=== PATIENT | female | born 1955 | race Caucasian/White ===

== ENCOUNTER → 2017-09-15 10:51 | Outpatient (CLI) | payer MEDICARE, MEDICAID, SELFPAY ==
[2017-09-15 11:26] VITALS: PULSE 109; PULSE 111; PULSE 112; PULSE 116; PULSE 117; PULSE 88; PULSE 90; O2SAT 90; O2SAT 91; O2SAT 92; O2SAT 95; O2SAT 96
--- NOTE | 2017-09-15 13:46 | WT_ITS ---
PSN 6 Minute Walk Test - 6 Minute Walk Test 6 Minute Walk Test: 6 Minute Walk Test PSN:6-Minute Walk Test Start: 09/15/17 11: 25 Freq: Status: Active Protocol: [id number] Document 09/15/17 11:26 SUBHASH (Rec: 09/15/17 11:28 SUBHASH [id number]) 6 Minute Walk Test Date Performed 09/15/17 Time Performed 11:00 Height 5 ft 5 in Weight: 200 lb Weight in Pounds 200.[address]: Sin Nobles Assistive device used: None Pre-test Oxygen Delivery Method Room Air Pulse Ox (%) 96 Pulse Rate (60-100 beats/min) 88 Dyspnea Jocelyn Scale (0-10) 0 Exertion Jocelyn Scale (6-20) 6 1st minute Oxygen Delivery Method Room Air Pulse Ox (%) 95 Pulse Rate (60-100 beats/min) 109 H 2nd minute Oxygen Delivery Method Room Air Pulse Ox (%) 92 Pulse Rate (60-100 beats/min) 111 H 3rd minute Oxygen Delivery Method Room Air Pulse Ox (%) 90 Pulse Rate (60-100 beats/min) 112 H 4th minute Oxygen Delivery Method Room Air Pulse Ox (%) 91 Pulse Rate (60-100 beats/min) 117 H 5th minute Oxygen Delivery Method Room Air Pulse Ox (%) 92 Pulse Rate (60-100 beats/min) 117 H 6th minute Oxygen Delivery Method Room Air Pulse Ox (%) 92 Pulse Rate (60-100 beats/min) 116 H Dyspnea Jocelyn Scale (0-10) 3 Exertion Jocelyn Scale (6-20) 12 Post-test Oxygen Delivery Method Room Air Pulse Ox (%) 96 Pulse Rate (60-100 beats/min) 90 Full Laps Walked 16 Partial Lap, Number of Tiles Walked 17 Total Distance Walked (ft) 961 - Interpretation Interpretation: The patient ambulated 961 feet over the course of 6 minutes beginning on room air without assistive devices or breaks. Pretesting oxygen saturation was noted to be 96% on room air. With ambulation, the sapphire oxygen saturation was 90%. This represents a significant exertional oxygen desaturation. The patient did develop physiologic tachycardia with exertion. - Recommendations Recommendations: There is no indication for the use of supplemental oxygen at this time. However , close interval follow-up is recommended given the degree of oxygen desaturation noted during this study.
== END ==
PROVIDERS: Family Provider Family Medicine; PCP Family Medicine; Visit Provider Nurse Practitioner Acute Care
DX: J43.9 Emphysema, unspecified (principal); R06.09 Other forms of dyspnea
CPT/HCPCS: 94618

== ENCOUNTER → 2017-12-20 08:00 | Outpatient (CLI) | payer MEDICARE, MEDICAID, SELFPAY ==
--- NOTE | 2017-12-20 08:00 | DT_ITS ---
This patient was seen during an EMR downtime December 19, 2017 - December 26, 2017. This patient may have a combination of paper and electronic documentation or all paper documentation. All documentation is viewable within the e-chart portion of [facility] for each patient visit.
--- NOTE | 2017-12-20 08:05 | CT_ITS ---
STUDY: LOW DOSE CT LUNG CANCER SCREENING REASON FOR EXAM: Female, 62 years old. 35 pack-year smoking history. RADIATION DOSAGE (If Supplied By Facility): CTDIvol = ( 4.02 ) mGy, DLP = ( 133.91 ) mGycm TECHNIQUE: No contrast was administered. Low dose technique was utilized (average mAS-38 and kVp 120). 1.25 mm axial source images with a slice interval of 1.25-mm were reconstructed in lung windows. 2.5 mm axial source images with a slice interval of 2.5-mm were reconstructed in lung windows. 5.0 mm axial source images with a slice interval of 5.0-mm were reconstructed in soft tissue windows. Nodule measured using lung windows on PACS and/or independent workstation with automated measurement of minimum and maximum diameter. Nodule measurement reported as average diameter rounded to the nearest whole number. Growth is defined as an increase ins size of greater than 1.5 mm. COMPARISON: Chest, November 03, 2016. NODULES: Nodule #: 1 Density: Solid Lung location: Left lower lobe: 0.3 cm from pleura Location in series: Series Number: 2 Image: 138 Size - D1 x D2 mm: 3 x 3 mm: 3 mm average diameter Margin: Smooth Shape: Rounded Calcification: Yes Fat: No Temporal comparison: None Nodule #: 2 Density: Solid Lung location: Left lower lobe: Pleural-based Location in series: Series Number: 3 Image: 151 Size - D1 x D2 mm: 2 x 2 mm: 2 mm average diameter Margin: Smooth Shape: Rounded Calcification: No Fat: No Temporal comparison: None Total lung nodules (excluding granulomas): 1 Emphysema: Yes Endobronchial lesion: No Aorta: There is atherosclerotic tortuosity of the thoracic aorta without aneurysm. Coronary arteries: None Heart: Normal in size Pulmonary artery: Normal Mediastinal nodes: None Other chest and abdominal findings: There are degenerative changes of the thoracic spine. CT/Low Dose CT Lung Screening IMPRESSION: Lung-RADS category 2 - Continue annual screening with LDCT in 12 months. IMPORTANT NOTES FOR USE: ACR Lung-RADS Version 1.0 Assessment Categories Release Date: November 12, 2013 Category: Coded 0-4 bases on nodule(s) with highest degree of suspicion. Negative screen is defined as categories 1 and 2; a positive screen is defined as categories 3 and 4. Category 3 and 4A nodules that are unchanged on interval CT should be coded as category 2, and individuals returned to screening in 12 months. Category 4X: Category 3 or 4 nodules with additional imaging findings that increase the suspicion of lung cancer, such as spiculation, GGN that doubles in size in 1 year, enlarged lymph notes, etc. Category Modifiers: S (significant finding unrelated to lung cancer) and C (prior history of treated lung cancer) may be added to the 0-4 Lung-RADS Electronically Signed: Darren Ngo DO at 10:44 EDT Tel [phone], Service support ,
--- NOTE | 2017-12-26 11:15 | PFT ---
INTRODUCTION: The patient is a 62-year-old female that presents for pulmonary function testing secondary to a diagnosis of COPD. Respiratory therapy reports good patient effort. Bronchodilators were used during testing. INTERPRETATION: Forced expiration spirometry demonstrates the presence of a very severe large airways obstructive ventilatory defect. There was a significant response to aerosolized bronchodilators noted. Spirograms are of good quality and do not plateau indicating slow emptying of the lungs. The respiratory flow volume loop reveals decreased expiratory flow rates at all lung volumes consistent with airways obstruction. Body plethysmography was performed and reveals an elevated RV to 169% of predicted, indicative of underlying air trapping. Diffusing capacity by single breath CO is moderately reduced at 48% of predicted. IMPRESSION: These pulmonary function studies demonstrate the presence of a partially reversible very severe large airways obstructive ventilatory defect with associated air trapping and reduction in diffusing capacity.
== END ==
PROVIDERS: Family Provider Family Medicine; PCP Family Medicine; Visit Provider Internal Medicine Critical Care Medicine
DX: J44.9 Chronic obstructive pulmonary disease, unspecified (principal); F17.201 Nicotine dependence, unspecified, in remission; Z87.891 Personal history of nicotine dependence
CPT/HCPCS: 94060; 94726; 94729; G0297

== ENCOUNTER → 2018-02-10 10:15 | Outpatient (RCR) | payer MEDICARE, MEDICAID, SELFPAY ==
--- NOTE | 2018-01-19 10:46 | PCM.PR.HP ---
History of Present Illness Arrival date:: 01/19/18 Arrival time:: 10:47 Date of Referral:: 01/11/18 Date of Evaluation: 01/19/18 Referring Physician: DR. BENITA NOBLES Primary Diagnosis: VERY SEVERE COPD Gold Classification Stage IV History of Present Illness: This is a 62 year old female patient of Dr. Benita Nobles's who presents to pulmonary rehab today for her COPD. Tpe patient also has a medical hsitory of LILIA and hypoxia for which she wears BiPaP 28/02 at HS. mMRC Breathless Scale: When is the patient short of breath? Y/N Grade: Description of Breathlessness: 0 I only get breathless with strenuous exercise. 1 I get short of breath when hurrying on level ground or walking up a slight hill. 2 On level ground, I walk slower than people of the same age because of breathless, or have to stop for breath when walking at my own pace. 3 I stop for breath after walking 100 yards or after a few minutes on level ground. 4 I am too breathless to leave the house or I am breathless when dressing. Respiratory Problems: Yes: Wheezing, Able to Speak in Full Sentences, Hoarseness, Dyspnea with Activity No: Retain Secretions, Limited Range of Motion, Fatigue, Dizziness, Ankle Swelling, Dyspnea at Rest, Dyspnea Lying Down Flat, Cough with Secretions Home Medications: Home Medications Aspirin [Ecotrin] 81 mg PO DAILY 10/04/13 Bupropion HCl [Wellbutrin Sr] 200 mg PO DAILY 10/04/13 Famotidine [Pepcid] 20 mg PO PRN PRN 10/04/13 Levothyroxine Sodium [Levoxyl] 125 mcg PO DAILY 10/04/13 Lisinopril [Zestril] 20 mg PO DAILY 10/04/13 Hydrochlorothiazide [Hctz] 25 mg PO DAILY 10/31/16 Oxygen, Home [Home Oxygen] 2 lpm NASAL CONT #1 unit 10/31/16 Meloxicam [Mobic] 15 mg PO DAILY PRN 11/03/16 Metformin HCl [Metformin HCl ER] 500 mg PO BREAKFAST 11/03/16 Rosuvastatin Calcium [Crestor] 5 mg PO QHS 11/03/16 budesonide-formoterol HFA 160 mcg-4.5 mcg/actuation aerosol inhaler 2 puff INHALATION Q12H 09/21/17 albuterol sulfate HFA 90 mcg/actuation aerosol inhaler 2 puff INHALATION Q6H PRN 10/24/17 prednisone 10 mg tablet 10 mg PO QDAY #30 tab 10/24/17 varenicline 0.5 mg (11)-1 mg (42) tablets in a dose pack See Label Instructions PO PER PKG DIR #53 tab 10/24/17 tiotropium bromide 18 mcg capsule with inhalation device 1 cap INHALATION QDAY #30 inh 11/02/17 Allergies/Adverse Reactions: Allergies No Known Allergies Allergy (Verified 10/24/17 10:50) - Secretions Normal Color:: clear Thick:: No Thin:: No Amount/Day:: very small amounts Cough:: Yes Hx of Sleep Apnea: Yes Do you snore loudly (louder than talking or can be heard through closed doors)?: Yes - patient currently has BiPAP at for nocturnal hypoxia and LILIA. History of Hypertension (for STOP score): Yes Medical Utilization Do you use a peak flow meter at home?: No Do you use a spacer device with your inhalers?: No Number of hospital visits in the last year?: 0 Number of emergency room visits in the last year?: 0 Do you see your physician on a regular schedule?: Yes How often?: 6 months PCP; 3 months PM Advanced Directives - Advanced Directives Power of Surveyor Instrument Assistant: No Living Will: No Advance Directives Information Provided: Yes Advance Directives on File: No DNR Order?:: No - MOLST See MOLST form: No Past Medical History Medical History: Past Medical History (Last Reviewed 10/24/17 @ 10:55 by MOUNA Contreras) Chronic migraine G43.709 Hypertension I10 Hypoxia R09.02 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 Nocturnal hypoxia G47.34 PND (paroxysmal nocturnal dyspnea) R06.00 Right ankle pain M25.571 Shortness of breath R06.02 Stage 4 very severe COPD by GOLD classification J44.9 Wheezing R06.2 Dislocation of ankle joint S93.06XA Other fracture of right lower leg, initial encounter for closed fracture S82.891A Surgical History: Past Surgical History (Last Reviewed 10/24/17 @ 10:55 by MOUNA Contreras) Tubal ligation evaluation Z01.818 Family History: Family History (Last Reviewed 10/24/17 @ 10:55 by MOUNA Contreras) Mother Cancer Leukemia Father COPD (chronic obstructive pulmonary disease) - Current/ Previous Services Pulmonary Rehab:: No Social History - Smoking History Smoking Status: Former smoker Years Smokin - started age 14 Packs Smoked per Day: 1 Hx Smoking Cessation Date: 2015 Hx Tobacco Use: Yes Hx Smoking Exposure: Yes - a little now; kids now smoking outside - Alcohol Use Alcohol Usage: No - Substance Abuse Hx Substance Use: No - previous use of crack/cocaine - Occupation Occupation (List type of work in comments):: Retired - Hobbies, Recreation, Social Activities Hobbies: Reading Recreational Activities: I am able to engage in all my recreational activities Functioning ADL/IADL - Current Ability Current Ability: Independent Self-Care (e.g.,grooming, dressing, & bathing), Independent Ambulation, Independent Transfer, Independent Household tasks (e.g., light meal prep, laundry, shopping) - Pt Functioning Prior to Problem Prior Functioning: Self-Care (e.g.,grooming, dressing, & bathing): Independent, Ambulation: Independent, Transfer: Independent, Household tasks (e.g., light meal prep, laundry, shopping): Independent Social Environment - Status Marital Status: - Current Living Arrangements Living Environment:: Alone - Children How many children do you have?: 3 - 5 grandchildren Do any of your children live nearby?: Yes - Safety Do you feel safe in your surroundings?: Yes - Assistance Do you need any assistance at home?: none Review of Systems Review of Systems: Right click = Denies (Slash). Left click = Reports ([place]) Respiratory: Reports: SOB upon Exertion, Wheezing, Appetite, Normal, Sleep, Normal. Denies: Cough, SOB at Rest, Sputum production, Dizziness/Lightheadedness, Fatigue Is Patient Pain Free?: No Pain Location: none Pain Level: 0/10 Risk Factor Assessment - Chief Complaint Chief Complaint: Patient is a very pleasant 63 yr old femal who has a previous history of LILIA, hypoxia, nocturnal hypoxia and very severe COPD. The patient was orginally referred back in October of 2017 but wanted to be sure the influenza season and weather was cleared before starting the program. - Vital Signs Temperature: 98.7 F Pulse Rate: 97 Pulse Rhythm: Regular Respiratory Rate: 18 Pulse Ox: 94 - room air Blood Pressure: 118/62 Nailbeds:: pink - Diabetes Diabetic History: Type II, Medication Dependent - metformin 500mg in AM w/breakfast Nutrition Referral for Diabetes: No - Obesity Height: 5 ft 5 in Weight:: 203 lb Weight in Pounds: 203.0 lbs Weight Source: Standing Scale Body Mass Index (BMI): 33.7 - For Smoking Smoking Risk Guidelines: Smoking Low Risk: None or quit greater than 6 months ago. Smoking Moderate Risk: Smoker or quit 6 months or less ago. Smoking High Risk: Smoker - For Dyslipidemia Dyslipidemia Risk Guidelines: Low Risk: Moderate Risk: High Risk: 15-25% fat 25.1-29% fat >/= 30% fat. <7% sat fat 7-9% sat fat >9% sat fat. <150 mg chol 150-299 mg chol >/= 300 mg chol. LDL <100 LDL 100-129 LDL >/= 130. Chol/HDL ratio <5.0 Chol/HDL ratio 5.0-6.0 Chol/HDL ratio >6.0. Triglycerides <100 Triglycerides 100-149 Triglycerides >/= 150 - For Diabetes Mellitus Diabetes Risk Guidelines: Diabetes Low Risk: HgA1c <6.5% and/or FBG <120. Diabetes Moderate Risk: HgA1c 6.6-7.9% and/or FBG 120-180. Diabetes High Risk: HgA1c >/= 8% and/or FBG >180 - For Obesity/Overweight Obesity/Overweight Risk Guidelines: Obesity Low Risk: BMI <25.0. Obesity Moderate Risk: BMI 25-29.9. Obesity High Risk: BMI >/= 30.0 - For Hypertension Hypertension Risk Guidelines: Hypertension Low Risk: Systolic <120 and Diastolic <80. Hypertension Moderate Risk: Systolic 120-139 and Diastolic 80-89. Hypertension High Risk: Systolic >/= 140 and Diastolic >/= 90 - For Sedentary Lifestyle Sedentary Lifestyle Risk Guidelines: Sedentary Lifestyle Low Risk: >/= 1,500 kcal/week. Sedentary Lifestyle Moderate Risk: 700-1,499 kcal/week. Sedentary Lifestyle High Risk: < 700 kcal/week - For Depression Depression Risk Guidelines: Depression Low Risk: Not clinically depressed. Depression Moderate Risk: Mildly depressed. Depression High Risk: Clinically depressed Motivation - Motivation to Participate On a scale of 1 to 10, how prepared are you to commit to attending program?: 8 What do you see as barriers to successfully being able to complete the program?: none What do you see as the benefits of succesfully completing the program? In other words, what do you hope to get out of participating in the program?: breathe better, knowing how to breath correctly, be able to mop and weep Are there issues you are dealing with that will interfere with completing the program?: none Do you have a spouse or signficant other, family or friends who will help support you to complete the program?: yes Diagnostic Data Review - 6 Minute Walk Test 6 Minute Walk Test: see EHR - Pulmonary Function Test FEV1:: 0.57 - 23% predicted FVC:: 1.76 - 53% predicted FEV1/FVC%:: 33 Gold Classification: Gold class IV(very severe COPD)with FEV1/FVC <70, FEV1 <30% predicted
--- NOTE | 2018-01-19 10:57 | PR.HP_ITS ---
History of Present Illness Arrival date:: 01/19/18 Arrival time:: 10:47 Date of Referral:: 01/11/18 Date of Evaluation: 01/19/18 Referring Physician: DR. BENITA NOBLES Primary Diagnosis: VERY SEVERE COPD Gold Classification Stage IV History of Present Illness: This is a 62 year old female patient of Dr. Benita Nobles's who presents to pulmonary rehab today for her COPD. Tpe patient also has a medical hsitory of LILIA and hypoxia for which she wears BiPaP 28/02 at [facility]. [facility] Breathless Scale: When is the patient short of breath? Y/N Grade: Description of Breathlessness: 0 I only get breathless with strenuous exercise. 1 I get short of breath when hurrying on level ground or walking up a slight hill. 2 On level ground, I walk slower than people of the same age because of breathless, or have to stop for breath when walking at my own pace. 3 I stop for breath after walking 100 yards or after a few minutes on level ground. 4 I am too breathless to leave the house or I am breathless when dressing. Respiratory Problems: Yes: Wheezing, Able to Speak in Full Sentences, Hoarseness , Dyspnea with Activity No: Retain Secretions, Limited Range of Motion, Fatigue, Dizziness, Ankle Swelling, Dyspnea at Rest, Dyspnea Lying Down Flat, Cough with Secretions Home Medications: Home Medications Aspirin [Ecotrin] 81 mg PO DAILY 10/04/13 Bupropion HCl [Wellbutrin Sr] 200 mg PO DAILY 10/04/13 Famotidine [Pepcid] 20 mg PO PRN PRN 10/04/13 Levothyroxine Sodium [Levoxyl] 125 mcg PO DAILY 10/04/13 Lisinopril [Zestril] 20 mg PO DAILY 10/04/13 Hydrochlorothiazide [Hctz] 25 mg PO DAILY 10/31/16 Oxygen, Home [Home Oxygen] 2 lpm NASAL CONT #1 unit 10/31/16 Meloxicam [Mobic] 15 mg PO DAILY PRN 11/03/16 Metformin HCl [Metformin HCl ER] 500 mg PO BREAKFAST 11/03/16 Rosuvastatin Calcium [Crestor] 5 mg PO QHS 11/03/16 budesonide-formoterol HFA 160 mcg-4.5 mcg/actuation aerosol inhaler 2 puff INHALATION Q12H 09/21/17 albuterol sulfate HFA 90 mcg/actuation aerosol inhaler 2 puff INHALATION Q6H PRN 10/24/17 prednisone 10 mg tablet 10 mg PO QDAY #30 tab 10/24/17 varenicline 0.5 mg (11)-1 mg (42) tablets in a dose pack See Label Instructions PO PER PKG DIR #53 tab 10/24/17 tiotropium bromide 18 mcg capsule with inhalation device 1 cap INHALATION QDAY # 30 inh 11/02/17 Allergies/Adverse Reactions: Allergies No Known Allergies Allergy (Verified 10/24/17 10:50) - Secretions Normal Color:: clear Thick:: No Thin:: No Amount/Day:: very small amounts Cough:: Yes Hx of Sleep Apnea: Yes Do you snore loudly (louder than talking or can be heard through closed doors)? : Yes - patient currently has BiPAP at for nocturnal hypoxia and LILIA. History of Hypertension (for STOP score): Yes Medical Utilization Do you use a peak flow meter at home?: No Do you use a spacer device with your inhalers?: No Number of hospital visits in the last year?: 0 Number of emergency room visits in the last year?: 0 Do you see your physician on a regular schedule?: Yes How often?: 6 months PCP; 3 months PM Advanced Directives - Advanced Directives Power of Credit And Collections Analyst: No Living Will: No Advance Directives Information Provided: Yes Advance Directives on File: No DNR Order?:: No - MOLST See MOLST form: No Past Medical History Medical History: Past Medical History (Last Reviewed 10/24/17 @ 10:55 by MOUNA Contreras) Chronic migraine G43.709 Hypertension I10 Hypoxia R09.02 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 Nocturnal hypoxia G47.34 PND (paroxysmal nocturnal dyspnea) R06.00 Right ankle pain M25.571 Shortness of breath R06.02 Stage 4 very severe COPD by GOLD classification J44.9 Wheezing R06.2 Dislocation of ankle joint S93.06XA Other fracture of right lower leg, initial encounter for closed fracture S82.891A Surgical History: Past Surgical History (Last Reviewed 10/24/17 @ 10:55 by MOUNA Contreras) Tubal ligation evaluation Z01.818 Family History: Family History (Last Reviewed 10/24/17 @ 10:55 by MOUNA Contreras) Mother Cancer Leukemia Father COPD (chronic obstructive pulmonary disease) - Current/ Previous Services Pulmonary Rehab:: No Social History - Smoking History Smoking Status: Former smoker Years Smokin - started age 14 Packs Smoked per Day: 1 Hx Smoking Cessation Date: 2015 Hx Tobacco Use: Yes Hx Smoking Exposure: Yes - a little now; kids now smoking outside - Alcohol Use Alcohol Usage: No - Substance Abuse Hx Substance Use: No - previous use of crack/cocaine - Occupation Occupation (List type of work in comments):: Retired - Hobbies, Recreation, Social Activities Hobbies: Reading Recreational Activities: I am able to engage in all my recreational activities Functioning ADL/IADL - Current Ability Current Ability: Independent Self-Care (e.g.,grooming, dressing, & bathing), Independent Ambulation, Independent Transfer, Independent Household tasks (e.g. , light meal prep, laundry, shopping) - Pt Functioning Prior to Problem Prior Functioning: Self-Care (e.g.,grooming, dressing, & bathing): Independent, Ambulation: Independent, Transfer: Independent, Household tasks (e.g., light meal prep, laundry, shopping): Independent Social Environment - Status Marital Status: - Current Living Arrangements Living Environment:: Alone - Children How many children do you have?: 3 - 5 grandchildren Do any of your children live nearby?: Yes - Safety Do you feel safe in your surroundings?: Yes - Assistance Do you need any assistance at home?: none Review of Systems Review of Systems: Right click = Denies ([place]). Left click = Reports ([place]) Respiratory: Reports: SOB upon Exertion, Wheezing, Appetite, Normal, Sleep, Normal. Denies: Cough, SOB at Rest, Sputum production, Dizziness/ Lightheadedness, Fatigue Is Patient Pain Free?: No Pain Location: none Pain Level: 0/10 Risk Factor Assessment - Chief Complaint Chief Complaint: Patient is a very pleasant 63 yr old femal who has a previous history of LILIA, hypoxia, nocturnal hypoxia and very severe COPD. The patient was orginally referred back in October of 2017 but wanted to be sure the influenza season and weather was cleared before starting the program. - Vital Signs Temperature: 98.7 F Pulse Rate: 97 Pulse Rhythm: Regular Respiratory Rate: 18 Pulse Ox: 94 - room air Blood Pressure: 118/62 Nailbeds:: pink - Diabetes Diabetic History: Type II, Medication Dependent - metformin 500mg in AM w/ breakfast Nutrition Referral for Diabetes: No - Obesity Height: 5 ft 5 in Weight:: 203 lb Weight in Pounds: 203.0 lbs Weight Source: Standing Scale Body Mass Index (BMI): 33.7 - For Smoking Smoking Risk Guidelines: Smoking Low Risk: None or quit greater than 6 months ago. Smoking Moderate Risk: Smoker or quit 6 months or less ago. Smoking High Risk: Smoker - For Dyslipidemia Dyslipidemia Risk Guidelines: Low Risk: Moderate Risk: High Risk: 15-25% fat 25.1-29% fat >/= 30% fat. <7% sat fat 7-9% sat fat >9% sat fat. <150 mg chol 150-299 mg chol >/= 300 mg chol. LDL <100 LDL 100-129 LDL >/= 130. Chol/HDL ratio <5.0 Chol/HDL ratio 5.0-6.0 Chol/HDL ratio >6.0. Triglycerides <100 Triglycerides 100-149 Triglycerides >/= 150 - For Diabetes Mellitus Diabetes Risk Guidelines: Diabetes Low Risk: HgA1c <6.5% and/or FBG <120. Diabetes Moderate Risk: HgA1c 6.6-7.9% and/or FBG 120-180. Diabetes High Risk: HgA1c >/= 8% and/or FBG >180 - For Obesity/Overweight Obesity/Overweight Risk Guidelines: Obesity Low Risk: BMI <25.0. Obesity Moderate Risk: BMI 25-29.9. Obesity High Risk: BMI >/= 30.0 - For Hypertension Hypertension Risk Guidelines: Hypertension Low Risk: Systolic <120 and Diastolic <80. Hypertension Moderate Risk: Systolic 120-139 and Diastolic 80-89. Hypertension High Risk: Systolic >/= 140 and Diastolic >/= 90 - For Sedentary Lifestyle Sedentary Lifestyle Risk Guidelines: Sedentary Lifestyle Low Risk: >/= 1 ,500 kcal/week. Sedentary Lifestyle Moderate Risk: 700-1,499 kcal/week. Sedentary Lifestyle High Risk: < 700 kcal/week - For Depression Depression Risk Guidelines: Depression Low Risk: Not clinically depressed. Depression Moderate Risk: Mildly depressed. Depression High Risk: Clinically depressed Motivation - Motivation to Participate On a scale of 1 to 10, how prepared are you to commit to attending program?: 8 What do you see as barriers to successfully being able to complete the program? : none What do you see as the benefits of succesfully completing the program? In other words, what do you hope to get out of participating in the program?: breathe better, knowing how to breath correctly, be able to mop and weep Are there issues you are dealing with that will interfere with completing the program?: none Do you have a spouse or signficant other, family or friends who will help support you to complete the program?: yes Diagnostic Data Review - 6 Minute Walk Test 6 Minute Walk Test: see EHR - Pulmonary Function Test FEV1:: 0.57 - 23% predicted FVC:: 1.76 - 53% predicted FEV1/FVC%:: 33 Gold Classification: Gold class IV(very severe COPD)with FEV1/FVC <70, FEV1 <30 % predicted
[2018-01-19 11:06] VITALS: BP 118/62; PULSE 97; RESP 18; TEMP 37.1; O2SAT 94; BMI 33.7
--- NOTE | 2018-01-19 11:06 | PR.ITP_ITS ---
General Information - General Information Admitting Diagnosis: COPD Gold Classification:: GOLD 4: Very Severe - PFT FEV1:: 0.57 FVC:: 1.76 FEV1/FVC%:: 33 - Education/Goals Barriers to Learning: None Individual Counseling: Initial Assessment: Dyspnea control techniques at rest, activity, and ADLs, Exacerbation prevention & management, ADL management and pacing, Home exercise plan & guidelines Patient Goals: Breathe better: Initial Assessment, Increase endurance/stamina: Initial Assessment, Return to recreation/hobby: Initial Assessment, Improve diet and nutrition: Initial Assessment, Symptom management: Initial Assessment, Stop smoking/maintain cessation: Initial Assessment, Improve weight: Initial Assessment Exercise - Initial Assessment - Visit Date of Eval: 01/19/18 - Established ITp start on: - Problem/Goals Problems: Deconditioning, Knowledge deficit exercise guidelines, Knowledge deficit exercise safety - Exercise Prescription Mode:: Treadmill, Rower, Airdyne, NuStep Frequency (x/week): 3 Duration:: 30 MET LEVEL:: 2.5 HR (bpm):: 117 - 106-117 THRR Exercise Progression: as tolerated per program protocol. - Plan Plan and Plan to Review:: Benefits of exercise, Core components of exercise, How to measure dyspnea level, How to monitor dyspnea level, Exercise intensity, Exercise safety guideline, Home exercise guidelines, Jocelyn: 3-4/11-13 Disease Management - Initial - Problems/Goals-Hypoxemia Hypoxemia Problems:: Hypoxemia Hypoxemia Goals:: Hypoxemia managed - Problems/Goals-Medications Medication Goals: Correct technique/timing & care of MDI, DPI, nebulizer, and spacer. - Problems/Goals-Bronchial Hygiene Bronchial Hygiene Problems:: Respiratory infection Prevention/Management Bronchial Hygiene Goals:: Pt demonstrates effective cough, effective secretion clearance., Pt describes signs and symptoms of infection. - Initial Assessment SpO2:: 94 FiO2:: 21 DME:: [facility] Does pt report taking home meds as prescribed?: Yes Medications: Yes MDI, Yes DPI, Yes NEB - only when has infection, No Spacer Patient Reports:: No cough - Plans Hypoxemia Plan:: Monitor SpO2 rest & with exercise, Train appropriate O2 use at rest, Train appropriate O2 use with exercise, Train O2 safety & systems Reviewed prescribed medications:: Purpose, Schedule, Side effects, Importance of compliance Instruct correct technique/timing & care:: MDI, DPI, Nebulizer, Return demo use of inhaler Bronchial Hygiene Plan: Controlled cough, Vibratory PEP device, Hydration, Hand hygiene, Signs/symptoms to report: Psychosocial - Initial Assess - Problems/Goals Problems: Impaired Q.O.L. Psychosocial Goals: Improved Q.O.L. - Psychosocial Test Depression:: Impaired QOL Referred to MD for counseling:: No - Plan Reviewed screening results: Yes Instructions given regarding:: Benefits of exercise, Relaxation techniques, Training in coping strategies Tobacco - Initial Assessment - Program Goals Tobacco Program Goals: Complete smoking cessation. Attend education classes. Improve Knowledge Test score - Stage of Change Stages of Change:: Action - Learning Barriers Learning Barriers: Ready to Learn - Family Support Do you have family support?: Yes - Tobacco Use Tobacco Use: Cigarettes How long ago did you quit using tobacco products?: Greater than or equal to 6 months ago Years Smokin Do you use smokeless tobacco?: No - Intervention Smoking Cessation Referral:: Yes - still smokes on occasion; requires support for complete smoking cessation Individual Education/Counseling:: No Education Schedule Given:: Yes - Education Gave Education Materials For:: Tobacco Triggers, Pulmonary Disease, Risk Factors , Breathing Techniques, Medical Compliance, Pulmonary A&P, Exacerbation Signs & Symptoms, Stress & Relaxation Nutrition/Wt Mgmt - Initial - Problems/Goals Problems: Overweight Goals: BMI 21-25, Wt Loss 1-2 lbs per week - Weight Management Knowledge Deficit Management of:: Overweight, Weight control w/Prednisone Admit Height:: 5 ft 5 in Admit Weight:: 203 lb Admit BMI:: 33.7 - Diabetes Diabetes:: Yes - Intervention Referral to dietitian:: Yes - Borderline DM Type II Metformin 500mg breakfast; unsure of last HbA1c Referral to Diabetic Clinic:: Yes Will attend diet classes:: Yes - Plan Nutrition Plan: Yes Nutrition education class:, Yes Medication education class [ Prednisone]:, Yes Weight control education class: Patient Health Questionnaire Initial Assessment 1. Little interest or pleasure in doing things: Several days 2. Feeling down, depressed, or hopeless: Several days 3. Trouble falling or staying asleep, or sleeping too much: Several days 4. Feeling tired or having little energy: Several days 5. Poor appetite or overeating: More than half the days 6. Feeling bad about yourself -- or that you are a failure or have let yourself or your family down: Several days 7. Trouble concentrating on things, such as reading the newspaper or watching television: Not at all 8. Moving or speaking so slowly that other people could have noticed. Or the opposite - being so fidgety or restless that you have been moving around a lot more than usual: Not at all 9. Thoughts that you would be better off , or of hurting yourself in some way: Not at all How difficult have these problems made it for you to do your work, take care of things at home, or get along with other people?: Somewhat difficult Total Score: 7 COPD Knowledge Test Initial COPD is a lung disease that:: Makes it hard to breathe & gets worse over time In the [place] the term COPD describes 2 main lung conditions:: Emphysema & pulmonary hypertension The most common lung irritant that causes COPD is:: Cigarette smoke Common signs and symptoms of COPD include:: An ongoing cough/cough that produces a large amount of mucus, & SOB If you have COPD, what steps can you take?: All of the above Swelling of the ankles is common in COPD:: False Fatigue [tiredness] is common in COPD:: True Wheezing is common in COPD:: True Crushing chest pain is common in COPD:: False Rapid weight loss is common in COPD:: False Breathlessness is a normal response to exercise: True Exercise should be avoided if it makes you short of breath: False All bronchodilators act within 10 minutes: True A spacer device increases the medication to the lungs: False Annual flu vaccine is recommended for pts w/lung disease: True COPD Knowledge Test Total Score:: 12 COPD Assessment Test [CAT] - Questions Never cough = 0, Cough all the time = 5: 4 No phlegm = 0, Chest full of phlegm = 5: 4 No chest tightness = 0, Chest very tight = 5: 3 No breathless w/exertion = 0, Very breathless w/exertion = 5: 5 No limitations w/activity = 0, Very limited w/activity = 5: 3 Confident leaving home = 0, Not at all confident = 5: 0 Sleep soundly = 0, Don't sleep soundly = 5: 2 Lots of energy = 0, No energy at all = 5: 3 Total CAT score:: 24 Self-Efficacy Initial Assessment We would like to know how confident you are in doing certain activities. Please select your confidence level for:: Select your confidence level for the following using the scale 1-10 where 1 is not at all confident and 10 is totally confident. Your score is the average of all 6 responses. Fatigue: How confident are you that you can keep the fatigue caused by your disease from interfering with the things you want to do? Select Number: 5 Physical Discomfort or Pain: How confident are you that you can keep the physical discomfort or pain of your disease from interfering with the things you want to do? Select Number: 5 Emotional Distress: How confident are you that you can keep the emotional distress caused by your disease from interfering with the things you want to do? Select Number: 8 Other Symptoms or Health Problems: How confident are you that you can keep other symptoms or health problems from interfering with the things you want to do? Select Number: 7 Different Tasks and Activities: How confident are you that you can do the different tasks and activities needed to manage your health condition so as to reduce your need to see a doctor? Select Number: 7 Medication: How confident are you that you can do things other than just taking medication to reduce how much your illness affects your everyday life? Select Number: 8 Total Score:: 6 Nutrition Survey - Nutrition Survey Instructions Scoring Instructions: Scoring is as follows: Yes = 1 points. No = 0 point. Patient score that is >/=12 is considered to be at potential nutritional risk and could benefit from a referral to a registered dietitian. - Nutrition Survey Initial Have you lost >10 lbs over the past 2 months without trying?: No Are you following a special diet at home for diabetes, low fat, or low salt?: No Are you interested in meeting with a dietitian for help understanding your diet? : Yes Do you eat less than 3 meals a day?: Yes Do you eat fatty meats (galarza, sausage, ribs, etc), fried foods, desserts, large amounts of salad dressings, margarine, butter, or cheese most days?: Yes Do you have food allergies? [Enter types in comment field]: No Do you eat in restaurants more than 3 times a week?: No Do you season food with salt, seasoning salt, or garlic salt?: Yes Do you used canned, boxed, frozen meals, or soups, seasoning packets?: Yes Total Score:: 5
--- NOTE | 2018-01-19 11:34 | PCM.PR.DAT ---
Dates of Coverage Times for Dates Of Coverage; All dates of coverage are for physician supervision/medical voucher clerk for during the times of 08:00 AM through 4:30 PM. Effective Mar 18, 2013 our hours will be changing to 8:00 to 4:30 on Tuesday, Tuesday and Tuesday. First Date of the Month: 01/19/18 Last Date of the Month: 02/14/18
[2018-01-19 12:20] VITALS: O2SAT 94; BMI 33.7
--- NOTE | 2018-02-07 08:14 | PR.DATECOV_ITS ---
Dates of Coverage Times for Dates Of Coverage; All dates of coverage are for physician supervision /diagnostic medical sonographer for during the times of 08:00 AM through 4:30 PM. Effective Mar 18, 2013 our hours will be changing to 8:00 to 4:30 on Tuesday, Tuesday and Tuesday. First Date of the Month: 02/15/18 Last Date of the Month: 03/17/18
--- NOTE | 2018-02-07 08:23 | PR.ITP_ITS ---
Exercise - 30-Day Assessment - Exercise Prescription Mode:: Treadmill, Airdyne, NuStep, Arm Ergometer Frequency (x/week): 3 Duration:: 30 Aerobic Exercise [30-60 min 3-7x/week]:: Progressing Target heart rate: 117-125 Jocelyn-12 MET Level:: 2.5 - Home Exercise Home Exercise:: No Disease Management - 30-Day - Hypoxemia Reassessment: Demonstrates knowledge of O2 Rx with exercise - Medications Medication list reviewed:: Yes Taking medications 100% of the time:: Met - Bronchial Hygiene Bronchial Hygiene Plan: Yes Pt demo correct for device - inbstruct use of IMT and SMI devices; returned demonstration. Psychosocial - 30-Day - Assessment Reassessment: Management of stress & depression, Demonstrate coping strategies Tobacco - 30-Day Assessment - Program Goals Tobacco Program Goals: Complete smoking cessation. Attend education classes. Improve Knowledge Test score - Stage of Change Stages of Change:: Action - Learning Barriers Learning Barriers: Participates in education - Family Support Do you have family support?: Yes - Tobacco Use Tobacco Use: Non-smoker Do you use smokeless tobacco?: No - Intervention Education Schedule Given:: Yes - Education Gave Education Materials For:: Tobacco Triggers, Pulmonary Disease, Risk Factors , Breathing Techniques, Medical Compliance, Pulmonary A&P, Exacerbation Signs & Symptoms, Stress & Relaxation - Former smoker, previous h/o crack cocaine use and meth claims to be clean. Nutrition/Wt Mgmt - 30-Day - Weight Management Weight Assessment:: Wt loss 1-2 lbs per week, Wt stable Weight:: 206 lb 8 oz Weight Goals Progress:: Not progressing - discussed weight loss with patient and encouraged Nutrition Services Why Weight program. Patient Health Questionnaire 30-Day Re-eval Assessment 1. Little interest or pleasure in doing things: Not at all 2. Feeling down, depressed, or hopeless: Several days 3. Trouble falling or staying asleep, or sleeping too much: Several days 4. Feeling tired or having little energy: Several days 5. Poor appetite or overeating: Several days 6. Feeling bad about yourself -- or that you are a failure or have let yourself or your family down: Not at all 7. Trouble concentrating on things, such as reading the newspaper or watching television: Not at all 8. Moving or speaking so slowly that other people could have noticed. Or the opposite - being so fidgety or restless that you have been moving around a lot more than usual: Not at all 9. Thoughts that you would be better off , or of hurting yourself in some way: Not at all Total Score: 4 COPD Assessment Test [CAT] - Questions Never cough = 0, Cough all the time = 5: 3 No phlegm = 0, Chest full of phlegm = 5: 3 No chest tightness = 0, Chest very tight = 5: 2 No breathless w/exertion = 0, Very breathless w/exertion = 5: 4 No limitations w/activity = 0, Very limited w/activity = 5: 2 Confident leaving home = 0, Not at all confident = 5: 0 Sleep soundly = 0, Don't sleep soundly = 5: 2 Lots of energy = 0, No energy at all = 5: 3 Total CAT score:: 19 Self-Efficacy 30-Day Re-eval Assessment We would like to know how confident you are in doing certain activities. Please select your confidence level for:: Select your confidence level for the following using the scale 1-10 where 1 is not at all confident and 10 is totally confident. Your score is the average of all 6 responses. Fatigue: How confident are you that you can keep the fatigue caused by your disease from interfering with the things you want to do? Select Number: 6 Physical Discomfort or Pain: How confident are you that you can keep the physical discomfort or pain of your disease from interfering with the things you want to do? Select Number: 6 Emotional Distress: How confident are you that you can keep the emotional distress caused by your disease from interfering with the things you want to do? Select Number: 9 Other Symptoms or Health Problems: How confident are you that you can keep other symptoms or health problems from interfering with the things you want to do? Select Number: 8 Different Tasks and Activities: How confident are you that you can do the different tasks and activities needed to manage your health condition so as to reduce your need to see a doctor? Select Number: 8 Medication: How confident are you that you can do things other than just taking medication to reduce how much your illness affects your everyday life? Select Number: 8 Total Score:: 7
== END ==
LOC: PR 01-19 06:47
PROVIDERS: Family Provider Family Medicine; PCP Family Medicine; Visit Provider Internal Medicine Critical Care Medicine
DX: J44.9 Chronic obstructive pulmonary disease, unspecified (principal)
CPT/HCPCS: 97150; G0424

== ENCOUNTER 2018-02-22 08:13 | Outpatient (RCR) | payer MEDICARE, MEDICAID, SELFPAY | END 2018-03-17 23:59 | LOC: DC 08:13 | PROVIDERS: Family Provider Family Medicine; PCP Internal Medicine; Visit Provider Internal Medicine Critical Care Medicine | DX: E11.9 Type 2 diabetes mellitus without complications (principal); J44.9 Chronic obstructive pulmonary disease, unspecified; I10 Essential (primary) hypertension; E66.9 Obesity, unspecified; G47.33 Obstructive sleep apnea (adult) (pediatric); Z71.3 Dietary counseling and surveillance | CPT/HCPCS: 97802; G0108 ==

== ENCOUNTER → 2018-03-07 09:34 | Outpatient (CLI) | payer MEDICARE, MEDICAID, SELFPAY ==
[2018-03-07 10:09] LABS: Absolute Lymphocyte Count 1.36 X10^3/ul (0.83-4.51); Absolute Neutrophil Count 6.4 X10^3/uL (2.0-7.7); Basophil# 0.03 X10^3/uL; Basophil% 0.4 % (0-1); Eosinophils% 2.3 % (0-5); Hematocrit 40.1 % (37-47); Hemoglobin 12.7 g/dl (12.0-15.0); Lymphocyte # 1.36 X10^3/ul (4.0); Lymphocyte % 15.9 % (19-41); Mean Corp Hgb Conc 31.7 g/gl (32-36); Mean Corpuscular Hgb 28.3 pg (27.0-32.0); Mean Corpuscular Volume 89.3 fL (81-99); Mean Platelet Vol. 10.9 fl (6.2-12.0); Monocyte# 0.57 X10^3/uL; Monocyte% 6.7 % (0-10); Neutrophil # 6.36 X10^3/uL (2.7-7.7); Neutrophil % 74.5 % (47-70); POSITIVE COUNT NO; POSITIVE DIFFERENTIAL NO; POSITIVE MORPHOLOGY NO; Platelet Count 244 K/mm3 (150-450); RBC Distribution Width CV 13.9 % (11.6-14.6); RBC Distribution Width SD 45.5 fl (35.1-43.9); Red Blood Count 4.49 M/mm3 (4.2-5.4); White Blood Count 8.5 K/mm3 (4.4-11.0)
[2018-03-07 10:25] LABS: Microalbumin,Random Urine 58.9 mg/L (NO RANGE EST.); Microalbumin:Creatinine Ratio 31.3 mg/g CRE (<30 mg/g CRE)
[2018-03-07 10:38] LABS: BUN 22 mg/dL (7-18); Creatinine, Serum 1.38 mg/dL (0.55-1.02); EST Glomerular Filtration Rate 41 mL/min (>60); Glucose 119 mg/dL (74-106)
[2018-03-07 10:39] LABS: ALB/GLOB Ratio 0.8 RATIO (0.9-2.4); AST(SGOT) 25 U/L (15-37); Alanine Aminotransfer ALT/SGPT 33 U/L (13-56); Albumin, Serum 3.7 g/dL (3.2-5.0); Alkaline Phosphatase 100 U/L (45-117); Anion Gap 10 (5-15); BUN/Creat Ratio 15.9 RATIO (10-20); Calcium,Total 9.9 mg/dL (8.5-10.1); Chloride 103 mmol/L (98-107); Cholesterol 156 mg/dL (200); Est Glom Filt Rate - Afr Amer 49 mL/min (>60); Globulin 4.4 g/dL (2.2-4.2); High Density Lipoprotein 70 mg/dL; Protein, Total 8.1 g/dL (6.4-8.2); Sodium Level 143 mmol/L (136-145); T4 Free Direct 1.25 ng/dL (0.76-1.46); Thyroid Stim Hormone (TSH) 0.17 uIU/mL (0.358-3.74); Triglycerides 102 mg/dL; Very Low Density Lipoprotein 20 mg/dL (5-40)
[2018-03-07 10:41] LABS: Hemoglobin A1c 6.3 % (4.2-6.3)
== END ==
PROVIDERS: Family Provider Internal Medicine; PCP Internal Medicine; Visit Provider Internal Medicine
DX: I10 Essential (primary) hypertension (principal); R73.03 Prediabetes
CPT/HCPCS: 36415; 80053; 80061; 82043; 82570; 83036; 84439; 84443; 85025

== ENCOUNTER 2018-03-15 10:15 | Outpatient (RCR) | payer MEDICARE, MEDICAID, SELFPAY ==
[2018-02-15 00:15] VITALS: BP 118/62; PULSE 97; RESP 18; TEMP 37.1; O2SAT 94
--- NOTE | 2018-03-10 09:12 | PCM.PR.DAT ---
Dates of Coverage Times for Dates Of Coverage; All dates of coverage are for physician supervision/director of medical review for during the times of 08:00 AM through 4:30 PM. Effective Mar 18, 2013 our hours will be changing to 8:00 to 4:30 on Tuesday, Tuesday and Tuesday. First Date of the Month: 03/18/18 Last Date of the Month: 04/16/18
--- NOTE | 2018-03-10 09:16 | PR.ITP_ITS ---
Exercise - 60-Day Assessment - Current Level Mode:: Treadmill, Airdyne, NuStep, Arm Ergometer Frequency (x/week): 3 Duration:: 35 Aerobic Exercise [30-60 min 3-7x/week]:: Progressing Target heart rate: 124-132 Jocelyn-13 MET Level:: 3.1 - Home Exercise Home Exercise:: Yes Frequency:: daily Time (minutes):: 30 - walks Disease Management - 60-Day - Medications Taking medications 100% of the time:: Met Medication reassessment: Yes Pt demonstrates correct technique timing for MDI, Yes Pt demonstrates correct technique timing for DPI, Yes Pt demonstrates correct technique timing for NEB, Yes Pt demonstrates correct technique timing for spacer - return demonstration spacer - Bronchial Hygiene Bronchial Hygiene Plan: Yes Pt demo correct for device - return use acapella, Yes Pt demo correct for hand hygiene Psychosocial - 60-Day - Assessment Depression reassess: Management of stress: Progressing, Management of depression : Progressing, Practicing interventions: Progressing Tobacco - 60-Day Assessment - Program Goals Tobacco Program Goals: Complete smoking cessation. Attend education classes. Improve Knowledge Test score - Stage of Change Stages of Change:: Action - Learning Barriers Learning Barriers: Participates in education - Family Support Do you have family support?: Yes - Tobacco Use Tobacco Use: Non-smoker Do you use smokeless tobacco?: No - Intervention Smoking Cessation Referral:: No Individual Education/Counseling:: No Education Schedule Given:: Yes - Education Gave Education Materials For:: Pulmonary Disease, Risk Factors, Breathing Techniques, Medical Compliance, Pulmonary A&P, Exacerbation Signs & Symptoms, Stress & Relaxation Nutrition/Wt Mgmt - 60-Day - Weight Management Weight:: 204 lb - down 2.5# Weight Goals Progress:: Progressing Patient Health Questionnaire 60-Day Re-eval Assessment 1. Little interest or pleasure in doing things: Not at all 2. Feeling down, depressed, or hopeless: Not at all 3. Trouble falling or staying asleep, or sleeping too much: Not at all 4. Feeling tired or having little energy: Not at all 5. Poor appetite or overeating: Several days 6. Feeling bad about yourself -- or that you are a failure or have let yourself or your family down: Not at all 7. Trouble concentrating on things, such as reading the newspaper or watching television: Not at all 8. Moving or speaking so slowly that other people could have noticed. Or the opposite - being so fidgety or restless that you have been moving around a lot more than usual: Not at all 9. Thoughts that you would be better off , or of hurting yourself in some way: Not at all How difficult have these problems made it for you to do your work, take care of things at home, or get along with other people?: Not difficult at all Total Score: 1 COPD Assessment Test [CAT] - Questions Never cough = 0, Cough all the time = 5: 3 No phlegm = 0, Chest full of phlegm = 5: 3 No chest tightness = 0, Chest very tight = 5: 2 No breathless w/exertion = 0, Very breathless w/exertion = 5: 4 No limitations w/activity = 0, Very limited w/activity = 5: 2 Confident leaving home = 0, Not at all confident = 5: 0 Sleep soundly = 0, Don't sleep soundly = 5: 1 Lots of energy = 0, No energy at all = 5: 2 Total CAT score:: 17 Self-Efficacy 60-Day Re-eval Assessment We would like to know how confident you are in doing certain activities. Please select your confidence level for:: Select your confidence level for the following using the scale 1-10 where 1 is not at all confident and 10 is totally confident. Your score is the average of all 6 responses. Fatigue: How confident are you that you can keep the fatigue caused by your disease from interfering with the things you want to do? Select Number: 6 Physical Discomfort or Pain: How confident are you that you can keep the physical discomfort or pain of your disease from interfering with the things you want to do? Select Number: 6 Emotional Distress: How confident are you that you can keep the emotional distress caused by your disease from interfering with the things you want to do? Select Number: 9 Other Symptoms or Health Problems: How confident are you that you can keep other symptoms or health problems from interfering with the things you want to do? Select Number: 8 Different Tasks and Activities: How confident are you that you can do the different tasks and activities needed to manage your health condition so as to reduce your need to see a doctor? Select Number: 8 Medication: How confident are you that you can do things other than just taking medication to reduce how much your illness affects your everyday life? Select Number: 9 Total Score:: 7
== END 2018-03-17 23:59 ==
LOC: PR 10:15
PROVIDERS: Family Provider Family Medicine; PCP Family Medicine; Visit Provider Internal Medicine Critical Care Medicine
DX: J44.9 Chronic obstructive pulmonary disease, unspecified (principal)
CPT/HCPCS: 97150; G0424

== ENCOUNTER → 2018-03-23 09:46 | Outpatient (CLI) | payer MEDICARE, MEDICAID, SELFPAY | PROVIDERS: Family Provider Family Medicine; PCP Internal Medicine; Visit Provider Internal Medicine | DX: Z12.31 Encounter for screening mammogram for malignant neoplasm of breast (principal) ==

== ENCOUNTER → 2018-03-28 09:48 | Outpatient (CLI) | payer MEDICARE, MEDICAID, SELFPAY ==
--- NOTE | 2018-03-28 09:56 | BD_ITS ---
STUDY: DUAL ENERGY X-RAY ABSORPTIOMETRY / DXA REASON FOR EXAM: Female, 63 years old. Early menopause. Loss of height. TECHNIQUE: Bone Mineral Density (BMD) measurements of lumbar spine and bilateral hips were obtained. COMPARISON: Comparison is made with prior examination dated December 04, 2013. FINDINGS: Lumbar Spine (L1-L4): g/cm2 (1.207) / T-score (0.2) / Z-score (1.8) Findings are suggestive of normal bone density with a low fracture risk. Left Femur Total: g/cm2 (0.882) / T-score (-1.0) / Z-score (0.2) Left Femoral Neck: g/cm2 (0.819) / T-score (-1.6) / Z-score (-0.1) Right Femur Total: g/cm2 (0.855) / T-score (-1.2) / Z-score (0.0) Right Femoral Neck: g/cm2 (0.831) / T-score (-1.4) / Z-score (0.0) The T-Scores on the most recent prior examination were: Lumbar Spine (L1-L4): There has been improvement of bone density since the previous examination. Left Femur Total: which represents a worsening of 2.1%. Right Femur Total: which represents a worsening of 5.1%. BD/Dexa Bone Density Study IMPRESSION: The patient is considered osteopenic as outlined below according to World Stephane Organization (WHO) criteria with a moderate fracture risk. There has been worsening of bone density since the previous examination. Reference Information: The T-score is the number of standard deviations above or below the standard which is normal for young adults at their peak bone mineral density. The World Health Organization (WHO) interprets the T-scores as follows: Above -1 Normal bone density Between -1 and -2.5 Osteopenia Equal to / or below -2.5 Osteoporosis As a practical clinical guideline, osteopenia may be graded as follows: Mild -1 through -1.5 Moderate -1.6 through -2.0 Severe -2.1 through -2.4 The Z-score is the number of standard deviations above or below age-matched controls. A Z-score of less than -1.5 would be considered abnormal. References: 1. NIH Osteoporosis and Related Bone Diseases http://www.osteo.org 2. International Society for Clinical Densitometry http://www.iscd.org 3. National Osteoporosis Foundation http://www.nof.org Electronically Signed: Shan Mcdaniel MD at 14:23 EDT Tel [phone], Service support ,
== END ==
PROVIDERS: Family Provider Family Medicine; PCP Internal Medicine; Visit Provider Internal Medicine
DX: Z78.0 Asymptomatic menopausal state (principal)
CPT/HCPCS: 77080

== ENCOUNTER → 2018-03-29 11:12 | Outpatient (CLI) | payer MEDICARE, MEDICAID, SELFPAY ==
[2018-03-29 13:12] LABS: Vitamin D,25 Hydroxy 20.7 ng/mL (29.95-100.01)
== END ==
PROVIDERS: Family Provider Internal Medicine; PCP Internal Medicine; Visit Provider Internal Medicine
DX: E55.9 Vitamin D deficiency, unspecified (principal)
CPT/HCPCS: 36415; 82306

== ENCOUNTER 2018-04-04 13:00 | Outpatient (RCR) | payer MEDICARE, MEDICAID, SELFPAY | END 2018-04-16 23:59 | LOC: DC 13:00 | PROVIDERS: Family Provider Family Medicine; PCP Internal Medicine; Visit Provider Internal Medicine Critical Care Medicine | DX: E11.9 Type 2 diabetes mellitus without complications (principal); J44.9 Chronic obstructive pulmonary disease, unspecified; I10 Essential (primary) hypertension; E66.9 Obesity, unspecified; G47.33 Obstructive sleep apnea (adult) (pediatric); Z71.3 Dietary counseling and surveillance ==

== ENCOUNTER 2018-04-14 10:15 | Outpatient (RCR) | payer MEDICARE, MEDICAID, SELFPAY ==
[2018-03-18 00:27] VITALS: BP 118/62; PULSE 97; RESP 18; TEMP 37.1; O2SAT 94
--- NOTE | 2018-04-11 12:53 | PCM.PR.DAT ---
Dates of Coverage Times for Dates Of Coverage; All dates of coverage are for physician supervision/medical director/head team physician for during the times of 08:00 AM through 4:30 PM. Effective Mar 18, 2013 our hours will be changing to 8:00 to 4:30 on Tuesday, Tuesday and Tuesday. First Date of the Month: 04/17/18 Last Date of the Month: 05/17/18
--- NOTE | 2018-04-11 12:54 | PCM.PR.TP ---
Exercise - Final Assessment - Exercise Prescription Mode:: Treadmill, Airdyne, NuStep, Arm Ergometer Frequency (x/week): 3 Duration:: 35 Aerobic Exercise [30-60 min 3-7x/week]:: Met Target heart rate: 124-132 Max HR 130 Jocelyn MET Level:: 3.5 - Home Exercise Home Exercise:: Yes Disease Management - Final - Medications Medication list reviewed:: Yes Taking medications 100% of the time:: Met Medication reassessment: Yes Pt demonstrates correct technique timing for spacer - returned use of spacer adn MDI - Bronchial Hygiene Bronchial Hygiene Plan: Yes Pt demonstrates correctly for effective cough - controlled cough, Yes Pt demo correct for device - returned use of PEP therapy and SMI devices, Yes Pt demo correct for improved hydration, Yes Pt demo correct for hand hygiene, Yes Pt demo correct for verbalize when to call MD - able to verbalize signs and symptoms of exacerbation Psychosocial - Final Assess - Assessment Depression reassess: Management of stress: Met, Management of depression: Met, Practicing interventions: Met Tobacco - Final Assessment - Program Goals Tobacco Program Goals: Complete smoking cessation. Attend education classes. Improve Knowledge Test score - Stage of Change Stages of Change:: Action - Learning Barriers Learning Barriers: Participates in education, Change in behavior - Family Support Do you have family support?: Yes - Tobacco Use Tobacco Use: Non-smoker Do you use smokeless tobacco?: No - Intervention Smoking Cessation Referral:: No Education Schedule Given:: Yes - Education Education Goal Reached?: Yes Nutrition/Wt Mgmt - Final - Weight Management Final Weight Assessment: Wt stable Weight:: 205 lb Weight Goals Progress:: Not progressing Patient Health Questionnaire Discharge Assessment 1. Little interest or pleasure in doing things: Not at all 2. Feeling down, depressed, or hopeless: Not at all 3. Trouble falling or staying asleep, or sleeping too much: Not at all 4. Feeling tired or having little energy: Not at all 5. Poor appetite or overeating: Not at all 6. Feeling bad about yourself -- or that you are a failure or have let yourself or your family down: Not at all 7. Trouble concentrating on things, such as reading the newspaper or watching television: Not at all 8. Moving or speaking so slowly that other people could have noticed. Or the opposite - being so fidgety or restless that you have been moving around a lot more than usual: Not at all 9. Thoughts that you would be better off , or of hurting yourself in some way: Not at all Total Score: 0 COPD Knowledge Test Discharge COPD is a lung disease that:: Makes it hard to breathe & gets worse over time In the [place] the term COPD describes 2 main lung conditions:: Emphysema & chronic bronchitis The most common lung irritant that causes COPD is:: Cigarette smoke Common signs and symptoms of COPD include:: An ongoing cough/cough that produces a large amount of mucus, & SOB If you have COPD, what steps can you take?: All of the above Swelling of the ankles is common in COPD:: False Fatigue [tiredness] is common in COPD:: True Wheezing is common in COPD:: True Crushing chest pain is common in COPD:: False Rapid weight loss is common in COPD:: False Breathlessness is a normal response to exercise: True Exercise should be avoided if it makes you short of breath: False All bronchodilators act within 10 minutes: False A spacer device increases the medication to the lungs: True Annual flu vaccine is recommended for pts w/lung disease: True COPD Knowledge Test Total Score:: 15 COPD Assessment Test [CAT] - Questions Never cough = 0, Cough all the time = 5: 0 No phlegm = 0, Chest full of phlegm = 5: 0 No chest tightness = 0, Chest very tight = 5: 1 No breathless w/exertion = 0, Very breathless w/exertion = 5: 2 No limitations w/activity = 0, Very limited w/activity = 5: 1 Confident leaving home = 0, Not at all confident = 5: 1 Sleep soundly = 0, Don't sleep soundly = 5: 2 Lots of energy = 0, No energy at all = 5: 1 Total CAT score:: 8 Self-Efficacy Discharge Assessment We would like to know how confident you are in doing certain activities. Please select your confidence level for:: Select your confidence level for the following using the scale 1-10 where 1 is not at all confident and 10 is totally confident. Your score is the average of all 6 responses. Fatigue: How confident are you that you can keep the fatigue caused by your disease from interfering with the things you want to do? Select Number: 10 Physical Discomfort or Pain: How confident are you that you can keep the physical discomfort or pain of your disease from interfering with the things you want to do? Select Number: 10 Emotional Distress: How confident are you that you can keep the emotional distress caused by your disease from interfering with the things you want to do? Select Number: 10 Other Symptoms or Health Problems: How confident are you that you can keep other symptoms or health problems from interfering with the things you want to do? Select Number: 10 Different Tasks and Activities: How confident are you that you can do the different tasks and activities needed to manage your health condition so as to reduce your need to see a doctor? Select Number: 10 Medication: How confident are you that you can do things other than just taking medication to reduce how much your illness affects your everyday life? Select Number: 10 Total Score:: 10 Nutrition Survey - Nutrition Survey Instructions Scoring Instructions: Scoring is as follows: Yes = 1 points. No = 0 point. Patient score that is >/=12 is considered to be at potential nutritional risk and could benefit from a referral to a registered dietitian. - Nutrition Survey Discharge Have you lost >10 lbs over the past 2 months without trying?: No Are you following a special diet at home for diabetes, low fat, or low salt?: No Are you interested in meeting with a dietitian for help understanding your diet?: No Do you eat less than 3 meals a day?: No Do you eat fatty meats (galarza, sausage, ribs, etc), fried foods, desserts, large amounts of salad dressings, margarine, butter, or cheese most days?: Yes Do you have food allergies? [Enter types in comment field]: No Do you eat in restaurants more than 3 times a week?: No Do you season food with salt, seasoning salt, or garlic salt?: Yes - have limited table salt or added salt Do you used canned, boxed, frozen meals, or soups, seasoning packets?: Yes Total Score:: 3
== END 2018-04-16 23:59 ==
LOC: PR 10:15
PROVIDERS: Family Provider Internal Medicine; PCP Internal Medicine; Visit Provider Internal Medicine Critical Care Medicine
DX: J44.9 Chronic obstructive pulmonary disease, unspecified (principal); E55.9 Vitamin D deficiency, unspecified
CPT/HCPCS: 36415; 82306; 97150; G0424

== ENCOUNTER → 2018-04-24 10:36 | Outpatient (CLI) | payer MEDICARE, MEDICAID, SELFPAY ==
--- NOTE | 2018-04-24 10:45 | BI_ITS ---
MAMMOGRAPHY - BILATERAL SCREENING 3-D ZARA SYNTHESIS REASON FOR EXAM: Female, 63 years old. Bilateral Screening 3-D tomosynthesis. PERTINENT HISTORY: Asymptomatic. No significant family history. TECHNIQUE: 2-D mammograms and 3-D Zara synthesis of the breast (s) were performed. CAD was performed. COMPARISON: 04/18/2017, 05/06/2014. FINDINGS: The breast composition is almost entirely fat. Scattered benign calcifications are seen. No dense spiculated dominant masses or suspicious microcalcification cluster are identified. No new architectural distortion, asymmetric density, adenopathy, skin thickening or nipple retraction identified. There has been no significant change identified since the prior study. BI/SCREENING MAMM (CAD), BILAT IMPRESSION: No mammographic sign of malignancy. Routine yearly mammograms recommended. ASSESSMENT CATEGORY: BIRADS Category 2: Benign. A letter regarding these results will be sent to the patient by the facility within 30 days. FOLLOW UP RECOMMENDATION: Yearly follow up mammogram recommended. (A) Negative mammographic results should not deter biopsy as a palpable lesion if present should be followed based on clinical grounds and biopsy performed if clinically persistent for 3 months or increasing size. Approximately 10% of breast cancers are not detected by mammography. A normal mammogram should not delay biopsy of a clinically suspicious abnormality. Dense breast tissue may obscure neoplasm. Electronically Signed: Alexandru Ochoa, at 10:01 EDT Tel , Service support ,
== END ==
PROVIDERS: Family Provider Internal Medicine; PCP Internal Medicine; Visit Provider Internal Medicine
DX: Z12.31 Encounter for screening mammogram for malignant neoplasm of breast (principal)
CPT/HCPCS: 77063; 77067

== ENCOUNTER 2018-05-10 10:23 | Outpatient (RCR) | payer MEDICARE, MEDICAID, SELFPAY | END 2018-05-17 23:59 | LOC: DC 10:23 | PROVIDERS: Family Provider Internal Medicine; PCP Internal Medicine; Visit Provider Internal Medicine Critical Care Medicine | DX: E11.9 Type 2 diabetes mellitus without complications (principal); J44.9 Chronic obstructive pulmonary disease, unspecified; I10 Essential (primary) hypertension; E66.9 Obesity, unspecified; G47.33 Obstructive sleep apnea (adult) (pediatric); Z71.3 Dietary counseling and surveillance ==

== ENCOUNTER 2018-05-24 09:26 | Outpatient (RCR) | payer MEDICARE, MEDICAID, SELFPAY | END 2018-06-16 23:59 | LOC: DC 09:26 | PROVIDERS: Family Provider Internal Medicine; PCP Internal Medicine; Visit Provider Internal Medicine Critical Care Medicine | DX: E11.9 Type 2 diabetes mellitus without complications (principal); J44.9 Chronic obstructive pulmonary disease, unspecified; I10 Essential (primary) hypertension; E66.9 Obesity, unspecified; G47.33 Obstructive sleep apnea (adult) (pediatric); Z71.3 Dietary counseling and surveillance ==

== ENCOUNTER → 2018-05-29 13:55 | Outpatient (CLI) | payer MEDICARE, MEDICAID, SELFPAY | PROVIDERS: Family Provider Internal Medicine; PCP Internal Medicine; Referring Provider Physician Assistant; Visit Provider Physician Assistant | DX: J02.9 Acute pharyngitis, unspecified (principal) | CPT/HCPCS: 87081 ==

== ENCOUNTER → 2018-07-28 10:56 | Outpatient (CLI) | payer MEDICARE, MEDICAID, SELFPAY ==
[2018-07-17 09:39] VITALS: BMI 34.5
[2018-07-28 11:41] VITALS: PULSE 117; PULSE 120; PULSE 122; PULSE 124; PULSE 125; PULSE 127; PULSE 88; PULSE 90; O2SAT 92; O2SAT 93; O2SAT 94; O2SAT 95; O2SAT 97; O2SAT 98
--- NOTE | 2018-07-28 14:42 | PCM.PSN.6M ---
PSN 6 Minute Walk Test - 6 Minute Walk Test 6 Minute Walk Test: 6 Minute Walk Test PSN:6-Minute Walk Test Start: 07/28/18 11:41 Freq: Status: Active Protocol: [id number] Document 07/28/18 11:41 [facility] (Rec: 07/28/18 11:44 [facility] [id number]) 6 Minute Walk Test Date Performed 07/28/18 Time Performed 11:30 Height 5 ft 5 in Weight: 92.533 kg Weight in Pounds 204.[address]: Sin Nobles Assistive device used: None Pre-test Oxygen Delivery Method Room Air Pulse Ox (%) 98 Pulse Rate (60-100 beats/min) 88 Dyspnea Jocelyn Scale (0-10) 3 1st minute Oxygen Delivery Method Room Air Pulse Ox (%) 95 Pulse Rate (60-100 beats/min) 117 H Dyspnea Jocelyn Scale (0-10) 3 2nd minute Oxygen Delivery Method Room Air Pulse Ox (%) 94 Pulse Rate (60-100 beats/min) 120 H Dyspnea Jocelyn Scale (0-10) 3 3rd minute Oxygen Delivery Method Room Air Pulse Ox (%) 93 Pulse Rate (60-100 beats/min) 125 H Dyspnea Jocelyn Scale (0-10) 3 4th minute Oxygen Delivery Method Room Air Pulse Ox (%) 94 Pulse Rate (60-100 beats/min) 124 H Dyspnea Jocelyn Scale (0-10) 3 5th minute Oxygen Delivery Method Room Air Pulse Ox (%) 92 Pulse Rate (60-100 beats/min) 122 H Dyspnea Jocelyn Scale (0-10) 3 6th minute Oxygen Delivery Method Room Air Pulse Ox (%) 92 Pulse Rate (60-100 beats/min) 127 H Dyspnea Jocelyn Scale (0-10) 3 Post-test Oxygen Delivery Method Room Air Pulse Ox (%) 97 Pulse Rate (60-100 beats/min) 90 Dyspnea Jocelyn Scale (0-10) 3 Full Laps Walked 18 Partial Lap, Number of Tiles Walked 19 Total Distance Walked (ft) 1081 - Interpretation Interpretation: The patient was able to ambulate 1081 feet over the course of 6 minutes on room air with no assistive devices or breaks. The patient did have significant desaturation from a baseline of 98% to as low as 92%. However, patient was most notable for having a peak heart rate of 127 bpm. These findings are consistent with a cardiovascular limitation exercise tolerance. - Recommendations Recommendations: No supplemental oxygen is indicated at this time. Patient may benefit from a cardiovascular workup
== END ==
PROVIDERS: Family Provider Internal Medicine; PCP Internal Medicine; Referring Provider Internal Medicine Critical Care Medicine; Visit Provider Internal Medicine Critical Care Medicine
DX: J44.9 Chronic obstructive pulmonary disease, unspecified (principal)
CPT/HCPCS: 94618

== ENCOUNTER → 2018-08-01 10:55 | Outpatient (CLI) | payer MEDICARE, MEDICAID, SELFPAY ==
[2018-07-17 09:39] VITALS: BMI 34.5
--- NOTE | 2018-08-03 09:31 | PFT_ITS ---
INTRODUCTION: The patient is a 63-year-old female that presents for pulmonary function studies secondary to a diagnosis of COPD. Respiratory therapy reports good patient effort. Bronchodilators were used during testing. INTERPRETATION: Forced expiration spirometry demonstrates the presence of a very severe large airways obstructive ventilatory defect. There was a significant response to aerosolized bronchodilators noted. Spirograms are of good quality and do not plateau indicating slow emptying of the lungs. Body plethysmography was performed and reveals an elevated RV to 186% of predicted, indicative of underlying air trapping. Diffusing capacity by single breath CO is moderately reduced at 55% of predicted. When compared to previous pulmonary function ramana dies dated December 2017, there has been some improvement in the patient's FEV1 and DLCO. IMPRESSION: These pulmonary function studies demonstrate the presence of a partially reversible very severe large airways obstructive ventilatory defect with associated air trapping and reduction in diffusing capacity.
== END ==
PROVIDERS: Family Provider Internal Medicine; PCP Internal Medicine; Referring Provider Internal Medicine Critical Care Medicine; Visit Provider Internal Medicine Critical Care Medicine
DX: J44.9 Chronic obstructive pulmonary disease, unspecified (principal); F17.201 Nicotine dependence, unspecified, in remission
CPT/HCPCS: 94060; 94726; 94729

== ENCOUNTER → 2018-11-14 10:14 | Outpatient (CLI) | payer MEDICARE, MEDICAID, SELFPAY ==
[2018-10-31 08:09] VITALS: BMI 34.7
[2018-11-14 12:21] LABS: T4 Free Direct 1.34 ng/dL (0.76-1.46); Thyroid Stim Hormone (TSH) 0.17 uIU/mL (0.358-3.74)
== END ==
PROVIDERS: Family Provider Internal Medicine; PCP Internal Medicine; Referring Provider Internal Medicine; Visit Provider Internal Medicine
DX: E03.9 Hypothyroidism, unspecified (principal)
CPT/HCPCS: 36415; 84439; 84443

== ENCOUNTER → 2018-11-20 08:35 | Outpatient (CLI) | payer MEDICARE, MEDICAID, SELFPAY ==
[2018-11-20 08:15] VITALS: BMI 34.7
[2018-11-20 12:19] LABS: Hemoglobin A1c 6.6 % (4.2-6.3)
== END ==
PROVIDERS: Family Provider Internal Medicine; PCP Internal Medicine; Visit Provider Internal Medicine
DX: E11.9 Type 2 diabetes mellitus without complications (principal)
CPT/HCPCS: 36415; 83036

== ENCOUNTER → 2019-02-19 08:59 | Outpatient (CLI) | payer MEDICARE, MEDICAID, SELFPAY ==
[2019-02-19 08:43] VITALS: BMI 34.7
[2019-02-19 12:26] LABS: Absolute Lymphocyte Count 1.38 X10^3/uL (0.83-4.51); Absolute Neutrophil Count 6.9 X10^3/uL (2.0-7.7); Basophil# 0.04 X10^3/uL; Basophil% 0.4 % (0-1); Eosinophil# 0.18 X10^3/uL; Hematocrit 38.2 % (37-47); Hemoglobin 12.1 g/dL (12.0-15.0); Lymphocyte # 1.38 X10^3/ul (4.0); Lymphocyte % 15.2 % (19-41); Mean Corp Hgb Conc 31.7 g/dL (32-36); Mean Corpuscular Hgb 28.7 pg (27.0-32.0); Mean Corpuscular Volume 90.5 fL (81-99); Mean Platelet Vol. 11.6 fl (6.2-12.0); Monocyte# 0.51 X10^3/uL; Monocyte% 5.6 % (0-10); NRBC Flagged by Analyzer 0 % (0-5); Neutrophil # 6.94 X10^3/uL (2.7-7.7); Neutrophil % 76.3 % (47-70); Platelet Count 269 K/mm3 (150-450); RBC Distribution Width CV 14.1 % (11.6-14.6); RBC Distribution Width SD 46.3 fl (35.1-43.9); Red Blood Count 4.22 M/mm3 (4.2-5.4); White Blood Count 9.1 K/mm3 (4.4-11.0)
[2019-02-19 12:51] LABS: ALB/GLOB Ratio 0.9 RATIO (0.9-2.4); AST(SGOT) 32 U/L (15-37); Alanine Aminotransfer ALT/SGPT 46 U/L (13-56); Albumin, Serum 3.5 g/dL (3.2-5.0); Alkaline Phosphatase 90 U/L (45-117); Anion Gap 10 (5-15); BUN 21 mg/dL (7-18); BUN/Creat Ratio 15.1 RATIO (10-20); Calcium,Total 9.7 mg/dL (8.5-10.1); Chloride 104 mmol/L (98-107); Cholesterol 140 mg/dL (200); Creatinine, Serum 1.39 mg/dL (0.55-1.02); EST Glomerular Filtration Rate 40 mL/min (>60); Est Glom Filt Rate - Afr Amer 49 mL/min (>60); Globulin 4.1 g/dL (2.2-4.2); Glucose 118 mg/dL (74-106); High Density Lipoprotein 58 mg/dL; Protein, Total 7.6 g/dL (6.4-8.2); Sodium Level 140 mmol/L (136-145); T4 Free Direct 1.18 ng/dL (0.76-1.46); Thyroid Stim Hormone (TSH) 0.87 uIU/mL (0.358-3.74); Triglycerides 156 mg/dL; Very Low Density Lipoprotein 31 mg/dL (5-40)
== END ==
PROVIDERS: PCP Internal Medicine; Visit Provider Internal Medicine
DX: E03.9 Hypothyroidism, unspecified (principal); E11.9 Type 2 diabetes mellitus without complications; E78.5 Hyperlipidemia, unspecified; N17.9 Acute kidney failure, unspecified
CPT/HCPCS: 36415; 80053; 80061; 84439; 84443; 85025

== ENCOUNTER → 2019-03-09 08:19 | Outpatient (CLI) | payer MEDICARE, MEDICAID, SELFPAY ==
[2018-10-31 08:09] VITALS: BMI 34.7
[2019-02-19 08:43] VITALS: BMI 34.7
--- NOTE | 2019-03-09 08:20 | CT_ITS ---
STUDY: LOW DOSE CT LUNG CANCER SCREENING REASON FOR EXAM: Female, 64 years old. RADIATION DOSAGE (If Supplied By Facility): CTDIvol = ( 3.02 ) mGy, DLP = ( 108.72 ) mGycm TECHNIQUE: No contrast was administered. Low dose technique was utilized (average mAS-38 and kVp 120). 1.25 mm axial source images with a slice interval of 1.25-mm were reconstructed in lung windows. 2.5 mm axial source images with a slice interval of 2.5-mm were reconstructed in lung windows. 5.0 mm axial source images with a slice interval of 5.0-mm were reconstructed in soft tissue windows. Nodule measured using lung windows on PACS and/or independent workstation with automated measurement of minimum and maximum diameter. Nodule measurement reported as average diameter rounded to the nearest whole number. Growth is defined as an increase ins size of greater than 1.5 mm. COMPARISON: None. FINDINGS: Lung nodules 3 mm calcified granuloma at the medial left lung base on series 2 image 204. There are no solid or ground glass pulmonary nodules. Lungs COPD: Mild. Fibrosis: There is minimal biapical pleural parenchymal scarring. Lymph nodes: None. Other findings: Mild diffuse bronchial wall thickening.. Pleural space Effusion: None. Calcification: None. Thickening: None. Heart Heart size: Normal. Coronary calcification: None. Pericardial effusion: None. Other findings: Mild aortic arch atherosclerotic disease. Upper abdomen: None. Thorax: None. Base of neck: None. CT/Low Dose CT Lung Screening IMPRESSION: Lung-RADS category 1 - Continue annual screening with LDCT in 12 months. Mild diffuse bronchial wall thickening. IMPORTANT NOTES FOR USE: ACR Lung-RADS Version 1.0 Assessment Categories Release Date: November 12, 2013 Category: Coded 0-4 bases on nodule(s) with highest degree of suspicion. Negative screen is defined as categories 1 and 2; a positive screen is defined as categories 3 and 4. Category 3 and 4A nodules that are unchanged on interval CT should be coded as category 2, and individuals returned to screening in 12 months. Category 4X: Category 3 or 4 nodules with additional imaging findings that increase the suspicion of lung cancer, such as spiculation, GGN that doubles in size in 1 year, enlarged lymph notes, etc. Category Modifiers: S (significant finding unrelated to lung cancer) and C (prior history of treated lung cancer) may be added to the 0-4 Lung-RADS Electronically Signed: Brad Bonilla, at 9:47 EDT Tel , Service support ,
== END ==
PROVIDERS: Family Provider Internal Medicine; PCP Internal Medicine; Referring Provider Internal Medicine Critical Care Medicine; Visit Provider Internal Medicine Critical Care Medicine
DX: Z12.2 Encounter for screening for malignant neoplasm of respiratory organs (principal); Z87.891 Personal history of nicotine dependence
CPT/HCPCS: G0297

== ENCOUNTER → 2019-05-21 08:47 | Outpatient (CLI) | payer MEDICARE, MEDICAID, SELFPAY ==
[2019-05-21 08:24] VITALS: BMI 32.3
[2019-05-21 12:34] LABS: Anion Gap 9 (5-15); BUN 26 mg/dL (7-18); BUN/Creat Ratio 19.8 RATIO (10-20); Calcium,Total 9.8 mg/dL (8.5-10.1); Chloride 101 mmol/L (98-107); Creatinine, Serum 1.31 mg/dL (0.55-1.02); EST Glomerular Filtration Rate 43 mL/min (>60); Est Glom Filt Rate - Afr Amer 52 mL/min (>60); Glucose 115 mg/dL (74-106); Sodium Level 138 mmol/L (136-145); Thyroid Stim Hormone (TSH) 0.08 uIU/mL (0.358-3.74)
[2019-05-21 12:45] LABS: Microalbumin,Random Urine 52.1 mg/L (NO RANGE EST.); Microalbumin:Creatinine Ratio 29.8 mg/g CRE (<30 mg/g CRE)
== END ==
PROVIDERS: Family Provider Internal Medicine; PCP Internal Medicine; Visit Provider Internal Medicine
DX: E11.9 Type 2 diabetes mellitus without complications (principal); E03.9 Hypothyroidism, unspecified
CPT/HCPCS: 36415; 80048; 82043; 82570; 84443

== ENCOUNTER → 2019-05-22 12:00 | Outpatient (CLI) | payer MEDICARE, MEDICAID, SELFPAY ==
[2019-05-21 08:24] VITALS: BMI 32.3
--- NOTE | 2019-05-22 12:02 | EKG12_ITS ---
Test Reason : ROUTINE Blood Pressure : / mmHG Vent. Rate : 103 BPM Atrial Rate : 103 BPM P-R Int : 166 ms QRS Dur : 084 ms QT Int : 330 ms P-R-T Axes : 079 072 078 degrees QTc Int : 432 ms Sinus tachycardia Nonspecific T-Wave Abnormality Confirmed by SHARLENE PATRICIO, KEIKO ([id number]), manager editorial OVI STEPHEN ([id number]) on 05/23/2019 11:15:32 AM Referred By: Paige Jon Confirmed By:KEIKO SU MD
== END ==
PROVIDERS: Family Provider Internal Medicine; PCP Internal Medicine; Referring Provider Internal Medicine; Visit Provider Internal Medicine
DX: I10 Essential (primary) hypertension (principal); R00.0 Tachycardia, unspecified; R61 Generalized hyperhidrosis
CPT/HCPCS: 93005

== ENCOUNTER 2019-06-06 04:38 | Emergency (ER) | payer MEDICARE, MEDICAID, SELFPAY ==
[2019-05-21 08:24] VITALS: BMI 32.3
[2019-06-06 04:40] VITALS: BP 168/91; PULSE 87; RESP 26; TEMP 36.8; O2SAT 95; BMI 34.0
--- NOTE | 2019-06-06 04:56 | EKG12_ITS ---
Test Reason : ARM PAIN Blood Pressure : / mmHG Vent. Rate : 076 BPM Atrial Rate : 076 BPM P-R Int : 178 ms QRS Dur : 088 ms QT Int : 368 ms P-R-T Axes : 074 058 063 degrees QTc Int : 414 ms Normal sinus rhythm Normal ECG Confirmed by DEWEY PATRICIO, MARIAJOSE ([id number]), publications editor JAGUAR NAJERA ([id number]) on 06/08/2019 12:29:12 PM Referred By: FLEX Confirmed By:LISSA PALOMO MD
--- NOTE | 2019-06-06 04:56 | RAD_ITS ---
STUDY: X-RAY CHEST REASON FOR EXAM: Female, 64 years old. Left arm pain TECHNIQUE: PA and lateral chest COMPARISON: 11/03/2016 FINDINGS: There are mild upper lobe COPD changes. There is scattered mild pulmonary scarring The lungs are clear and expanded. There is no demonstrated pleural abnormality. Normal size heart. Normal mediastinum and reinaldo. Normal visualized pulmonary arteries. Normal visualized aortic arch and descending thoracic aorta. There is generalized osteopenia, otherwise normal visualized thoracic spine, ribs, clavicles, and shoulders. There is no demonstrated abnormality of the visualized soft tissue structures of the upper abdomen. RAD/Chest PA and Lateral IMPRESSION: Stable mild upper lobe COPD changes. Stable mild scattered pulmonary scarring Generalized osteopenia Electronically Signed: Alexandru Lyles, at 6:04 EST Tel , Service support ,
[2019-06-06 05:15] LABS: Absolute Lymphocyte Count 1.24 X10^3/uL (0.83-4.51); Absolute Neutrophil Count 7.9 X10^3/uL (2.0-7.7); Basophil# 0.04 X10^3/uL; Basophil% 0.4 % (0-1); Eosinophil# 0.18 X10^3/uL; Eosinophils% 1.8 % (0-5); Hematocrit 34.7 % (37-47); Hemoglobin 11.1 g/dL (12.0-15.0); Lymphocyte # 1.24 X10^3/ul (4.0); Lymphocyte % 12.3 % (19-41); Mean Corpuscular Hgb 28.5 pg (27.0-32.0); Mean Platelet Vol. 10.8 fl (6.2-12.0); Monocyte# 0.63 X10^3/uL; Monocyte% 6.3 % (0-10); NRBC Flagged by Analyzer 0 % (0-5); Neutrophil % 78.6 % (47-70); Platelet Count 213 K/mm3 (150-450); RBC Distribution Width CV 13.5 % (11.6-14.6); RBC Distribution Width SD 44.1 fl (35.1-43.9); White Blood Count 10.1 K/mm3 (4.4-11.0)
[2019-06-06 05:37] LABS: Anion Gap 8 (5-15); BUN 17 mg/dL (7-18); BUN/Creat Ratio 14.7 RATIO (10-20); Calcium,Total 9.1 mg/dL (8.5-10.1); Chloride 107 mmol/L (98-107); Creatinine, Serum 1.16 mg/dL (0.55-1.02); EST Glomerular Filtration Rate 50 mL/min (>60); Est Glom Filt Rate - Afr Amer 60 mL/min (>60); Estimated Creatinine Clearance 42.93 ml/min; Glucose 128 mg/dL (74-106); Sodium Level 142 mmol/L (136-145)
--- NOTE | 2019-06-06 06:01 | ED.VIS.GEN ---
History of Present Illness Chief Complaint: Upper Extremity Injury Informant: Patient Onset: Today Context: Gradual Onset Timing: Continuous Current Severity: Mild Maximum Severity: Moderate Narrative: Patient is a 64-year-old female with history of COPD, hypertension, hyperlipidemia and diabetes mellitus presenting with left arm pain. Patient states she woke up at 4 AM with pain in her left arm. She states it feels like a pressure and squeezing sensation. She denies any numbness or tingling of her hand. She notes when she woke up she also felt sweaty and dizzy. She denies any associated chest pain, worsening shortness of breath or nausea and vomiting. She states she does always feel little short of breath because of her COPD but this is unchanged. She denies any recent fever or cough. She denies any GI or symptoms. She was concerned it might be related to her heart so she came to the emergency room. Patient denies any history of coronary artery disease. She states she is scheduled for stress test on June 18 secondary to an abnormal routine EKG. Patient states she was feeling fine when she went to bed last night. She denies any trauma or injury to her arm. She notes she was baking cookies all day yesterday. She denies any other complaints at this time. Past Medical History - Allergies and Home Meds Allergies/Adverse Reactions: Allergies No Known Allergies Allergy (Verified 06/06/19 04:44) Primary Care Physician: Paige Jon MD [Primary Care Provider] - Past Medical History: - - COPD, hypertension, hyperlipidemia, diabetes mellitus Surgical History: no surgical history Smoking Status: Former smoker - Family History Maternal Family History: Family History (Last Reviewed 05/03/19 @ 09:10 by Syeda Mueller) Mother Cancer Father COPD (chronic obstructive pulmonary disease) Grandfather Cancer Grandmother Diabetes Family History: Reports: - - Cancer Paternal Family History: Family History (Last Reviewed 05/03/19 @ 09:10 by Syeda Mueller) Mother Cancer Father COPD (chronic obstructive pulmonary disease) Grandfather Cancer Grandmother Diabetes Family History: Reports: - - Heart disease COPD. Sibling Family History: Family History (Last Reviewed 05/03/19 @ 09:10 by Syeda Mueller) Mother Cancer Father COPD (chronic obstructive pulmonary disease) Grandfather Cancer Grandmother Diabetes Family History: Reports: - - Brothers have lung disease Review of Systems General: Reports: Sweats, - - Dizziness. Denies: Chills, Fever Eyes: Denies: Visual changes - bilaterally, Diplopia ENT: Denies: Rhinorrhea, Sore throat Cardiovascular: Denies: Chest pain, Palpitations Respiratory: Denies: Dyspnea, Cough, Dyspnea on exertion Gastrointestinal: Denies: Abdominal pain, Nausea, Vomiting, Diarrhea, Melena, Hematochezia Genitourinary: Denies: Dysuria, Hematuria, Frequency Musculoskeletal: Reports: Extremity Pain - Left arm. Denies: Back pain Skin: Denies: Rash, Wounds Neurological: Denies: Headache, Weakness, Numbness Physical Exam Vital Signs/Narrative: Vital Signs Temp Pulse Resp BP Pulse Ox 06/06/19 04:40 98.2 F 87 26 H 168/91 H 95 Inital Vital Signs reviewed: Yes General: Well nourished, Well developed, No Acute Distress Head: Normocephalic, Atraumatic Eyes: Perrl, EOMI ENT: Moist mucous membranes, No rhinorrhea Neck: Supple, Nontender Cardiovascular: Regular rate, Regular rhythm, No murmurs Respiratory: No distress, Chest nontender, Wheezing - Mild end expiratory, Diminished - Bilaterally Abdomen: Soft, Nontender, Nondistended, Normal bowel sounds Back: Nontender, Normal Inspection Extremities: No edema, Tenderness - Mild tenderness palpation of the bicep muscle on the left. Negative for: Edema Skin: Normal color, No rash Neurological: Alert, Oriented x3, Cranial nerves II-XII grossly intact, Normal Strength, Normal Sensation Psychological: Normal affect, Normal Mood Diagnostic/Tx/Re-eval Chest X-Ray - ED: 2 View, Read by Radiologist, No Acute Disease Clinical Impression(s) from Imaging Studies Chest X-Ray 06/06/19 04:56 IMPRESSION: Stable mild upper lobe COPD changes. Stable mild scattered pulmonary scarring Generalized osteopenia Electronically Signed: Alexandru Lyles, at 6:04 EST Tel , Service support , Laboratory Data 06/06/19 06/06/19 05:00 05:00 WBC 10.1 RBC 3.90 L Hgb 11.1 L Hct 34.7 L MCV 89.0 MCH 28.5 MCHC 32.0 RDW Std Deviation 44.1 H RDW Coeff of Navya 13.5 Plt Count 213 MPV 10.8 Immature Gran % (Auto) 0.600 Neut % (Auto) 78.6 H Lymph % (Auto) 12.3 L [place] % (Auto) 6.3 Eos % (Auto) 1.8 Baso % (Auto) 0.4 Absolute Neuts (auto) 7.9 H Absolute Lymphs (auto) 1.24 Nucleated RBC % 0 Sodium 142 Potassium 4.0 Chloride 107 Carbon Dioxide 27.0 Anion Gap 8 BUN 17 Creatinine 1.16 H Estim Creat Clear Calc 42.93 Est GFR (MDRD) Af Amer 60 Est GFR (MDRD) Non-Af 50 L BUN/Creatinine Ratio 14.7 Glucose 128 H Calcium 9.1 Troponin I < 0.015 - Rhythm Strip Rhythm Strip: Sinus Rhythm Rate: 76 Ectopy: None - EKG Initial EKG Interpretation: Sinus Rhythm, - - Sinus rhythm at a rate of 78 Normal intervals Normal axis Normal ST segments Prior: Unchanged - 07/16/2014 - Medical Decision Making Patient is evaluated for left arm pain when she woke up around 4 AM. She had associated sweating and dizziness. Those symptoms have since resolved. She describes as a mild pressure in her arm. She does have reproducible tenderness on examination on her left arm. Patient appears nontoxic in no acute distress. She is hemodynamically stable. It is possible that this arm pain is just muscle skeletal arm pain. Because of patient's past medical history and risk factors however it is initially treated as an anginal equivalent. EKG shows normal sinus rhythm with no dynamic changes. Initial troponin is negative. Patient does have cardiac risk factors including age, hypertension, hyperlipidemia and diabetes mellitus a delta troponin is performed. If this is negative patient be discharged home with outpatient follow-up. Patient is agreeable with this. She will be signed out pending results of delta troponin. ED Disposition - Plan for ED Patient: Diagnosis: Left arm pain Instructions: CHEST PAIN, Uncertain Cause Referrals: Paige Jon MD [Primary Care Provider] -
[2019-06-06 06:14] VITALS: BP 147/83; PULSE 71; RESP 19; O2SAT 95
[2019-06-06 08:00] VITALS: PULSE 81; RESP 18; O2SAT 95
--- NOTE | 2019-06-06 08:00 | EKG12_ITS ---
Test Reason : REPEAT Blood Pressure : / mmHG Vent. Rate : 076 BPM Atrial Rate : 076 BPM P-R Int : 182 ms QRS Dur : 086 ms QT Int : 374 ms P-R-T Axes : 075 059 068 degrees QTc Int : 420 ms Normal sinus rhythm Normal ECG Confirmed by DEWEY PATRICIO, MARIAJOSE ([id number]), editorial assistant JAGUAR NAJERA ([id number]) on 06/08/2019 12:29:31 PM Referred By: ZEESHAN Confirmed By:LISSA PALOMO MD
--- NOTE | 2019-06-06 08:52 | ED.VISSUMM ---
- ER Visit Summary Date of Service: 06/06/19 Chief Complaint: [] History of Present Illness: The patient is a 64 F [] Physical Examination: [] Test Results: [] Emergency Department Course and Treatment: [] Treatment Plan: [] Disposition: [] Impression: [] This note was generated with [employer] dictation software. It may contain incorrect words, spelling, and punctuation that were not noted in review of the chart prior to signing ED Disposition - Plan for ED Patient: Disposition: Home or Assisted Living Diagnosis: Left arm pain, Chest pain Instructions: CHEST PAIN, Uncertain Cause Referrals: Paige Jon MD [Primary Care Provider] - 3-5 Days
[2019-06-07 14:08] LABS: Creatine Kinase MB 0 % (0-3); Creatine Kinase MM 100 % (97-100); Creatine Kinase,Total,Serum 57 U/L (24-173); Macro I 0 % (Not Observed); Macro II 0 % (Not Observed)
[2019-06-07 15:48] LABS: Creatine Kinase BB 0 % (0)
== END 2019-06-06 09:16 | disposition home or self-care (01) ==
PROVIDERS: Emergency Provider Emergency Medicine; Family Provider Internal Medicine; PCP Internal Medicine
DX: M79.602 Pain in left arm (principal); I10 Essential (primary) hypertension; E78.5 Hyperlipidemia, unspecified; E11.9 Type 2 diabetes mellitus without complications; J44.9 Chronic obstructive pulmonary disease, unspecified; Z79.82 Long term (current) use of aspirin; Z79.84 Long term (current) use of oral hypoglycemic drugs; Z79.899 Other long term (current) drug therapy; Z87.891 Personal history of nicotine dependence
CPT/HCPCS: 36415; 71046; 80048; 82550; 82552; 84484; 85025; 93005; 99285; J7030; A4216

== ENCOUNTER → 2019-06-18 06:43 | Outpatient (CLI) | payer MEDICARE, MEDICAID, SELFPAY ==
[2019-05-21 08:24] VITALS: BMI 32.3
[2019-06-06 04:40] VITALS: BMI 34.0
--- NOTE | 2019-06-18 13:48 | STRESSREP ---
Stress Test Report Pharmacologic myocardial perfusion stress test. 64-year-old lady with a history of an abnormal EKG. Stress protocol: Resting EKG demonstrates normal sinus rhythm with a rate of 79 bpm normal intervals are noted resting blood pressure is 118/78 mmHg. 0.4 mg of regadenoson was infused per usual protocol followed by rapid intravenous saline flush injection continuous EKG monitoring was performed. The maximum heart rate was 105 bpm which was 68% of maximum predicted heart rate and maximum workload was 1 metabolic equivalent. At rest there were nonspecific ST-T wave changes noted. Myocardial perfusion protocol. 15.0 mCi of technetium 99m sestamibi was injected at rest. 0.4 mg of regadenoson was infused per usual protocol peak infusion 45.0 mCi of technetium 99m sestamibi was injected stress images were obtained stress and rest images were reconstructed and compared in the short axis vertical long horizontal long axis. Gated images were also obtained Perfusion SPECT analysis: Review of the images demonstrate normal uptake of tracer noted in all areas of the myocardium the resting images similar demonstrate normal uptake of tracer noted in all areas of the myocardium. No areas of reversibility are noted suggest ischemia no previous infarct is noted. Gated SPECT analysis: The gated ejection fraction is noted to be 78%. Conclusion: Normal pharmacologic myocardial perfusion stress test. Preserved ejection fraction
== END ==
PROVIDERS: Family Provider Internal Medicine; PCP Internal Medicine; Referring Provider Internal Medicine; Visit Provider Internal Medicine
DX: R94.31 Abnormal electrocardiogram [ECG] [EKG] (principal); I10 Essential (primary) hypertension; E11.9 Type 2 diabetes mellitus without complications
CPT/HCPCS: 78452; 93017; A9500; A4216; J2785

== ENCOUNTER → 2019-08-20 09:23 | Outpatient (CLI) | payer MEDICARE, MEDICAID, SELFPAY ==
[2019-08-20 08:50] VITALS: BMI 30.9
[2019-08-20 12:22] LABS: Absolute Lymphocyte Count 1.44 X10^3/uL (0.83-4.51); Absolute Neutrophil Count 8.2 X10^3/uL (2.0-7.7); Basophil# 0.04 X10^3/uL; Basophil% 0.4 % (0-1); Eosinophils% 1.9 % (0-5); Hematocrit 39.4 % (37-47); Hemoglobin 12.4 g/dL (12.0-15.0); Lymphocyte # 1.44 X10^3/ul (4.0); Lymphocyte % 13.6 % (19-41); Mean Corp Hgb Conc 31.5 g/dL (32-36); Mean Corpuscular Hgb 27.3 pg (27.0-32.0); Mean Corpuscular Volume 86.8 fL (81-99); Mean Platelet Vol. 11.8 fl (6.2-12.0); Monocyte# 0.71 X10^3/uL; Monocyte% 6.7 % (0-10); NRBC Flagged by Analyzer 0 % (0-5); Neutrophil # 8.18 X10^3/uL (2.7-7.7); Platelet Count 264 K/mm3 (150-450); RBC Distribution Width CV 13.1 % (11.6-14.6); RBC Distribution Width SD 41.3 fl (35.1-43.9); Red Blood Count 4.54 M/mm3 (4.2-5.4); White Blood Count 10.6 K/mm3 (4.4-11.0)
== END ==
PROVIDERS: PCP Internal Medicine; Referring Provider Internal Medicine; Visit Provider Internal Medicine
DX: R06.02 Shortness of breath (principal)
CPT/HCPCS: 36415; 85025

== ENCOUNTER → 2019-08-21 06:54 | Outpatient (CLI) | payer MEDICARE, MEDICAID, SELFPAY ==
[2019-07-03 15:30] VITALS: BMI 34.0
[2019-08-20 09:31] VITALS: BMI 34.0
--- NOTE | 2019-08-21 13:26 | PFTCOMP ---
COMPLETE PULMONARY FUNCTION TEST INTERPRETATION Brief HPI: Patient is a 64 year old female, currently under the care of Dr. Nobles, who presents to [facility] for complete pulmonary function tests secondary to diagnosis of dyspnea. Respiratory therapist reports good effort and reproducible results. Interpretation: Forced expiration spirometry shows a very severe large airways obstructive ventilatory defect with an FEV1 of 33% predicted. There is a significant bronchodilator response in FVC by strict ATS criteria. Spirograms are of good quality and plateau slowly, indicating slowly emptying areas of the lungs. The respiratory flow volume loop shows decreased expiratory flow rates at all lung volumes consistent with airway obstruction. Lung volumes by body plethysmography show a normal total lung capacity at 4.91 L, 97% predicted. FRC and RV are elevated out of proportion. Lung volume measurements are consistent with air-trapping. Diffusion capacity by carbon monoxide is decreased at 52% predicted. The airway resistance is elevated. Compared to previous pulmonary function tests from 08/01/2018, there is been a significant reduction in lung volumes and DLCO. Impression: Partially reversible very severe large airways obstructive ventilatory defect with reduction in diffusion capacity. There is been some worsening compared to July 2018.
== END ==
PROVIDERS: PCP Internal Medicine; Referring Provider Internal Medicine Critical Care Medicine; Visit Provider Internal Medicine Critical Care Medicine
DX: J44.9 Chronic obstructive pulmonary disease, unspecified (principal)
CPT/HCPCS: 94060; 94726; 94729

== ENCOUNTER → 2019-09-03 10:41 | Outpatient (CLI) | payer MEDICARE, MEDICAID, SELFPAY ==
[2019-08-20 09:31] VITALS: BMI 34.0
--- NOTE | 2019-09-03 10:42 | ECHOCS_ITS ---
Reason For Study: Dyspnea/SOB Procedure This was a 2D Doppler, Color Flow transthoracic echocardiogram. The study was technically difficult. Contrast injection was performed. Exam performed in department. Left Ventricle Normal size and thickness. The estimated ejection fraction is 65 %. Stage 1 diastolic dysfunction. No regional wall motion abnormalities noted. Right Ventricle Normal size and thickness. Normal systolic function. Atria Normal left atrium. Normal right atrium. Normal atrial septum. Mitral Valve The mitral valve is structurally normal. No prolapse or stenosis seen. Tricuspid Valve Normal tricuspid valve. Unable to estimate RV systolic pressure due to inadequate jet, pulmonary artery pressure probably normal. Aortic Valve Normal aortic valve. Trisinus/trileaflet aortic valve. Pulmonic Valve The pulmonic valve is not well visualized. Great Vessels Normal aortic root. Normal arch. Normal inferior vena cava. Inferior vena cava collapse with sniff. Pericardium/Pleural No pericardial effusion. Epicardial fat. Medication 22 gauge I.V. with prn adaptor inserted into right arm. Diluted definity 2ml given slow IV push to enhance endocardial definition. MMode/2D Measurements & Calculations LVIDd: 3.8 cm IVSd: 0.94 cm LAV(MOD-bp): 38.5 ml LVIDs: 2.6 cm LVPWd: 0.83 cm FS: 31.9 % LAV(MOD-bp) Indexed: 20.2 ml/m2 LAV(MOD-sp2): 40.1 ml LAV(MOD-sp4): 31.6 ml LA A4 area: 14.3 cm2 RA A4 area: 11.6 cm2 Time Measurements MV dec time: 0.33 sec Doppler Measurements & Calculations MV E max dewey: 64.7 cm/sec Lat Peak E' Dewey: 5.8 cm/sec Med Peak E' Dewey: 5.2 cm/sec MV A max dewey: 117.6 cm/sec E/E' lat: 11.1 E/E' med: 12.4 MV E/A: 0.55 MV V2 max: 126.2 cm/sec MV P1/2t max dewey: 76.1 cm/sec Ao V2 max: 150.2 cm/sec MV max P.4 mmHg MV P1/2t: 94.1 msec Ao max P.0 mmHg MV V2 mean: 65.5 cm/sec Ao V2 mean: 87.4 cm/sec MV mean P.0 mmHg MV dec slope: 236.8 cm/sec2 Ao mean P.8 mmHg MV V2 VTI: 27.1 cm MVA(P1/2t): 2.3 cm2 Ao V2 VTI: 23.4 cm LV V1 max: 111.3 cm/sec PA V2 max: 107.9 cm/sec LV V1 max P.0 mmHg LV V1 mean P.3 mmHg LV V1 mean: 70.8 cm/sec LV V1 VTI: 19.2 cm Interpretation Summary The estimated ejection fraction is 65 %. Stage 1 diastolic dysfunction. Unable to estimate RV systolic pressure due to inadequate jet, pulmonary artery pressure probably normal. Compared to echo report dated 11/04/2016, no appreciable changes noted. The study was technically difficult. Contrast injection was performed. Ordering Physician: Paige Jon Referring Physician: Paige Jon Performed By: Panda Ramirez RCS
== END ==
PROVIDERS: PCP Internal Medicine; Referring Provider Internal Medicine; Visit Provider Internal Medicine
DX: G47.33 Obstructive sleep apnea (adult) (pediatric) (principal); R06.02 Shortness of breath
CPT/HCPCS: 93306; Q9957; A4216; C8929

== ENCOUNTER → 2019-09-04 10:10 | Outpatient (CLI) | payer MEDICARE, MEDICAID, SELFPAY ==
[2019-08-20 09:31] VITALS: BMI 34.0
[2019-09-04 12:53] LABS: Thyroid Stim Hormone (TSH) < 0.01 uIU/mL (0.358-3.74)
== END ==
PROVIDERS: PCP Internal Medicine; Visit Provider Internal Medicine
DX: E03.9 Hypothyroidism, unspecified (principal)
CPT/HCPCS: 36415; 84443

== ENCOUNTER → 2019-09-17 10:05 | Outpatient (CLI) | payer MEDICARE, SELFPAY ==
[2019-09-17 09:51] VITALS: BMI 34.0
[2019-09-17 13:29] LABS: Anion Gap 5 (5-15); BUN 25 mg/dL (7-18); BUN/Creat Ratio 19.1 RATIO (10-20); Calcium,Total 10.2 mg/dL (8.5-10.1); Chloride 105 mmol/L (98-107); Creatinine, Serum 1.31 mg/dL (0.55-1.02); EST Glomerular Filtration Rate 43 mL/min (>60); Est Glom Filt Rate - Afr Amer 52 mL/min (>60); Glucose 122 mg/dL (74-106); Potassium 4.3 mmol/L (3.5-5.1); Sodium Level 138 mmol/L (136-145); Thyroid Stim Hormone (TSH) < 0.01 uIU/mL (0.358-3.74)
== END ==
PROVIDERS: PCP Internal Medicine; Referring Provider Internal Medicine; Visit Provider Internal Medicine
DX: I10 Essential (primary) hypertension (principal); E03.9 Hypothyroidism, unspecified
CPT/HCPCS: 36415; 80048; 84443

== ENCOUNTER → 2019-12-17 09:48 | Outpatient (CLI) | payer MEDICARE, SELFPAY ==
[2019-12-17 09:30] VITALS: BMI 34.0
[2019-12-17 13:50] LABS: Thyroid Stim Hormone (TSH) 7.25 uIU/mL (0.358-3.74)
[2019-12-17 13:51] LABS: Anion Gap 9 (5-15); BUN 26 mg/dL (7-18); Calcium,Total 9.9 mg/dL (8.5-10.1); Chloride 99 mmol/L (98-107); Creatinine, Serum 1.63 mg/dL (0.55-1.02); EST Glomerular Filtration Rate 34 mL/min (>60); Est Glom Filt Rate - Afr Amer 41 mL/min (>60); Glucose 153 mg/dL (74-106); Potassium 4.1 mmol/L (3.5-5.1); Sodium Level 136 mmol/L (136-145)
== END ==
PROVIDERS: PCP Internal Medicine; Visit Provider Internal Medicine
DX: I10 Essential (primary) hypertension (principal); E11.9 Type 2 diabetes mellitus without complications; E03.9 Hypothyroidism, unspecified
CPT/HCPCS: 36415; 80048; 84443

== ENCOUNTER → 2020-04-15 10:08 | Outpatient (CLI) | payer MEDICARE, SELFPAY ==
[2020-04-15 09:24] VITALS: BMI 34.0
[2020-04-15 12:27] LABS: Absolute Lymphocyte Count 1.14 X10^3/uL (0.83-4.51); Absolute Neutrophil Count 7.8 X10^3/uL (2.0-7.7); Basophil# 0.03 X10^3/uL; Basophil% 0.3 % (0-1); Eosinophil# 0.24 X10^3/uL; Eosinophils% 2.5 % (0-5); Hematocrit 40.1 % (37-47); Hemoglobin 12.5 g/dL (12.0-15.0); Lymphocyte # 1.14 X10^3/ul (4.0); Lymphocyte % 11.7 % (19-41); Mean Corp Hgb Conc 31.2 g/dL (32-36); Mean Corpuscular Hgb 27.7 pg (27.0-32.0); Mean Corpuscular Volume 88.9 fL (81-99); Mean Platelet Vol. 11.2 fl (6.2-12.0); Monocyte# 0.56 X10^3/uL; Monocyte% 5.7 % (0-10); NRBC Flagged by Analyzer 0 % (0-5); Neutrophil # 7.75 X10^3/uL (2.7-7.7); Neutrophil % 79.3 % (47-70); Platelet Count 244 K/mm3 (150-450); RBC Distribution Width CV 14.1 % (11.6-14.6); RBC Distribution Width SD 45.3 fl (35.1-43.9); Red Blood Count 4.51 M/mm3 (4.2-5.4); White Blood Count 9.8 K/mm3 (4.4-11.0)
[2020-04-15 12:34] LABS: ALB/GLOB Ratio 0.9 RATIO (0.9-2.4); AST(SGOT) 18 U/L (15-37); Alanine Aminotransfer ALT/SGPT 26 U/L (13-56); Albumin, Serum 3.9 g/dL (3.2-5.0); Alkaline Phosphatase 81 U/L (45-117); Anion Gap 2 (5-15); BUN 23 mg/dL (7-18); BUN/Creat Ratio 15.2 RATIO (10-20); Calcium,Total 10.3 mg/dL (8.5-10.1); Chloride 102 mmol/L (98-107); Creatinine, Serum 1.51 mg/dL (0.55-1.02); EST Glomerular Filtration Rate 37 mL/min (>60); Est Glom Filt Rate - Afr Amer 44 mL/min (>60); Globulin 4.3 g/dL (2.2-4.2); Glucose 107 mg/dL (74-106); Potassium 4.3 mmol/L (3.5-5.1); Protein, Total 8.2 g/dL (6.4-8.2); Sodium Level 136 mmol/L (136-145); Thyroid Stim Hormone (TSH) 3.48 uIU/mL (0.358-3.74)
== END ==
PROVIDERS: PCP Internal Medicine; Referring Provider Internal Medicine; Visit Provider Internal Medicine
DX: E11.9 Type 2 diabetes mellitus without complications (principal); E03.9 Hypothyroidism, unspecified
CPT/HCPCS: 36415; 80053; 84443; 85025

== ENCOUNTER → 2020-04-23 10:54 | Outpatient (CLI) | payer MEDICARE, MEDICAID, SELFPAY ==
[2019-10-30 11:08] VITALS: BMI 34.0
[2020-04-15 09:24] VITALS: BMI 34.0
[2020-04-23 11:00] VITALS: PULSE 105; PULSE 117; PULSE 120; PULSE 123; PULSE 90; O2SAT 85; O2SAT 90; O2SAT 93; O2SAT 94; O2SAT 95; O2SAT 96
--- NOTE | 2020-04-23 11:21 | CPS ---
pt started test on room air. after 1 min sats dropped to 85% on room air. Placed the patient on 2l nc. Sats stayed up on 2l for the rest of the test.
--- NOTE | 2020-04-24 10:16 | PCM.PSN.6M ---
PSN 6 Minute Walk Test - 6 Minute Walk Test 6 Minute Walk Test: 6 Minute Walk Test PSN:6-Minute Walk Test Start: 04/23/20 11:18 Freq: Status: Active Protocol: RESP.6MINW Document 04/23/20 11:00 EW (Rec: 04/23/20 11:30 EW [id number]) 6 Minute Walk Test Date Performed 04/23/20 Time Performed 11:00 Height 5 ft 5 in Weight: 187 lb Weight in Pounds 187.[address]: Sin Nobles Assistive device used: None Pre-test Oxygen Delivery Method Room Air Pulse Ox (%) 94 Pulse Rate (60-100 beats/min) 90 Dyspnea Jocelyn Scale (0-10) 2 Exertion Jocelyn Scale (6-20) 6 1st minute Oxygen Delivery Method Room Air Pulse Ox (%) 85 Pulse Rate (60-100 beats/min) 117 H Reported Symptoms Increased Work of Breathing 2nd minute Oxygen Flow Rate (L/min) (L/min) 2 Oxygen Delivery Method Nasal Cannula Pulse Ox (%) 95 3rd minute Oxygen Flow Rate (L/min) (L/min) 2 Oxygen Delivery Method Nasal Cannula Pulse Ox (%) 94 Pulse Rate (60-100 beats/min) 117 H 4th minute Oxygen Flow Rate (L/min) (L/min) 2 Oxygen Delivery Method Nasal Cannula Pulse Ox (%) 90 Pulse Rate (60-100 beats/min) 123 H 5th minute Oxygen Flow Rate (L/min) (L/min) 2 Oxygen Delivery Method Nasal Cannula Pulse Ox (%) 93 Pulse Rate (60-100 beats/min) 120 H 6th minute Oxygen Flow Rate (L/min) (L/min) 2 Oxygen Delivery Method Nasal Cannula Pulse Ox (%) 93 Pulse Rate (60-100 beats/min) 120 H Post-test Oxygen Flow Rate (L/min) (L/min) 2 Oxygen Delivery Method Nasal Cannula Pulse Ox (%) 96 Pulse Rate (60-100 beats/min) 105 H Dyspnea Jocelyn Scale (0-10) 3 Exertion Jocelyn Scale (6-20) 11 Full Laps Walked 14 Partial Lap, Number of Tiles Walked 0 Total Distance Walked (ft) 826 04/23/20 11:21 Cardiopulmonary Services by Leonor Degroot pt started test on room air. after 1 min sats dropped to 85% on room air. Placed the patient on 2l nc. Sats stayed up on 2l for the rest of the test. Initialized on 04/23/20 11:21 - END OF NOTE - Interpretation Interpretation: The patient ambulated 826 feet over the course of 6 minutes beginning on room air without assistive devices or breaks. Pretesting oxygen saturation was noted to be 94% on room air. With ambulation, the sapphire oxygen saturation was 85% at minute 1 of testing. 2 L/min of supplemental oxygen was applied and the patient was able to complete the remainder of the test while maintaining appropriate oxygen saturations. - Recommendations Recommendations: 2 L/min of supplemental oxygen should be utilized with exertion.
== END ==
PROVIDERS: PCP Internal Medicine; Referring Provider Internal Medicine Critical Care Medicine; Visit Provider Internal Medicine Critical Care Medicine
DX: R06.09 Other forms of dyspnea (principal)
CPT/HCPCS: 94618

== ENCOUNTER 2020-07-08 08:44 | Observation (INO) | payer MEDICARE, MEDICAID, SELFPAY ==
[2020-04-15 09:24] VITALS: BMI 34.0
[2020-07-08] VITALS (12 sets, daily range): BP systolic 132–156; BP diastolic 65–110; PULSE 75–113; RESP 16–94; TEMP 35.7–36.6; O2SAT 94–97; BMI 35.6; BMI 32.7
--- NOTE | 2020-07-08 08:48 | EKG12_ITS ---
Test Reason : NEURO Blood Pressure : / mmHG Vent. Rate : 096 BPM Atrial Rate : 096 BPM P-R Int : 168 ms QRS Dur : 090 ms QT Int : 360 ms P-R-T Axes : 073 042 070 degrees QTc Int : 454 ms Normal sinus rhythm Normal ECG Confirmed by SHARLENE PATRICIO, KEIKO ([id number]), multimedia editor OVI STEPHEN ([id number]) on 07/09/2020 10:57:36 AM Referred By: ANA Confirmed By:KEIKO SU MD
--- NOTE | 2020-07-08 08:48 | CT_ITS ---
STUDY: CT HEAD STROKE PROTOCOL W/O CONTRAST INJECTION REASON FOR EXAM: Female, 65 years old. STROKE RADIATION DOSAGE (If Supplied By Facility): CTDIvol = ( 44.99 ) mGy, DLP = ( 812.98 ) mGycm TECHNIQUE: Transaxial CT imaging of the brain was performed without administration of intravenous contrast material. Individualized dose optimization techniques were used for this CT. COMPARISON: No relevant priors. FINDINGS: Normal size ventricles and extra-axial spaces for the patient''s age. There are areas of decreased attenuation within the white matter tracts of the supratentorial brain, consistent with microvascular disease changes. Normal basal ganglia and thalami. Normal brainstem. Normal cerebellum. There is no intracranial hemorrhage. There are no findings of an acute ischemic infarction. Normal visualized paranasal sinuses. CT/STROKE Brain/Head without Cont IMPRESSION: There is no intracranial hemorrhage. N.B. : The above information has been verbally conveyed by Lula Santos MD to Vitaliy Weaver DO on 07/08/2020 09:43:38 (ET). Electronically Signed: Lula Santos MD at 9:44 EST Tel , Service support ,
--- NOTE | 2020-07-08 08:49 | CT_ITS ---
We are attempting to reach an attending provider to discuss findings. An addendum with communication details will be sent when the communication is complete. STUDY: CTA HEAD AND NECK WITH CONTRAST REASON FOR EXAM: Female, 65 years old. STROKE RADIATION DOSAGE (If Supplied By Facility): CTDIvol = ( 15.76 ) mGy, DLP = ( 742.60 ) mGycm TECHNIQUE: CT angiography was performed with a multi-detector CT scanner. Data acquisition was obtained from the skull base through the vertex following intravenous administration of IV 100mL [id number]-[id number]. MIP images were reconstructed from the axial data set. Post-processing of the angiographic images was performed, with multiplanar reformation and 3D reconstruction. Individualized dose optimization techniques were used for this CT. COMPARISON: No relevant priors. FINDINGS: Normal bilateral petrous carotid arteries. There is calcified plaque formation of the right cavernous carotid artery, without a cross-sectional luminal stenosis. There is calcified plaque formation of the left cavernous carotid artery, without a cross-sectional luminal stenosis. Normal right A1 segments of the anterior cerebral artery. Normal left A1 segments of the anterior cerebral artery. Normal intact anterior communicating artery (ACOM). Normal bilateral A2 segments of the anterior cerebral arteries. Normal right M1 and M2 segments of the middle cerebral arteries, with a normal M1 bifurcation. Normal left M1 and M2 segments of the middle cerebral arteries, with a normal M1 bifurcation. Normal right posterior communicating artery (PCOM). Normal left posterior communicating artery (PCOM). Normal bilateral vertebral arteries. Normal basilar artery with a normal basilar bifurcation. The visualized bilateral superior cerebellar (SCA) arteries are normal. Normal bilateral P1, P2 and visualized P3 segments of the posterior cerebral arteries. There is no demonstrated aneurysm of the [place] of [place]. Chronic involutional changes of the brain. AORTIC ARCH: There is atherosclerotic calcific plaque formation of the aortic arch and great vessels arising from the aortic arch, without a hemodynamically significant stenosis. There is a normal origin of the brachiocephalic, left common carotid, and left subclavian arteries. Atherosclerotic plaque formation at the origin of the left subclavian artery and right brachiocephalic artery. RIGHT CAROTID ARTERIES: Normal right common carotid artery (CCA). Normal right common carotid bulb. Normal origin of the right internal carotid (ICA) artery without a hemodynamically significant stenosis. Normal visualized cervical portion of the right internal carotid artery. Normal origin of the right external carotid artery (ECA). LEFT CAROTID ARTERIES: Normal left common carotid artery (CCA). Normal left common carotid bulb. There is mild atherosclerotic plaque formation of the origin of the left internal carotid artery with less than 50% cross sectional diameter stenosis. Normal visualized cervical portion of the left internal carotid artery. Normal origin of the left external carotid artery (ECA). VERTEBRAL ARTERIES: Normal bilateral vertebral arteries. CT/STROKE CTA Head AND Neck W/Con IMPRESSION: Minimal plaque formation at the origin of the left internal carotid artery. Electronically Signed: Shan Mcdaniel, at 9:57 EST , Service support ,
--- NOTE | 2020-07-08 08:51 | ED.VIS.STROK ---
History of Present Illness Chief Complaint: Neuro S/Sx Informant: Patient, Family Onset: Today Timing: Continuous Quality and Location: Expressive Aphasia - Patient states she had trouble talking when she woke up today. Associated Symptoms: Headache. Negative for: Nausea, Vomiting, Chest Pain Narrative: Patient presents with difficulty swallowing and difficulty talking that began when she woke up today. Patient lives by herself and her last known well is unknown. Patient states that yesterday she had a hard time focusing while she was trying to read. The daughter states that her speech today is different than her normal speech. Patient admits to a mild headache. Patient denies any nausea or vomiting. Patient denies any chest pain. Patient denies any hearing changes or tinnitus. Patient denies any paresthesias or weakness. Patient denies any shortness of breath. Past Medical History - Allergies and Home Meds Allergies/Adverse Reactions: Allergies No Known Allergies Allergy (Verified 07/08/20 08:49) Primary Care Physician: Paige Jon MD [Primary Care Provider] - Surgical History: no surgical history Lives: Alone Smoking Status: Former smoker Alcohol: None Drugs: None - Family History Maternal Family History: Family History (Last Reviewed 12/17/19 @ 09:25 by Elise Lawson) Mother Cancer Father COPD (chronic obstructive pulmonary disease) Grandfather Cancer Grandmother Diabetes Family History: Reports: - - Cancer Paternal Family History: Family History (Last Reviewed 12/17/19 @ 09:25 by Elise Lawson) Mother Cancer Father COPD (chronic obstructive pulmonary disease) Grandfather Cancer Grandmother Diabetes Family History: Reports: - - Heart disease COPD. Sibling Family History: Family History (Last Reviewed 12/17/19 @ 09:25 by Elise Lawson) Mother Cancer Father COPD (chronic obstructive pulmonary disease) Grandfather Cancer Grandmother Diabetes Family History: Reports: - - Brothers have lung disease Review of Systems General: Denies: Chills, Fever Eyes: Denies: Diplopia ENT: Denies: Bilateral ear pain, Sore throat Cardiovascular: Denies: Chest pain, Palpitations Respiratory: Denies: Dyspnea, Cough Gastrointestinal: Denies: Nausea, Vomiting Genitourinary: Denies: Dysuria, Hematuria Musculoskeletal: Denies: Neck pain, Back pain Skin: Denies: Rash, Abscess Neurological: Reports: Headache. Denies: Weakness, Parasthesia Allergy: Denies: Uticaria, Swelling of the mouth STROKE Vital Signs/Narrative: Vital Signs Temp Pulse Resp BP Pulse Ox 07/08/20 08:45 96.3 F L 113 H 22 H 155/110 H 97 Inital Vital Signs reviewed: Yes General: Well nourished, Well developed, Obese Head: Normocephalic, Atraumatic ENT: Moist mucous membranes Neck: Supple, No JVD Cardiovascular: Regular rate, Regular rhythm Respiratory: No distress, CTA bilaterally Abdomen: Soft, Nontender, Nondistended, Normal bowel sounds Extremities: Nontender, No edema Skin: Normal color, No rash Neurological: Alert, Oriented x3, Cranial nerves II-XII grossly intact, Normal Strength, Normal Sensation Psychological: Normal affect, Normal Mood Diagnostic/Tx/Re-eval CT scan of the brain was obtained. There is no evidence of acute stroke or hemorrhage. CTA of the head and neck was obtained. There is no acute large vessel occlusion. These were interpreted by the radiologist and reviewed by myself. Chest X-Ray - ED: 1 View, Read by ED Physician, Read by Radiologist, Normal - Rhythm Strip Rhythm Strip: Sinus Rhythm Rate: 96 Ectopy: None - EKG Initial EKG Interpretation: Sinus Rhythm, No Acute Injury Pattern Prior: Unchanged - Medical Decision Making Stroke Team Activated: No - Unknown last known well Since the patient's last known well is unknown and she has only mild symptoms of intermittent dysarthria, stroke team was not activated. IV TPA is not indicated. On reevaluation, the daughter states the patient's speech seems to be waxing and waning. At times, she states her speech sounds normal but other times it sounds different. Patient is able to answer questions appropriately and her words can be understood easily. I recommended that the patient be admitted for further evaluation of a possible stroke. Patient is agreeable with this. Case was discussed with the hospitalist. ED Disposition - Plan for ED Patient: Diagnosis: Dysarthria Referrals: Paige Jon MD [Primary Care Provider] -
[2020-07-08 08:56] LABS: Absolute Lymphocyte Count 2.25 X10^3/uL (0.83-4.51); Absolute Neutrophil Count 11.7 X10^3/uL (2.0-7.7); Basophil# 0.07 X10^3/uL; Basophil% 0.5 % (0-1); Eosinophil# 0.28 X10^3/uL; Eosinophils% 1.8 % (0-5); Hematocrit 41.7 % (37-47); Hemoglobin 13.1 g/dL (12.0-15.0); Lymphocyte # 2.25 X10^3/ul (4.0); Lymphocyte % 14.6 % (19-41); Mean Corp Hgb Conc 31.4 g/dL (32-36); Mean Corpuscular Volume 89.1 fL (81-99); Mean Platelet Vol. 10.7 fl (6.2-12.0); Monocyte# 0.97 X10^3/uL; Monocyte% 6.3 % (0-10); NRBC Flagged by Analyzer 0 % (0-5); Neutrophil # 11.69 X10^3/uL (2.7-7.7); Neutrophil % 76.1 % (47-70); Platelet Count 330 K/mm3 (150-450); RBC Distribution Width CV 14.1 % (11.6-14.6); RBC Distribution Width SD 46.2 fl (35.1-43.9); Red Blood Count 4.68 M/mm3 (4.2-5.4); White Blood Count 15.4 K/mm3 (4.4-11.0)
[2020-07-08 09:01] LABS: Bedside Glucose 197 mg/dL (70-110)
[2020-07-08 09:05] LABS: International Normalized Ratio 0.9
[2020-07-08 09:07] LABS: Partial Thromboplast Time 31.6 Seconds (24.1-36.2)
[2020-07-08 09:15] LABS: Anion Gap 3 (5-15); BUN 27 mg/dL (7-18); BUN/Creat Ratio 16.4 RATIO (10-20); Calcium,Total 9.7 mg/dL (8.5-10.1); Chloride 102 mmol/L (98-107); Creatinine, Serum 1.65 mg/dL (0.55-1.02); EST Glomerular Filtration Rate 33 mL/min (>60); Est Glom Filt Rate - Afr Amer 40 mL/min (>60); Estimated Creatinine Clearance 29.77 ml/min; Glucose 193 mg/dL (74-106); Potassium 3.8 mmol/L (3.5-5.1); Sodium Level 136 mmol/L (136-145)
--- NOTE | 2020-07-08 09:26 | RAD_ITS ---
STUDY: X-RAY CHEST REASON FOR EXAM: Female, 65 years old. Stroke symptoms acute TECHNIQUE: Single AP portable view of the chest. COMPARISON: Comparison is made with prior study dated 11/03/2016. FINDINGS: EKG electrodes are seen. Hyperinflation. The lungs are clear. There is no demonstrated pleural abnormality. Normal size heart. Normal mediastinum and reinaldo. Normal visualized pulmonary arteries. Normal visualized aortic arch and descending thoracic aorta. Normal visualized thoracic spine. Normal visualized ribs, clavicles, and shoulders. There is no demonstrated abnormality of the visualized soft tissue structures of the upper abdomen. RAD/Chest 1 View IMPRESSION: No acute abnormality is seen. Electronically Signed: Shan Mcdaniel, at 10:02 EST , Service support ,
[2020-07-08] MEDS: 0.9% Normal Saline 1,000 ML 1000 ML IV (09:44)
--- NOTE | 2020-07-08 11:32 | ECHOCS_ITS ---
Reason For Study: TIA/CVA Procedure This was a 2D Doppler, Color Flow transthoracic echocardiogram. The study was technically difficult. Contrast injection was performed. Exam performed portable in patient room. Left Ventricle Normal LV size. Left ventricular systolic function is normal. The estimated ejection fraction is 65 %. Diastolic function is indeterminate. No regional wall motion abnormalities noted. Right Ventricle Normal RV size. Normal systolic function. Atria Normal left atrium. Normal right atrium. No doppler evidence for ASD. Bubble contrast study negative for right to left interatrial shunt. Mitral Valve There is no mitral annular calcification. Normal mitral valve. Mild (1+) eccentric mitral valve insufficiency. Tricuspid Valve The tricuspid valve is not well visualized. Trivial tricuspid valve insufficiency. Right ventricular systolic pressure estimated to be 22 mmHg. Aortic Valve The aortic valve is not well visualized. Pulmonic Valve The pulmonic valve is not well visualized. Great Vessels Normal sized aortic root. Pericardium/Pleural No pericardial effusion. Epicardial fat. Medication Diluted definity 2.0ml given slow IV push to enhance endocardial definition. Performed a rapid injection of agitated mix of 9 cc saline and 1cc air to assess for atrial septal defect. MMode/2D Measurements & Calculations LVIDd: 4.6 cm IVSd: 0.93 cm Ao root diam: 2.9 cm LVIDs: 3.4 cm LVPWd: 0.93 cm RVDd: 2.6 cm FS: 27.3 % LAV(MOD-bp): 28.2 ml LVAd ap4: 22.4 cm2 SV(MOD-sp4): 31.6 ml LAV(MOD-bp) Indexed: 14.3 ml/m2 EDV(MOD-sp4): 56.6 ml LAV(MOD-sp2): 32.5 ml EDV(sp4-el): 58.5 ml LAV(MOD-sp4): 21.7 ml LVAs ap4: 12.9 cm2 ESV(MOD-sp4): 24.9 ml ESV(sp4-el): 25.7 ml EF(MOD-sp4): 56.0 % EF(sp4-el): 56.0 % SV(sp4-el): 32.7 ml LA A4 area: 10.7 cm2 LA dimension(2D): 3.1 cm RA A4 area: 7.0 cm2 Time Measurements MV dec time: 0.33 sec Doppler Measurements & Calculations MV E max dewey: 66.9 cm/sec Lat Peak E' Dewey: 6.8 cm/sec Med Peak E' Dewey: 4.7 cm/sec MV A max dewey: 116.1 cm/sec E/E' lat: 9.9 E/E' med: 14.2 MV E/A: 0.58 Ao V2 max: 142.5 cm/sec LV V1 max: 96.2 cm/sec TR max dewey: 216.5 cm/sec Ao max P.1 mmHg LV V1 max P.7 mmHg TR max P.7 mmHg Interpretation Summary The study was technically difficult. Contrast injection was performed. Left ventricular systolic function is normal. The estimated ejection fraction is 65 %. Mild (1+) eccentric mitral valve insufficiency. Trivial tricuspid valve insufficiency. Epicardial fat. Right ventricular systolic pressure estimated to be 22 mmHg. Diastolic function is indeterminate. Bubble contrast study negative for right to left interatrial shunt. Ordering Physician: Fitz Montez Referring Physician: Paige Jon Performed By: Lorena Ngo, JUVENTINO, RVT
--- NOTE | 2020-07-08 11:32 | MRI_ITS ---
We are attempting to reach an attending provider to discuss findings. An addendum with communication details will be sent when the communication is complete. STUDY: MRI BRAIN WITHOUT CONTRAST REASON FOR EXAM: Female, 65 years old. expressive aphasia, mild H/A symptoms began this morning upon waking TECHNIQUE: Standardized multiplanar fat and water weighted pulse sequences were obtained. COMPARISON: CTA and CT brain 07/08/2020 FINDINGS: There is mild cerebral atrophy with widening of the extra-axial spaces and ventricular dilatation. Normal white matter tracts of the supratentorial brain. Mild restricted diffusion within the perirolandic cortex and subcortical white matter on the left. Normal bilateral basal ganglia. Normal thalami. There is no extra-axial fluid accumulation. Normal flow voids within the major intracranial circulation suggesting patency by spin echo criteria. Normal sella turcica, pituitary gland, infundibular stalk, optic chiasm and hypothalamus. Normal tectal plate and pineal gland. Normal midbrain, aminah and medulla. Normal cerebellum. Normal basal cisterns. Normal bilateral temporal bones. Normal bilateral internal auditory canals. No demonstrated orbital abnormality, within the constraints of a routine brain study. Normal visualized paranasal sinuses. Normal calvarium and skull base. Normal visualized soft tissue structures. Normal visualized upper cervical spine. MRI/Brain without Contrast IMPRESSION: Acute or subacute infarct left perirolandic cortex and subcortical white matter Electronically Signed: Chad Do MD at 20:49 EST , Service support ,
--- NOTE | 2020-07-08 12:14 | NURSING ---
Contacted Dr Jon's office for medication list, office will be faxing med list over.
[2020-07-08 13:30] LABS: Bedside Glucose 87 mg/dL (70-110)
[2020-07-08 17:16] LABS: Bedside Glucose 85 mg/dL (70-110)
--- NOTE | 2020-07-08 19:22 | HP.PCM_ITS ---
Problem List (1) Dysarthria Status: Acute History of Present Illness Date of Admission: 07/08/20 Chief Complaint: Garbled speech The patient is a 65 year old F seen in the emergency room at [facility] today with a chief complaint of speech difficulties which occurred at 8 AM this morning when she awoke from sleep. Patient stated that she was unable to talk coherently and her speech was garbled. Patient denied any focal motor weakness, patient stated that at approximately 11 PM last night she was trying to read but could not comprehend what she was reading and went to bed. A stroke team was not called in the emergency room today as the patient's timeframe had for administration of any TPA. CT of the brain was obtained which showed no acute stroke, CTA of the head and neck was obtained which showed no significant occlusive disease. Labs showed an elevated white blood cell count of 15.4, creatinine was elevated at 1.65, and glucose was 193. On reevaluation in the ER her speech was noted to be clear, she had an NIH stroke score of 1. Patient will be placed in observation status on PCU, an MRI of the brain will be obtained, NIH stroke scores will be monitored, patient does take a baby aspirin daily at home, she is also on a statin. Past Medical History Past Medical History (Chronic Problems): Chronic Problems (Last Reviewed 12/17/19 @ 09:25 by Elise Lawson) Type 2 diabetes mellitus (Chronic) Osteopenia (Chronic) Nicotine dependence, cigarettes, in remission (Chronic) CKD (chronic kidney disease), stage III (Chronic) Back pain (Chronic) Osteoarthritis (Chronic) Borderline diabetes (Chronic) Stage 4 very severe COPD by GOLD classification (Chronic) FEV1 26% predicted Dyspnea on exertion (Chronic) Continue spiriva. She was borderline appropriate for supplemental oxygen on exertion. She has been advised to check her oxygen saturation randomly at home and to wear oxygen if less than 89%, and to call the office to let us know she has required daytime oxygen. Recheck pulmonary stress test prior to the 3 [address] follow up [address] Nobles. She was previously ordered pulmonary rehab, but has yet to start it. After today's conversation about her advanced lung disease, she would like to pursue rehab. Nocturnal hypoxemia (Chronic) Continue 2 LPM as previously prescribed. No additional testing for nocturnal hypoxia at this time. Follow up with Dr Nobles in 3 months. Benign essential HTN (Chronic) COLD (chronic obstructive lung disease) (Chronic) Depression (Chronic) HLD (hyperlipidemia) (Chronic) Hypothyroidism (Chronic) Nicotine abuse (Chronic) GERD (gastroesophageal reflux disease) (Chronic) Diabetes type 2, controlled (Chronic) Asthma (Chronic) Medical History: Medical History (Last Reviewed 12/17/19 @ 09:25 by Elise Lawson) Borderline diabetes (Chronic) R73.03 Arthritis M19.90 Degenerative disc disease History of pneumonia Z87.01 Hyperlipemia E78.5 Hypothyroidism E03.9 Hypertension I10 Hypoxia R09.02 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 Nocturnal hypoxia G47.34 PND (paroxysmal nocturnal dyspnea) R06.00 Right ankle pain M25.571 Shortness of breath R06.02 Stage 4 very severe COPD by GOLD classification J44.9 Wheezing R06.2 Dislocation of ankle joint S93.06XA Other fracture of right lower leg, initial encounter for closed fracture S82.891A Allergies No Known Allergies Allergy (Verified 07/08/20 08:49) Home Medications: Ambulatory Orders Medication Instructions Recorded Aspirin [Ecotrin] 81 mg PO DAILY 10/04/13 Oxygen, Home [Home Oxygen] 2 lpm NASAL CONT #1 unit 10/31/16 blood sugar diagnostic See Dose Instructions .ROUTE 02/21/18 .MEDSUPPLY #100 ea ascorbic acid (vitamin C) 1,500 mg 1,500 mg PO DAILY 05/22/18 tablet,extended release cholecalciferol (vitamin D3) 125 5,000 unit PO DAILY 05/22/18 mcg (5,000 unit) capsule albuterol sulfate 90 mcg/actuation 2 puff INHALATION Q6H PRN #8.5 g 05/22/19 aerosol inhaler ipratropium 0.5 mg-albuterol 3 mg 3 ml INHALATION Q4H PRN PRN #180 ml 09/03/19 (2.5 mg base)/3 mL nebulization soln famotidine 20 mg tablet 20 mg PO DAILY PRN #90 tab 09/17/19 hydrochlorothiazide 25 mg tablet 25 mg PO DAILY #90 tab 09/17/19 lisinopril 20 mg tablet 20 mg PO BID #180 tab 09/17/19 rosuvastatin 5 mg tablet 5 mg PO QHS #90 tab 03/02/20 budesonide-formoterol HFA 160 2 puff INHALATION Q12H #10.2 g 10/30/19 mcg-4.5 mcg/actuation aerosol inhaler tiotropium bromide 18 mcg capsule See Rx Instructions .ROUTE 10/30/19 with inhalation device .COMPLEX #30 cap bupropion HCl 150 mg tablet,12 hr 150 mg PO BID #180 ea 12/17/19 sustained-release levothyroxine 88 mcg tablet 88 mcg PO DAILY #60 tab 12/17/19 sitagliptin 100 mg tablet 100 mg PO DAILY #30 tab 06/10/20 Surgical History: Surgical History (Last Reviewed 12/17/19 @ 09:25 by Elise Lawson) Tubal ligation evaluation Z01.818 Surgical History: - - Ankle surgery secondary to ankle fracture Psychiatric History: No pertinent psych hx Lives: Alone Smoking Status: Former smoker Tobacco Use: Non-smoker Alcohol: None Drugs: None - *Family History Maternal Family History: Family History (Last Reviewed 12/17/19 @ 09:25 by Elise Lawson) Mother Cancer Father COPD (chronic obstructive pulmonary disease) Grandfather Cancer Grandmother Diabetes History Items: - - Cancer-leukemia Paternal Family History: Family History (Last Reviewed 12/17/19 @ 09:25 by Elise Lawson) Mother Cancer Father COPD (chronic obstructive pulmonary disease) Grandfather Cancer Grandmother Diabetes History Items: Heart Disease - CHF, - - Heart disease COPD. Sibling Family History: Family History (Last Reviewed 12/17/19 @ 09:25 by Elise Lawson) Mother Cancer Father COPD (chronic obstructive pulmonary disease) Grandfather Cancer Grandmother Diabetes History Items: - - Brothers have lung disease Review of Systems Constitutional: Denies: Anorexia, Chills, Fever, Night Sweats, Malaise, Weakness, Weight Change, Fatigue Eyes: Denies: Cataracts, Conjunctivae Inflammation, Double vision, Drainage HEENT: Denies: Dysphasia, Ear Pain, Eye Pain, Hearing Changes, Nasal bleeding, Nasal Congestion, Post Nasal Drip Cardiovascular: Denies: Chest Pain, Claudication, Chest Pressure, Chest Tightness, Edema, Heaviness, Palpitations Respiratory: Denies: Cough, Hemoptysis, Pleuritic Pain, Shortness of Breath, Shortness of breath at rest, Shortness of breath upon exertion Gastrointestinal: Denies: Abdominal Pain, Constipation, Diarrhea, Hematemesis, Hematochezia, Nausea, Melena, Vomiting Genitourinary: Denies: Dysuria, Frequency, Hematuria, Hesitancy, Urgency Musculoskeletal: Denies: Back Pain, Foot Pain, Hand Pain, Joint Pain, Joint stiffness, Joint swelling, Joint Tenderness Skin: Denies: Dryness, Pruritis, Rash Neurological: Reports: Change in Speech, Slurred speech. Denies: Blurred vision, Double vision, Difficulty swallowing, Focal weakness, Headaches, Numbness, Tingling Psychiatric: Denies: Anxiety, Depression, Homicidal Ideations, Suicidal Ideations Endocrine: Denies: Change in Body Habitus, Heat/ Cold Intolerance, Polydipsia, Polyuria Hematologic/ Lymphatic: Denies: Adenopathy, Anemia, Easy Bruising, Easy Bleeding, Petechiae, Purpura VTE Information - Inpt Only VTE Present on Admission: No VTE Mechan Device Prophylaxis: SCD's VTE Pharm Prophylaxis ordered?: No Reason prophylaxis not ordered:: Treatment Not Indicated Patient Problems: Active and Suspected Problems (Last Reviewed 12/17/19 @ 09:25 by Elise Lawson) Dysarthria (Acute) - Physical Exam Vitals/I&O's: Vital Signs Temp Pulse Resp BP Pulse Ox 97.5 F L 86 16 142/75 H 94 07/08/20 17:25 07/08/20 17:25 07/08/20 17:25 07/08/20 17:25 07/08/20 17:25 Oxygen Flow Rate (L/min) 2 Oxygen Delivery Method Room Air Weight: 90.6 kg Body Mass Index (BMI) 32.7 Finger Stick Blood Glucose 197 Intake and Output for Last 24 Hours 07/06/20 07/07/20 07/08/20 23:59 23:59 23:59 Intake Total 1000 / 1000 Balance 1000 / 1000 General: Alert, Oriented x3, Cooperative, No apparent distress, Well developed, Well nourished HEENT: Atraumatic, PERRLA, EOMI, Normocephalic Oral: Moist Mucosa Neck: Supple, No JVD, Trachea Midline, Thyroid Normal Size and Texture Lungs: Clear to auscultation, Normal air movement, No rhonchi, No wheeze, No rales Cardiovascular: Regular rate, Regular Rhythm, Normal S1, Normal S2, No murmurs, PMI Normal, No rub noted, No Gallop Abdomen: Bowel Sounds Present, Soft, Non Tender, Non-Distended, No hernias noted Extremities: No clubbing, No cyanosis, No edema, Capillary Refill Less than 3 Seconds Skin: No rashes, No breakdown Musculoskeletal: No Tenderness to Palpation of Joints or Extremities Neurological: Cranial nerves II-XII grossly intact, Neuro grossly intact, Muscle tone normal, Sensory exam intact to light touch and pain, Coordination normal, - - There is some slight expressive aphasia noted Psych/Mental Status: Normal Affect, Appropriate, Alert and oriented to time, place, person, mood and affect Laboratory Results 07/08/20 08:46: WBC 15.4 H, RBC 4.68, Hgb 13.1, Hct 41.7, MCV 89.1, MCH 28.0, MCHC 31.4 L, RDW Std Deviation 46.2 H, RDW Coeff of Navya 14.1, Plt Count 330, MPV 10.7, Immature Gran % (Auto) 0.700, Neut % (Auto) 76.1 H, Lymph % (Auto) 14.6 L, Otoe % (Auto) 6.3, Eos % (Auto) 1.8, Baso % (Auto) 0.5, Absolute Neuts (auto) 11.7 H, Absolute Lymphs (auto) 2.25, Nucleated RBC % 0 07/08/20 08:46: PT 12.0, INR 0.9, APTT 31.6 07/08/20 08:46: Sodium 136, Potassium 3.8, Chloride 102, Carbon Dioxide 31.0, Anion Gap 3 L, BUN 27 H, Creatinine 1.65 H, Estim Creat Clear Calc 29.77, Est GFR (MDRD) Af Amer 40 L, Est GFR (MDRD) Non-Af 33 L, BUN/Creatinine Ratio 16.4, Glucose 193 H, Calcium 9.7, Troponin I < 0.015 07/08/20 08:57: POC Glucose 197 H 07/08/20 13:23: POC Glucose 87 07/08/20 17:11: POC Glucose 85 Current Medications Acetaminophen (Acetaminophen 325 Mg Tablet) 650 mg PO Q6H PRN PRN PRN Reason: Pain Score 1-10 Albuterol Sulfate (Albuterol 2.5 Mg/3 Ml Vial.Neb.) 2.5 mg INHALATION Q2H PRN PRN Reason: SOB/WHEEZING Albuterol/Ipratropium (Ipratropium/Albuterol Sulfate 3 Ml Ampul.Neb) 3 ml INHALATION Q6H.RT PHILLIP Aspirin (Aspirin E.C. 81 Mg Tablet) 81 mg PO DAILYCM PHILLIP Atorvastatin Calcium (Atorvastatin Calcium 10 Mg Tablet) 10 mg PO QHS PHILLIP Bupropion HCl (Bupropion (Sr) 150 Mg Tablet.Sa) 150 mg PO BID PHILLIP Famotidine (Famotidine 20 Mg Tablet) 20 mg PO DAILY PRN PRN Reason: gerd Hydrochlorothiazide (Hydrochlorothiazide 25 Mg Tablet) 25 mg PO DAILY PHILLIP Sodium Chloride () 250 mls @ 15 mls/hr IV .[id number] PRN PRN Reason: Saline Flush Sodium Chloride () 250 mls @ 15 mls/hr IV .[id number] PRN PRN Reason: Additional IVPB Infusion Insulin Human Lispro (Insulin Lispro 100 Unit/Ml Insuln.Pen) 0 unit SC ACHS PHILLIP; Protocol Last Admin: 07/08/20 17:22 Dose: Not Given Documented by: Levothyroxine Sodium (Levothyroxine 88 Mcg Tablet) 88 mcg PO DAILY@0600 PHILLIP Linagliptin (Linagliptin 5 Mg Tablet) 5 mg PO DAILY PHILLIP Lisinopril (Lisinopril 20 Mg Tablet) 20 mg PO BID PHILLIP Sodium Chloride (0.9% Saline Lock 10 Ml Syringe) 10 - 40 ml IV UD PRN PRN Reason: SALINE FLUSH Assessment/Plan All Active Problems (Last Reviewed 12/17/19 @ 09:25 by Elise Lawson) Dysarthria (Acute) Pharyngitis (Resolved) Swallowing difficulty (Acute) LILIA (obstructive sleep apnea) (Acute) At risk for cancer (Acute) PND (post-nasal drip) (Resolved) Hypersomnia (Acute) Aftercare for cast or splint check or change (Resolved) COPD exacerbation (Resolved) Acute respiratory failure with hypoxia (Resolved) #1 Dysarthria-etiology unclear at this point, possibly secondary to acute left- sided ischemic stroke-patient will be placed in observation status on PCU, she will undergo an MRI of the brain, she will be seen by PT OT and speech therapy, patient will have an echocardiogram performed, she will remain on a baby aspirin daily and a statin. #2 type 2 diabetes-blood sugars will be monitored, sliding scale insulin will be administered as needed #3 hyperlipidemia #4 chronic depression #5 hypertension OBSV E&M: 85025 Initial observation care L3
[2020-07-08] MEDS: Ipratropium/Albuterol Sulfate 3 ML AMPUL.NEB INHALATION (20:06)
[2020-07-08] MEDS: Atorvastatin Calcium 10 MG Tablet PO (21:38)
[2020-07-08] MEDS: Lisinopril 20 MG Tablet PO (21:38)
[2020-07-08] MEDS: buPROPion (SR) 150 MG Tablet.SA PO (21:38)
[2020-07-08 21:50] LABS: Bedside Glucose 98 mg/dL (70-110)
--- NOTE | 2020-07-08 21:58 | PCS.PANDOC ---
PANDEMIC DOCUMENTATION INITIATED: Date: 07/08/20 Time: 11:25
[2020-07-09] VITALS (10 sets, daily range): BP systolic 125–150; BP diastolic 50–84; PULSE 84–104; RESP 16–20; TEMP 36.1–36.7; O2SAT 93–97; BMI 32.7
[2020-07-09] MEDS: Levothyroxine 88 MCG Tablet PO (06:42)
[2020-07-09 06:46] LABS: Bedside Glucose 116 mg/dL (70-110)
[2020-07-09] MEDS: Ipratropium/Albuterol Sulfate 3 ML AMPUL.NEB INHALATION ×2 (07:15→13:15)
--- NOTE | 2020-07-09 09:26 | CASEMGMT ---
SW completed a PHQ 9 with patient as she had a Stroke. She scored a 2 which indicates minimal depression. She denies any need for counseling resources. Leonor AMEZQUITA MSW
--- NOTE | 2020-07-09 09:30 | SP.MBSS_ITS ---
Modified Barium Swallow - Patient Information Study Date: 07/09/20 Study Time: 12:00 Direct Billable Minutes: 75 Total Minutes procedure & reportin Diagnosis: Dysphagia (R13.12) Referring Physician: Fitz Montez Reason for Referral: The patient is a 65 year old female referred for a modified barium swallow (MBS) study to objectively assess the patients oropharyngeal swallow function under fluoroscopy secondary to concerns for PO intake sufficiency following a cerebrovascular accident involving the left perirolandic cortex and subcortical white matter. Medical History: Stage IV chronic obstructive lung disease, dyspnea on exertion, nocturnal hypoxemia, asthma, nicotine dependence in remission, stage III chronic kidney disease, benign essential hypertension, hyperlipidemia, hypothyroidism, type 2 diabetes mellitus, osteoarthritis, osteopenia, chronic back pain, depression, gastroesophageal reflux disease - Penetration-Aspiration Scale Score Thin liquid - 5 mL tsp.: Result: 1= does not enter airway Thin liquids via cup (single sip - 1): Result: 1= does not enter airway Thin liquids via cup (single sip - 2): Result: 8= enters airway/below vocal folds/no effort Thin liquids via straw (single sip -1): Result: 1= does not enter airway Thin liquids via straw (single sip -2): Result: 1= does not enter airway Thin liquids via straw (single sip -3): Result: 3= enters airways/above vocal folds/not ejected [place] thickened liquids via straw (single sip -1): Result: 1= does not enter airway [place] thickened liquids via straw (single sip -2): Result: 3= enters airways/above vocal folds/not ejected [place] thickened liquids via straw (single sip -3): Result: 1= does not enter airway [place] thickened liquids via straw (single sip -4): Result: 1= does not enter airway Pudding via spoon Result: 1= does not enter airway Regular textures: Result: 1= does not enter airway [place] thickened liquids via straw (single sip -5): Result: 1= does not enter airway - Oral Phase Labial Seal: No Labial Escape Tongue Control During Bolus Hold: Cohesive bolus between tongue to palatal seal Bolus Preparation/Mastication: Slow prolonged chewing/mashing with complete recollection Bolus Transport/Lingual Motion: Brisk tongue motion Oral Residue: Residue collection on oral structures - Pharyngeal Phase Initiation of Pharyngeal Swallow: Bolus head in pyriforms Soft Palate Elevation: No bolus between soft palate and pharyngeal wall Laryngeal Elevation: Min superior movement thyroid cart/min apprx aryte cart- epig petiole Anterior Hyoid Excursion: Partial anterior movement Epiglottic Movement: Partial inversion Laryngeal Vestibule Closure at Height of Swallow: Incomplete; narrow column of air/contrast in laryngeal vestibule Pharyngeal Stripping Wave: Present - diminished Pharyngoesophageal Segment Opening: Parital distension and partial duration; parital obstruction of flow Tongue Base Retraction: Narrow column of contrast between tongue base & post. pharyngeal wall Pharyngeal Residue: Collection of residue within or on pharyngeal structures - Esophageal Phase Esophageal Clearance: Complete clearance - Diagnosis/Impression Diagnosis: Dysphagia (R13.12) Impression: The patient presents with moderate oropharyngeal dysphagia (DSRS: 5) with grade IV SILENT aspiration of thin liquids secondary to a recent cerebrovascular accident involving the left perirolandic cortex and subcortical white matter complicated by stage IV chronic obstructive lung disease. Her swallow profile was marked by an inconsistent pharyngeal phase synchrony resulting in pre-prandial penetration and subsequent aspiration of thin liquids in addition to a reduction in hyolaryngeal excursion and duration with inconsistent laryngeal vestibule pressure generated to expel penetrated material; this additionally complicates full pharyngoesophageal segment relaxation, though with little functional impact. She demonstrated a mild pharyngeal dysmotility with solid textures that was likely complicated by her edentulous status which complicates full bolus breakdown prior to transition. She demonstrates mastication inefficiency with incomplete breakdown of solid bolus contributing to an increase in pharyngeal retention with her edentulous status complicating the oral preparatory phase (dentures at home). There was an absent sensory response and accompanied cough in response to tracheobronchial aspiration combined with a weak cued volitional cough intensity generated to expel penetrated material suggesting dystussia. There is a small non-obstructive cricopharyngeal bar located at the C-5 C-6 level, minimal to no impact on pharyngeal motility or pharyngeal timing. I would anticipate a positive resolution to the changes in her swallow functioning associated with her stroke given the size and location of infarction, and her preserved motor functioning, though the diagnosis of advanced COPD complicates matters, and may suggest an underlying dysphagia with the potential disruptions in her swallow pattern and higher risk of silent aspiration. I would recommend a repeat modified barium swallow study within 1 - 2 weeks (if clinically appropriate) to further assess the presence and extent of silent and overt aspiration prior to advancement to a less restrictive diet. - Recommendations Comment: DIET TEXTURE RECOMMENDATIONS: mechanical soft textured (IDDSI: 5), nectar thickened liquid (IDDSI: 2) diet RECOMMENDED COMPENSATORY STRATEGIES: distant supervision, reduced bolus volume / rate of ingestion, liquid chaser at reasonable intervals, seated upright at 90 degrees during PO intake, remain upright for 30-60 minutes post meal (GERD precaution), medications one at a time with purees. Recommend Repeat Modified Barium Swallow: Yes Need for Skilled Speech Therapy Services: Yes Education Completed: 1. Described result of evaluation., 2. Pt understands evaluation & agrees with goals and treatment plan. - Image Count: [id number] - Status Active ST Patient: Active
[2020-07-09 11:31] LABS: Bedside Glucose 117 mg/dL (70-110)
--- NOTE | 2020-07-09 13:08 | ST ---
NESHA completed this date, with results as follows: RESULTS OF THE EVALUATION: The patient presents with moderate oropharyngeal dysphagia (DSRS: 5) with grade IV SILENT aspiration of thin liquids secondary to a recent cerebrovascular accident involving the left perirolandic cortex and subcortical white matter complicated by stage IV chronic obstructive lung disease. Her swallow profile was marked by an inconsistent pharyngeal phase synchrony resulting in pre-prandial penetration and subsequent aspiration of thin liquids in addition to a reduction in hyolaryngeal excursion and duration with inconsistent laryngeal vestibule pressure generated to expel penetrated material; this additionally complicates full pharyngoesophageal segment relaxation, though with little functional impact. She demonstrated a mild pharyngeal dysmotility with solid textures that was likely complicated by her edentulous status which complicates full bolus breakdown prior to transition. She demonstrates mastication inefficiency with incomplete breakdown of solid bolus contributing to an increase in pharyngeal retention with her edentulous status complicating the oral preparatory phase (dentures at home). There was an absent sensory response and accompanied cough in response to tracheobronchial aspiration combined with a weak cued volitional cough intensity generated to expel penetrated material suggesting dystussia. There is a small non-obstructive cricopharyngeal bar located at the C-5 C-6 level, minimal to no impact on pharyngeal motility or pharyngeal timing. I would anticipate a positive resolution to the changes in her swallow functioning associated with her stroke given the size and location of infarction, and her preserved motor functioning, though the diagnosis of advanced COPD complicates matters, and may suggest an underlying dysphagia with the potential disruptions in her swallow pattern and higher risk of silent aspiration. I would recommend a repeat modified barium swallow study within 1 - 2 weeks (if clinically appropriate) to further assess the presence and extent of silent and overt aspiration prior to advancement to a less restrictive diet. DIET TEXTURE RECOMMENDATIONS: mechanical soft textured (IDDSI: 5), nectar thickened liquid (IDDSI: 2) diet RECOMMENDED COMPENSATORY STRATEGIES: distant supervision, reduced bolus volume / rate of ingestion, liquid chaser at reasonable intervals, seated upright at 90 degrees during PO intake, remain upright for 30-60 minutes post meal (GERD precaution), medications one at a time with purees. Bob Salvador M.A., NATO-DIRECTOR OF CARDIAC CATH LAB, CBIS MBSImP Certified, LSVT Certified [facility] Speech-Language Pathology Department Email: [email or web address]
--- NOTE | 2020-07-09 13:22 | CASEMGMT ---
Pt to be set up with OP speech therapy at discharge per Dr. Montez. Script for OP speech signed and faxed to [facility] at this time. Pt provided original script at this time. Pt voices no further questions/concerns/needs at this time. Eric DALY CM
[2020-07-09] MEDS: buPROPion (SR) 150 MG Tablet.SA PO (13:27)
[2020-07-09] MEDS: LINAGLIPTIN 5 MG TABLET PO (13:27)
[2020-07-09] MEDS: Aspirin E.C. 81 MG Tablet PO (13:27)
--- NOTE | 2020-07-09 13:28 | PCM.DC ---
- Discharge Diagnoses Current Active Problems: Current Active and Chronic Problems (Last Reviewed 12/17/19 @ 09:25 by Elise Lawson) Dysarthria (Acute) You will use the following diet at home:: Calorie/Carbohydrate Controlled (specify 1200, 1400, etc) - 1800 bailey ADA Your food should be the consistency of: Regular Your liquids should be the consistency of: Regular/Thin Discharge Activity: Return to Normal Activity Weight Bearing Status: Full weight bearing Additional Instructions: YOU WILL NEED TO TAKE ASPIRIN AND PLAVIX FOR A MINIMUM OF THREE WEEKS, AFTER THAT YOUR PHYSICIAN MAY DECIDE TO DROP OFF ONE OF THE MEDS-EITHER THE ASPIRIN OR PLAVIX FOLLOW UP WITH OUTPATIENT SPEECH THERAPY Allergies/Adverse Reactions: Allergies No Known Allergies Allergy (Verified 07/08/20 08:49) Medications to take at Discharge Aspirin [Ecotrin] 81 mg PO DAILY 10/04/13 Oxygen, Home [Home Oxygen] 2 lpm NASAL CONT #1 unit 10/31/16 blood sugar diagnostic See Dose Instructions .ROUTE .MEDSUPPLY #100 ea 02/21/18 ascorbic acid (vitamin C) 1,500 mg tablet,extended release 1,500 mg PO DAILY 05/22/18 cholecalciferol (vitamin D3) 125 mcg (5,000 unit) capsule 5,000 unit PO DAILY 05/22/18 albuterol sulfate 90 mcg/actuation aerosol inhaler 2 puff INHALATION Q6H PRN #8.5 g 05/22/19 ipratropium 0.5 mg-albuterol 3 mg (2.5 mg base)/3 mL nebulization soln 3 ml INHALATION Q4H PRN PRN #180 ml 09/03/19 famotidine 20 mg tablet 20 mg PO DAILY PRN #90 tab 09/17/19 hydrochlorothiazide 25 mg tablet 25 mg PO DAILY #90 tab 09/17/19 lisinopril 20 mg tablet 20 mg PO BID #180 tab 09/17/19 budesonide-formoterol HFA 160 mcg-4.5 mcg/actuation aerosol inhaler 2 puff INHALATION Q12H #10.2 g 10/30/19 tiotropium bromide 18 mcg capsule with inhalation device See Rx Instructions .ROUTE .COMPLEX #30 cap 10/30/19 bupropion HCl 150 mg tablet,12 hr sustained-release 150 mg PO BID #180 ea 06/01/20 levothyroxine 88 mcg tablet 88 mcg PO DAILY #60 tab 12/17/19 sitagliptin 100 mg tablet 100 mg PO DAILY #30 tab 06/10/20 Clopidogrel Bisulfate [Plavix] 75 mg PO DAILY #30 tab 07/09/20 Rosuvastatin Calcium [Crestor] 20 mg PO DAILY #30 tab 07/09/20 The following prescriptions were given: Rosuvastatin Calcium [Crestor] 20 mg PO DAILY #30 tab Transmission Status: Pending to [facility] Clopidogrel Bisulfate [Plavix] 75 mg PO DAILY #30 tab Transmission Status: Pending to [facility] Primary Care Physician: Paige Jon MD [Primary Care Provider] - Please follow up with your Primary Care Physician in: at next scheduled visit Test Results: Test results from this visit will be discussed in further detail at your follow-up appointment, if applicable.
[2020-07-09] MEDS: Clopidogrel Bisulfate 75 MG Tablet PO (13:35)
[2020-07-09] MEDS: hydroCHLOROthiazide 25 MG Tablet PO (13:35)
[2020-07-09] MEDS: Lisinopril 20 MG Tablet PO (13:35)
--- NOTE | 2020-07-09 13:37 | CASEMGMT ---
This RN CM to room with BEAR form, explanation done-pt voices understanding, and signs BEAR form at this time. Original to chart and copy to pt at this time. Pt voices no further questions/concerns/needs at this time. SStaten ADDY CM
--- NOTE | 2020-07-13 10:05 | DS.PCM_ITS ---
Discharge Date and Diagnosis - Problem List Patient Problems: Active and Suspected Problems (Last Reviewed 12/17/19 @ 09:25 by Elise Lawson) Dysarthria (Acute) Date of Admission: 07/08/20 Date of Discharge: 07/09/20 - Primary Discharge Diagnosis Acute Problems: Active Problems (Last Reviewed 12/17/19 @ 09:25 by Elise Lawson) #1 acute ischemic infarction left perirolandic cortex and subcortical white matter #2 moderate oropharyngeal dysphagia with grade 4 silent aspiration of thin liquids secondary to acute ischemic stroke (#1) #3 chronic kidney disease stage III secondary to type 2 diabetes #4 type 2 diabetes #5 chronic obstructive pulmonary disease #6 obstructive sleep apnea - Secondary Discharge Diagnosis Chronic Problems: Chronic Problems (Last Reviewed 12/17/19 @ 09:25 by Elise Lawson) Type 2 diabetes mellitus (Chronic) Osteopenia (Chronic) Nicotine dependence, cigarettes, in remission (Chronic) CKD (chronic kidney disease), stage III (Chronic) Back pain (Chronic) Osteoarthritis (Chronic) Borderline diabetes (Chronic) Stage 4 very severe COPD by GOLD classification (Chronic) FEV1 26% predicted Dyspnea on exertion (Chronic) Continue spiriva. She was borderline appropriate for supplemental oxygen on exertion. She has been advised to check her oxygen saturation randomly at home and to wear oxygen if less than 89%, and to call the office to let us know she has required daytime oxygen. Recheck pulmonary stress test prior to the [address] Nobles. She was previously ordered pulmonary rehab, but has yet to start it. After today's conversation about her advanced lung disease, she would like to pursue rehab. Nocturnal hypoxemia (Chronic) Continue 2 LPM as previously prescribed. No additional testing for nocturnal hypoxia at this time. Follow up with Dr Nobles in 3 months. Benign essential HTN (Chronic) COLD (chronic obstructive lung disease) (Chronic) Depression (Chronic) HLD (hyperlipidemia) (Chronic) Hypothyroidism (Chronic) Nicotine abuse (Chronic) GERD (gastroesophageal reflux disease) (Chronic) Diabetes type 2, controlled (Chronic) Asthma (Chronic) Hospital Course and Treatment Operations: None Procedures: 2-D Echocardiogram Summary of Care Provided: The patient is a 65 year old F seen in the emergency room at [facility] with difficulty swallowing and speaking that she noted when waking up that day. Her last known well was unknown, evaluation in the emergency room included a CT of the brain that showed no evidence of stroke or hemorrhage, CT of the head neck was obtained and there was no large vessel occlusions noted. Stroke team was not activated due to the patient's mild symptoms of intermittent dysarthria in the emergency room. Patient was placed in observation status on PCU, she was seen in consultation by PT OT and speech therapy, she underwent an MRI of the brain which showed an acute infarction, speech therapy performed a videofluoroscopic swallow exam which showed some oropharyngeal dysphagia and her diet was modified. Echocardiogram did not show any evidence of thrombus or right to left interatrial shunt. Neurology was not consulted due to the mild severity of her stroke. Patient was placed on Plavix and aspirin and her lipid medication was adjusted. On 07/09/2020, patient was seen and examined and felt to be in stable condition to go home: On examination she appeared in good health and spirits, she does not appear to be in any distress. Vital signs as documented. Skin warm and dry and without overt rashes. Neck without JVD, thyroid appears normal, trachea is midline, neck is supple. Lungs clear, normal air movement was noted. Heart exam notable for regular rhythm, normal sounds and absence of murmurs, rubs or gallops. Abdomen unremarkable and without evidence of organomegaly, masses, or abdominal aortic enlargement, bowel sounds are present in all 4 quadrants, no abdominal tenderness was noted. Extremities nonedematous, no cyanosis was noted, no clubbing was noted. Neuro: Cranial nerves II through XII are grossly intact, no focal motor deficits were noted, sensation to light touch and pinprick is intact, motor exam 5/5 throughout. Psych: Patient is alert and oriented x3, she does not appear anxious or depressed, she does not appear a gitated. Patient was to follow-up as an outpatient with speech therapy. Patient Problems: Active and Suspected Problems (Last Reviewed 12/17/19 @ 09:25 by Elise Lawson) Dysarthria (Acute) - Physical Exam Vitals/I&O's: Vital Signs Temp Pulse Resp BP Pulse Ox 97.9 F 104 H 18 135/84 H 96 07/09/20 14:58 07/09/20 14:58 07/09/20 14:58 07/09/20 14:58 07/09/20 14:58 Oxygen Flow Rate (L/min) 2 Oxygen Delivery Method Room Air Weight: 90.6 kg Body Mass Index (BMI) 32.7 Finger Stick Blood Glucose 197 Discharge Activity: Return to Normal Activity Weight Bearing Status: Full weight bearing Home Medications: Medications to take at Discharge Aspirin [Ecotrin] 81 mg PO DAILY 10/04/13 Oxygen, Home [Home Oxygen] 2 lpm NASAL CONT #1 unit 10/31/16 blood sugar diagnostic See Dose Instructions .ROUTE .MEDSUPPLY #100 ea 02/21/18 ascorbic acid (vitamin C) 1,500 mg tablet,extended release 1,500 mg PO DAILY 05/22/18 cholecalciferol (vitamin D3) 125 mcg (5,000 unit) capsule 5,000 unit PO DAILY 05/22/18 albuterol sulfate 90 mcg/actuation aerosol inhaler 2 puff INHALATION Q6H PRN #8.5 g 05/22/19 ipratropium 0.5 mg-albuterol 3 mg (2.5 mg base)/3 mL nebulization soln 3 ml INHALATION Q4H PRN PRN #180 ml 09/03/19 famotidine 20 mg tablet 20 mg PO DAILY PRN #90 tab 09/17/19 hydrochlorothiazide 25 mg tablet 25 mg PO DAILY #90 tab 09/17/19 lisinopril 20 mg tablet 20 mg PO BID #180 tab 09/17/19 budesonide-formoterol HFA 160 mcg-4.5 mcg/actuation aerosol inhaler 2 puff INHALATION Q12H #10.2 g 10/30/19 tiotropium bromide 18 mcg capsule with inhalation device See Rx Instructions .ROUTE .COMPLEX #30 cap 10/30/19 bupropion HCl 150 mg tablet,12 hr sustained-release 150 mg PO BID #180 ea 12/17/19 levothyroxine 88 mcg tablet 88 mcg PO DAILY #60 tab 12/17/19 sitagliptin 100 mg tablet 100 mg PO DAILY #30 tab 06/10/20 Clopidogrel Bisulfate [Plavix] 75 mg PO DAILY #30 tab 07/09/20 Rosuvastatin Calcium [Crestor] 20 mg PO DAILY #30 tab 07/09/20 Following Prescriptions Were Given to Patient: Rosuvastatin Calcium [Crestor] 20 mg PO DAILY #30 tab Transmission Status: Received by [facility] Clopidogrel Bisulfate [Plavix] 75 mg PO DAILY #30 tab Transmission Status: Received by [facility] Primary Care Physician: Paige Jon MD [Primary Care Provider] - Please follow up with your Primary Care Physician in: at next scheduled visit Disposition: Home Minutes spent on discharge:: 31 Patient Condition:: Stable Medical Necessity - Tobacco Use Smoking Status: Former smoker Tobacco Use: Non-smoker Meaningful Use Info Meaningful Use Diagnoses (Choose all that apply): Ischemic CVA - CVA Therapy Assessed for PT,OT and/or ST?: Yes - Ischemic Stroke Antithrombotic order at d/c?: Yes Dx of Atrial fib/flutter?: No Anticoagulant at discharge?: No Reason anticoagulant not ordered: Treatment not Indicated Statins at discharge?: Yes Primary Dx Acute Ischemic CVA?: Yes IV tPA ordered during stay?: No Reason IV t-PA not ordered: Treatment not Indicated OBSV E&M: [id number] Observation care discharge
== END 2020-07-09 13:32 | disposition home or self-care (01) ==
LOC: ED 10:18 → PCU 10:45
PROVIDERS: Admitting Provider Internal Medicine; Emergency Provider Emergency Medicine; PCP Internal Medicine; Visit Provider Internal Medicine
DX: R47.1 Dysarthria and anarthria (principal); I63.89 Other cerebral infarction; R13.12 Dysphagia, oropharyngeal phase; E11.22 Type 2 diabetes mellitus with diabetic chronic kidney disease; I12.9 Hypertensive chronic kidney disease with stage 1 through stage 4 chronic kidney disease, or unspecified chronic kidney disease; N18.30 Chronic kidney disease, stage 3 unspecified; J44.9 Chronic obstructive pulmonary disease, unspecified; G47.33 Obstructive sleep apnea (adult) (pediatric); M19.90 Unspecified osteoarthritis, unspecified site; E78.5 Hyperlipidemia, unspecified; K21.9 Gastro-esophageal reflux disease without esophagitis; E03.9 Hypothyroidism, unspecified; Z87.891 Personal history of nicotine dependence; Z79.899 Other long term (current) drug therapy; Z79.82 Long term (current) use of aspirin; Z99.81 Dependence on supplemental oxygen; Z79.51 Long term (current) use of inhaled steroids; F32.9 Major depressive disorder, single episode, unspecified
CPT/HCPCS: 70450; 70496; 70498; 70551; 71045; 74230; 80048; 82962; 84484; 85025; 85610; 85730; 92610; 92611; 93005; 93306; 94640; 96360; 96361; 99218; 99285; J7030; Q9957; Q9967; A4216; C8929; G0378

== ENCOUNTER → 2020-07-21 08:51 | Outpatient (CLI) | payer MEDICARE, MEDICAID, SELFPAY ==
[2020-07-21 08:22] VITALS: BMI 32.8
[2020-07-21 12:58] LABS: Cholesterol 159 mg/dL (200); High Density Lipoprotein 71 mg/dL; Triglycerides 105 mg/dL; Very Low Density Lipoprotein 21 mg/dL (5-40)
[2020-07-21 16:13] LABS: Microalbumin,Random Urine 26.7 mg/L (NO RANGE EST.); Microalbumin:Creatinine Ratio 30.9 mg/g CRE (<30 mg/g CRE)
== END ==
PROVIDERS: PCP Internal Medicine; Referring Provider Internal Medicine; Visit Provider Internal Medicine
DX: E11.9 Type 2 diabetes mellitus without complications (principal)
CPT/HCPCS: 36415; 80061; 82043; 82570

== ENCOUNTER → 2020-10-28 10:28 | Outpatient (CLI) | payer MEDICARE, MEDICAID, SELFPAY ==
[2020-10-20 10:21] VITALS: BMI 32.8
--- NOTE | 2020-10-28 10:37 | BD_ITS ---
STUDY: DUAL ENERGY X-RAY ABSORPTIOMETRY / DXA REASON FOR EXAM: Female, 65 years old. Osteopenia with moderate fracture risk(2018) TECHNIQUE: Bone Mineral Density (BMD) measurements of lumbar spine and bilateral hips were obtained. COMPARISON: Comparison is made with prior study dated 03/28/2018. FINDINGS: Lumbar Spine (L1-L4): g/cm2 (1.129) / T-score (-0.3) / Z-score (1.3) Findings are suggestive of normal bone density with a low fracture risk. Left Femur Total: g/cm2 (0.895) / T-score (-0.9) / Z-score (0.4) Left Femoral Neck: g/cm2 (0.815) / T-score (-1.6) / Z-score (0.0) Right Femur Total: g/cm2 (0.857) / T-score (-1.2) / Z-score (0.1) Right Femoral Neck: g/cm2 (0.808) / T-score (-1.7) / Z-score (-0.1) The T-Scores on the most recent prior examination were: Lumbar Spine (L1-L4): There has been worsening of bone density since the previous examination. Left Femur Total: which represents an improvement of 1.5%. Right Femur Total: which represents an improvement of 0.2%. BD/Dexa Bone Density Study IMPRESSION: The patient is considered osteopenic as outlined below according to World Stephane Organization (WHO) criteria with a moderate fracture risk. There has been improvement of bone density since the previous examination. Reference Information: The T-score is the number of standard deviations above or below the standard which is normal for young adults at their peak bone mineral density. The World Health Organization (WHO) interprets the T-scores as follows: Above -1 Normal bone density Between -1 and -2.5 Osteopenia Equal to / or below -2.5 Osteoporosis As a practical clinical guideline, osteopenia may be graded as follows: Mild -1 through -1.5 Moderate -1.6 through -2.0 Severe -2.1 through -2.4 The Z-score is the number of standard deviations above or below age-matched controls. A Z-score of less than -1.5 would be considered abnormal. References: 1. NIH Osteoporosis and Related Bone Diseases www osteo.org 2. International Society for Clinical Densitometry www iscd.org 3. National Osteoporosis Foundation www nof.org Electronically Signed: Shan Mcdaniel MD at 12:45 EDT , Service support ,
== END ==
PROVIDERS: PCP Internal Medicine; Referring Provider Internal Medicine; Visit Provider Internal Medicine
DX: Z78.0 Asymptomatic menopausal state (principal)
CPT/HCPCS: 77080

== ENCOUNTER → 2021-01-20 10:32 | Outpatient (CLI) | payer MEDICARE, MEDICAID, SELFPAY ==
[2020-08-08 07:48] VITALS: BMI 33.2
[2021-01-20 09:59] VITALS: BMI 32.8
[2021-01-20 12:08] LABS: Absolute Lymphocyte Count 0.87 X10^3/uL (0.83-4.51); Absolute Neutrophil Count 8.4 X10^3/uL (2.0-7.7); Basophil# 0.04 X10^3/uL; Basophil% 0.4 % (0-1); Eosinophil# 0.25 X10^3/uL; Eosinophils% 2.5 % (0-5); Hemoglobin 12.7 g/dL (12.0-15.0); Lymphocyte # 0.87 X10^3/ul (0.83-4.51); Lymphocyte % 8.6 % (19-41); Mean Corp Hgb Conc 31.8 g/dL (32-36); Mean Corpuscular Hgb 27.8 pg (27.0-32.0); Mean Corpuscular Volume 87.5 fL (81-99); Monocyte% 4.9 % (0-10); NRBC Flagged by Analyzer 0 % (0-5); Neutrophil % 83.1 % (47-70); Platelet Count 233 K/mm3 (150-450); RBC Distribution Width CV 14.9 % (11.6-14.6); RBC Distribution Width SD 47.8 fl (35.1-43.9); Red Blood Count 4.57 M/mm3 (4.2-5.4); White Blood Count 10.1 K/mm3 (4.4-11.0)
[2021-01-20 12:33] LABS: ALB/GLOB Ratio 0.8 RATIO (0.9-2.4); AST(SGOT) 16 U/L (15-37); Alanine Aminotransfer ALT/SGPT 19 U/L (13-56); Albumin, Serum 3.7 g/dL (3.2-5.0); Alkaline Phosphatase 91 U/L (45-117); Anion Gap 5 (5-15); BUN 24 mg/dL (7-18); BUN/Creat Ratio 14.2 RATIO (10-20); Calcium,Total 9.7 mg/dL (8.5-10.1); Chloride 103 mmol/L (98-107); Creatinine, Serum 1.69 mg/dL (0.55-1.02); EST Glomerular Filtration Rate 32 mL/min (>60); Est Glom Filt Rate - Afr Amer 39 mL/min (>60); Globulin 4.4 g/dL (2.2-4.2); Glucose 163 mg/dL (74-106); Potassium 4.1 mmol/L (3.5-5.1); Protein, Total 8.1 g/dL (6.4-8.2); Sodium Level 136 mmol/L (136-145)
--- NOTE | 2021-01-20 13:19 | CT_ITS ---
STUDY: LOW DOSE CT LUNG CANCER SCREENING REASON FOR EXAM: Female, 65 years old. Former smoker. Patient quit 4 years ago. Patient smokes 1 pack per day for 35 years. RADIATION DOSAGE (If Supplied By Facility): CTDIvol = ( 4.02 ) mGy, DLP = ( 135.92 ) mGycm TECHNIQUE: No contrast was administered. Low dose technique was utilized (average mAS-38 and kVp 120). 1.25 mm axial source images with a slice interval of 1.25-mm were reconstructed in lung windows. 2.5 mm axial source images with a slice interval of 2.5-mm were reconstructed in lung windows. 5.0 mm axial source images with a slice interval of 5.0-mm were reconstructed in soft tissue windows. Nodule measured using lung windows on PACS and/or independent workstation with automated measurement of minimum and maximum diameter. Nodule measurement reported as average diameter rounded to the nearest whole number. Growth is defined as an increase ins size of greater than 1.5 mm. COMPARISON: Comparison is made with prior study 03/09/2019. NODULES: No suspicious nodules are seen. Calcified 3 mm granuloma in the medial left lung base. Emphysema: Stable scarring at the lung apices slightly more prominent on the right side. Mild degree of emphysema is changes. Mild linear scarring in the lingular segment of the left upper lobe as well as along the anterior aspect of the right lower. Endobronchial lesion: None Aorta: Atherosclerotic plaque calcification. Coronary arteries: Coronary artery calcification. Heart: Unremarkable. Pulmonary artery: Unremarkable. Mediastinal nodes: Small benign appearing mediastinal lymph nodes. Other chest and abdominal findings: CT/Low Dose CT Lung Screening IMPRESSION: Lung-RADS category 2 - Continue annual screening with LDCT in 12 months. IMPORTANT NOTES FOR USE: ACR Lung-RADS Version 1.1 Assessment Categories Release Date: 2018 Category: Coded 0-4 bases on nodule(s) with highest degree of suspicion. Negative screen is defined as categories 1 and 2; a positive screen is defined as categories 3 and 4. Category 3 and 4A nodules that are unchanged on interval CT should be coded as category 2, and individuals returned to screening in 12 months. Category 4X: Category 3 or 4 nodules with additional imaging findings that increase the suspicion of lung cancer, such as spiculation, GGN that doubles in size in 1 year, enlarged lymph notes, etc. Category Modifiers: S (significant finding unrelated to lung cancer) Electronically Signed: Shan Mcdaniel MD at 14:06 EDT , Service support ,
--- NOTE | 2021-01-20 13:38 | RAD_ITS ---
STUDY: X-RAY - LUMBAR SPINE REASON FOR EXAM: Female, 65 years old. Back Pain TECHNIQUE: 5 view(s) of the lumbar spine were obtained including oblique views. COMPARISON: Comparison is made with prior study dated 06/24/2010. FINDINGS: There is straightening of the normal lumbar lordosis. There is no substantial scoliosis. There is a normal alignment of the vertebrae. There is multilevel endplate spondylosis of the lumbar vertebrae. Mild degree of disc space narrowing at the L5-S1 level. There is atherosclerotic calcification of the abdominal aorta without a demonstrated aneurysm. Tubal ligation clips are seen. RAD/L/S Spine Min 4 Views IMPRESSION: Degenerative changes of the spine, as detailed above. Electronically Signed: Shan Mcdaniel MD at 8:15 EDT , Service support ,
--- NOTE | 2021-01-20 13:38 | RAD_ITS ---
STUDY: X-RAY - PELVIS AND RIGHT HIP REASON FOR EXAM: Female, 65 years old. Right Hip Pain TECHNIQUE: 3 views of the pelvis and hip. COMPARISON: None. FINDINGS: Moderate amount of fecal material is seen in the colon. Bilateral tubal ligation clips. Normal bilateral iliac wings, sacroiliac joints and visualized sacrum. Normal bilateral superior and inferior pubic rami. Normal pubic symphysis. Normal bilateral ischial tuberosities. Normal visualized femoral head. Normal acetabulum. Mild degree of joint space narrowing with subchondral cysts. RAD/HIP, UNI W/ Pelvis 2-3 Views IMPRESSION: Mild degree of joint space narrowing of the right hip joint with subchondral cysts. Similar appearance in the left hip joint although to a lesser extent. Electronically Signed: Shan Mcdaniel MD at 12:25 EDT , Service support ,
== END ==
PROVIDERS: PCP Internal Medicine; Referring Provider Internal Medicine Critical Care Medicine; Visit Provider Internal Medicine Critical Care Medicine
DX: M54.9 Dorsalgia, unspecified (principal); M25.551 Pain in right hip; I10 Essential (primary) hypertension; E11.9 Type 2 diabetes mellitus without complications; F17.211 Nicotine dependence, cigarettes, in remission
CPT/HCPCS: 36415; 71271; 72110; 73502; 80053; 82043; 82570; 85025

== ENCOUNTER → 2021-05-27 11:40 | Outpatient (CLI) | payer MEDICARE, MEDICAID, SELFPAY ==
--- NOTE | 2021-05-27 11:43 | US_ITS ---
STUDY: RENAL ULTRASOUND - COMPLETE REASON FOR EXAM: Female, 66 years old. CKD TECHNIQUE: Ultrasound evaluation of the kidneys was performed with real-time and static puentes-scale imaging. COMPARISON: None. FINDINGS: RIGHT KIDNEY: Normal location of the right kidney, which is normal in size. The right kidney measures 10.5 x 5.2 x 5.3 cm. There is a normal cortex of the right kidney. The renal cortex measures 1.2 cm. There is a 1.8 cm cyst. There are no right renal calculi. There is no right hydronephrosis. DISTAL RIGHT URETER: There is non-visualization of the distal right ureter. There is no demonstrated right ureterovesical junction calculus. There is a visualized right ureteral jet. LEFT KIDNEY: Normal location of the left kidney, which is normal in size. The left kidney measures 9.6 x 4.6 x 4.7 cm. There is a normal cortex of the left kidney. The renal cortex measures 1.3 cm. There is no left renal mass or cyst. There are no left renal calculi. There is no left hydronephrosis. DISTAL LEFT URETER: There is non-visualization of the distal left ureter. There is no demonstrated left ureterovesical junction calculus. There is a visualized left ureteral jet. BLADDER: The partially distended urinary bladder has a volume of 89 ml. There is a normal wall thickness of the distended urinary bladder. There is no demonstrated mass within the urinary bladder. There are no demonstrated bladder calculi. US/Kidney and Bladder IMPRESSION: Right renal cyst. Electronically Signed: Mark Bansal DO at 17:18 EST Tel [phone], Service support ,
== END ==
PROVIDERS: PCP Internal Medicine; Referring Provider Internal Medicine Nephrology; Visit Provider Internal Medicine Nephrology
DX: N18.32 Chronic kidney disease, stage 3b (principal)
CPT/HCPCS: 76770

== ENCOUNTER → 2021-06-25 10:37 | Outpatient (CLI) | payer MEDICARE, MEDICAID, SELFPAY ==
[2021-06-25 11:50] LABS: Hematocrit 41.9 % (37-47); Mean Corpuscular Hgb 27.4 pg (27.0-32.0); Mean Corpuscular Volume 88.4 fL (81-99); Mean Platelet Vol. 11.5 fl (6.2-12.0); Platelet Count 227 K/mm3 (150-450); RBC Distribution Width CV 14.5 % (11.6-14.6); RBC Distribution Width SD 46.7 fl (35.1-43.9); Red Blood Count 4.74 M/mm3 (4.2-5.4); White Blood Count 9.8 K/mm3 (4.4-11.0)
[2021-06-25 12:07] LABS: Albumin, Serum 3.6 g/dL (3.2-5.0); BUN 22 mg/dL (7-18); BUN/Creat Ratio 13.2 RATIO (10-20); Calcium,Total 9.9 mg/dL (8.5-10.1); Chloride 101 mmol/L (98-107); Creatinine, Serum 1.67 mg/dL (0.55-1.02); EST Glomerular Filtration Rate 32 mL/min (>60); Est Glom Filt Rate - Afr Amer 39 mL/min (>60); Glucose 181 mg/dL (74-106); Phosphorus 3.4 mg/dL (2.5-4.9); Sodium Level 138 mmol/L (136-145)
[2021-06-25 12:13] LABS: Protein, Urine (Random) 95.4 mg/dL (<11.9); Protein:Creat Ratio 349 mg/g CRE (0-200)
[2021-06-25 12:21] LABS: PTHIN 111.4 pg/mL (18.4-80.1)
== END ==
PROVIDERS: PCP Internal Medicine; Referring Provider Internal Medicine Nephrology; Visit Provider Internal Medicine Nephrology
DX: N18.32 Chronic kidney disease, stage 3b (principal)
CPT/HCPCS: 36415; 80069; 82306; 82570; 83970; 84156; 85027

== ENCOUNTER 2021-10-20 11:08 | Outpatient (CLI) | payer MEDICARE, MEDICAID, SELFPAY ==
[2021-10-20 12:44] LABS: ALB/GLOB Ratio 0.8 RATIO (0.9-2.4); AST(SGOT) 21 U/L (15-37); Alanine Aminotransfer ALT/SGPT 28 U/L (13-56); Albumin, Serum 3.6 g/dL (3.2-5.0); Alkaline Phosphatase 95 U/L (45-117); Anion Gap 5 (5-15); BUN 24 mg/dL (7-18); BUN/Creat Ratio 14.7 RATIO (10-20); Calcium,Total 9.6 mg/dL (8.5-10.1); Chloride 104 mmol/L (98-107); Cholesterol 159 mg/dL (200); Creatinine, Serum 1.63 mg/dL (0.55-1.02); EST Glomerular Filtration Rate 33 mL/min (>60); Est Glom Filt Rate - Afr Amer 40 mL/min (>60); Globulin 4.5 g/dL (2.2-4.2); Glucose 168 mg/dL (74-106); High Density Lipoprotein 62 mg/dL; Potassium 4.2 mmol/L (3.5-5.1); Protein, Total 8.1 g/dL (6.4-8.2); Sodium Level 137 mmol/L (136-145); Thyroid Stim Hormone (TSH) 1.78 uIU/mL (0.358-3.74); Triglycerides 152 mg/dL; Very Low Density Lipoprotein 30 mg/dL (5-40)
[2021-10-20 13:36] LABS: Hemoglobin A1c 6.9 % (3.8-5.6)
[2021-10-20 14:49] LABS: Microalbumin,Random Urine 37.2 mg/L (NO RANGE EST.); Microalbumin:Creatinine Ratio 28.4 mg/g CRE (<30 mg/g CRE)
== END 2021-10-20 23:59 | disposition home or self-care (01) ==
LOC: BIMLAB 11:10
PROVIDERS: PCP Internal Medicine; Referring Provider Internal Medicine; Visit Provider Internal Medicine
DX: E11.9 Type 2 diabetes mellitus without complications (principal); E03.9 Hypothyroidism, unspecified; I10 Essential (primary) hypertension
CPT/HCPCS: 36415; 80053; 80061; 82043; 82570; 83036; 84443

== ENCOUNTER → 2021-11-25 | Outpatient (CLI) | payer MEDICARE, MEDICAID, SELFPAY ==
[2021-11-25 13:13] LABS: Anion Gap 7 (5-15); BUN 31 mg/dL (7-18); BUN/Creat Ratio 15.7 RATIO (10-20); Calcium,Total 10.1 mg/dL (8.5-10.1); Chloride 106 mmol/L (98-107); Creatinine, Serum 1.98 mg/dL (0.55-1.02); EST Glomerular Filtration Rate 27 mL/min (>60); Est Glom Filt Rate - Afr Amer 32 mL/min (>60); Glucose 180 mg/dL (74-106); Potassium 3.9 mmol/L (3.5-5.1); Sodium Level 139 mmol/L (136-145)
== END | disposition home or self-care (01) ==
LOC: BIMLAB 11:38
PROVIDERS: PCP Internal Medicine; Referring Provider Internal Medicine; Visit Provider Internal Medicine
DX: E11.69 Type 2 diabetes mellitus with other specified complication (principal)
CPT/HCPCS: 36415; 80048

== ENCOUNTER → 2021-11-30 | Outpatient (CLI) | payer MEDICARE, MEDICAID, SELFPAY ==
--- NOTE | 2021-11-30 13:29 | RAD_ITS ---
STUDY: XR Chest 2 Views 11/30/2021 1:33 PM REASON FOR EXAM: Female, 66 years old. Right sided chest pain 2mths, Shortness pof breath COMPARISON: 11/26/2020 TECHNIQUE: XR Chest 2 Views FINDINGS: There is no demonstrated pleural abnormality. Normal heart size. Normal mediastinum. Normal reinaldo. Prominent appearing increased interstitial lung markings. Normal visualized pulmonary arteries. There is atherosclerotic calcification of the aortic arch with tortuosity. There are diffuse degenerative changes of the visualized thoracic spine. There is degenerative osteoarthritis of the bilateral shoulders. There is no demonstrated abnormality of the visualized soft tissue structures of the upper abdomen. RAD/Chest PA and Lateral IMPRESSION: There are no acute findings. Electronically Signed: Emanuel Valdez MD at 17:07 EDT ,
== END | disposition home or self-care (01) ==
PROVIDERS: PCP Internal Medicine; Referring Provider Internal Medicine; Visit Provider Internal Medicine
DX: R07.9 Chest pain, unspecified (principal); R06.02 Shortness of breath
CPT/HCPCS: 71046

== ENCOUNTER → 2022-01-04 | Outpatient (CLI) | payer MEDICARE, MEDICAID, SELFPAY ==
[2022-01-04 13:29] LABS: Anion Gap 6 (5-15); BUN 24 mg/dL (7-18); BUN/Creat Ratio 12.8 RATIO (10-20); Calcium,Total 10.3 mg/dL (8.5-10.1); Chloride 102 mmol/L (98-107); Creatinine, Serum 1.87 mg/dL (0.55-1.02); EST Glomerular Filtration Rate 28 mL/min (>60); Est Glom Filt Rate - Afr Amer 34 mL/min (>60); Glucose 176 mg/dL (74-106); Potassium 4.2 mmol/L (3.5-5.1); Sodium Level 137 mmol/L (136-145)
[2022-01-04 13:30] LABS: Protein, Urine (Random) 19.5 mg/dL (<11.9); Protein:Creat Ratio 173 mg/g CRE (0-200)
== END | disposition home or self-care (01) ==
LOC: LAB 11:42
PROVIDERS: PCP Internal Medicine; Referring Provider Nurse Practitioner Adult Health; Visit Provider Nurse Practitioner Adult Health
DX: N18.32 Chronic kidney disease, stage 3b (principal)
CPT/HCPCS: 36415; 80048; 82570; 84156

== ENCOUNTER → 2022-01-26 | Outpatient (CLI) | payer MEDICARE, MEDICAID, SELFPAY ==
--- NOTE | 2022-01-26 13:01 | CT_ITS ---
STUDY: LOW DOSE CT LUNG CANCER SCREENING REASON FOR EXAM: Female, 66 years old. Tobacco Dependency, in remission. SMOKED 1PPD X49 YEARS. COPD . QUIT SMOKING 3 YEARS AGO RADIATION DOSAGE (If Supplied By Facility): CTDIvol = ( 3.18 ) mGy, DLP = ( 108.81 ) mGycm TECHNIQUE: No contrast was administered. Low dose technique was utilized (average mAS-38 and kVp 120). 1.25 mm axial source images with a slice interval of 1.25-mm were reconstructed in lung windows. 2.5 mm axial source images with a slice interval of 2.5-mm were reconstructed in lung windows. 5.0 mm axial source images with a slice interval of 5.0-mm were reconstructed in soft tissue windows. COMPARISON: Comparison is made with prior study dated 01/20/2021. NODULES: Calcified 3 mm granuloma in the medial aspect of the left lung base. Emphysema: Stable bilateral apical scarring. Hyperinflation. Emphysematous changes more prominent in the upper lobes. Stable linear scarring in the lingula segment of the left upper lobe as well as the anterior aspect of the right lower lobe. Endobronchial lesion: None Aorta: Atherosclerotic plaque formation of the aortic arch. CORONARY ARTERIES: Coronary artery calcification is seen. Heart: Unremarkable Pulmonary artery: Unremarkable Mediastinal nodes: Small benign-appearing mediastinal lymph nodes. Other chest and abdominal findings: CT/Low Dose CT Lung Screening IMPRESSION: Lung-RADS category 2 - Continue annual screening with LDCT in 12 months. IMPORTANT NOTES FOR USE: ACR Lung-RADS Version 1.1 Assessment Categories Release Date: 2018 Category: Coded 0-4 bases on nodule(s) with highest degree of suspicion. Negative screen is defined as categories 1 and 2; a positive screen is defined as categories 3 and 4. Category 3 and 4A nodules that are unchanged on interval CT should be coded as category 2, and individuals returned to screening in 12 months. Category 4X: Category 3 or 4 nodules with additional imaging findings that increase the suspicion of lung cancer, such as spiculation, GGN that doubles in size in 1 year, enlarged lymph notes, etc. Category Modifiers: S (significant finding unrelated to lung cancer) Electronically Signed: Shan Mcdaniel MD at 14:14 EDT ,
== END | disposition home or self-care (01) ==
LOC: CT 13:00
PROVIDERS: PCP Internal Medicine; Visit Provider Nurse Practitioner Acute Care
DX: F17.211 Nicotine dependence, cigarettes, in remission (principal)
CPT/HCPCS: 71271

== ENCOUNTER → 2022-01-29 | Outpatient (CLI) | payer MEDICARE, MEDICAID, SELFPAY ==
[2022-01-29 12:24] LABS: Anion Gap 4 (5-15); BUN 30 mg/dL (7-18); BUN/Creat Ratio 16.6 RATIO (10-20); Chloride 102 mmol/L (98-107); Creatinine, Serum 1.81 mg/dL (0.55-1.02); EST Glomerular Filtration Rate 30 mL/min (>60); Est Glom Filt Rate - Afr Amer 36 mL/min (>60); Glucose 182 mg/dL (74-106); Potassium 4.3 mmol/L (3.5-5.1); Sodium Level 136 mmol/L (136-145)
[2022-01-29 12:31] LABS: Hemoglobin A1c 6.8 % (3.8-5.6)
== END | disposition home or self-care (01) ==
LOC: BIMLAB 11:29
PROVIDERS: PCP Internal Medicine; Referring Provider Internal Medicine; Visit Provider Internal Medicine
DX: E11.22 Type 2 diabetes mellitus with diabetic chronic kidney disease (principal); N18.32 Chronic kidney disease, stage 3b
CPT/HCPCS: 36415; 80048; 83036

== ENCOUNTER → 2022-08-05 | Outpatient (CLI) | payer MEDICARE, MEDICAID, SELFPAY ==
[2022-08-05 15:37] LABS: Absolute Lymphocyte Count 1.29 X10^3/uL (0.83-4.51); Absolute Neutrophil Count 6.6 X10^3/uL (2.0-7.7); Basophil# 0.05 X10^3/uL; Basophil% 0.6 % (0-1); Eosinophil# 0.16 X10^3/uL; Eosinophils% 1.8 % (0-5); Hematocrit 41.3 % (37-47); Lymphocyte # 1.29 X10^3/ul (0.83-4.51); Lymphocyte % 14.9 % (19-41); Mean Corp Hgb Conc 31.5 g/dL (32-36); Mean Corpuscular Hgb 28.2 pg (27.0-32.0); Mean Corpuscular Volume 89.6 fL (81-99); Monocyte# 0.53 X10^3/uL; Monocyte% 6.1 % (0-10); NRBC Flagged by Analyzer 0 % (0-5); Neutrophil # 6.63 X10^3/uL (2.7-7.7); Neutrophil % 76.5 % (47-70); Platelet Count 210 K/mm3 (150-450); RBC Distribution Width CV 14.7 % (11.6-14.6); RBC Distribution Width SD 48.5 fl (35.1-43.9); Red Blood Count 4.61 M/mm3 (4.2-5.4); White Blood Count 8.7 K/mm3 (4.4-11.0)
[2022-08-05 16:32] LABS: ALB/GLOB Ratio 0.9 RATIO (0.9-2.4); AST(SGOT) 17 U/L (15-37); Alanine Aminotransfer ALT/SGPT 30 U/L (13-56); Albumin, Serum 3.5 g/dL (3.2-5.0); Alkaline Phosphatase 85 U/L (45-117); Anion Gap 6 (5-15); BUN 27 mg/dL (7-18); BUN/Creat Ratio 17.9 RATIO (10-20); Calcium,Total 9.7 mg/dL (8.5-10.1); Chloride 105 mmol/L (98-107); Creatinine, Serum 1.51 mg/dL (0.55-1.02); EST Glomerular Filtration Rate 36 mL/min (>60); Est Glom Filt Rate - Afr Amer 44 mL/min (>60); Glucose 125 mg/dL (74-106); Potassium 3.8 mmol/L (3.5-5.1); Protein, Total 7.5 g/dL (6.4-8.2); Sodium Level 141 mmol/L (136-145)
[2022-08-05 16:33] LABS: Hemoglobin A1c 6.5 % (3.8-5.6)
== END | disposition home or self-care (01) ==
LOC: BIMLAB 11:47
PROVIDERS: PCP Internal Medicine; Visit Provider Internal Medicine
DX: I10 Essential (primary) hypertension (principal); E11.9 Type 2 diabetes mellitus without complications
CPT/HCPCS: 36415; 80053; 83036; 85025

== ENCOUNTER → 2023-01-27 | Outpatient (CLI) | payer MEDICARE, MEDICAID, SELFPAY ==
--- NOTE | 2023-01-27 12:58 | CT_ITS ---
STUDY: LOW DOSE CT LUNG CANCER SCREENING REASON FOR EXAM: Female, 67 years old. Smoker quit 2016. Patient smoked 1 pack per day for 49 years. COPD. RADIATION DOSAGE (If Supplied By Facility): CTDIvol = ( 2.39 ) mGy, DLP = ( 80.71 ) mGycm TECHNIQUE: No contrast was administered. Low dose technique was utilized (average mAS-38 and kVp 120). 1.25 mm axial source images with a slice interval of 1.25-mm were reconstructed in lung windows. 2.5 mm axial source images with a slice interval of 2.5-mm were reconstructed in lung windows. 5.0 mm axial source images with a slice interval of 5.0-mm were reconstructed in soft tissue windows. COMPARISON: Comparison is made with prior study January 26, 2022. NODULES: Stable 3 mm calcified granuloma in the medial aspect of the left lung base. Emphysema: Stable bilateral apical scarring. Hyperinflation. Emphysematous changes more prominent in the upper lobes. Minimal scarring in the lingular segment of the left upper lobe. Minimal scarring in the anterior medial aspect of the right lower lobe. Endobronchial lesion: Unremarkable. Aorta: Atherosclerotic calcific plaques. CORONARY ARTERIES: Coronary artery calcification is seen. Heart: Mild anterior pericardial thickening. Pulmonary artery: Unremarkable Mediastinal nodes: Small benign-appearing mediastinal lymph nodes. Other chest and abdominal findings: CT/Low Dose CT Lung Screening IMPRESSION: Lung-RADS category 2 - Continue annual screening with LDCT in 12 months. IMPORTANT NOTES FOR USE: ACR Lung-RADS Version 1.1 Assessment Categories Release Date: 2018 Category: Coded 0-4 bases on nodule(s) with highest degree of suspicion. Negative screen is defined as categories 1 and 2; a positive screen is defined as categories 3 and 4. Category 3 and 4A nodules that are unchanged on interval CT should be coded as category 2, and individuals returned to screening in 12 months. Category 4X: Category 3 or 4 nodules with additional imaging findings that increase the suspicion of lung cancer, such as spiculation, GGN that doubles in size in 1 year, enlarged lymph notes, etc. Category Modifiers: S (significant finding unrelated to lung cancer) Electronically Signed: Shan Mcdaniel MD at 14:04 EDT ,
== END | disposition home or self-care (01) ==
LOC: CT 12:58
PROVIDERS: PCP Internal Medicine; Referring Provider Nurse Practitioner Acute Care; Visit Provider Nurse Practitioner Acute Care
DX: Z12.2 Encounter for screening for malignant neoplasm of respiratory organs (principal); F17.210 Nicotine dependence, cigarettes, uncomplicated
CPT/HCPCS: 71271

== ENCOUNTER → 2023-04-25 | Outpatient (CLI) | payer MEDICARE, MEDICAID, SELFPAY ==
[2023-04-25 12:16] LABS: Absolute Lymphocyte Count 1.48 X10^3/uL (0.83-4.51); Absolute Neutrophil Count 9.7 X10^3/uL (2.0-7.7); Basophil# 0.07 X10^3/uL; Basophil% 0.6 % (0-1); Eosinophil# 0.19 X10^3/uL; Eosinophils% 1.5 % (0-5); Hematocrit 41.6 % (37-47); Lymphocyte # 1.48 X10^3/ul (0.83-4.51); Lymphocyte % 12.1 % (19-41); Mean Corp Hgb Conc 31.3 g/dL (32-36); Mean Corpuscular Hgb 28.1 pg (27.0-32.0); Mean Platelet Vol. 11.7 fl (6.2-12.0); Monocyte# 0.75 X10^3/uL; Monocyte% 6.1 % (0-10); NRBC Flagged by Analyzer 0 % (0-5); Neutrophil # 9.73 X10^3/uL (2.7-7.7); Neutrophil % 79.4 % (47-70); Platelet Count 254 K/mm3 (150-450); RBC Distribution Width CV 14.7 % (11.6-14.6); RBC Distribution Width SD 48.2 fl (35.1-43.9); Red Blood Count 4.62 M/mm3 (4.2-5.4); White Blood Count 12.3 K/mm3 (4.4-11.0)
[2023-04-25 13:16] LABS: ALB/GLOB Ratio 0.9 RATIO (0.9-2.4); AST(SGOT) 20 U/L (15-37); Alanine Aminotransfer ALT/SGPT 35 U/L (13-56); Albumin, Serum 3.6 g/dL (3.2-5.0); Alkaline Phosphatase 95 U/L (45-117); Anion Gap 6 (5-15); BUN 25 mg/dL (7-18); BUN/Creat Ratio 14.5 RATIO (10-20); Calcium,Total 10.2 mg/dL (8.5-10.1); Chloride 101 mmol/L (98-107); Cholesterol 152 mg/dL (200); Creatinine, Serum 1.73 mg/dL (0.55-1.02); EST Glomerular Filtration Rate 31 mL/min (>60); Est Glom Filt Rate - Afr Amer 37 mL/min (>60); Globulin 4.1 g/dL (2.2-4.2); Glucose 193 mg/dL (74-106); High Density Lipoprotein 63 mg/dL; Microalbumin,Random Urine 42.7 mg/L (NO RANGE EST.); Microalbumin:Creatinine Ratio 27.2 mg/g CRE (<30 mg/g CRE); Protein, Total 7.7 g/dL (6.4-8.2); Sodium Level 134 mmol/L (136-145); Thyroid Stim Hormone (TSH) 1.58 uIU/mL (0.358-3.74); Triglycerides 151 mg/dL; Very Low Density Lipoprotein 30 mg/dL (5-40)
== END | disposition home or self-care (01) ==
LOC: BIMLAB 10:27
PROVIDERS: PCP Internal Medicine; Referring Provider Internal Medicine; Visit Provider Internal Medicine
DX: E11.9 Type 2 diabetes mellitus without complications (principal); E03.9 Hypothyroidism, unspecified; I10 Essential (primary) hypertension
CPT/HCPCS: 36415; 80053; 80061; 82043; 82570; 84443; 85025

== ENCOUNTER → 2023-05-03 | Outpatient (CLI) | payer MEDICARE, MEDICAID, SELFPAY ==
--- NOTE | 2023-05-03 09:01 | RAD_ITS ---
STUDY: X-RAY - LUMBAR SPINE REASON FOR EXAM: Female, 68 years old. Chronic back pain. TECHNIQUE: 3 view(s) of the lumbar spine were obtained. COMPARISON: January 20, 2021 FINDINGS: Osteopenia. Normal lumbar lordosis. No substantial scoliosis. Normal alignment of the vertebrae. Diffuse lower thoracic and lumbosacral facet sclerosis. Stable mild intervertebral disc space narrowing diffusely with osteophytes most marked at L1-2, L2-3, L3-4 and to the greatest degree, L4-5. Vascular calcification. Tubal ligation clips unchanged. RAD/Lumbar Spine 2 or 3 Views IMPRESSION: Stable osteopenia with diffuse mild lumbosacral spondylosis as described. Electronically Signed: Josse Horowitz MD at 11:37 EDT ,
--- NOTE | 2023-05-03 09:01 | RAD_ITS ---
STUDY: X-RAY - PELVIS AND RIGHT HIP REASON FOR EXAM: Female, 68 years old. Right hip pain. TECHNIQUE: 3 views of the pelvis and hip. COMPARISON: January 2021. FINDINGS: Normal bowel gas pattern with air seen to the rectosigmoid. Normal visualized soft tissue structures. Osteopenia. Mild arthrosis of both sacroiliac joints and symphysis pubis, unchanged. Mixed lucency and sclerosis of both femoral heads which may represent avascular necrosis. MRI of the hips would be the best study to confirm these radiographic findings. 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 MRI recommended for confirmation. Electronically Signed: Josse Horowitz MD at 10:07 EDT ,
== END | disposition home or self-care (01) ==
LOC: RAD 09:01
PROVIDERS: PCP Internal Medicine; Referring Provider Internal Medicine; Visit Provider Internal Medicine
DX: M54.9 Dorsalgia, unspecified (principal); G89.29 Other chronic pain; M25.551 Pain in right hip
CPT/HCPCS: 72100; 73502

== ENCOUNTER → 2023-05-19 | Outpatient (CLI) | payer MEDICARE, MEDICAID, SELFPAY ==
--- NOTE | 2023-05-19 11:53 | BI_ITS ---
MAMMOGRAPHY - BILATERAL SCREENING REASON FOR EXAM: Female, 68 years old. Routine annual screening examination. PERTINENT HISTORY: Non-contributory. TECHNIQUE: Digital bilateral breast azra (3D mammographic acquisition) in the CC and MLO projections. 2-D mediolateral oblique (MLO) and craniocaudad (CC) views of both breasts were obtained. CAD: Full Field Digital Mammography with Computer Added Detection was performed. COMPARISON: Comparison is made with prior examination dated April 24, 2018 and March 27, 2010. FINDINGS: Breast Composition: The breasts are almost entirely fatty. There are no dominant masses or suspicious calcifications. Stable fat-containing bilateral axillary lymph nodes. No other significant abnormalities are identified. There has been no significant change since the prior study. BI/SCRN MAMM (CAD)W/ZARA BILAT IMPRESSION: Stable bilateral screening mammogram. Yearly follow-up mammogram recommended. (A) ASSESSMENT CATEGORY: BIRADS Category 2: Benign. A letter regarding these results will be sent to the patient by the facility within 30 days. Approximately 10% of breast cancers are not detected by mammography. A normal mammogram should not delay biopsy of a clinically suspicious abnormality. [id number] Electronically Signed: Shan Mcdaniel MD at 12:51 EDT ,
== END | disposition home or self-care (01) ==
LOC: OPBI 11:52
PROVIDERS: PCP Internal Medicine; Referring Provider Internal Medicine; Visit Provider Internal Medicine
DX: Z12.31 Encounter for screening mammogram for malignant neoplasm of breast (principal)
CPT/HCPCS: 77063; 77067

== ENCOUNTER → 2023-07-25 | Outpatient (CLI) | payer MEDICARE, MEDICAID, SELFPAY ==
[2023-07-25 17:43] LABS: Anion Gap 5 (5-15); BUN 21 mg/dL (7-18); BUN/Creat Ratio 13.5 RATIO (10-20); Calcium,Total 10.2 mg/dL (8.5-10.1); Chloride 104 mmol/L (98-107); Creatinine, Serum 1.55 mg/dL (0.55-1.02); EST Glomerular Filtration Rate 35 mL/min (>60); Est Glom Filt Rate - Afr Amer 43 mL/min (>60); Glucose 90 mg/dL (74-106); Potassium 3.8 mmol/L (3.5-5.1); Sodium Level 140 mmol/L (136-145)
[2023-07-25 17:50] LABS: Hemoglobin A1c 6.8 % (3.8-5.6)
== END | disposition home or self-care (01) ==
LOC: BIMLAB 15:21
PROVIDERS: PCP Internal Medicine; Visit Provider Internal Medicine
DX: E11.9 Type 2 diabetes mellitus without complications (principal)
CPT/HCPCS: 36415; 80048; 83036

== ENCOUNTER 2023-07-27 07:31 | Observation (INO) | payer MEDICARE, MEDICAID, SELFPAY ==
[2023-07-27] VITALS (8 sets, daily range): BP systolic 133–153; BP diastolic 76–113; PULSE 77–89; RESP 16–21; TEMP 36.4–36.6; O2SAT 91–100; BMI 35.6
--- NOTE | 2023-07-27 07:52 | EX.ED.DYSGE1 ---
HPI History of Present Illness Chief Complaint: Nausea/Vomiting Detail of Chief Complaint: Nausea vomiting and diarrhea Informant: patient and family Narrative Narrative: Patient presents to the emergency department with complaint of nausea and vomiting. Patient states that she started a colonoscopy prep last evening around 11:00 by taking 2 laxatives. Her colonoscopy is supposed to be tomorrow. Patient started having nausea and vomiting and dry heaves around 3 AM as well as watery stools. She had sweats. She describes some abdominal cramping but no significant pain. Patient with history of COPD and normally wears 2 L of O2 at home. Reason for colonoscopy is that she had a Cologuard test initially that was positive which was just a screening tool and now scheduled to have colonoscopy tomorrow. [facility] Medical History Acute bronchitis, unspecified Arthritis Asthma Borderline diabetes Chronic back pain Cough CPAP (continuous positive airway pressure) dependence Depression Diabetes Dietary restriction Difficulty swallowing Dislocation of ankle joint Easy bruising Flu vaccine need Flu vaccine need Gastric reflux Health care maintenance History of echocardiogram History of edema History of stress test Hyperlipemia Hypertension Hypothyroidism Lightheadedness On home oxygen therapy PND (paroxysmal nocturnal dyspnea) Positive colorectal cancer screening using Cologuard test Post-menopausal Preventative health care Right hip pain Right-sided chest pain Shortness of breath Shortness of breath on exertion Stage 4 very severe COPD by GOLD classification TIA (transient ischemic attack) Walker as ambulation aid Wears dentures Wears glasses Home Medications aspirin 81 mg tablet,delayed release 81 mg PO DAILY heart health 10/04/13 [History Last Taken 07/26/23] Oxygen, Home [Home Oxygen] 2 lpm NASAL CONT #1 unit 10/31/16 [Rx Last Taken Unknown] famotidine 20 mg tablet 20 mg PO DAILY PRN gerd #90 tabs 09/17/19 [Rx Last Taken 07/26/23] cholecalciferol (vitamin D3) 125 mcg (5,000 unit) capsule 5,000 unit PO DAILY supplement 01/29/22 [History Last Taken 07/26/23] blood sugar diagnostic #100 ea 03/12/22 [Rx Last Taken Unknown] hydrochlorothiazide 25 mg tablet 25 mg PO DAILY blood pressure #90 tabs 09/10/22 [Rx Last Taken 07/26/23] lisinopril 20 mg tablet 20 mg PO BID blood pressure #180 tabs 10/08/22 [Rx Last Taken 07/26/23] Disability Placard #1 ea 11/30/22 [Rx Last Taken Unknown] sitagliptin phosphate 100 mg tablet 100 mg PO DAILY diabetes #90 tabs 12/06/22 [Rx Last Taken 07/26/23] budesonide-formoterol HFA 160 mcg-4.5 mcg/actuation aerosol inhaler (Symbicort) 2 puff inhalation Q12H shortness of breath #10.2 grams 01/12/23 [Rx Last Taken 07/26/23] rosuvastatin 20 mg tablet 20 mg PO DAILY cholesterol #90 tabs 04/26/23 [Rx Last Taken 07/26/23] glimepiride 2 mg tablet 2 mg PO DAILY diabetes #60 tabs 04/27/23 [Rx Last Taken 07/26/23] levothyroxine 88 mcg tablet 88 mcg PO DAILY thyroid #90 tabs 04/27/23 [Rx Last Taken 07/26/23] albuterol sulfate 90 mcg/actuation aerosol inhaler (Ventolin HFA) 2 puff inhalation Q6H PRN shortness of breath or wheezing #8.5 grams 05/25/23 [Rx Last Taken 07/26/23] bupropion HCl 200 mg tablet,12 hr sustained-release (Wellbutrin SR) 200 mg PO DAILY depression #90 ea 05/26/23 [Rx Last Taken 07/26/23] Electric Scooter #1 ea 07/12/23 [Rx Last Taken Unknown] tiotropium bromide 18 mcg capsule with inhalation device (Spiriva with HandiHaler) 1 cap inhalation 1500 shortness of breath 07/25/23 [History Last Taken 07/26/23] ascorbic acid (vitamin C) 500 mg tablet 1,500 mg PO DAILY supplement 07/27/23 [History Last Taken 07/26/23] ipratropium 0.5 mg-albuterol 3 mg (2.5 mg base)/3 mL nebulization soln 3 ml inhalation Q4H PRN shortness of breath or wheezing 07/27/23 [History Last Taken 07/26/23] Allergy/AdvReac Type Severity Reaction Status Date / Time No Known Allergies Allergy Verified 07/27/23 07:31 Family History Mother Cancer Leukemia Father COPD (chronic obstructive pulmonary disease) Grandfather Cancer Grandmother Diabetes Surgical History Tubal ligation evaluation Social History Smoking Status: Former smoker how long ago did patient quit smokin, .05p/day second hand exposure: Yes alcohol intake: never substance use type: crack/cocaine caffeine: Yes (2/day) what type of physical activity do you participate in: none ROS ROS ED Review of Systems ROS Unobtainable: other Constitutional Constitutional ED: Reports lethargy; Denies chills, fever(s), sweats or weight loss Eyes Eyes: Denies blurry vision, change in vision or diplopia ENT ENT ED: Denies rhinorrhea or sore throat Cardiovascular Cardiovascular: Denies chest pain, orthopnea or racing heartbeat Respiratory/Chest Respiratory/Chest: Denies cough, dyspnea, dyspnea on exertion, orthopnea or sputum Gastrointestinal Gastrointestinal: Reports diarrhea, nausea and vomiting; Denies abdominal pain Genitourinary Genitourinary ED: Denies dysuria, hematuria or urinary frequency Musculoskeletal Musculoskeletal: Denies arthralgias, back pain, myalgias or neck pain Integumentary Denies abscess, Abrasions or rash Neurologic Neurologic: Denies headache(s) or weakness Psychiatric Psychiatric: Denies anxiety, depression or suicidal thoughts Endocrine Endocrinology: Denies polydipsia, polyphagia or polyuria Hematologic/Lymphatic Hematologic/Lymphatic: Denies easy bleeding, easy bruising or lymphadenopathy Allergic/Immunologic Allergic/Immunologic ED: Denies mouth swelling, tongue swelling or urticaria EXAM Physical Exam Const Vital Signs: 07/27/23 07:32 07/27/23 09:31 07/27/23 11:31 Temperature 97.6 F L Temperature Source Temporal Pulse Rate 89 Respiratory Rate 18 18 18 Respiratory Effort Respiratory Pattern Blood Pressure 139/81 H Blood Pressure Mean 100 Blood Pressure Source Blood Pressure Position Blood Pressure Location Pulse Ox 98 Oxygen Delivery Method Room Air Oxygen Flow Rate (L/min) 07/27/23 13:02 07/27/23 13:35 07/27/23 13:38 Temperature 97.6 F L Temperature Source Oral Pulse Rate 80 Respiratory Rate 18 Respiratory Effort Normal Respiratory Pattern Blood Pressure 133/113 H 142/78 H Blood Pressure Mean 119 99 Blood Pressure Source Monitor Blood Pressure Position Semi-Fowlers Blood Pressure Location Left Forearm Pulse Ox 100 Oxygen Delivery Method Nasal Cannula Nasal Cannula Oxygen Flow Rate (L/min) 2 07/27/23 14:17 07/27/23 14:17 07/27/23 14:17 Temperature Temperature Source Pulse Rate 80 Respiratory Rate 21 H Respiratory Effort Respiratory Pattern Normal Blood Pressure Blood Pressure Mean Blood Pressure Source Blood Pressure Position Blood Pressure Location Pulse Ox 91 91 Oxygen Delivery Method Nasal Cannula Nasal Cannula Oxygen Flow Rate (L/min) 2 2 Positive well nourished and well developed General Appearance ED: well developed and NAD HEENT Reports TM's clear and moist mucous membranes normocephalic and atraumatic; Negative for trauma or tenderness Tympanic Membrane ED: Yes TM's clear Eyes PERRL and EOMs intact bilaterally General Eye ED: Negative for pale conjunctiva or scleral icterus Neck no lymphadenopathy, supple and no JVD General: Negative for tenderness Chest Wall inspection of chest normal and palpation of chest normal Chest: Negative for tenderness Resp normal respiratory effort and clear to auscultation bilaterally Effort and Inspection: Negative for respiratory distress or pain with movement Auscultation: Negative for rhonchi, wheezes or diminished lung sounds Cardio regular rate, regular rhythm, S1 normal heart sound, S2 normal heart sound and no murmurs Peripheral Pulses: pulses 2+ throughout GI soft to palpation, non-distended and no masses; Negative for normal to inspection, nondistended, normoactive bowel sounds GI Narrative: Minimal diffuse tenderness on exam. There is no rebound, rigidity, or peritoneal signs. No significant guarding. Hyperactive bowel sounds. Back/Spine no CVA tenderness and no thoracic nor lumbar tenderness Extremity normal to inspection General Extremety ED: Negative for edema General Extremity: Negative for edema Neuro oriented x3, CN's II-XII intact bilaterally, no sensory deficits noted and gait normal Sensorium / Orientation: awake, alert, oriented to person, oriented to place and oriented to time Motor Exam: strength 5/5 throughout and strength abnormal Psych mental status grossly normal Skin no rashes or lesions noted and no wounds MDM MDM MDM Narrative Medical decision making narrative: Patient presents with vomiting and diarrhea. She started taking laxative last evening to prep for colonoscopy. IV line established. She was given a liter normal same fluid bolus. CBC with differential obtained showed an elevated white count of 24.6. Hemoglobin 14 and platelet count of 313. Chemistries unremarkable. BUN was 24 and creatinine 1.93. Lactate was normal at 1.6. LFTs unremarkable. Patient was given Zofran [address] scan of the abdomen pelvis obtained showed some gallstones otherwise no acute process. On repeat evaluation patient states she is starting to feel quite nauseated again and was given 4 more milligrams of Zofran. She continues to have loose watery stools. Will discuss with hospitalist to evaluate patient for admission for vomiting and diarrhea as well as leukocytosis and increased BUN and creatinine. Lab Data Labs: Laboratory Results - last 24 hr 07/27/23 08:13 WBC 24.6 H RBC 5.33 Hgb 14.5 Hct 46.3 MCV 86.9 MCH 27.2 MCHC 31.3 L RDW Std Deviation 45.5 H RDW Coeff of Navya 14.4 Plt Count 313 MPV 11.5 Immature Gran % (Auto) 1.000 H Neut % (Auto) 89.7 H Lymph % (Auto) 5.1 L Dougherty % (Auto) 3.3 Eos % (Auto) 0.5 Baso % (Auto) 0.4 Absolute Neuts (auto) 22.1 H Absolute Lymphs (auto) 1.26 Nucleated RBC % 0 Differential Comment S Diff Path Review May foll Sodium 136 Potassium 4.0 Chloride 103 Carbon Dioxide 28.0 Anion Gap 5 BUN 24 H Creatinine 1.93 H Estim Creat Clear Calc 31.27 Est GFR (MDRD) Af Amer 33 L Est GFR (MDRD) Non-Af 27 L BUN/Creatinine Ratio 12.4 Glucose 300 H Lactic Acid 1.6 Calcium 12.3 H Phosphorus 5.0 H Magnesium 1.8 Total Bilirubin 0.50 AST 24 ALT 29 Alkaline Phosphatase 125 H Total Protein 8.3 H Albumin 3.6 Globulin 4.7 H Albumin/Globulin Ratio 0.8 L Radiography Diagnostic Testing: Clinical Impression(s) from Imaging Studies Abdomen/Pelvis CT 07/27/23 09:18 IMPRESSION: Small gallstones. Small right renal cyst. Scattered sigmoid diverticulosis. Electronically Signed: Shan Mcdaniel MD at 10:00 EST , Discharge Plan Dx/Rx/DC Orders Clinical Impression: JEAN (acute kidney injury), Diarrhea, Leukocytosis, Vomiting Disposition Disposition: Acute Care Hospital [facility] Discharge Date/Time: 07/27/23 13:03
[2023-07-27] MEDS: Ondansetron 4 MG/2 ML Vial IV ×2 (08:11→10:43)
[2023-07-27] MEDS: 0.9% Normal Saline (1000mL) 1,000 ML 1000 ML IV (08:11)
[2023-07-27 08:30] LABS: Absolute Lymphocyte Count 1.26 X10^3/uL (0.83-4.51); Absolute Neutrophil Count 22.1 X10^3/uL (2.0-7.7); Basophil# 0.09 X10^3/uL; Basophil% 0.4 % (0-1); Eosinophil# 0.13 X10^3/uL; Eosinophils% 0.5 % (0-5); Hematocrit 46.3 % (37-47); Hemoglobin 14.5 g/dL (12.0-15.0); Lymphocyte # 1.26 X10^3/ul (0.83-4.51); Lymphocyte % 5.1 % (19-41); Mean Corp Hgb Conc 31.3 g/dL (32-36); Mean Corpuscular Hgb 27.2 pg (27.0-32.0); Mean Corpuscular Volume 86.9 fL (81-99); Mean Platelet Vol. 11.5 fl (6.2-12.0); Monocyte# 0.82 X10^3/uL; Monocyte% 3.3 % (0-10); NRBC Flagged by Analyzer 0 % (0-5); Neutrophil # 22.08 X10^3/uL (2.7-7.7); Neutrophil % 89.7 % (47-70); POSITIVE DIFFERENTIAL YES; Platelet Count 313 K/mm3 (150-450); RBC Distribution Width CV 14.4 % (11.6-14.6); RBC Distribution Width SD 45.5 fl (35.1-43.9); Red Blood Count 5.33 M/mm3 (4.2-5.4); White Blood Count 24.6 K/mm3 (4.4-11.0)
[2023-07-27 08:51] LABS: Lactic Acid 1.6 mmol/L (0.4-1.9)
[2023-07-27 08:54] LABS: Differential Indicated SCAN CRITERIA MET
--- NOTE | 2023-07-27 09:18 | CT_ITS ---
STUDY: CT ABDOMEN AND PELVIS WITHOUT CONTRAST REASON FOR EXAM: Female, 68 years old. vomit ting, diarrhea, leukocytosis, abdomihnal pain RADIATION DOSAGE (If Supplied By Facility): CTDIvol = ( 19.07 ) mGy, DLP = ( 905.29 ) mGycm TECHNIQUE: Transaxial images were obtained from the dome of the diaphragm to the symphysis pubis without oral contrast, and without intravenous contrast. Sagittal and coronal images were reconstructed. Individualized dose optimization techniques were used for this CT. COMPARISON: None. FINDINGS: Mild thickening of the left major fissure suggestive of scarring. Mild degree of anterior pericardial thickening. Normal liver. Small gallstones. Normal spleen. Normal pancreas. Normal bilateral adrenal glands. There is a 2.1 cm x 2 cm cyst in the lateral midportion of the right kidney. Normal left kidney. Normal visualized stomach. Normal small intestine. There is a fatty ileocecal valve. This is a normal variant. There are scattered colonic diverticula consistent with diverticulosis. The appendix is visualized and appears normal. There is diffuse atherosclerotic calcification of the abdominal aorta, without a demonstrated aneurysm. Normal inferior vena cava. Normal retroperitoneum. Normal urinary bladder. Bilateral tubal ligation clips are seen. There is a small umbilical hernia containing fat. There are mild degenerative changes of the visualized lumbar spine. Straightening of the normal lumbar lordosis. CT/Abdomen/Pelvis without Cont IMPRESSION: Small gallstones. Small right renal cyst. Scattered sigmoid diverticulosis. Electronically Signed: Shan Mcdaniel MD at 10:00 EST ,
[2023-07-27 09:23] LABS: ALB/GLOB Ratio 0.8 RATIO (0.9-2.4); AST(SGOT) 24 U/L (15-37); Alanine Aminotransfer ALT/SGPT 29 U/L (13-56); Albumin, Serum 3.6 g/dL (3.2-5.0); Alkaline Phosphatase 125 U/L (45-117); Anion Gap 5 (5-15); BUN 24 mg/dL (7-18); BUN/Creat Ratio 12.4 RATIO (10-20); Calcium,Total 12.3 mg/dL (8.5-10.1); Chloride 103 mmol/L (98-107); Creatinine, Serum 1.93 mg/dL (0.55-1.02); EST Glomerular Filtration Rate 27 mL/min (>60); Est Glom Filt Rate - Afr Amer 33 mL/min (>60); Estimated Creatinine Clearance 31.27 ml/min; Globulin 4.7 g/dL (2.2-4.2); Glucose 300 mg/dL (74-106); Protein, Total 8.3 g/dL (6.4-8.2); Sodium Level 136 mmol/L (136-145)
[2023-07-27 10:01] LABS: Differential Comment S
[2023-07-27 10:03] LABS: Pathologist Review May foll
--- NOTE | 2023-07-27 10:14 | PCM.HP.STD ---
[facility] - General General Date of Admission: 07/27/23 Date of Service: 07/27/23 Chief Complaint: Diarrhea after starting colon prep. Patient also had nausea and vomiting and stomach cramps. [facility] Narrative DARRIN LOMBARDI, is a 68 F who started colon prep solution yesterday, evening around 11 PM by taking 2 laxatives as colon prep solution. She had positive Cologuard test therefore is scheduled for screening colonoscopy tomorrow which she had canceled. She never had colonoscopy before. Patient started having nausea vomiting dry heaving on 3 AM and then watery stool. She will also sweating but denies any fever or chills. Patient felt very weak therefore came to ED. Complain of stomach cramps mainly in left upper and lower quadrant with intermittent 4-5/10 intensity. In ED, patient was found to be in JEAN dehydrated therefore started on IV fluid and admitted. Vitals in normal range. [facility] Medical History Acute bronchitis, unspecified Arthritis Asthma Borderline diabetes Chronic back pain Cough CPAP (continuous positive airway pressure) dependence Depression Diabetes Dietary restriction Difficulty swallowing Dislocation of ankle joint Easy bruising Flu vaccine need Flu vaccine need Gastric reflux Health care maintenance History of echocardiogram History of edema History of stress test Hyperlipemia Hypertension Hypothyroidism Lightheadedness On home oxygen therapy PND (paroxysmal nocturnal dyspnea) Positive colorectal cancer screening using Cologuard test Post-menopausal Preventative health care Right hip pain Right-sided chest pain Shortness of breath Shortness of breath on exertion Stage 4 very severe COPD by GOLD classification TIA (transient ischemic attack) Walker as ambulation aid Wears dentures Wears glasses Home Medications aspirin 81 mg tablet,delayed release 81 mg PO DAILY heart health 10/04/13 [History Last Taken 07/26/23] Oxygen, Home [Home Oxygen] 2 lpm NASAL CONT #1 unit 10/31/16 [Rx Last Taken Unknown] famotidine 20 mg tablet 20 mg PO DAILY PRN gerd #90 tabs 09/17/19 [Rx Last Taken 07/26/23] cholecalciferol (vitamin D3) 125 mcg (5,000 unit) capsule 5,000 unit PO DAILY supplement 01/29/22 [History Last Taken 07/26/23] blood sugar diagnostic #100 ea 03/12/22 [Rx Last Taken Unknown] hydrochlorothiazide 25 mg tablet 25 mg PO DAILY blood pressure #90 tabs 09/10/22 [Rx Last Taken 07/26/23] lisinopril 20 mg tablet 20 mg PO BID blood pressure #180 tabs 10/08/22 [Rx Last Taken 07/26/23] Disability Placard #1 ea 11/30/22 [Rx Last Taken Unknown] sitagliptin phosphate 100 mg tablet 100 mg PO DAILY diabetes #90 tabs 12/06/22 [Rx Last Taken 07/26/23] budesonide-formoterol HFA 160 mcg-4.5 mcg/actuation aerosol inhaler (Symbicort) 2 puff inhalation Q12H shortness of breath #10.2 grams 01/12/23 [Rx Last Taken 07/26/23] rosuvastatin 20 mg tablet 20 mg PO DAILY cholesterol #90 tabs 04/26/23 [Rx Last Taken 07/26/23] glimepiride 2 mg tablet 2 mg PO DAILY diabetes #60 tabs 04/27/23 [Rx Last Taken 07/26/23] levothyroxine 88 mcg tablet 88 mcg PO DAILY thyroid #90 tabs 04/27/23 [Rx Last Taken 07/26/23] albuterol sulfate 90 mcg/actuation aerosol inhaler (Ventolin HFA) 2 puff inhalation Q6H PRN shortness of breath or wheezing #8.5 grams 05/25/23 [Rx Last Taken 07/26/23] bupropion HCl 200 mg tablet,12 hr sustained-release (Wellbutrin SR) 200 mg PO DAILY depression #90 ea 05/26/23 [Rx Last Taken 07/26/23] Electric Scooter #1 ea 07/12/23 [Rx Last Taken Unknown] tiotropium bromide 18 mcg capsule with inhalation device (Spiriva with HandiHaler) 1 cap inhalation 1500 shortness of breath 07/25/23 [History Last Taken 07/26/23] ascorbic acid (vitamin C) 500 mg tablet 1,500 mg PO DAILY supplement 07/27/23 [History Last Taken 07/26/23] ipratropium 0.5 mg-albuterol 3 mg (2.5 mg base)/3 mL nebulization soln 3 ml inhalation Q4H PRN shortness of breath or wheezing 07/27/23 [History Last Taken 07/26/23] Allergy/AdvReac Type Severity Reaction Status Date / Time No Known Allergies Allergy Verified 07/27/23 07:31 Family History Mother Cancer Leukemia Father COPD (chronic obstructive pulmonary disease) Grandfather Cancer Grandmother Diabetes Surgical History Tubal ligation evaluation Social History Smoking Status: Former smoker how long ago did patient quit smokin, .05p/day second hand exposure: Yes alcohol intake: never substance use type: crack/cocaine caffeine: Yes (2/day) what type of physical activity do you participate in: none ROS ROS Narrative Constitutional: Reports fatigue and weakness. No fever. HEENT: Reports systems reviewed and no addt'l complaints, except as documented Respiratory/Chest: History of COPD. On home oxygen. Mild chronic cough and wheezing at baseline. CVS: No chest pressure or tightness or pain. Gastrointestinal: As described in HPI. No hematemesis melena or hematochezia. Genitourinary: Denies burning urination or new urinary tract symptoms Musculoskeletal: Denies acute joint pain or limited range of motion. No acute injury Neurologic: Denies seizure-like symptoms. skin: No ulcer. No rash Endocrinology: Reports systems reviewed and no addt'l complaints, except as documented Hematologic/Lymphatic: Reports systems reviewed and no addt'l complaints, except as documented Rest 14 ROS are negative except as mentioned in HPI Vital Signs Vital Signs Vital Signs: 07/27/23 07:32 Temperature 97.6 F L Temperature Source Temporal Pulse Rate 89 Respiratory Rate 18 Blood Pressure 139/81 H Blood Pressure Mean 100 Pulse Ox 98 Oxygen Delivery Method Room Air Weight Weight: 214 lb Body Mass Index (BMI) 35.6 Physical Exam Narrative General: Alert, Oriented x3, Cooperative HEENT: Atraumatic, PERRLA, EOMI, Normocephalic Oral: Oral mucosa dry. No Gingival or Mucosal Lesions/ Ulcerations Neck: Supple, No JVD, Negative Carotid Bruits Lungs: Air entry diminished in bilateral lung bases. Bilateral lower lobes wheezing and rhonchi. Cardiovascular: Regular rate, Regular Rhythm, Normal S1, Normal S2, No murmurs Abdomen: Bowel Sounds Present, Soft, Non-Distended. No palpable mass. Tenderness present over left upper and lower quadrant on deep palpation. : No renal angle tenderness. No suprapubic tenderness. Extremities: No edema, Capillary Refill Less than 3 Seconds Skin: No rashes, No breakdown Musculoskeletal: No Tenderness to Palpation of Joints or Extremities. ROM adequate and full. Neurological: Cranial nerves II-XII grossly intact, DTR 2+/4. No acute focal neurological deficit. Psych/Mental Status: Normal Affect, Appropriate. Results Lab / Micro Data 07/27/23 08:13 07/27/23 08:13 Labs: Laboratory Results - last 24 hr 07/27/23 08:13: WBC 24.6 H, RBC 5.33, Hgb 14.5, Hct 46.3, MCV 86.9, MCH 27.2, MCHC 31.3 L, RDW Std Deviation 45.5 H, RDW Coeff of Navya 14.4, Plt Count 313, MPV 11.5, Immature Gran % (Auto) 1.000 H, Neut % (Auto) 89.7 H, Lymph % (Auto) 5.1 L, Prowers % (Auto) 3.3, Eos % (Auto) 0.5, Baso % (Auto) 0.4, Absolute Neuts (auto) 22.1 H, Absolute Lymphs (auto) 1.26, Nucleated RBC % 0, Differential Comment S, Diff Path Review November, Sodium 136, Potassium 4.0, Chloride 103, Carbon Dioxide 28.0, Anion Gap 5, BUN 24 H, Creatinine 1.93 H, Estim Creat Clear Calc 31.27, Est GFR (MDRD) Af Amer 33 L, Est GFR (MDRD) Non-Af 27 L, BUN/Creatinine Ratio 12.4, Glucose 300 H, Lactic Acid 1.6, Calcium 12.3 H, Total Bilirubin 0.50, AST 24, ALT 29, Alkaline Phosphatase 125 H, Total Protein 8.3 H, Albumin 3.6, Globulin 4.7 H, Albumin/Globulin Ratio 0.8 L Imagaing Radiology Impression Abdomen/Pelvis CT 07/27/23 09:18 IMPRESSION: Small gallstones. Small right renal cyst. Scattered sigmoid diverticulosis. Electronically Signed: Shan Mcdaniel MD at 10:00 EST , Assessment & Plan Assessment/Plan (1) JEAN (acute kidney injury): Procedure Criteria Elective Risks - COVID COVID Risk Discussion: This is 68-year-old female being admitted for nausea vomiting and watery diarrhea after starting colon prep. 1. JEAN mainly prerenal from hypovolemia/dehydration on CKD stage IIIb diabetic nephropathy: Patient is started on IV fluid Ringer lactate 125 mill per hour for 2 L and then reevaluate. Full liquid diet. Patient baseline creatinine runs around 1.55. Came to ED with creatinine 1.93, BUN 24. Electrolytes sodium potassium bicarb are in normal range. Anion gap 5. UA is ordered. Hold oral antidiabetic medications, lisinopril and HCTZ. 2. Acute gastroenteritis probably from colon prep solution: Patient has increased WBC count about 24,000. Platelet count normal. On 04/25/2023 she had mild leukocytosis 12.3 thousand but prior to that in July 2022. WBC count normal.Immature granulocytes 1%. Indicating left shift. I think it is mainly inflammatory as she did not had any fever or chills. Monitor CBC. 3. History of TIA/acute ischemic stroke for which patient was admitted in June 2020. Currently patient does not have any residual symptoms. 4. Type 2 diabetes on glucose in BMP is 300. Accu-Chek is in distress, and with mucus-like sliding scale. Patient follows PCP for diabetes mellitus. 5. Chronic obstructive pulmonary disease, advanced stage and obstructive sleep apnea: Patient on triple inhaler therapy. Follows Dr. Nobles in pulmonary clinic. Patient quit smoking in 2015. 6. Hypothyroidism: Patient on Synthroid. 7. Hypertension: Blood pressure in normal range. Hold all nephrotoxic medications and monitor BP. Patient is dehydrated. Living will/advanced directive/end of life care: Patient does have living will or advanced directive. After discussion of benefits/risks procedures involved with full code, DNR CC arrest and DNR CC, the patient and her daughter do not want intubation ventilator CPR/chest compressions but okay with CVC catheter and vessel pressure and DC shock if needed. I agreed for DNR CC arrest with no intubation. Total time spent in [id number] encounter in discussion of advanced directive 17 minutes. Laboratory Results 07/27/23 08:13: WBC 24.6 H, RBC 5.33, Hgb 14.5, Hct 46.3, MCV 86.9, MCH 27.2, MCHC 31.3 L, RDW Std Deviation 45.5 H, RDW Coeff of Navya 14.4, Plt Count 313, MPV 11.5, Immature Gran % (Auto) 1.000 H, Neut % (Auto) 89.7 H, Lymph % (Auto) 5.1 L, Prowers % (Auto) 3.3, Eos % (Auto) 0.5, Baso % (Auto) 0.4, Absolute Neuts (auto) 22.1 H, Absolute Lymphs (auto) 1.26, Nucleated RBC % 0, Differential Comment S, Diff Path Review November, Sodium 136, Potassium 4.0, Chloride 103, Carbon Dioxide 28.0, Anion Gap 5, BUN 24 H, Creatinine 1.93 H, Estim Creat Clear Calc 31.27, Est GFR (MDRD) Af Amer 33 L, Est GFR (MDRD) Non-Af 27 L, BUN/Creatinine Ratio 12.4, Glucose 300 H, Lactic Acid 1.6, Calcium 12.3 H, Phosphorus Pending, Magnesium 1.8, Total Bilirubin 0.50, AST 24, ALT 29, Alkaline Phosphatase 125 H, Total Protein 8.3 H, Albumin 3.6, Globulin 4.7 H, Albumin/Globulin Ratio 0.8 L Clinical Impression(s) from Imaging Studies Abdomen/Pelvis CT 07/27/23 09:18 IMPRESSION: Small gallstones. Small right renal cyst. Scattered sigmoid diverticulosis. Charges/Coding Visit Charges Inpatient E&M: 96618 Init Hosp L3 Procedures Hospitalists Procedures: 11255 Advncd Care Plan 30 Min
--- NOTE | 2023-07-27 10:14 | NURSING ---
DR ISSAC WHITTAKER
--- NOTE | 2023-07-27 10:27 | NURSING ---
MED SURG OBS ISSAC INTRACTABLE NAUSEA, DIARRHEA, LEUKOCYTOSIS, JEAN
[2023-07-27 12:34] LABS: Magnesium 1.8 mg/dL (1.6-2.6)
[2023-07-27] MEDS: Ipratropium/Albuterol Sulfate 3 ML AMPUL.NEB INHALATION ×2 (14:17→19:46)
--- NOTE | 2023-07-27 14:22 | CPS ---
Pt is noncompliant at home with CPAP and does not want to wear one of our machines unless emergent.
[2023-07-27 14:53] LABS: Red Blood Cells-Urine 0 SEEN /hpf (0-5)
[2023-07-27 14:54] LABS: Color, Urine Yellow (Yellow); Glucose, Dipstick Normal (Normal); Ketone-Dipstick Negative (Negative); Leukocyte Esterase-Dipstick 25 /ul (Negative); Nitrite-Dipstick Negative (Negative); Occult Blood-Urine 10 /ul (Negative); Protein-Dipstick 30 mg/dl (Negative); Specific Gravity, Urine 1.025 (1.002-1.030); Urine Clarity Clear (Clear); Urine Urobilinogen 1 mg/dl (Normal)
[2023-07-27 15:18] LABS: Urine Bilirubin Dipstick 1 mg/dL (Negative)
[2023-07-27] MEDS: 0.9% Saline Lock 10 ML Syringe IV ×2 (15:28→16:23)
[2023-07-27] MEDS: Lactated Ringers 1,000 ML 125 ML IV ×2 (15:29→21:35)
[2023-07-27 15:33] LABS: Squamous Epithelial Cells - UA 5-10 SEEN /hpf (5-10); White Blood Cells 0-5 SEEN /hpf (0-5)
[2023-07-27 15:34] LABS: Bacteria 1+ /hpf (None Seen); Mucous, Urine RARE /hpf (<or=2+)
[2023-07-27] MEDS: proCHLORPERazine 10 MG/2 ML Vial 5 MG IV (16:23)
[2023-07-27] MEDS: Dicyclomine 10 MG Capsule 20 MG PO (16:23)
--- NOTE | 2023-07-27 18:26 | CON.PCM.SX_ITS ---
Assessment & Plan Assessment/Plan (1) Hematochezia: PLAN: Patient is a 68-year-old female, presently admitted for IV fluid resuscitation and addressing dehydration symptoms due to recent intolerance of bowel prep, who has now had an episode of hematochezia. On exam, additionally, she exhibits tenderness over the left lower quadrant. I discussed with her possibly proceeding with a colonoscopy tomorrow given her new bloody bowel move ment, however, she request to reschedule as she is feeling poorly and shares that she was not able to complete her prep. Additionally, she presented with a hemoglobin of 14.5 and has no antecedent history of bleeding. Therefore, I find it most reasonable to continue symptomatic treatment of her dehydration symptoms and plan to reschedule her colonoscopy. One of my concerns would be for the sensitivity of our exam if her bowel prep is not complete and the indication for this exam was a positive Cologuard test. There does not appear to be a clear indication to pursue colonoscopy simply on the basis of her hematochezia as I do not suspect she is symptomatic from anemia. Her left lower quadrant tenderness is to be noted and?in concert with her bright red blood per rectum?could represent diverticular bleed versus ischemic or infectious colitis. At present I recommend backing her down to a clear liquid diet and monitoring her expectantly. If her pain has not improved along with her white count by tomorrow it may be reasonable to pursue a more in-depth workup with contrasted imaging and stool studies. Will plan to follow. Above impression and plan have been discussed with patient's primary hospitalist. HPI Consult Data Date of Consult: 07/27/23 HPI Narrative Reason for Consultation: Abdominal pain and new bright red blood per rectum HPI Narrative: DARRIN LOMBARDI, is a 68 F who presented to [facility] earlier today after beginning her bowel prep for a planned colonoscopy with me tomorrow due to complaints of frequent nausea, vomiting, diarrhea, and significant weakness. In the emergency department she is found to have evidence of dehydration with acute kidney injury and elevated cell counts?including leukocytosis of over 24,000. Ms. Lombardi confirms that the symptoms began directly after starting her bowel prep. She shares that even now she feels profoundly weak and unable to hardly move. Both she and her nursing staff share that she recently experienced a bloody bowel movement of red blood. She denies any prior experiences like this?even when considering her history of hemorrhoids. Patient was due for a colonoscopy given a recent positive Cologuard test. She had otherwise denied any significant change to her bowel habits. She shares that she did not complete her full bowel prep and became sick before she could do so. She now request to reschedule as she feels so poorly she sees it as being a hindrance to her recovery. [facility] Medical History Acute bronchitis, unspecified Arthritis Asthma Borderline diabetes Chronic back pain Cough CPAP (continuous positive airway pressure) dependence Depression Diabetes Dietary restriction Difficulty swallowing Dislocation of ankle joint Easy bruising Flu vaccine need Flu vaccine need Gastric reflux Health care maintenance History of echocardiogram History of edema History of stress test Hyperlipemia Hypertension Hypothyroidism Lightheadedness On home oxygen therapy PND (paroxysmal nocturnal dyspnea) Positive colorectal cancer screening using Cologuard test Post-menopausal Preventative health care Right hip pain Right-sided chest pain Shortness of breath Shortness of breath on exertion Stage 4 very severe COPD by GOLD classification TIA (transient ischemic attack) Walker as ambulation aid Wears dentures Wears glasses Home Medications aspirin 81 mg tablet,delayed release 81 mg PO DAILY heart health 10/04/13 [History Last Taken 07/26/23] Oxygen, Home [Home Oxygen] 2 lpm NASAL CONT #1 unit 10/31/16 [Rx Last Taken Unknown] famotidine 20 mg tablet 20 mg PO DAILY PRN gerd #90 tabs 09/17/19 [Rx Last Taken 07/26/23] cholecalciferol (vitamin D3) 125 mcg (5,000 unit) capsule 5,000 unit PO DAILY supplement 01/29/22 [History Last Taken 07/26/23] blood sugar diagnostic #100 ea 03/12/22 [Rx Last Taken Unknown] hydrochlorothiazide 25 mg tablet 25 mg PO DAILY blood pressure #90 tabs 09/10/22 [Rx Last Taken 07/26/23] lisinopril 20 mg tablet 20 mg PO BID blood pressure #180 tabs 10/08/22 [Rx Last Taken 07/26/23] Disability Placard #1 ea 11/30/22 [Rx Last Taken Unknown] sitagliptin phosphate 100 mg tablet 100 mg PO DAILY diabetes #90 tabs 12/06/22 [Rx Last Taken 07/26/23] budesonide-formoterol HFA 160 mcg-4.5 mcg/actuation aerosol inhaler (Symbicort) 2 puff inhalation Q12H shortness of breath #10.2 grams 01/12/23 [Rx Last Taken 07/26/23] rosuvastatin 20 mg tablet 20 mg PO DAILY cholesterol #90 tabs 04/26/23 [Rx Last Taken 07/26/23] glimepiride 2 mg tablet 2 mg PO DAILY diabetes #60 tabs 04/27/23 [Rx Last Taken 07/26/23] levothyroxine 88 mcg tablet 88 mcg PO DAILY thyroid #90 tabs 04/27/23 [Rx Last Taken 07/26/23] albuterol sulfate 90 mcg/actuation aerosol inhaler (Ventolin HFA) 2 puff inhalation Q6H PRN shortness of breath or wheezing #8.5 grams 05/25/23 [Rx Last Taken 07/26/23] bupropion HCl 200 mg tablet,12 hr sustained-release (Wellbutrin SR) 200 mg PO DAILY depression #90 ea 05/26/23 [Rx Last Taken 07/26/23] Electric Scooter #1 ea 07/12/23 [Rx Last Taken Unknown] tiotropium bromide 18 mcg capsule with inhalation device (Spiriva with HandiHaler) 1 cap inhalation 1500 shortness of breath 07/25/23 [History Last Taken 07/26/23] ascorbic acid (vitamin C) 500 mg tablet 1,500 mg PO DAILY supplement 07/27/23 [History Last Taken 07/26/23] ipratropium 0.5 mg-albuterol 3 mg (2.5 mg base)/3 mL nebulization soln 3 ml inhalation Q4H PRN shortness of breath or wheezing 07/27/23 [History Last Taken 07/26/23] Allergy/AdvReac Type Severity Reaction Status Date / Time No Known Allergies Allergy Verified 07/27/23 07:31 Family History Mother Cancer Leukemia Father COPD (chronic obstructive pulmonary disease) Grandfather Cancer Grandmother Diabetes Surgical History Tubal ligation evaluation Social History Smoking Status: Former smoker how long ago did patient quit smokin, .05p/day second hand exposure: Yes alcohol intake: never substance use type: crack/cocaine caffeine: Yes (2/day) what type of physical activity do you participate in: none Physical Exam Const alert Constitutional Narrative: Appears unwell General Appearance: cooperative Resp normal respiratory effort GI GI Narrative: Soft, nondistended, tenderness to palpation over left lower quadrant. Lab / Micro Data 07/27/23 08:13 07/27/23 08:13 Labs: Laboratory Results - last 24 hr 07/27/23 08:13: WBC 24.6 H, RBC 5.33, Hgb 14.5, Hct 46.3, MCV 86.9, MCH 27.2, MCHC 31.3 L, RDW Std Deviation 45.5 H, RDW Coeff of Navya 14.4, Plt Count 313, MPV 11.5, Immature Gran % (Auto) 1.000 H, Neut % (Auto) 89.7 H, Lymph % (Auto) 5.1 L , [place] % (Auto) 3.3, Eos % (Auto) 0.5, Baso % (Auto) 0.4, Absolute Neuts (auto) 22.1 H, Absolute Lymphs (auto) 1.26, Nucleated RBC % 0, Differential Comment S, Diff Path Review November, Sodium 136, Potassium 4.0, Chloride 103, Carbon Dioxide 28.0, Anion Gap 5, BUN 24 H, Creatinine 1.93 H, Estim Creat Clear Calc 31.27, Est GFR (MDRD) Af Amer 33 L, Est GFR (MDRD) Non-Af 27 L, BUN/Creatinine Ratio 12.4, Glucose 300 H, Lactic Acid 1.6, Calcium 12.3 H, Phosphorus 5.0 H, Magnesium 1.8, Total Bilirubin 0.50, AST 24, ALT 29, Alkaline Phosphatase 125 H, Total Protein 8.3 H, Albumin 3.6, Globulin 4.7 H, Albumin/Globulin Ratio 0.8 L 07/27/23 14:43: Urine Color Yellow, Urine Clarity Clear, Urine pH 5.0, Ur Specific [place] 1.025, Urine Protein 30 H, Urine Glucose (UA) Normal, Urine Ketones Negative, Urine Occult Blood 10 H, Urine Nitrite Negative, Urine Bilirubin 1 H, Urine Urobilinogen 1 H, Ur Leukocyte Esterase 25 H, Urine RBC 0 SEEN, Urine WBC 0-5 SEEN, Ur Squamous Epith Cells 5-10 SEEN, Urine Bacteria 1+, Urine Mucus RARE Imagaing Radiology Impression Abdomen/Pelvis CT 07/27/23 09:18 IMPRESSION: Small gallstones. Small right renal cyst. Scattered sigmoid diverticulosis. Electronically Signed: Shan Mcdaniel MD at 10:00 EST , Charges/Coding Visit Charges Inpatient E&M: 78882 Init Hosp L2
[2023-07-27] MEDS: Budesonide Respules 0.5 MG/2 ML AMPUL.NEB. INHALATION (19:46)
[2023-07-27] MEDS: Atorvastatin Calcium 40 MG Tablet PO (21:36)
[2023-07-27] MEDS: Acetaminophen 325 MG Tablet 650 MG PO (21:38)
[2023-07-28] VITALS (8 sets, daily range): BP systolic 120–154; BP diastolic 62–73; PULSE 77–88; RESP 18–20; TEMP 36.6–36.8; O2SAT 92–98
[2023-07-28] MEDS: Levothyroxine 88 MCG Tablet PO (05:26)
[2023-07-28] MEDS: Lactated Ringers 1,000 ML 125 ML IV ×3 (05:26→20:08)
[2023-07-28] MEDS: Dicyclomine 10 MG Capsule 20 MG PO ×3 (06:54→15:17)
[2023-07-28] MEDS: Budesonide Respules 0.5 MG/2 ML AMPUL.NEB. INHALATION ×2 (07:10→19:51)
[2023-07-28] MEDS: Ipratropium/Albuterol Sulfate 3 ML AMPUL.NEB INHALATION ×3 (07:10→19:51)
[2023-07-28 07:57] LABS: Absolute Lymphocyte Count 1.22 X10^3/uL (0.83-4.51); Absolute Neutrophil Count 11.9 X10^3/uL (2.0-7.7); Basophil# 0.03 X10^3/uL; Basophil% 0.2 % (0-1); Eosinophil# 0.09 X10^3/uL; Eosinophils% 0.6 % (0-5); Hematocrit 34.7 % (37-47); Hemoglobin 11.2 g/dL (12.0-15.0); Lymphocyte # 1.22 X10^3/ul (0.83-4.51); Lymphocyte % 8.5 % (19-41); Mean Corp Hgb Conc 32.3 g/dL (32-36); Mean Corpuscular Hgb 27.9 pg (27.0-32.0); Mean Corpuscular Volume 86.3 fL (81-99); Mean Platelet Vol. 11.5 fl (6.2-12.0); Monocyte# 1.05 X10^3/uL; Monocyte% 7.3 % (0-10); NRBC Flagged by Analyzer 0 % (0-5); Neutrophil # 11.86 X10^3/uL (2.7-7.7); Neutrophil % 83.1 % (47-70); Platelet Count 173 K/mm3 (150-450); RBC Distribution Width CV 14.6 % (11.6-14.6); RBC Distribution Width SD 45.8 fl (35.1-43.9); Red Blood Count 4.02 M/mm3 (4.2-5.4); White Blood Count 14.3 K/mm3 (4.4-11.0)
[2023-07-28 08:02] LABS: Anion Gap 5 (5-15); BUN 26 mg/dL (7-18); BUN/Creat Ratio 15.1 RATIO (10-20); Calcium,Total 9.7 mg/dL (8.5-10.1); Chloride 106 mmol/L (98-107); Creatinine, Serum 1.72 mg/dL (0.55-1.02); EST Glomerular Filtration Rate 31 mL/min (>60); Est Glom Filt Rate - Afr Amer 38 mL/min (>60); Estimated Creatinine Clearance 35.09 ml/min; Glucose 132 mg/dL (74-106); Potassium 4.3 mmol/L (3.5-5.1); Sodium Level 139 mmol/L (136-145)
[2023-07-28] MEDS: Ascorbic Acid 500 MG Tablet 1500 MG PO (08:04)
[2023-07-28] MEDS: buPROPion (SR) 100 MG TABLET.SA 200 MG PO (08:04)
[2023-07-28] MEDS: Aspirin E.C. 81 MG Tablet PO (08:04)
[2023-07-28] MEDS: Cholecalciferol (Vit D3) 125 MCG CAPSULE (5,000 UNITS) PO (08:04)
[2023-07-28] MEDS: Enoxaparin 40 MG/0.4 ML Syringe SC (10:58)
--- NOTE | 2023-07-28 12:22 | CASEMGMT ---
Social Work Pt does not have LW but has healthcare POA, but not on file. SW spoke w/pt, let her know that her POA is not on file. Pt states she has completed the document and put her daughters Kaitlynn and Omayra as POAs for healthcare. SW asked her to bring the documents in as able, pt states understanding. JOEL Carolina
--- NOTE | 2023-07-28 14:27 | PCM.PN.HOSP ---
Reason for Visit Reason for Visit: Diagnoses Melena (07/27/23) Acute kidney failure, unspecified (07/27/23) Objective Data Objective Data Vital Signs: Vital Signs Temp Pulse Resp BP Pulse Ox O2 Del Method O2 Flow Rate 97.8 F 82 19 H 154/68 H 92 Nasal Cannula 2 07/28/23 07:56 07/28/23 13:03 07/28/23 13:03 07/28/23 07:56 07/28/23 08:10 07/28/23 08:10 07/28/23 10:27 Oxygen Flow Rate (L/min) 2 Oxygen Delivery Method Nasal Cannula Weight: 214 lb Body Mass Index (BMI) 35.6 Intake & Output: Intake and Output for Last 24 Hours 07/26/23 07/27/23 07/28/23 23:59 23:59 23:59 Intake Total 2162.5 / 2162.5 2431.25 / 2431.25 Output Total 950 / 950 Balance 2162.5 / 2162.5 1481.25 / 1481.25 Lab / Micro Data 07/28/23 06:41 07/28/23 06:41 Labs: Laboratory Results - last 24 hr 07/27/23 14:43: Urine Color Yellow, Urine Clarity Clear, Urine pH 5.0, Ur Specific [place] 1.025, Urine Protein 30 H, Urine Glucose (UA) Normal, Urine Ketones Negative, Urine Occult Blood 10 H, Urine Nitrite Negative, Urine Bilirubin 1 H, Urine Urobilinogen 1 H, Ur Leukocyte Esterase 25 H, Urine RBC 0 SEEN, Urine WBC 0-5 SEEN, Ur Squamous Epith Cells 5-10 SEEN, Urine Bacteria 1+, Urine Mucus RARE 07/28/23 06:41: WBC 14.3 H, RBC 4.02 L, Hgb 11.2 L, Hct 34.7 L, MCV 86.3, MCH 27.9, MCHC 32.3, RDW Std Deviation 45.8 H, RDW Coeff of Navya 14.6, Plt Count 173, MPV 11.5, Immature Gran % (Auto) 0.300, Neut % (Auto) 83.1 H, Lymph % (Auto) 8.5 L, [place] % (Auto) 7.3, Eos % (Auto) 0.6, Baso % (Auto) 0.2, Absolute Neuts (auto) 11.9 H, Absolute Lymphs (auto) 1.22, Nucleated RBC % 0, Sodium 139, Potassium 4.3, Chloride 106, Carbon Dioxide 28.0, Anion Gap 5, BUN 26 H, Creatinine 1.72 H, Estim Creat Clear Calc 35.09, Est GFR (MDRD) Af Amer 38 L, Est GFR (MDRD) Non-Af 31 L, BUN/Creatinine Ratio 15.1, Glucose 132 H, Calcium 9.7 Micro: Microbiology 07/28/23 09:35 Stool Stool Lactoferrin - Final 07/28/23 09:35 Stool Stool Occult Blood (MONET) - Final Occult Blood Positive Physical Exam Narrative Patient had having blood mixed with the stool in the evening yesterday and today in the morning. Initially it was watery diarrhea and then changed to bloody diarrhea. Her stool is solidifying also. She denies wiping blood on the tissue therefore less likely hemorrhoidal bleed. Patient was seen by surgeon and colonoscopy canceled. Physical exam General: Alert, Oriented x3, Cooperative HEENT: Atraumatic, PERRLA, EOMI, Normocephalic Oral: Oral mucosa dry. No Gingival or Mucosal Lesions/ Ulcerations Neck: Supple, No JVD, Negative Carotid Bruits Lungs: Air entry diminished in bilateral lung bases. Bilateral lower lobes wheezing and rhonchi. Cardiovascular: Regular rate, Regular Rhythm, Normal S1, Normal S2, No murmurs Abdomen: Bowel Sounds Present, Soft, Non-Distended. No palpable mass. Mild tenderness present over left upper and lower quadrant on deep palpation. : No renal angle tenderness. No suprapubic tenderness. Extremities: No edema, Capillary Refill Less than 3 Seconds Skin: No rashes, No breakdown Musculoskeletal: No Tenderness to Palpation of Joints or Extremities. ROM adequate and full. Neurological: Cranial nerves II-XII grossly intact, DTR 2+/4. No acute focal neurological deficit. Psych/Mental Status: Normal Affect, Appropriate. Assessment & Plan Assessment/Plan (1) JEAN (acute kidney injury): (2) Hematochezia: PLAN: Plan This is 68-year-old female being admitted for nausea vomiting and watery diarrhea after starting colon prep. 1. JEAN mainly prerenal from hypovolemia/dehydration on CKD stage IIIb diabetic nephropathy: Patient is started on IV fluid Ringer lactate 125 mill per hour for 2 L and then reevaluate. Full liquid diet. Patient baseline creatinine runs around 1.55. Came to ED with creatinine 1.93, BUN 24. Electrolytes sodium potassium bicarb are in normal range. Anion gap 5. UA is ordered. Hold oral antidiabetic medications, lisinopril and HCTZ. 07/28: Magnesium 120 mg daily for 07/24: Creatinine is getting better 1.72. Will continue with IV fluid Ringer lactate. 2. Acute gastroenteritis probably from colon prep solution complicated with lower GI bleed: Patient has increased WBC count about 24,000. Platelet count normal. On 04/25/2023 she had mild leukocytosis 12.3 thousand but prior to that in July 2022. WBC count normal.Immature granulocytes 1%. Indicating left shift. I think it is mainly inflammatory as she did not had any fever or chills. 07/28: Patient leukocytosis improved. H&H 11.2/34.7.Her baseline hemoglobin runs around 13 g. Stool for occult blood positive.Positive lactoferrin. Stool test ordered. Results pending. 3. History of TIA/acute ischemic stroke for which patient was admitted in June 2020. Currently patient does not have any residual symptoms. 4. Type 2 diabetes on glucose in BMP is 300. Accu-Chek is in distress, and with mucus-like sliding scale. Patient follows PCP for diabetes mellitus. 5. Chronic obstructive pulmonary disease, advanced stage and obstructive sleep apnea: Patient on triple inhaler therapy. Follows Dr. Nobles in pulmonary clinic. Patient quit smoking in 2015. 6. Hypothyroidism: Patient on Synthroid. 7. Hypertension: Blood pressure in normal range. Hold all nephrotoxic medications and monitor BP. Patient is dehydrated. Living will/advanced directive/end of life care: Patient does have living will or advanced directive. After discussion of benefits/risks procedures involved with full code, DNR CC arrest and DNR CC, the patient and her daughter do not want intubation ventilator CPR/chest compressions but okay with CVC catheter and vessel pressure and DC shock if needed. I agreed for DNR CC arrest with no intubation. Charges/Coding Visit Charges Inpatient E&M: 40503 Subs Hosp L2
--- NOTE | 2023-07-28 15:07 | CASEMGMT ---
Pt states that she has a continuous order for O2 through [employer]. Pt states the order is for 2L continuous. Pt states that she has a CPAP at home but does not use. Pt states that she has not worn it since I got sick. Pt states that she lives in [facility] and feels safe going there at [place]. Pt states her brother lives there as well. Pt states she is independent with ADLs.
--- NOTE | 2023-07-28 16:35 | PN.SURG_ITS ---
Subjective Subjective Patient seen and examined during afternoon rounds. She reports that she is feeling almost 100% better. She shares that she is still dealing with some abdominal pain but that the Bentyl medication seems to be helping a lot. Nursing reports that patient has a pending enteric pathogen panel after she is found to have lactoferrin and occult blood in her prior stool sample. She shares that she is having minimal output with bowel movements and that the bleeding seems to have tapered off significantly. She also shares that she is now hungry. Objective Data Objective Data Vital Signs: Vital Signs Temp Pulse Resp BP Pulse Ox O2 Del Method O2 Flow Rate 97.9 F 86 18 124/66 H 97 Nasal Cannula 2 07/28/23 15:07/28/23 15:07/28/23 15:07/28/23 15:07/28/23 15:07/28/23 15:07/28/23 15:11 Oxygen Flow Rate (L/min) 2 Oxygen Delivery Method Nasal Cannula Weight: 214 lb Body Mass Index (BMI) 35.6 Intake & Output: Intake and Output for Last 24 Hours 07/26/23 07/27/23 07/28/23 23:59 23:59 23:59 Intake Total 2162.5 / 2162.5 2431.25 / 2431.25 Output Total 950 / 950 Balance 2162.5 / 2162.5 1481.25 / 1481.25 Lab / Micro Data 07/28/23 06:41 07/28/23 06:41 Labs: Laboratory Results - last 24 hr 07/28/23 06:41: WBC 14.3 H, RBC 4.02 L, Hgb 11.2 L, Hct 34.7 L, MCV 86.3, MCH 27.9, MCHC 32.3, RDW Std Deviation 45.8 H, RDW Coeff of Navya 14.6, Plt Count 173, MPV 11.5, Immature Gran % (Auto) 0.300, Neut % (Auto) 83.1 H, Lymph % (Auto) 8.5 L, [place] % (Auto) 7.3, Eos % (Auto) 0.6, Baso % (Auto) 0.2, Absolute Neuts (auto) 11.9 H, Absolute Lymphs (auto) 1.22, Nucleated RBC % 0, Sodium 139, Potassium 4.3, Chloride 106, Carbon Dioxide 28.0, Anion Gap 5, BUN 26 H, Creatinine 1.72 H , Estim Creat Clear Calc 35.09, Est GFR (MDRD) Af Amer 38 L, Est GFR (MDRD) Non- Af 31 L, BUN/Creatinine Ratio 15.1, Glucose 132 H, Calcium 9.7 Micro: Microbiology 07/28/23 09:35 Stool Stool Lactoferrin - Final 07/28/23 09:35 Stool Stool Occult Blood (MONET) - Final Occult Blood Positive Physical Exam Const oriented x3 and no apparent distress Resp normal respiratory effort GI GI Narrative: Nondistended, soft, tenderness reported with palpation to the right and left lower quadrants. Patient insist this seems to be more superficial than yesterday, however. Assessment & Plan Assessment/Plan (1) Hematochezia: PLAN: Patient is a 68-year-old female, presently admitted for IV fluid resuscit ation and addressing dehydration symptoms due to recent intolerance of bowel prep, who has now had multiple episodes of hematochezia. Her left lower quadrant tenderness noted on exam yesterday seems to be better today. However, her hemoglobin did decrease today. I suspect this is largely hemodilutional as she does not report significant losses with her bowel movements. She also does not appear to be symptomatic from anemia. Based on the time course of her symptoms I remain suspicious for possible ischemic colitis. Yet I agree with continuing to investigate possible infectious etiology and will follow-up enteric pathogen panel. If patient's abdominal exam is further improved and her hemoglobin stabilizes tomorrow would recommend a diet challenge with the diet advancement. If, however her hemoglobin falls further we have further episodes of hematochezia then it may be prudent to complete her bowel prep and proceed with a diagnostic colonoscopy. Charges/Coding Visit Charges Inpatient E&M: 49388 Subs Hosp L2
--- NOTE | 2023-07-28 16:41 | CASEMGMT ---
Spoke with patient to complete BEAR form. BEAR form explained to?patient who voiced understanding. Original form placed in pt?s chart and copy provided to?patient. Laney Gabriel, Discharge Planning Asst
[2023-07-28] MEDS: Atorvastatin Calcium 40 MG Tablet PO (20:08)
[2023-07-29] MEDS: Levothyroxine 88 MCG Tablet PO (04:07)
[2023-07-29] MEDS: Lactated Ringers 1,000 ML 125 ML IV (04:07)
[2023-07-29 05:20] LABS: Absolute Lymphocyte Count 1.15 X10^3/uL (0.83-4.51); Absolute Neutrophil Count 9.7 X10^3/uL (2.0-7.7); Basophil# 0.03 X10^3/uL; Basophil% 0.3 % (0-1); Eosinophil# 0.15 X10^3/uL; Eosinophils% 1.3 % (0-5); Hematocrit 32.1 % (37-47); Hemoglobin 10.4 g/dL (12.0-15.0); Lymphocyte # 1.15 X10^3/ul (0.83-4.51); Lymphocyte % 9.6 % (19-41); Mean Corp Hgb Conc 32.4 g/dL (32-36); Mean Corpuscular Hgb 28.3 pg (27.0-32.0); Mean Corpuscular Volume 87.5 fL (81-99); Mean Platelet Vol. 11.1 fl (6.2-12.0); Monocyte# 0.93 X10^3/uL; Monocyte% 7.8 % (0-10); NRBC Flagged by Analyzer 0 % (0-5); Neutrophil # 9.66 X10^3/uL (2.7-7.7); Neutrophil % 80.6 % (47-70); Platelet Count 151 K/mm3 (150-450); RBC Distribution Width CV 14.4 % (11.6-14.6); RBC Distribution Width SD 46.3 fl (35.1-43.9); Red Blood Count 3.67 M/mm3 (4.2-5.4)
[2023-07-29 05:48] LABS: Anion Gap 6 (5-15); BUN 15 mg/dL (7-18); BUN/Creat Ratio 10.3 RATIO (10-20); Chloride 106 mmol/L (98-107); Creatinine, Serum 1.45 mg/dL (0.55-1.02); EST Glomerular Filtration Rate 38 mL/min (>60); Est Glom Filt Rate - Afr Amer 46 mL/min (>60); Estimated Creatinine Clearance 41.62 ml/min; Glucose 118 mg/dL (74-106); Potassium 3.7 mmol/L (3.5-5.1); Sodium Level 140 mmol/L (136-145)
[2023-07-29] MEDS: Dicyclomine 10 MG Capsule 20 MG PO ×2 (06:29→11:26)
[2023-07-29 07:00] VITALS: PULSE 80; RESP 18; O2SAT 93
[2023-07-29] MEDS: Budesonide Respules 0.5 MG/2 ML AMPUL.NEB. INHALATION (07:00)
[2023-07-29] MEDS: Ipratropium/Albuterol Sulfate 3 ML AMPUL.NEB INHALATION (07:00)
--- NOTE | 2023-07-29 09:26 | PCM.PN.SRG ---
Subjective Subjective Patient states that she is feeling much better today. She reports a scant amount of blood but has not had much in the way of bowel movements. She has a very large appetite at this point. She shares that her abdominal pain is now simply mild abdominal wall soreness. Objective Data Objective Data Vital Signs: Vital Signs Temp Pulse Resp BP Pulse Ox O2 Del Method O2 Flow Rate 98.2 F 80 18 144/73 H 93 Nasal Cannula 3 07/28/23 20:10 07/29/23 07:00 07/29/23 07:00 07/28/23 20:10 07/29/23 07:00 07/29/23 07:00 07/29/23 07:00 Oxygen Flow Rate (L/min) 3 Oxygen Delivery Method Nasal Cannula Weight: 214 lb Body Mass Index (BMI) 35.6 Intake & Output: Intake and Output for Last 24 Hours 07/27/23 07/28/23 07/29/23 23:59 23:59 23:59 Intake Total 2162.5 / 2162.5 3204.17 / 3204.17 997.92 / 997.92 Output Total 950 / 950 Balance 2162.5 / 2162.5 2254.17 / 2254.17 997.92 / 997.92 Lab / Micro Data 07/29/23 04:45 07/29/23 04:45 Labs: Laboratory Results - last 24 hr 07/29/23 04:45: WBC 12.0 H, RBC 3.67 L, Hgb 10.4 L, Hct 32.1 L, MCV 87.5, MCH 28.3, MCHC 32.4, RDW Std Deviation 46.3 H, RDW Coeff of Navya 14.4, Plt Count 151, MPV 11.1, Immature Gran % (Auto) 0.400, Neut % (Auto) 80.6 H, Lymph % (Auto) 9.6 L, [place] % (Auto) 7.8, Eos % (Auto) 1.3, Baso % (Auto) 0.3, Absolute Neuts (auto) 9.7 H, Absolute Lymphs (auto) 1.15, Nucleated RBC % 0, Sodium 140, Potassium 3.7, Chloride 106, Carbon Dioxide 28.0, Anion Gap 6, BUN 15, Creatinine 1.45 H, Estim Creat Clear Calc 41.62, Est GFR (MDRD) Af Amer 46 L, Est GFR (MDRD) Non-Af 38 L, BUN/Creatinine Ratio 10.3, Glucose 118 H, Calcium 9.0 Micro: Microbiology 07/28/23 14:47 Stool Clostridioides difficile (PCR) - Final 07/28/23 09:35 Stool Stool Lactoferrin - Final 07/28/23 09:35 Stool Stool Occult Blood (MONET) - Final Occult Blood Positive Physical Exam Const oriented x3 and no apparent distress Resp normal respiratory effort GI GI Narrative: Distended, soft, minimally tender to palpation Assessment & Plan Assessment/Plan (1) Hematochezia: PLAN: Patient is a 68-year-old female, presently admitted for IV fluid resuscitation and addressing dehydration symptoms due to recent intolerance of bowel prep, who has now had multiple episodes of hematochezia. Her left lower quadrant tenderness is basically resolved today. Her hemoglobin is further decreased today, but I continue to suspect this is largely hemodilutional as she reports even less bright red blood per rectum. She, again, does not appear to be symptomatic from anemia. Based on the time course of her symptoms I remain suspicious for possible ischemic colitis. Enteric pathogen is pending. Given her symptomatic improvements recommend diet challenge with a regular diet and then consideration of dismissal. Will then plan to follow-up with patient as outpatient to reschedule for diagnostic colonoscopy given recently positive Cologuard and now new onset hematochezia. If patient is to discharge today recommend emphasizing need to remain well-hydrated and minimize any constipation. Charges/Coding Visit Charges Inpatient E&M: 04419 Subs Hosp L2
[2023-07-29 09:30] VITALS: BP 127/43; PULSE 82; RESP 18; TEMP 36.8; O2SAT 99
[2023-07-29] MEDS: Aspirin E.C. 81 MG Tablet PO (09:58)
[2023-07-29] MEDS: Cholecalciferol (Vit D3) 125 MCG CAPSULE (5,000 UNITS) PO (09:58)
[2023-07-29] MEDS: Ascorbic Acid 500 MG Tablet 1500 MG PO (09:58)
[2023-07-29] MEDS: buPROPion (SR) 100 MG TABLET.SA 200 MG PO (09:58)
[2023-07-29] MEDS: Enoxaparin 40 MG/0.4 ML Syringe SC (09:58)
--- NOTE | 2023-07-29 10:19 | DCINST_ITS ---
Discharge Instructions Diet Discharge Diet: Light diet - advance as tolerated (Soft bites of food. Continue for 3 days and then regular food.) Activity Discharge Activity: Return to Normal Activity Weight Bearing Status: Weight bearing as tolerated Dressing / Incision Call your doctor if you observe: Fever of 101 or Higher, Coldness, Increased Pain, Numbness or Tingling, Change in Color, Inability to urinate, Inability to have a bowel movement, Using more than 1 pad per hour, Shortness of breath, Dizziness, Fainting spells, Swelling in the ankles, Chest pain, Prolonged hiccupping, Increased palpitations (irregular heartbeat) and Calf discomfort Follow Up Care When: IN 2 WEEKS Test Results: Test results from this visit will be discussed in further detail at your follow- up appointment, if applicable. Discharge Plan Admission Admit Date/Time: 07/27/23 14:51 Primary Reason for Your Visit: Diarrhea, lower GI bleed Attending Provider: Venu Rivera Primary Care Provider: Paige Jon Consulting Providers: Higinio Antunez Discharge Orders/Prescriptions Prescriptions: New pantoprazole [Protonix] 40 mg tablet,delayed release (DR/EC) 40 mg PO DAILY Qty: 30 0RF ferrous sulfate 325 mg (65 mg iron) tablet,delayed release (DR/EC) 325 mg PO QODAY Qty: 30 2RF Continued cholecalciferol (vitamin D3) 125 mcg (5,000 unit) capsule 5,000 unit PO DAILY levothyroxine 88 mcg tablet 88 mcg PO DAILY Qty: 90 1RF glimepiride 2 mg tablet 2 mg PO DAILY Qty: 60 1RF Oxygen, Home [Home Oxygen] 2 lpm NASAL CONT Qty: 1 0RF Rx Instructions: tiotropium bromide [Spiriva with HandiHaler] 18 mcg capsule, w/inhalation device 1 cap inhalation 1500 Rx Instructions: inhale contents of 1 capsule by mouth once daily ipratropium-albuterol 0.5 mg-3 mg(2.5 mg base)/3 mL solution for nebulization 3 ml INHALATION Q4H PRN (Reason: shortness of breath or wheezing) ascorbic acid (vitamin C) 500 mg tablet 1,500 mg PO DAILY (DME) blood sugar diagnostic Strip See Dose Instructions .ROUTE .MEDSUPPLY Qty: 100 2RF Dose Instruction: As directed Rx Instructions: As directed check bs twice a day (DME) Disability Placard See Rx Instructions .Route .MEDSUPPLY Qty: 1 0RF Rx Instructions: expires 12/01/2027 sitagliptin phosphate 100 mg tablet 100 mg PO DAILY Qty: 90 3RF budesonide-formoterol [Symbicort] 160-4.5 mcg/actuation HFA aerosol inhaler 2 puff INHALATION Q12H Qty: 10.2 11RF rosuvastatin 20 mg tablet 20 mg PO DAILY Qty: 90 3RF albuterol sulfate [Ventolin HFA] 90 mcg/actuation HFA aerosol inhaler 2 puff INHALATION Q6H PRN (Reason: shortness of breath or wheezing) Qty: 8.5 3RF bupropion HCl [Wellbutrin SR] 200 mg tablet sustained-release 12 hr 200 mg PO DAILY Qty: 90 3RF (DME) Electric Scooter See Rx Instructions .Route .MEDSUPPLY Qty: 1 0RF Rx Instructions: As directed Held famotidine 20 mg tablet 20 mg PO DAILY PRN (Reason: gerd) Qty: 90 1RF Hold Instructions: Hold while taking pantoprazole aspirin 81 MG tablet,delayed release (DR/EC) 81 mg PO DAILY Hold Instructions: Hold for 3 days until blood in the stool clears. hydrochlorothiazide 25 mg tablet 25 mg PO DAILY Qty: 90 3RF Hold Instructions: Hold for 3 days and thereafter hold if systolic blood pressure less than 120 mmHg lisinopril 20 mg tablet 20 mg PO BID Qty: 180 3RF Hold Instructions: Hold for SBP less than 130 mmHg Referrals / Follow Up: Paige Jon MD [Primary Care Provider] - 08/01/23 10:30 am Higinio Antunez MD [Med Staff - Active Staff] - Within 1 Week Disposition Disposition (needs filled in before D/C Order can be placed): Home, Self Care
--- NOTE | 2023-07-29 10:23 | PCM.DC.SUM ---
Providers Date of Admission: 07/27/23 Date of Discharge: 07/29/23 Primary Care Physician: Dr. Paige Jon MD Consultations 07/27/23 17:43 Consult: General Surgery Routine Consulting Provider: Higinio Antunez Reason for Consult: blood in stool, diarrhea EMERGENT Consult: No MD Notified: Yes Date Notified: 07/27/23 Time Notified: 17:43 Method of Notification: Verbal Reason For Visit: INTRACTABLE NAUSEA, DIARRHEA, LEUKOCYTOSIS, JEAN Diagnosis Discharge Diagnosis (1) Hematochezia: Status: Acute Code(s): K92.1 - Melena Plan This is 68-year-old female being admitted for nausea vomiting and watery diarrhea after starting colon prep. 1. JEAN mainly prerenal from hypovolemia/dehydration on CKD stage IIIb diabetic nephropathy: Patient is started on IV fluid Ringer lactate 125 mill per hour for 2 L and then reevaluate. Full liquid diet. Patient baseline creatinine runs around 1.55. Came to ED with creatinine 1.93, BUN 24. Electrolytes sodium potassium bicarb are in normal range. Anion gap 5. UA is ordered. Hold oral antidiabetic medications, lisinopril and HCTZ. 07/28: Magnesium 120 mg daily for 07/24: Creatinine is getting better 1.72. Will continue with IV fluid Ringer lactate. 07/29: Mild acute blood loss anemia her hemoglobin dropped from baseline 13 g to 10.4. Rectal bleeding has slowed down and is mildly mixed with solid stool and mucus. IV iron infusion ordered as oral iron might have delayed absorption and in confound the bleeding per rectum. Hemodynamically patient is stable. Diet advanced to solid. Patient is tolerating diet well and discharge later. Patient is discharged on ferrous sulfate and pantoprazole. She already has ascorbic acid. Hold famotidine while on pantoprazole. 2. Acute gastroenteritis probably from colon prep solution complicated with lower GI bleed: Patient has increased WBC count about 24,000. Platelet count normal. On 04/25/2023 she had mild leukocytosis 12.3 thousand but prior to that in July 2022. WBC count normal.Immature granulocytes 1%. Indicating left shift. I think it is mainly inflammatory as she did not had any fever or chills. 07/28: Patient leukocytosis improved. H&H 11.2/34.7.Her baseline hemoglobin runs around 13 g. Stool for occult blood positive.Positive lactoferrin. Stool test ordered. Results pending. 07/29:Leukocytosis improved. Stool for enteric bacteriology panel is canceled unclear. C. difficile PCR negative. Stool for lactoferrin positive occult blood positive. Stool for calprotectin and Giardia pending. I will let her recover and then may have outpatient follow-up with Dr. Antunez for colonoscopy. 3. History of TIA/acute ischemic stroke for which patient was admitted in June 2020. Currently patient does not have any residual symptoms. Hold aspirin for 3 days as patient having rectal bleed. Continue Crestor. 4. Type 2 diabetes on glucose in BMP is 300. Accu-Chek is in distress, and with mucus-like sliding scale. Patient follows PCP for diabetes mellitus. Home antidiabetic medications continued. 5. Chronic obstructive pulmonary disease, advanced stage and obstructive sleep apnea: Patient on triple inhaler therapy. Follows Dr. Nobles in pulmonary clinic. Patient quit smoking in 2015. 6. Hypothyroidism: Patient on Synthroid. 7. Hypertension: Blood pressure in normal range. Hold all nephrotoxic medications and monitor BP. Patient is dehydrated. Discharge medication reconciliation done. Discharge follow-up instructions completed. Discharge process discussed with the patient and all questions were answered to patient's satisfaction. Follow with PCP in 1 to 2 weeks Total time spent, exact 35 minutes on discharge meds reconciliation, examination, coordination of care with nurses and ancillary staff, review of imaging and blood test and discussion with the patient on follow-up instructions. Living will/advanced directive/end of life care: Patient does have living will or advanced directive. After discussion of benefits/risks procedures involved with full code, DNR CC arrest and DNR CC, the patient and her daughter do not want intubation ventilator CPR/chest compressions but okay with CVC catheter and vessel pressure and DC shock if needed. I agreed for DNR CC arrest with no intubation. Microbiology Past 72 Hours 07/28/23 14:47 Stool Clostridioides difficile (PCR) - Final 07/28/23 09:35 Stool Stool Lactoferrin - Final 07/28/23 09:35 Stool Stool Occult Blood (MONET) - Final Occult Blood Positive Laboratory Results 07/28/23 14:47: Miscellaneous Test Pending 07/28/23 18:15: Stool Calprotectin Pending 07/29/23 04:45: WBC 12.0 H, RBC 3.67 L, Hgb 10.4 L, Hct 32.1 L, MCV 87.5, MCH 28.3, MCHC 32.4, RDW Std Deviation 46.3 H, RDW Coeff of Navya 14.4, Plt Count 151, MPV 11.1, Immature Gran % (Auto) 0.400, Neut % (Auto) 80.6 H, Lymph % (Auto) 9.6 L, Wake % (Auto) 7.8, Eos % (Auto) 1.3, Baso % (Auto) 0.3, Absolute Neuts (auto) 9.7 H, Absolute Lymphs (auto) 1.15, Nucleated RBC % 0, Sodium 140, Potassium 3.7, Chloride 106, Carbon Dioxide 28.0, Anion Gap 6, BUN 15, Creatinine 1.45 H, Estim Creat Clear Calc 41.62, Est GFR (MDRD) Af Amer 46 L, Est GFR (MDRD) Non-Af 38 L, BUN/Creatinine Ratio 10.3, Glucose 118 H, Calcium 9.0 Medications at Discharge Home Medications aspirin 81 mg tablet,delayed release 81 mg PO DAILY [facility] 10/04/13 Oxygen, Home [Home Oxygen] 2 lpm NASAL CONT #1 unit 10/31/16 famotidine 20 mg tablet 20 mg PO DAILY PRN gerd #90 tabs 09/17/19 cholecalciferol (vitamin D3) 125 mcg (5,000 unit) capsule 5,000 unit PO DAILY supplement 01/29/22 blood sugar diagnostic #100 ea 03/12/22 hydrochlorothiazide 25 mg tablet 25 mg PO DAILY blood pressure #90 tabs 09/10/22 lisinopril 20 mg tablet 20 mg PO BID blood pressure #180 tabs 10/08/22 Disability Placard #1 ea 11/30/22 sitagliptin phosphate 100 mg tablet 100 mg PO DAILY diabetes #90 tabs 12/06/22 budesonide-formoterol HFA 160 mcg-4.5 mcg/actuation aerosol inhaler (Symbicort) 2 puff inhalation Q12H shortness of breath #10.2 grams 01/12/23 rosuvastatin 20 mg tablet 20 mg PO DAILY cholesterol #90 tabs 04/26/23 glimepiride 2 mg tablet 2 mg PO DAILY diabetes #60 tabs 04/27/23 levothyroxine 88 mcg tablet 88 mcg PO DAILY thyroid #90 tabs 04/27/23 albuterol sulfate 90 mcg/actuation aerosol inhaler (Ventolin HFA) 2 puff inhalation Q6H PRN shortness of breath or wheezing #8.5 grams 05/25/23 bupropion HCl 200 mg tablet,12 hr sustained-release (Wellbutrin SR) 200 mg PO DAILY depression #90 ea 05/26/23 Electric Scooter #1 ea 07/12/23 tiotropium bromide 18 mcg capsule with inhalation device (Spiriva with HandiHaler) 1 cap inhalation 1500 shortness of breath 07/25/23 ascorbic acid (vitamin C) 500 mg tablet 1,500 mg PO DAILY supplement 07/27/23 ipratropium 0.5 mg-albuterol 3 mg (2.5 mg base)/3 mL nebulization soln 3 ml inhalation Q4H PRN shortness of breath or wheezing 07/27/23 ferrous sulfate 325 mg (65 mg iron) tablet,delayed release 325 mg PO QODAY #30 tabs 07/29/23 pantoprazole 40 mg tablet,delayed release (Protonix) 40 mg PO DAILY #30 tabs 07/29/23 Physical Exam Narrative Patient had solid but mucousy formed stool with some blood. Mild drop in hemoglobin. Hemodynamically stable. Physical exam General: Alert, Oriented x3, Cooperative HEENT: Atraumatic, PERRLA, EOMI, Normocephalic Oral: Oral mucosa dry. No Gingival or Mucosal Lesions/ Ulcerations Neck: Supple, No JVD, Negative Carotid Bruits Lungs: Air entry diminished in bilateral lung bases. Bilateral lower lobes wheezing and rhonchi. On baseline 2 L of home oxygen. Cardiovascular: Regular rate, Regular Rhythm, Normal S1, Normal S2, No murmurs Abdomen: Bowel Sounds Present, Soft, Non-Distended. No palpable mass. Tenderness resolved. No distention. : No renal angle tenderness. No suprapubic tenderness. Extremities: No edema, Capillary Refill Less than 3 Seconds Skin: No rashes, No breakdown Musculoskeletal: No Tenderness to Palpation of Joints or Extremities. ROM adequate and full. Neurological: Cranial nerves II-XII grossly intact, DTR 2+/4. No acute focal neurological deficit. Psych/Mental Status: Normal Affect, Appropriate. Weight / BMI Weight Weight: 214 lb Body Mass Index (BMI) 35.6 ABG / Lab / Microbiology Data 07/29/23 04:45 07/29/23 04:45 Laboratory: Laboratory Results - last 24 hr 07/29/23 04:45: WBC 12.0 H, RBC 3.67 L, Hgb 10.4 L, Hct 32.1 L, MCV 87.5, MCH 28.3, MCHC 32.4, RDW Std Deviation 46.3 H, RDW Coeff of Navya 14.4, Plt Count 151, MPV 11.1, Immature Gran % (Auto) 0.400, Neut % (Auto) 80.6 H, Lymph % (Auto) 9.6 L, Wake % (Auto) 7.8, Eos % (Auto) 1.3, Baso % (Auto) 0.3, Absolute Neuts (auto) 9.7 H, Absolute Lymphs (auto) 1.15, Nucleated RBC % 0, Sodium 140, Potassium 3.7, Chloride 106, Carbon Dioxide 28.0, Anion Gap 6, BUN 15, Creatinine 1.45 H, Estim Creat Clear Calc 41.62, Est GFR (MDRD) Af Amer 46 L, Est GFR (MDRD) Non-Af 38 L, BUN/Creatinine Ratio 10.3, Glucose 118 H, Calcium 9.0 Microbiology: Microbiology 07/28/23 14:47 Stool Clostridioides difficile (PCR) - Final 07/28/23 09:35 Stool Stool Lactoferrin - Final 07/28/23 09:35 Stool Stool Occult Blood (MONET) - Final Occult Blood Positive Meaningful Use Info Meaningful Use Diagnoses (Choose all that apply): None applicable Discharge Plan Admission Admit Date/Time: 07/27/23 14:51 Primary Reason for Your Visit: Diarrhea, lower GI bleed Attending Provider: Venu Rivera Primary Care Provider: Paige Jon Consulting Providers: Higinio Antunez Discharge Orders/Prescriptions Prescriptions: New pantoprazole [Protonix] 40 mg tablet,delayed release (DR/EC) 40 mg PO DAILY Qty: 30 0RF ferrous sulfate 325 mg (65 mg iron) tablet,delayed release (DR/EC) 325 mg PO QODAY Qty: 30 2RF Continued cholecalciferol (vitamin D3) 125 mcg (5,000 unit) capsule 5,000 unit PO DAILY levothyroxine 88 mcg tablet 88 mcg PO DAILY Qty: 90 1RF glimepiride 2 mg tablet 2 mg PO DAILY Qty: 60 1RF Oxygen, Home [Home Oxygen] 2 lpm NASAL CONT Qty: 1 0RF Rx Instructions: tiotropium bromide [Spiriva with HandiHaler] 18 mcg capsule, w/inhalation device 1 cap inhalation 1500 Rx Instructions: inhale contents of 1 capsule by mouth once daily ipratropium-albuterol 0.5 mg-3 mg(2.5 mg base)/3 mL solution for nebulization 3 ml INHALATION Q4H PRN (Reason: shortness of breath or wheezing) ascorbic acid (vitamin C) 500 mg tablet 1,500 mg PO DAILY (DME) blood sugar diagnostic Strip See Dose Instructions .ROUTE .MEDSUPPLY Qty: 100 2RF Dose Instruction: As directed Rx Instructions: As directed check bs twice a day (DME) Kam Vidales See Rx Instructions .Route .MEDSUPPLY Qty: 1 0RF Rx Instructions: expires 12/01/2027 sitagliptin phosphate 100 mg tablet 100 mg PO DAILY Qty: 90 3RF budesonide-formoterol [Symbicort] 160-4.5 mcg/actuation HFA aerosol inhaler 2 puff INHALATION Q12H Qty: 10.2 11RF rosuvastatin 20 mg tablet 20 mg PO DAILY Qty: 90 3RF albuterol sulfate [Ventolin HFA] 90 mcg/actuation HFA aerosol inhaler 2 puff INHALATION Q6H PRN (Reason: shortness of breath or wheezing) Qty: 8.5 3RF bupropion HCl [Wellbutrin SR] 200 mg tablet sustained-release 12 hr 200 mg PO DAILY Qty: 90 3RF (DME) Electric Scooter See Rx Instructions .Route .MEDSUPPLY Qty: 1 0RF Rx Instructions: As directed Held famotidine 20 mg tablet 20 mg PO DAILY PRN (Reason: gerd) Qty: 90 1RF Hold Instructions: Hold while taking pantoprazole aspirin 81 MG tablet,delayed release (DR/EC) 81 mg PO DAILY Hold Instructions: Hold for 3 days until blood in the stool clears. hydrochlorothiazide 25 mg tablet 25 mg PO DAILY Qty: 90 3RF Hold Instructions: Hold for 3 days and thereafter hold if systolic blood pressure less than 120 mmHg lisinopril 20 mg tablet 20 mg PO BID Qty: 180 3RF Hold Instructions: Hold for SBP less than 130 mmHg Referrals / Follow Up: Paige Jon MD [Primary Care Provider] - 08/01/23 10:30 am Higinio Antunez MD [Med Staff - Active Staff] - Within 1 Week Disposition Disposition (needs filled in before D/C Order can be placed): Home, Self Care Charges/Coding Visit Charges Inpatient E&M: 47618 Disch Hosp >30min
[2023-07-29] MEDS: Sodium Ferric Gluconat/Sucrose 250 MG in 0.9% Normal Saline (250mL Bag) 250 ML 135 MG IV (11:27)
--- NOTE | 2023-07-29 13:31 | PHA.DC.MC.R ---
Pharmacy [facility] has performed discharge medication reconciliation and counseling for this patient. The patient's discharge medication list was reviewed for discrepancies and discrepancies were resolved. The patient was counseled on the following discharge medications and changes in medications for homegoing were reviewed. The Reason for Use, instructions for use, and potential side effects were reviewed for all new medications. The patient's questions regarding all of their medications were answered. 1. Pantoprazole 40 mg PO daily 2. Ferrous sulfate 325 mg PO QODay The patient was able to verbally demonstrate an understanding of their discharge medications. Medications at Discharge Home Medications aspirin 81 mg tablet,delayed release 81 mg PO DAILY [facility] 10/04/13 Oxygen, Home [Home Oxygen] 2 lpm NASAL CONT #1 unit 10/31/16 famotidine 20 mg tablet 20 mg PO DAILY PRN gerd #90 tabs 09/17/19 cholecalciferol (vitamin D3) 125 mcg (5,000 unit) capsule 5,000 unit PO DAILY supplement 01/29/22 blood sugar diagnostic #100 ea 03/12/22 hydrochlorothiazide 25 mg tablet 25 mg PO DAILY blood pressure #90 tabs 09/10/22 lisinopril 20 mg tablet 20 mg PO BID blood pressure #180 tabs 10/08/22 Disability Placard #1 ea 11/30/22 sitagliptin phosphate 100 mg tablet 100 mg PO DAILY diabetes #90 tabs 12/06/22 budesonide-formoterol HFA 160 mcg-4.5 mcg/actuation aerosol inhaler (Symbicort) 2 puff inhalation Q12H shortness of breath #10.2 grams 01/12/23 rosuvastatin 20 mg tablet 20 mg PO DAILY cholesterol #90 tabs 04/26/23 glimepiride 2 mg tablet 2 mg PO DAILY diabetes #60 tabs 04/27/23 levothyroxine 88 mcg tablet 88 mcg PO DAILY thyroid #90 tabs 04/27/23 albuterol sulfate 90 mcg/actuation aerosol inhaler (Ventolin HFA) 2 puff inhalation Q6H PRN shortness of breath or wheezing #8.5 grams 05/25/23 bupropion HCl 200 mg tablet,12 hr sustained-release (Wellbutrin SR) 200 mg PO DAILY depression #90 ea 05/26/23 Electric Scooter #1 ea 07/12/23 tiotropium bromide 18 mcg capsule with inhalation device (Spiriva with HandiHaler) 1 cap inhalation 1500 shortness of breath 07/25/23 ascorbic acid (vitamin C) 500 mg tablet 1,500 mg PO DAILY supplement 07/27/23 ipratropium 0.5 mg-albuterol 3 mg (2.5 mg base)/3 mL nebulization soln 3 ml inhalation Q4H PRN shortness of breath or wheezing 07/27/23 ferrous sulfate 325 mg (65 mg iron) tablet,delayed release 325 mg PO QODAY #30 tabs 07/29/23 pantoprazole 40 mg tablet,delayed release (Protonix) 40 mg PO DAILY #30 tabs 07/29/23
[2023-07-29 13:59] VITALS: O2SAT 0; O2SAT 92
[2023-07-29 14:08] VITALS: BP 146/95; PULSE 91; RESP 18; TEMP 36.6; O2SAT 94
[2023-08-02 00:07] LABS: Calprotectin, Stool 2700 ug/g (0-120)
== END 2023-07-29 15:27 | disposition home or self-care (01) ==
LOC: ED 10:37 → MS3 14:53
PROVIDERS: Admitting Provider Internal Medicine; Emergency Provider Emergency Medicine; PCP Internal Medicine; Visit Provider Internal Medicine
DX: E86.0 Dehydration (principal); N17.9 Acute kidney failure, unspecified; J44.9 Chronic obstructive pulmonary disease, unspecified; E11.22 Type 2 diabetes mellitus with diabetic chronic kidney disease; N18.32 Chronic kidney disease, stage 3b; E78.5 Hyperlipidemia, unspecified; Z79.82 Long term (current) use of aspirin; Z79.51 Long term (current) use of inhaled steroids; E86.1 Hypovolemia; Z79.84 Long term (current) use of oral hypoglycemic drugs; G47.33 Obstructive sleep apnea (adult) (pediatric); Z87.891 Personal history of nicotine dependence; K52.9 Noninfective gastroenteritis and colitis, unspecified; I12.9 Hypertensive chronic kidney disease with stage 1 through stage 4 chronic kidney disease, or unspecified chronic kidney disease; E03.9 Hypothyroidism, unspecified; Z79.899 Other long term (current) drug therapy; Z79.890 Hormone replacement therapy; Z99.81 Dependence on supplemental oxygen; K21.9 Gastro-esophageal reflux disease without esophagitis; R19.5 Other fecal abnormalities
CPT/HCPCS: 36415; 74176; 80048; 80053; 81001; 82274; 83605; 83630; 83735; 83993; 84100; 85025; 87493; 87506; 94640; 94668; 96361; 96372; 96374; 96376; 97161; 99221; 99252; 99284; J7030; J7050; J7120; A4216; G0378; G0463; J2405; J2916

== ENCOUNTER → 2023-09-05 | Outpatient (CLI) | payer MEDICARE, MEDICAID, SELFPAY ==
[2023-09-05 17:12] LABS: Anion Gap 6 (5-15); BUN 27 mg/dL (7-18); BUN/Creat Ratio 14.8 RATIO (10-20); Calcium,Total 11.4 mg/dL (8.5-10.1); Chloride 103 mmol/L (98-107); Creatinine, Serum 1.82 mg/dL (0.55-1.02); EST Glomerular Filtration Rate 29 mL/min (>60); Est Glom Filt Rate - Afr Amer 35 mL/min (>60); Glucose 91 mg/dL (74-106); Potassium 4.1 mmol/L (3.5-5.1); Sodium Level 139 mmol/L (136-145)
== END | disposition home or self-care (01) ==
LOC: BIMLAB 16:05
PROVIDERS: PCP Internal Medicine; Visit Provider Internal Medicine
DX: I10 Essential (primary) hypertension (principal)
CPT/HCPCS: 36415; 80048

== ENCOUNTER → 2023-09-07 | Outpatient (CLI) | payer MEDICARE, MEDICAID, SELFPAY ==
[2023-09-07 12:59] LABS: PTHIN 107.1 pg/mL (18.4-80.1)
[2023-09-07 16:57] LABS: Vitamin D,25 Hydroxy 41.7 ng/mL
== END | disposition home or self-care (01) ==
LOC: BIMLAB 11:58
PROVIDERS: PCP Internal Medicine; Visit Provider Internal Medicine
DX: E83.52 Hypercalcemia (principal); N18.32 Chronic kidney disease, stage 3b
CPT/HCPCS: 36415; 82306; 82652; 83970

== ENCOUNTER → 2023-11-28 | Outpatient (CLI) | payer MEDICARE, MEDICAID, SELFPAY ==
[2023-11-28 15:57] LABS: Absolute Lymphocyte Count 1.11 X10^3/uL (0.83-4.51); Absolute Neutrophil Count 9.7 X10^3/uL (2.0-7.7); Basophil# 0.05 X10^3/uL; Basophil% 0.4 % (0-1); Eosinophil# 0.24 X10^3/uL; Hematocrit 40.9 % (37-47); Hemoglobin 12.9 g/dL (12.0-15.0); Lymphocyte # 1.11 X10^3/ul (0.83-4.51); Lymphocyte % 9.4 % (19-41); Mean Corp Hgb Conc 31.5 g/dL (32-36); Mean Corpuscular Hgb 26.7 pg (27.0-32.0); Mean Corpuscular Volume 84.7 fL (81-99); Mean Platelet Vol. 11.2 fl (6.2-12.0); Monocyte% 5.9 % (0-10); NRBC Flagged by Analyzer 0 % (0-5); Neutrophil # 9.69 X10^3/uL (2.7-7.7); Neutrophil % 81.8 % (47-70); Platelet Count 274 K/mm3 (150-450); RBC Distribution Width CV 14.4 % (11.6-14.6); RBC Distribution Width SD 43.8 fl (35.1-43.9); Red Blood Count 4.83 M/mm3 (4.2-5.4); White Blood Count 11.9 K/mm3 (4.4-11.0)
[2023-11-28 16:10] LABS: Hemoglobin A1c 6.8 % (3.8-5.6)
== END | disposition home or self-care (01) ==
LOC: BIMLAB 13:59
PROVIDERS: PCP Internal Medicine; Visit Provider Internal Medicine
DX: I10 Essential (primary) hypertension (principal); E11.9 Type 2 diabetes mellitus without complications
CPT/HCPCS: 36415; 83036; 85025

== ENCOUNTER → 2023-12-20 | Outpatient (CLI) | payer MEDICARE, MEDICAID, SELFPAY ==
[2023-12-20 15:51] LABS: Hematocrit 41.4 % (37-47); Hemoglobin 12.6 g/dL (12.0-15.0); Mean Corp Hgb Conc 30.4 g/dL (32-36); Mean Corpuscular Hgb 26.7 pg (27.0-32.0); Mean Corpuscular Volume 87.7 fL (81-99); Mean Platelet Vol. 11.7 fl (6.2-12.0); Platelet Count 237 K/mm3 (150-450); RBC Distribution Width CV 14.7 % (11.6-14.6); RBC Distribution Width SD 47.3 fl (35.1-43.9); Red Blood Count 4.72 M/mm3 (4.2-5.4); White Blood Count 10.9 K/mm3 (4.4-11.0)
[2023-12-20 16:26] LABS: Albumin, Serum 3.5 g/dL (3.2-5.0); BUN 20 mg/dL (7-18); BUN/Creat Ratio 13.7 RATIO (10-20); Calcium,Total 9.6 mg/dL (8.5-10.1); Chloride 102 mmol/L (98-107); Creatinine, Serum 1.46 mg/dL (0.55-1.02); EST Glomerular Filtration Rate 38 mL/min (>60); Est Glom Filt Rate - Afr Amer 45 mL/min (>60); Glucose 190 mg/dL (74-106); Phosphorus 2.9 mg/dL (2.5-4.9); Sodium Level 136 mmol/L (136-145)
[2023-12-20 17:04] LABS: PTHIN 153.9 pg/mL (18.4-80.1); Vitamin D,25 Hydroxy 32.5 ng/mL
[2023-12-21 09:01] LABS: Protein, Urine (Random) 53.5 mg/dL (<11.9); Protein:Creat Ratio 336 mg/g CRE (0-200)
[2023-12-22 14:10] LABS: PROEL- A/G Ratio 0.9 (0.7-1.7); PROEL- Albumin 3.2 g/dL (2.9-4.4); PROEL- Alpha-1 Globulin 0.3 g/dL (0.0-0.4); PROEL- Alpha-2 Globulin 1.2 g/dL (0.4-1.0); PROEL- Beta Globulin 1.2 g/dL (0.7-1.3); PROEL- Gamma Globulin 0.8 g/dL (0.4-1.8); PROEL- Globulin, Total 3.5 g/dL (2.2-3.9); PROEL- TOTAL PROTEIN 6.7 g/dL (6.0-8.5); PROEL-M-Spike Not Observed g/dL (Not Observed)
== END | disposition home or self-care (01) ==
LOC: BIMLAB 11:14
PROVIDERS: PCP Internal Medicine; Referring Provider Nurse Practitioner Adult Health; Visit Provider Internal Medicine
DX: N18.32 Chronic kidney disease, stage 3b (principal)
CPT/HCPCS: 36415; 80069; 82306; 82570; 83970; 84156; 84165; 85027

== ENCOUNTER 2024-01-17 07:11 | Day surgery (SDC) | payer MEDICARE, MEDICAID, SELFPAY ==
[2024-01-17] VITALS (7 sets, daily range): BP systolic 148–164; BP diastolic 78–99; PULSE 69–105; RESP 16–18; TEMP 35.8–36.5; O2SAT 98–100; BMI 36.7
--- NOTE | 2024-01-17 | COLBX_PTH ---
PATIENT: DARRIN LOMBARDI LOC: EN U#:[id number] AGE/SX: 68/F ROOM: RE01/17/[address]: Dr. Higinio Antunez MD : [id number] BED: DIS: 01/17/2024 SPEC #: [id number] RECD: 01/17/24 13:00 STATUS: TREVOR JENNINGS #: [id number] RUTH: 01/17/24 00:[address]: Higinio Antunez DEPT: SURGICAL PATHOLOGY RECD BY: [place] ENTERED: 01/17/24 13:00 SP TYPE: COLON BX RICARDO DR: Dr. Paige Jon MD Tissues: A - Cecum, NOS B - Sigmoid colon biopsy Procedures: Surgery Specimen Level IV HEADER OPERATION: Colonoscopy with polypectomy PRE-OP DIAGNOSIS: Positive colorectal cancer screening using GABY Bolton TISSUE SUBMITTED: A- Cecum polyp, B- Sigmoid colon polyp MICROSCOPIC DIAGNOSIS A. Cecum polyp, polypectomy: Fragments of tubular adenoma. B. Sigmoid colon polyp, polypectomy: Fragments of tubular adenoma. / 01/18/2024 MICROSCOPIC DESCRIPTION Slides are reviewed. GROSS DESCRIPTION A. Received in fixative is one container labeled with the patient's name and designated Cecum polyp. The specimen consists of multiple irregular fragments of light subramanian soft tissue that in aggregate measure 1.5 x 0.3 x 0.1 cm. The specimen is totally submitted in one cassette. B. Received in fixative is one container labeled with the patient's name and designated Sigmoid colon polyp. The specimen consists of two irregular fragments of light subramanian soft tissue that in aggregate measure 0.5 x 0.3 x 0.1 cm. The specimen is totally submitted in one cassette. / 01/17/2024 TC:1 [facility]:[id number]
--- NOTE | 2024-01-17 07:28 | PCM.PRE.AN2 ---
ASA Classification* ASA Classification ASA Classification: 3 Assessment & Plan Anesthesia* Anesthesia Assessment Anesthesia Assessment: Discussed sedation and/or anesthesia options, risks, benefits, and alternatives with patient/parents/legal guardian/POA. Questions invited. The patient/parents/legal guardian/POA seems to understand and agrees to proceed with anesthesia plan. Reviewed the physical assessment, medical history, allergy history and patient home medications list prior to surgery/procedure/anesthetic and documented any changes. Performed airway and anesthesia risk assessments. Anesthesia Type Anesthesia Type: MAC (see written pre anesthesia record for full assessment ) Anesthesia Focused Assessment* Airway Assessment Mouth opens: >3 cm Mallampati Score: II Focused Labs Anesthesia Preop lab: CBC WBC 10.9 K/mm3 (4.4-11.0) 12/20/23 11:18 RBC 4.72 M/mm3 (4.2-5.4) 12/20/23 11:18 Hgb 12.6 g/dL (12.0-15.0) 12/20/23 11:18 Hct 41.4 % (37-47) 12/20/23 11:18 Plt Count 237 K/mm3 (150-450) 12/20/23 11:18 CHEMISTRY Potassium 4.0 mmol/L (3.5-5.1) 12/20/23 11:18 Sodium 136 mmol/L (136-145) 12/20/23 11:18 Magnesium 1.8 mg/dL (1.6-2.6) 07/27/23 08:13 Phosphorus 2.9 mg/dL (2.5-4.9) 12/20/23 11:18 BUN 20 mg/dL (7-18) H 12/20/23 11:18 Creatinine 1.46 mg/dL (0.55-1.02) H 12/20/23 11:18 Glucose 190 mg/dL (74-106) H 12/20/23 11:18 POC Glucose 117 mg/dL (70-110) H 07/09/20 11:25 TSH 1.58 uIU/mL (0.358-3.74) 04/25/23 10:27 COAG PT 12.0 SECONDS (11.7-14.9) 07/08/20 08:46 Pre-Assessment Diagnosis/Proposed Procedure Planned Operative Procedure(s): CSCOPE Anesthesia History 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 When Was Last Pacemaker Check QUESTION #4 FULL TEXT: You/Your Family Experience fever (hyperthermia) with Anesthesia Last Oral Intake Last Oral intake: Last Oral Intake NPO since Meds taken in AM with sips of water? Meds patient instructed to take am of surgery PONV PONV - blister pack operator: PONV - blister pack operator Female Yes 01/12/24 14:33 HX of Motion Sickness No 01/12/24 14:33 HX of N/V After Surgery No 01/12/24 14:33 Non-Smoker Yes 01/12/24 14:33 Duration of Surgery greater No 01/12/24 14:33 than 60 minutes Number of Risk Factors 2 01/12/24 14:33 PONV Score Moderate Risk 01/12/24 14:33 Height & Weight Height & Weight: Anesthesia: Height & Weight Height 5 ft 5 in 11/28/23 13:39 Respiratory Assessment Respiratory Assessment - blister pack operator: Respiratory Tract Infection Hx - blister pack operator Hx Respiratory Tract Infection No 01/12/24 14:33 STOP Sleep Apnea STOP Sleep Apnea - blister pack operator: STOP Sleep Apnea - blister pack operator Hx Hypertension Yes: CONTROLLED WITH MEDS 01/12/24 14:33 Hx Sleep Apnea Yes 01/12/24 14:33 CPAP Yes: NOT USED FOR 1 YR 01/12/24 14:33 BIPAP No 01/12/24 14:33 Do you snore loudly (louder than talking or can be heard Do you often feel tired/ fatigued/ sleepy during daytime? Has anyone observed you stop breathing during sleep? STOP Results Positive 01/12/24 14:33 QUESTION #5 FULL TEXT : Do you snore loudly (louder than talking or can be heard through closed doors)? 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 Specify any problems Hx of Preganancy in last 3 No 01/12/24 14:33 Months Nurse Filling Out Transfusion DSCHRIBER 01/12/24 14:33 & Questions: Date: 01/12/24 01/12/24 14:33 Time: 14:35 01/12/24 14:33 Patient unable to answer at this time (ie. confused, unrespo /Reproduction History /Reproductive History - blister pack operator: /Reproductive Hx- blister pack operator Hx Now No 01/12/24 14:33 Gestational Age (in weeks): EDC: Hx Hx Para Hx Section SAB No 01/12/24 14:33 Active Medications Active Medications: Current Medications Generic Name Dose Route Start Last Admin Trade Name Freq PRN Reason Stop Dose Admin Lactated Ringer's 1,000 mls @ 15 mls/hr 01/17/24 07:30 IV .Q48H PHILLIP PFSH Medical History Hypercalcemia Debility Malaise and fatigue CPAP (continuous positive airway pressure) dependence Wears glasses Wears dentures Post-menopausal Depression Walker as ambulation aid Diabetes Easy bruising Dietary restriction TIA (transient ischemic attack) Difficulty swallowing Gastric reflux Asthma On home oxygen therapy Shortness of breath on exertion History of edema History of echocardiogram History of stress test Positive colorectal cancer screening using Cologuard test Health care maintenance Preventative health care Chronic back pain Lightheadedness Flu vaccine need Shortness of breath Right-sided chest pain Flu vaccine need Right hip pain Acute bronchitis, unspecified Cough Arthritis Hypothyroidism Hyperlipemia Borderline diabetes Hypertension Dislocation of ankle joint PND (paroxysmal nocturnal dyspnea) Stage 4 very severe COPD by GOLD classification Home Medications ?Medication ?Instructions ?Recorded ?Last Taken ?Type aspirin 81 mg tablet,delayed 81 mg PO DAILY heart health 10/04/13 07/26/23 History release Oxygen, Home [Home Oxygen] 2 lpm NASAL CONT #1 unit 10/31/16 01/17/24 Rx blood sugar diagnostic #100 ea 03/12/22 Unknown Rx Disability Placard #1 ea 11/30/22 Unknown Rx budesonide-formoterol HFA 160 2 puff inhalation Q12H shortness 01/12/23 01/17/24 Rx mcg-4.5 mcg/actuation aerosol of breath #10.2 grams inhaler (Symbicort) rosuvastatin 20 mg tablet 20 mg PO DAILY cholesterol #90 04/26/23 01/16/24 Rx tabs bupropion HCl 200 mg tablet,12 hr 200 mg PO DAILY depression #90 ea 05/26/23 01/16/24 Rx sustained-release (Wellbutrin SR) Electric Scooter #1 ea 07/12/23 Unknown Rx tiotropium bromide 18 mcg capsule 1 cap inhalation 1500 shortness of 08/01/23 01/16/24 Rx with inhalation device (Spiriva breath #30 caps with HandiHaler) albuterol sulfate 90 mcg/actuation 2 puff inhalation Q6H PRN 08/10/23 01/16/24 Rx aerosol inhaler (Ventolin HFA) shortness of breath or wheezing #8.5 grams glimepiride 2 mg tablet See Rx Instructions .Route 08/15/23 01/16/24 Rx .COMPLEX #90 tabs pantoprazole 40 mg tablet,delayed 40 mg PO DAILY #90 tabs 09/05/23 01/17/24 Rx release (Protonix) sitagliptin phosphate 100 mg tablet 100 mg PO DAILY diabetes #90 tabs 09/12/23 01/16/24 Rx levothyroxine 88 mcg tablet 88 mcg PO DAILY #180 TABLETS 10/17/23 01/17/24 Rx ipratropium 0.5 mg-albuterol 3 mg 3 ml inhalation Q4H PRN shortness 11/28/23 01/17/24 Rx (2.5 mg base)/3 mL nebulization of breath or wheezing #180 mL soln lisinopril 20 mg tablet 20 mg PO BID blood pressure #180 11/28/23 01/17/24 Rx tabs Allergy/AdvReac Type Severity Reaction Status Date / Time No Known Allergies Allergy Verified 01/17/24 07:23 Family History Mother Cancer Leukemia Father COPD (chronic obstructive pulmonary disease) Grandfather Cancer Grandmother Diabetes Surgical History Hx of tubal ligation Social History Smoking Status: Former smoker how long ago did patient quit smokin, .05p/day second hand exposure: Yes alcohol intake: never substance use type: crack/cocaine caffeine: Yes (2/day) what type of physical activity do you participate in: none Review of Systems (Anesthesia) ROS Narrative System reviewed and no additional complaints, except as documented.
[2024-01-17] MEDS: Lactated Ringers 1,000 ML 15 ML IV (07:32)
[2024-01-17 07:51] LABS: Bedside Glucose 171 mg/dL (74-106)
--- NOTE | 2024-01-17 08:59 | PCM.HP.BLA ---
History and Physical Date of Admission: 01/17/24 Date of Service: 06/15/23 MR#: [id number] Acct: [id number] Name: DARRIN LOMBARDI Rep #: [id number] : 1955 Provider: Dr. Higinio Antunez MD Age/Sex: 68/F Location: [facility] Status: Signed Intake Vital Signs 04/27/2310:05 06/03/2310:32 06/15/2308:00 Height 5 ft 4 in 5 ft 5 in 5 ft 5 in Weight: 216 lb 217 lb BMI 35.9 36.1 BP 173/76 H Blood Pressure Location Rt brachial Position Sitting Respiration 17 Pulse 90 Pulse Source Monitor Temp 96 F L Temp Source Temporal Pulse Oximetry (%) 95 Oxygen Delivery Method room air Intake Visit Reasons: POSITIVE COLOGUARD Chief Complaint: positive cologuard Is patient in pain?: No Allergies No Known Allergies Allergy (Verified 06/15/23 08:01) Medications aspirin 81 mg tablet,delayed release 81 mg PO DAILY Heart 10/04/13 [History Confirmed 06/15/23] Oxygen, Home [Home Oxygen] 2 lpm NASAL CONT #1 unit 10/31/16 [Rx Confirmed 06/15/23] ascorbic acid (vitamin C) 1,500 mg tablet,extended release 1,500 mg PO DAILY supplement 05/22/18 [History Confirmed 06/15/23] famotidine 20 mg tablet 20 mg PO DAILY PRN gerd #90 tabs 09/17/19 [Rx Confirmed 06/15/23] cholecalciferol (vitamin D3) 125 mcg (5,000 unit) capsule 5,000 unit PO DAILY supplement 01/29/22 [History Confirmed 06/15/23] blood sugar diagnostic #100 ea 03/12/22 [Rx Confirmed 06/15/23] tiotropium bromide 18 mcg capsule with inhalation device (Spiriva with HandiHaler) See Rx Instructions .Route .COMPLEX #30 caps 06/16/22 [Rx Confirmed 06/15/23] hydrochlorothiazide 25 mg tablet 25 mg PO DAILY #90 tabs 09/10/22 [Rx Confirmed 06/15/23] lisinopril 20 mg tablet 20 mg PO BID #180 tabs 10/08/22 [Rx Confirmed 06/15/23] Disability Placard #1 ea 11/30/22 [Rx Confirmed 06/15/23] sitagliptin phosphate 100 mg tablet 100 mg PO DAILY #90 tabs 12/06/22 [Rx Confirmed 06/15/23] budesonide-formoterol HFA 160 mcg-4.5 mcg/actuation aerosol inhaler (Symbicort) 2 puff inhalation Q12H #10.2 grams 01/12/23 [Rx Confirmed 06/15/23] rosuvastatin 20 mg tablet 20 mg PO DAILY #90 tabs 04/26/23 [Rx Confirmed 06/15/23] glimepiride 2 mg tablet 2 mg PO DAILY #60 tabs 04/27/23 [Rx Confirmed 06/15/23] levothyroxine 88 mcg tablet 88 mcg PO DAILY #90 tabs 04/27/23 [Rx Confirmed 06/15/23] ipratropium 0.5 mg-albuterol 3 mg (2.5 mg base)/3 mL nebulization soln 3 ml inhalation Q4H PRN shortness of breath or wheezing #180 mL 05/18/23 [Rx Confirmed 06/15/23] albuterol sulfate 90 mcg/actuation aerosol inhaler (Ventolin HFA) 2 puff inhalation Q6H PRN shortness of breath or wheezing #8.5 grams 05/25/23 [Rx Confirmed 06/15/23] bupropion HCl 200 mg tablet,12 hr sustained-release (Wellbutrin SR) 200 mg PO DAILY #90 ea 05/26/23 [Rx Confirmed 06/15/23] PFSH Medical History Acute bronchitis, unspecified Arthritis Borderline diabetes Chronic back pain Cough Degenerative disc disease Dislocation of ankle joint Flu vaccine need Flu vaccine need Health care maintenance History of pneumonia Hyperlipemia Hypertension Hypothyroidism Hypoxia Lightheadedness Nicotine dependence in remission Nocturnal hypoxia Other fracture of right lower leg, initial encounter for closed fracture PND (paroxysmal nocturnal dyspnea) Positive colorectal cancer screening using Cologuard test Preventative health care Right ankle pain Right hip pain Right-sided chest pain Shortness of breath Shortness of breath Stage 4 very severe COPD by GOLD classification Wheezing Surgical History Tubal ligation evaluation Family History Mother Cancer LeukemiaFather COPD (chronic obstructive pulmonary disease)Grandfather CancerGrandmother Diabetes Social History Smoking Status: Former smoker how long ago did patient quit smokin, .05p/day second hand exposure: Yes alcohol intake: never substance use type: crack/cocaine caffeine: Yes (2/day) what type of physical activity do you participate in: none HPI HPI HPI: Patient is a 68-year-old female who presents for need to schedule diagnostic colonoscopy secondary to recent positive Cologuard testing. Ms. Lombardi reports that she has done Cologuard previously but all prior studies have been negative. She estimates that she has had approximately 4 prior negative studies. She has never had a colonoscopy. Patient has no personal history of colon cancer, inflammatory bowel disease, or diverticulitis. They describe their bowel habits as changed with some recent constipation?as she observes more rounded stools and that her frequency of bowel movements has decreased to only once every other day. They deny significant straining and toilet time is To less than 10 minutes. They have not noticed any bleeding or dark stools, generally. However, they confess they do have a history of hemorrhoids and infrequently they will see some coating of the stool with blood. At this point Mrs. Lombardi also shares that she does not have a great diet and eats things that she should not. She shares that her diet is not high in fiber and her main sources simply through oatmeal as she is unable to consume any raw vegetables or fruits due to missing teeth. They also do not use fiber supplements. Patient has no family history of colon cancer or inflammatory bowel disease. There is a history of diverticulitis in her daughter. The patient's weight is not stable and she reports a weight gain of approximately 15 pounds in the last 4 to 6 months but she is uncertain the cause. She does admit to decreased activity as her COPD has worsened. She also reports some associated fatigue. In further discussing her COPD, she shares that she does have home oxygen but estimates that her use is less than 50% of the day and really dependent on her partaking in any exertional activity. The patient is not prescribed anticoagulants/blood thinners. Relevant prior abdominal surgical history includes: Tubal ligation Patient does have a significant history of GERD, but she shares that her symptoms occur only a couple of times per month and this is very dependent on what she eats. She shares food triggers being things like pizza, sausage, and spicy foods, generally. She uses famotidine with good effect and denies use of regular PPI. ROS General General: Yes weight change and fatigue; No appetite, colon cancer, breast cancer or weakness HEENT HEENT: Yes difficulty swallowing; No eye injury, eye surgery, swollen glands or hoarseness Endo Endocrine: Yes thyroid disease and diabetes mellitus; No thyroid cancer, Hair loss, heat intolerance or cold intolerance Skin Skin: No rash or changing moles Musc Musculoskeletal: Yes back problems and arthritis; No rheumatoid arthritis, gout or joint pain Cardio Cardiovascular: Yes high blood pressure; No murmur, pacemaker, heart disease, atrial fibrillation, heart attack, heart stent, palpitations, shortness of breat with exertion or chest pain Psych Psychiatric: Yes depression; No anxiety or hearing voices Resp Respiratory: Yes shortness of breath, Yes sleep apnea, Yes cough, Yes COPD, Yes asthma, Yes emphysema and No wheezing Gastro Gastrointestinal: No abdominal pain, No nausea or vomiting, No diarrhea, Yes constipation, No blood in stool, Yes acid reflux, Yes hemorrhoids, No ulcers, No gallbladder problem and No black,tarry stools Howard Hematologic: No blood thinners, No blood disorders, No bleeding, No anemia and No blood clots Neuro Neurologic: No system reviewed and no additional complaints, except as documented, No as per HPI, No abnormal gait, No abnormal hearing, No abnormal movements, No abnormal speech, No behavioral changes, No burning sensations, No confusion, No convulsions, No disequilibrium, No dizziness, No localized weakness, No frequent falls, No headache(s), No lack of coordination, No loss of vision, No memory loss, No numbness, No other visual disturbances, No radicular pain, No restless legs, No sensory deficit, No syncope, No tingling, No tremor(s), No weakness and No other Exam Const General: cooperative and comfortable Orientation: alert, awake and oriented x3 Other: Patient does become dyspneic when moving over to the exam table but quickly normalizes Resp Other: Mildly tachypneic when moving to exam table GI Other: Obese, no obvious herniation, nondistended, soft, nontender to palpation x 4 quadrants Assessment and Plan Assessment and Plan (1) Positive colorectal cancer screening using Cologuard test: Status: Acute Comment: This is a 68-year-old female with no prior history of colonoscopy but multiple prior negative Cologuard testing who presents for first positive Cologuard testing. She does share that she has developed more constipation in the last year and has had difficulty with hemorrhoids. Amongst this difficulty is some overt bleeding, but she notes this is infrequent generally speaking. She does not appear to be in any increased risk for colon cancer based on her family history. I shared with her the recommendation to follow her positive Cologuard testing with a diagnostic colonoscopy as a means of more definitively evaluating her colon and she shares that she is understanding of the recommendation and wishes to proceed as described. 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 Plan: Plan will be to complete colonoscopy on first mutually agreeable date under local MAC. Pre-procedure prep discussed and paper instructions provided. Patient is also made aware that she will need to have a pile driver operator helper with her the day of the procedure. (2) GERD (gastroesophageal reflux disease): Status: Chronic Comment: Patient with chronic GERD that overall appears to be well-controlled with lifestyle modifications and as needed use of H2 blockers (famotidine specifically). She does not report frequent symptoms and giving her significant smoking history/COPD, I wish avoid any unnecessary procedure time if at all possible. This impression was shared with patient and she is in agreement. Plan: ? Do not see clear reason to pursue diagnostic EGD ? Continue avoidance of food triggers and use of as needed H2 blockers I have examined the patient the following changes are noted: Patient presents for make up colonoscopy after she was unable to proceed with a colonoscopic exam in July of this year due to acute dehydration symptoms. She shares that in the interim since her brief observational stay occasioned by the symptoms she has done well. She specifically denies any constipation or noticeable bleeding. She further confirms that she was able to stay hydrated through her prep and that her output is now clear. Her exam is benign so we will plan to proceed with colonoscopy for initial indication of positive Cologuard testing as described in greater detail from my note in May 2023 recapitulated above.
--- NOTE | 2024-01-17 09:41 | OP.COLON_ITS ---
Patient Name: Peggy Braden Procedure Date: 01/17/2024 8:52 AM Date of : 1955 Age: 68 Procedure: Colonoscopy Indications: Positive Cologuard test Providers: Higinio Antunez MD Referring MD: Higinio Antunez MD Medicines: See the Anesthesia note for documentation of the administered medications Patient Profile: Last Colonoscopy: none. The patient's first colonoscopy is today. Complications: No immediate complications. Estimated blood loss: Minimal. Procedure: Pre-Anesthesia Assessment: - The heart rate, respiratory rate, oxygen saturations, blood pressure, adequacy of pulmonary ventilation, and response to care were monitored throughout the procedure. After I obtained informed consent, the scope was passed under direct vision. Throughout the procedure, the patient's blood pressure, pulse, and oxygen saturations were monitored continuously. The pediatric colonoscope was introduced through the anus and advanced to the cecum, identified by palpation. The colonoscopy was technically difficult and complex due to a tortuous colon. Successful completion of the procedure was aided by using scope torsion. The patient tolerated the procedure well. The quality of the bowel preparation was adequate to identify polyps greater than 5 mm in size. Scope In: 9:03:21 AM Scope Withdrawal Time 0 hours 19 minutes 48 seconds Scope Out: 9:35:14 AM Total Procedure Duration Time 0 hours 31 minutes 53 seconds Findings: Skin tags were found on perianal exam. Two semi-pedunculated, non-bleeding polyps were found in the sigmoid colon and cecum. The polyps were 5 mm in size. These polyps were removed with a hot snare. Resection and retrieval were complete. Estimated blood loss was minimal. A few small and large-mouthed diverticula were found in the sigmoid colon, transverse colon and ascending colon. No biopsies or other specimens were collected for this exam. The exam was otherwise without abnormality on direct and retroflexion views. Impression: - Perianal skin tags found on perianal exam. - Two 5 mm, non-bleeding polyps in the sigmoid colon and in the cecum, removed with a hot snare. Resected and retrieved. - Diverticulosis in the sigmoid colon, in the transverse colon and in the ascending colon. No specimens collected. - The examination was otherwise normal on direct and retroflexion views. Recommendation: - Discharge patient to home (via wheelchair). - High fiber diet today. - No aspirin, ibuprofen, naproxen, or other non-steroidal anti-inflammatory drugs for 2 days after biopsy. - Await pathology results. - Repeat colonoscopy date to be determined after pending pathology results are reviewed for surveillance based on pathology results. - Telephone my office for pathology results in 1 week. Procedure Code(s): --- Professional --- 78340, Colonoscopy, flexible; with removal of tumor(s), polyp(s), or other lesion(s) by snare technique Diagnosis Code(s): --- Professional --- D12.5, Benign neoplasm of sigmoid colon D12.0, Benign neoplasm of cecum K64.4, Residual hemorrhoidal skin tags R19.5, Other fecal abnormalities K57.30, Diverticulosis of large intestine without perforation or abscess without bleeding CPT copyright 2021 [employer]. All rights reserved. The codes documented in this report are preliminary and upon quiller runner review may be revised to meet current compliance requirements. Higinio Antunez MD 01/17/2024 9:41:06 AM This report has been signed electronically. Number of Addenda: 0 Note Initiated On: 01/17/2024 8:52 AM
--- NOTE | 2024-01-17 09:42 | OP.CCLET_ITS ---
01/17/2024 Paige Jon MD [address] [address] [place] [address] Re : Colonoscopy procedure for Peggy Braden Dear Dr. Jon This procedure was performed on Wednesday, January 17, 2024. My impressions and recommendations are as follows: Impressions : - Perianal skin tags found on perianal exam. - Two 5 mm, non-bleeding polyps in the sigmoid colon and in the cecum, removed with a hot snare. Resected and retrieved. - Diverticulosis in the sigmoid colon, in the transverse colon and in the ascending colon. No specimens collected. - The examination was otherwise normal on direct and retroflexion views. Recommendations : - Discharge patient to home (via wheelchair). - High fiber diet today. - No aspirin, ibuprofen, naproxen, or other non-steroidal anti-inflammatory drugs for 2 days after biopsy. - Await pathology results. - Repeat colonoscopy date to be determined after pending pathology results are reviewed for surveillance based on pathology results. - Telephone my office for pathology results in 1 week. My findings are described in the full procedure note, which is enclosed. If I can be of further assistance, please feel free to contact me at Doctor phone number(s): , Work: . Sincerely, Higinio Antunez MD 01/17/2024 9:41:06 AM This report has been signed electronically.
--- NOTE | 2024-01-17 09:43 | PCM.POST.ANE ---
Anesthesia: Postop Eval I Current Vital Signs Temperature: 97.7 F Pulse Rate: 72 Blood Pressure: 156/99 Respiratory Rate: 18 Pulse Ox: 100 Oxygen Delivery Method: Nasal Cannula Oxygen Flow Rate (L/min): 2 Assessment Airway patent: Yes Spontaneous unlabored respirations: Yes Mental status: Awake nausea: No Vomiting: No Anesthesia Complication: No Fluid Hydration Crystalloid volume administer (ml): 700 Total IV fluid infused: 700 Progress Note Anesthesia document: Postop Eval 1 completed: Yes
--- NOTE | 2024-01-17 10:21 | SUR.PHASEII ---
maintains on 2: NC, baseline
--- NOTE | 2024-01-17 16:52 | PCM.POSTANE2 ---
Anesthesia Postop Eval I Sum Postop Eval Completion status Anesthesia document: Postop Eval 1 completed: Yes Anesthesia Postop Eval I Summary Anesthesia Postop Eval I Summary: Anesthesia Postop Eval I: Assessment Summary Airway patent Yes 01/17/24 09:44 [email or web address] Spontaneous unlabored Yes 01/17/24 09:44 [email or web address] respirations Mental status Awake 01/17/24 09:44 [email or web address] nausea No 01/17/24 09:44 [email or web address] Vomiting No 01/17/24 09:44 [email or web address] Anesthesia Postop Eval I: Fluid Summary Crystalloid volume administer 700 01/17/24 09:44 [email or web address] (ml) Colloids volume administered ( ml) Blood Product volume administered (ml) Total IV fluid infused 700 01/17/24 09:44 [email or web address] Anesthesia Postop Eval I: Summary Notes Anesthesia Complication No 01/17/24 09:44 [email or web address] Anesthesia Complication Comment: Post-operative progress note Anesthesia: Postop Eval II Evaluation Mental status: Awake and Calm Pain Level: 0 nausea: No Vomiting: No Complications Anesthesia Complication: No
== END 2024-01-17 10:33 | disposition home or self-care (01) ==
LOC: EN 07:12 → AC 07:13
PROVIDERS: PCP Internal Medicine; Referring Provider Surgery; Visit Provider Surgery
PROC: 0DJD8ZZ Inspection of Lower Intestinal Tract, Via Natural or Artificial Opening Endoscopic (ICD-10-PCS; CPT 45378; principal; 2024-01-17 08:10)
DX: D12.0 Benign neoplasm of cecum (principal); J44.9 Chronic obstructive pulmonary disease, unspecified; E11.22 Type 2 diabetes mellitus with diabetic chronic kidney disease; N18.30 Chronic kidney disease, stage 3 unspecified; K57.30 Diverticulosis of large intestine without perforation or abscess without bleeding; K21.9 Gastro-esophageal reflux disease without esophagitis; E78.5 Hyperlipidemia, unspecified; I12.9 Hypertensive chronic kidney disease with stage 1 through stage 4 chronic kidney disease, or unspecified chronic kidney disease; Z87.891 Personal history of nicotine dependence; R19.5 Other fecal abnormalities; K64.4 Residual hemorrhoidal skin tags; D12.5 Benign neoplasm of sigmoid colon; Z79.82 Long term (current) use of aspirin; Z79.890 Hormone replacement therapy; Z79.899 Other long term (current) drug therapy; E03.9 Hypothyroidism, unspecified; Z79.84 Long term (current) use of oral hypoglycemic drugs; Z79.51 Long term (current) use of inhaled steroids; F32.A Depression, unspecified
CPT/HCPCS: 45385; 82962; 88305; J7120; J2405

== ENCOUNTER → 2024-01-30 | Outpatient (CLI) | payer MEDICARE, MEDICAID, SELFPAY ==
--- NOTE | 2024-01-30 13:56 | CT_ITS ---
STUDY: LOW DOSE CT LUNG CANCER SCREENING REASON FOR EXAM: Female, 68 years old. h/o Tobacco Dependency RADIATION DOSAGE (If Supplied By Facility): CTDIvol = ( 3.18 ) mGy, DLP = ( 103.24 ) mGycm TECHNIQUE: No contrast was administered. Low dose technique was utilized (average mAS-38 and kVp 120). 1.25 mm axial source images with a slice interval of 1.25-mm were reconstructed in lung windows. 2.5 mm axial source images with a slice interval of 2.5-mm were reconstructed in lung windows. 5.0 mm axial source images with a slice interval of 5.0-mm were reconstructed in soft tissue windows. COMPARISON: 01/27/2023 Emphysema: Mild bilateral scarring. Mild emphysema. No noncalcified nodule or mass. Endobronchial lesion: None Aorta: Calcified plaque in the aortic arch but no aortic aneurysm. CORONARY ARTERIES: Coronary artery calcification is seen. Heart: No cardiomegaly. Small pericardial effusion. Pulmonary artery: Normal Mediastinal nodes: Normal Other chest and abdominal findings: None CT/Low Dose CT Lung Screening IMPRESSION: Lung-RADS category 1 - Continue annual screening with LDCT in 12 months. IMPORTANT NOTES FOR USE: ACR Lung-RADS Version 1.1 Assessment Categories Release Date: 2018 Category: Coded 0-4 bases on nodule(s) with highest degree of suspicion. Negative screen is defined as categories 1 and 2; a positive screen is defined as categories 3 and 4. Category 3 and 4A nodules that are unchanged on interval CT should be coded as category 2, and individuals returned to screening in 12 months. Category 4X: Category 3 or 4 nodules with additional imaging findings that increase the suspicion of lung cancer, such as spiculation, GGN that doubles in size in 1 year, enlarged lymph notes, etc. Category Modifiers: S (significant finding unrelated to lung cancer) Electronically Signed: Yobany Brown MD at 18:39 EDT ,
== END | disposition home or self-care (01) ==
PROVIDERS: PCP Internal Medicine; Referring Provider Internal Medicine Critical Care Medicine; Visit Provider Internal Medicine Critical Care Medicine
DX: Z12.2 Encounter for screening for malignant neoplasm of respiratory organs (principal); F17.211 Nicotine dependence, cigarettes, in remission
CPT/HCPCS: 71271

== ENCOUNTER 2024-03-10 21:40 | Emergency (ER) | payer MEDICARE, MEDICAID, SELFPAY ==
[2024-03-10 21:41] VITALS: BP 207/82; PULSE 100; RESP 26; TEMP 36.6; O2SAT 87
[2024-03-10 21:43] VITALS: BMI 39.2
[2024-03-10 21:45] VITALS: O2SAT 94
--- NOTE | 2024-03-10 21:48 | EKG12_ITS ---
Test Reason : CP Blood Pressure : / mmHG Vent. Rate : 096 BPM Atrial Rate : 096 BPM P-R Int : 158 ms QRS Dur : 086 ms QT Int : 548 ms P-R-T Axes : 086 065 086 degrees QTc Int : 692 ms Critical Test Result: Long QTc Normal sinus rhythm Prolonged QT Abnormal ECG Confirmed by Higinio Alvarez ([id number]), restaurant expeditor OVI STEPHEN ([id number]) on 03/12/2024 10:53:18 AM Referred By: ANA Confirmed By:Higinio Alvarez
--- NOTE | 2024-03-10 22:00 | RAD_ITS ---
INDICATION: chest pain EXAMINATION/TECHNIQUE: X-RAY - XR Chest 1 View COMPARISON: 11/30/2021 FINDINGS: LINES/DEVICES: None. LUNGS: Patchy airspace opacities left lower lung field. No consolidation or pleural effusion. MEDIASTINUM AND CARDIOVASCULAR STRUCTURES: Cardiac silhouette stable within normal limits. BONES AND SOFT TISSUES: No acute changes. RAD/Chest 1 View (Portable) IMPRESSION: Patchy infiltrate left lower lobe suspicious for pneumonia. Recommend short-term follow-up to complete resolution. Electronically Signed: Anthony Paez MD at 23:05 EDT ,
[2024-03-10 22:11] LABS: Absolute Lymphocyte Count 0.85 X10^3/uL (0.83-4.51); Absolute Neutrophil Count 11.4 X10^3/uL (2.0-7.7); Basophil# 0.03 X10^3/uL; Basophil% 0.2 % (0-1); Eosinophil# 0.14 X10^3/uL; Hematocrit 37.7 % (37-47); Lymphocyte # 0.85 X10^3/ul (0.83-4.51); Lymphocyte % 6.1 % (19-41); Mean Corp Hgb Conc 31.8 g/dL (32-36); Mean Corpuscular Volume 84.9 fL (81-99); Monocyte# 1.53 X10^3/uL; NRBC Flagged by Analyzer 0 % (0-5); Neutrophil # 11.35 X10^3/uL (2.7-7.7); Neutrophil % 81.4 % (47-70); POSITIVE DIFFERENTIAL YES; Platelet Count 225 K/mm3 (150-450); RBC Distribution Width SD 46.9 fl (35.1-43.9); Red Blood Count 4.44 M/mm3 (4.2-5.4); White Blood Count 13.9 K/mm3 (4.4-11.0)
[2024-03-10 22:25] LABS: Anion Gap 6 (5-15); BUN 18 mg/dL (7-18); BUN/Creat Ratio 12.9 RATIO (10-20); Calcium,Total 9.8 mg/dL (8.5-10.1); Chloride 99 mmol/L (98-107); Creatinine, Serum 1.39 mg/dL (0.55-1.02); EST Glomerular Filtration Rate 40 mL/min (>60); Est Glom Filt Rate - Afr Amer 48 mL/min (>60); Glucose 104 mg/dL (74-106); Potassium 3.4 mmol/L (3.5-5.1); Sodium Level 137 mmol/L (136-145); Troponin-I HS (w/2H Reflex) 10 pg/mL (3.0-54.0)
[2024-03-10 22:40] VITALS: BP 161/78; PULSE 89; RESP 24; TEMP 37.4; O2SAT 93
[2024-03-10 23:13] LABS: Differential Indicated SCAN CRITERIA MET
[2024-03-10 23:16] LABS: Anisocytosis RARE; Platelet Estimate ADEQUATE (ADEQ); Red Cell Morphology NORM C+C NORMAL (NORM C&C)
[2024-03-10] MEDS: 0.9% Normal Saline (1000mL) 1,000 ML 999 ML IV (23:27)
[2024-03-10] MEDS: Ipratropium/Albuterol Sulfate 3 ML AMPUL.NEB INHALATION (23:28)
[2024-03-10 23:34] VITALS: PULSE 90; RESP 20
[2024-03-10] MEDS: Ceftriaxone 1 GM/50 ML BAG IV (23:58)
[2024-03-10 23:59] LABS: Reflex Troponin-HS? (from REC) Y
[2024-03-11] VITALS: BP 173/85; PULSE 90; RESP 24; O2SAT 94
[2024-03-11 00:15] LABS: Procalcitonin 0.27 ng/mL (0.00-0.09)
--- NOTE | 2024-03-11 00:27 | EX.ED.DYSGE1 ---
HPI History of Present Illness Chief Complaint: Chest Pain Informant: patient and family Narrative Narrative: Patient is a 69-year-old female with past medical history of COPD secondary to smoking who wears 2 L nasal cannula oxygen as needed. She also has type 2 diabetes and hypertension and hyperlipidemia. She states for the past 2 to 3 days she has had generalized fatigue with increased cough and shortness of breath and had to wear her oxygen at approximately 3 to 4 L which is above her baseline of two 07/02. She states she has noticed some pain along the left chest and has concerns could be cardiac versus potential infection and therefore comes in for evaluation [facility] Medical History Hypercalcemia Debility Malaise and fatigue CPAP (continuous positive airway pressure) dependence Wears glasses Wears dentures Post-menopausal Depression Walker as ambulation aid Diabetes Easy bruising Dietary restriction TIA (transient ischemic attack) Difficulty swallowing Gastric reflux Asthma On home oxygen therapy Shortness of breath on exertion History of edema History of echocardiogram History of stress test Positive colorectal cancer screening using Cologuard test Health care maintenance Preventative health care Chronic back pain Lightheadedness Flu vaccine need Shortness of breath Right-sided chest pain Flu vaccine need Right hip pain Acute bronchitis, unspecified Cough Arthritis Hypothyroidism Hyperlipemia Borderline diabetes Hypertension Dislocation of ankle joint PND (paroxysmal nocturnal dyspnea) Stage 4 very severe COPD by GOLD classification Home Medications ?Medication ?Instructions ?Recorded ?Last Taken ?Type aspirin 81 mg tablet,delayed 81 mg PO DAILY heart health 10/04/13 07/26/23 History release Oxygen, Home [Home Oxygen] 2 lpm NASAL CONT #1 unit 10/31/16 01/17/24 Rx blood sugar diagnostic #100 ea 03/12/22 Unknown Rx Disability Placard #1 ea 11/30/22 Unknown Rx rosuvastatin 20 mg tablet 20 mg PO DAILY cholesterol #90 04/26/23 01/16/24 Rx tabs bupropion HCl 200 mg tablet,12 hr 200 mg PO DAILY depression #90 ea 05/26/23 01/16/24 Rx sustained-release (Wellbutrin SR) Electric Scooter #1 ea 07/12/23 Unknown Rx tiotropium bromide 18 mcg capsule 1 cap inhalation 1500 shortness of 08/01/23 01/16/24 Rx with inhalation device (Spiriva breath #30 caps with HandiHaler) levothyroxine 88 mcg tablet 88 mcg PO DAILY #180 TABLETS 10/17/23 01/17/24 Rx ipratropium 0.5 mg-albuterol 3 mg 3 ml inhalation Q4H PRN shortness 11/28/23 01/17/24 Rx (2.5 mg base)/3 mL nebulization of breath or wheezing #180 mL soln lisinopril 20 mg tablet 20 mg PO BID blood pressure #180 11/28/23 01/17/24 Rx tabs albuterol sulfate 90 mcg/actuation 2 puff inhalation Q6H PRN 01/27/24 Unknown Rx aerosol inhaler (Ventolin HFA) shortness of breath or wheezing #8.5 grams glimepiride 2 mg tablet See Rx Instructions .Route 02/20/24 Unknown Rx .COMPLEX #90 tabs budesonide-formoterol HFA 160 2 puff inhalation Q12H shortness 02/23/24 Unknown Rx mcg-4.5 mcg/actuation aerosol of breath #10.2 grams inhaler (Symbicort) pantoprazole 40 mg tablet,delayed 40 mg PO DAILY #90 tabs 02/27/24 Unknown Rx release (Protonix) hydrochlorothiazide 25 mg tablet 25 mg PO DAILY blood pressure #90 03/05/24 Unknown Rx tabs sitagliptin phosphate 100 mg tablet 100 mg PO DAILY diabetes #90 tabs 03/05/24 Unknown Rx azithromycin 250 mg tablet See Rx Instructions PO .COMPLEX #6 03/11/24 Unknown Rx (Zithromax Z-Neto) tabs doxycycline hyclate 100 mg capsule 100 mg PO BID 10 days #20 caps 03/11/24 Unknown Rx Allergy/AdvReac Type Severity Reaction Status Date / Time No Known Allergies Allergy Verified 03/10/24 21:41 Family History Mother Cancer Leukemia Father COPD (chronic obstructive pulmonary disease) Grandfather Cancer Grandmother Diabetes Surgical History Hx of tubal ligation Social History Smoking Status: Former smoker how long ago did patient quit smokin, .05p/day second hand exposure: Yes alcohol intake: never substance use type: crack/cocaine caffeine: Yes (2/day) what type of physical activity do you participate in: none ROS ROS ED Constitutional Constitutional ED: Reports fever(s) and subjective; Denies chills Eyes Eyes: Denies change in vision ENT ENT ED: Reports rhinorrhea; Denies sore throat Cardiovascular Cardiovascular: Reports chest pain; Denies palpitations or racing heartbeat Respiratory/Chest Respiratory/Chest: Reports cough and dyspnea Gastrointestinal Gastrointestinal: Denies abdominal pain, diarrhea, nausea or vomiting Genitourinary Genitourinary ED: Denies dysuria Musculoskeletal Musculoskeletal: Reports myalgias Integumentary Denies rash Neurologic Neurologic: Denies headache(s) Hematologic/Lymphatic Hematologic/Lymphatic: Denies easy bleeding or easy bruising EXAM Physical Exam Const Vital Signs: 03/10/24 21:41 03/10/24 21:45 03/10/24 21:48 Temperature 98 F Temperature Source Temporal Pulse Rate 100 Respiratory Rate 26 H Respiratory Effort Respiratory Pattern Blood Pressure 207/82 H Blood Pressure Mean 123 Pulse Ox 87 94 Oxygen Delivery Method Nasal Cannula Nasal Cannula Nasal Cannula Oxygen Flow Rate (L/min) 3 4 4 03/10/24 22:40 03/10/24 23:30 03/10/24 23:34 Temperature 99.4 F H Temperature Source Oral Pulse Rate 89 90 Respiratory Rate 24 H 20 H Respiratory Effort Short of Breath Respiratory Pattern Tachypnea Blood Pressure 161/78 H Blood Pressure Mean 105 Pulse Ox 93 Oxygen Delivery Method Nasal Cannula Oxygen Flow Rate (L/min) 4 03/11/24 00:00 03/11/24 00:32 03/11/24 01:00 Temperature 98.4 F Temperature Source Pulse Rate 90 92 94 Respiratory Rate 24 H 20 H 24 H Respiratory Effort Respiratory Pattern Blood Pressure 173/85 H 173/81 H 168/77 H Blood Pressure Mean 114 111 107 Pulse Ox 94 93 97 Oxygen Delivery Method Nasal Cannula Nasal Cannula Oxygen Flow Rate (L/min) 4 4 Positive well nourished and well developed General Appearance ED: well developed; Negative for pallor HEENT HEENT Narrative: No tongue or lip swelling no oral lesions no airway edema or compromise Cobblestoning is noted in the posterior pharynx consistent with sinus drainage No secondary findings in the posterior pharynx to suggest infection Eyes PERRL and EOMs intact bilaterally General Eye ED: Negative for pale conjunctiva or scleral icterus Neck supple and no JVD Neck Narrative: No nuchal rigidity or meningeal signs noted Chest Wall palpation of chest normal Resp Resp Narrative: Patient is tachypneic and breath sounds are diminished throughout. There is rhonchi noted to the bilateral lower lobes greatest in the left. Cardio regular rate and regular rhythm GI normal to inspection, nondistended, normoactive bowel sounds, non-tender, non-distended and no masses Auscultation: normoactive bowel sounds Palpation: soft Extremity normal to inspection Extremity Narrative: No asymmetric edema no pitting edema negative Homans' sign bilaterally Neuro oriented x3, CN's II-XII intact bilaterally and no sensory deficits noted Sensorium / Orientation: alert Motor Exam: strength 5/5 throughout Psych mental status grossly normal Skin no rashes or lesions noted General Skin Exam: Negative for jaundice or pallor MDM MDM MDM Narrative Medical decision making narrative: Patient arrived to the ER hypertensive and satting in the mid 90s on 4 L. Her report of increased cough shortness of breath and chest pain is concerning for acute coronary syndrome versus cardiac dysrhythmia versus pneumonia versus COVID versus pneumothorax versus congestive heart failure versus acute blood loss anemia. Secondary to this basic labs were obtained as well as a viral swab and chest x-ray. Patient's white count is elevated at 14 and there is mild left shift with elevation to absolute neutrophil count. Otherwise her H&H is stable and her lactic acid is normal as well. Her troponins are normal at 10 and 12 going against acute coronary syndrome and there is no cardiac dysrhythmia noted on EKG or cardiac monitoring. Viral swab was negative for COVID and chest x-ray does show changes consistent with developing left lower lobe pneumonia. At this time the patient has oxygen at home she is satting in the mid 90s which is appropriate on 4 L which is only mildly above her baseline of 2 L. She does not have findings of septicemia based on lab work or physical exam. Therefore at this time patient will be given Rocephin and Zithromax in the ER to start her on treatment for her pneumonia but as she is not septic and she has ability to use oxygen at home she wishes to try outpatient therapy first. Therefore patient was placed on Zithromax and doxycycline to cover for bacterial infectious etiology of her pneumonia but as she is not septic or showing need for increased oxygen demand such as BiPAP or intubation she can be discharged home and follow-up on an outpatient basis History & Record Review Discussion w/independent historian: Patient and Family Lab Data Attestation: I reviewed the patient's lab results. Labs: Laboratory Results - last 24 hr 03/10/24 03/10/24 03/11/24 21:54 23:28 00:09 WBC 13.9 H RBC 4.44 Hgb 12.0 Hct 37.7 MCV 84.9 MCH 27.0 MCHC 31.8 L RDW Std Deviation 46.9 H RDW Coeff of Navya 15.0 H Plt Count 225 MPV 11.0 Immature Gran % (Auto) 0.300 Neut % (Auto) 81.4 H Lymph % (Auto) 6.1 L [place] % (Auto) 11.0 H Eos % (Auto) 1.0 Baso % (Auto) 0.2 Absolute Neuts (auto) 11.4 H Absolute Lymphs (auto) 0.85 Nucleated RBC % 0 Differential Comment SEE COMMENT Diff Path Review May foll Platelet Estimate ADEQUATE RBC Morphology NORM C+C Anisocytosis RARE Sodium 137 Potassium 3.4 L Chloride 99 Carbon Dioxide 32.0 Anion Gap 6 BUN 18 Creatinine 1.39 H Est GFR (MDRD) Af Amer 48 L Est GFR (MDRD) Non-Af 40 L BUN/Creatinine Ratio 12.9 Glucose 104 Lactic Acid 1.0 Calcium 9.8 Troponin I High Sens 10 12 Procalcitonin 0.27 H Radiography Diagnostic Testing: Clinical Impression(s) from Imaging Studies Chest X-Ray 03/10/24 22:00 IMPRESSION: Patchy infiltrate left lower lobe suspicious for pneumonia. Recommend short-term follow-up to complete resolution. Electronically Signed: Anthony Paez MD at 23:05 EDT , Chest x-ray as interpreted by the emergency medicine physician reveals hazy opacity in the left lower lobe consistent with pneumonia Discharge Plan Triage Chief Complaint: Chest Pain ED Provider: Toby Calle Dx/Rx/DC Orders Clinical Impression: Left lower lobe pneumonia, Benign essential HTN, Diabetes type 2, controlled, COPD (chronic obstructive pulmonary disease), CKD (chronic kidney disease), stage III Instructions: Treating Pneumonia, When You Have Pneumonia Prescriptions: New azithromycin [Zithromax Z-Neto] 250 mg tablet See Rx Instructions .ROUTE .COMPLEX Qty: 6 0RF Rx Instructions: For 250 mg dose pack: take 500 mg today (day 1), then 250 mg for 4 days (days 2-5) doxycycline hyclate 100 mg capsule 100 mg PO BID 10 Days Qty: 20 0RF No Action lisinopril 20 mg tablet 20 mg PO BID Qty: 180 3RF ipratropium-albuterol 0.5 mg-3 mg(2.5 mg base)/3 mL solution for nebulization 3 ml INHALATION Q4H PRN (Reason: shortness of breath or wheezing) Qty: 180 1RF hydrochlorothiazide 25 mg tablet 25 mg PO DAILY Qty: 90 3RF sitagliptin phosphate 100 mg tablet 100 mg PO DAILY Qty: 90 3RF aspirin 81 MG tablet,delayed release (DR/EC) 81 mg PO DAILY Oxygen, Home [Home Oxygen] 2 lpm NASAL CONT Qty: 1 0RF Rx Instructions: (DME) blood sugar diagnostic Strip See Dose Instructions .ROUTE .MEDSUPPLY Qty: 100 2RF Dose Instruction: As directed Rx Instructions: As directed check bs twice a day (DME) Disability Placard See Rx Instructions .Route .MEDSUPPLY Qty: 1 0RF Rx Instructions: expires 12/01/2027 rosuvastatin 20 mg tablet 20 mg PO DAILY Qty: 90 3RF bupropion HCl [Wellbutrin SR] 200 mg tablet sustained-release 12 hr 200 mg PO DAILY Qty: 90 3RF (DME) Electric Scooter See Rx Instructions .Route .MEDSUPPLY Qty: 1 0RF Rx Instructions: As directed tiotropium bromide [Spiriva with HandiHaler] 18 mcg capsule, w/inhalation device 1 cap inhalation 1500 Qty: 30 11RF Rx Instructions: inhale contents of 1 capsule by mouth once daily levothyroxine 88 mcg tablet 88 mcg PO DAILY Qty: 180 0RF albuterol sulfate [Ventolin HFA] 90 mcg/actuation HFA aerosol inhaler 2 puff INHALATION Q6H PRN (Reason: shortness of breath or wheezing) Qty: 8.5 3RF glimepiride 2 mg tablet See Rx Instructions .ROUTE .COMPLEX Qty: 90 1RF Dose Instruction: take 1 tablet by mouth once daily Rx Instructions: take 1 tablet by mouth once daily budesonide-formoterol [Symbicort] 160-4.5 mcg/actuation HFA aerosol inhaler 2 puff INHALATION Q12H Qty: 10.2 11RF pantoprazole [Protonix] 40 mg tablet,delayed release (DR/EC) 40 mg PO DAILY Qty: 90 1RF Primary Care Provider: Paige Jon Referrals: Paige Jon MD [Primary Care Provider] - Activity Restrictions/Additional Instructions: Your workup showed left lower lobe pneumonia without signs of systemic infection or heart damage. Take your antibiotics as directed to resolve the infection and you may need to wear 2 to 5 L of nasal cannula oxygen / for the next few days until the antibiotics take effect. If you have any worsening of symptoms or further concerns please return for repeat evaluation Print Language: Portuguese Disposition Disposition: Home, Self Care Discharge Date/Time: 03/11/24 01:33
[2024-03-11] MEDS: Azithromycin 500 MG in Dextrose 5%-Water (250mL Bag) 250 ML 250 MG IV (00:29)
[2024-03-11 00:32] VITALS: BP 173/81; PULSE 92; RESP 20; TEMP 36.9; O2SAT 93
[2024-03-11 00:47] LABS: Troponin-I HS 12 pg/mL (3.0-54.0)
[2024-03-11 01:00] VITALS: BP 168/77; PULSE 94; RESP 24; O2SAT 97
[2024-03-12 11:49] LABS: Pathologist Review Reviewed
== END 2024-03-11 01:33 | disposition home or self-care (01) ==
PROVIDERS: Emergency Provider Emergency Medicine; PCP Internal Medicine; Visit Provider Emergency Medicine
DX: J44.0 Chronic obstructive pulmonary disease with (acute) lower respiratory infection (principal); E11.22 Type 2 diabetes mellitus with diabetic chronic kidney disease; N18.30 Chronic kidney disease, stage 3 unspecified; J18.9 Pneumonia, unspecified organism; I12.9 Hypertensive chronic kidney disease with stage 1 through stage 4 chronic kidney disease, or unspecified chronic kidney disease; Z87.891 Personal history of nicotine dependence; Z86.73 Personal history of transient ischemic attack (TIA), and cerebral infarction without residual deficits
CPT/HCPCS: 71045; 80048; 83605; 84145; 84484; 85025; 87631; 93005; 94640; 96365; 96367; 99284; J7030; J7050; A4216

== ENCOUNTER → 2024-05-30 | Outpatient (CLI) | payer MEDICARE, MEDICAID, SELFPAY ==
[2024-05-30 12:47] LABS: ALB/GLOB Ratio 0.8 RATIO (0.9-2.4); AST(SGOT) 23 U/L (15-37); Alanine Aminotransfer ALT/SGPT 35 U/L (13-56); Albumin, Serum 3.6 g/dL (3.2-5.0); Alkaline Phosphatase 106 U/L (45-117); Anion Gap 6 (5-15); BUN 28 mg/dL (7-18); Chloride 100 mmol/L (98-107); Creatinine, Serum 1.87 mg/dL (0.55-1.02); EST Glomerular Filtration Rate 28 mL/min (>60); Est Glom Filt Rate - Afr Amer 34 mL/min (>60); Globulin 4.4 g/dL (2.2-4.2); Glucose 226 mg/dL (74-106); Potassium 4.5 mmol/L (3.5-5.1); Sodium Level 135 mmol/L (136-145)
== END | disposition home or self-care (01) ==
LOC: BIMLAB 11:00
PROVIDERS: PCP Internal Medicine; Referring Provider Internal Medicine; Visit Provider Internal Medicine
DX: E11.69 Type 2 diabetes mellitus with other specified complication (principal); E03.9 Hypothyroidism, unspecified
CPT/HCPCS: 36415; 80053; 83036; 84443

== ENCOUNTER → 2024-07-16 | Outpatient (CLI) | payer MEDICARE, MEDICAID, SELFPAY ==
[2024-07-16 12:43] LABS: Hematocrit 38.7 % (37-47); Hemoglobin 12.1 g/dL (12.0-15.0); Mean Corp Hgb Conc 31.3 g/dL (32-36); Mean Corpuscular Hgb 27.1 pg (27.0-32.0); Mean Corpuscular Volume 86.6 fL (81-99); Mean Platelet Vol. 11.2 fl (6.2-12.0); Platelet Count 244 K/mm3 (150-450); RBC Distribution Width CV 15.4 % (11.6-14.6); RBC Distribution Width SD 48.3 fl (35.1-43.9); Red Blood Count 4.47 M/mm3 (4.2-5.4); White Blood Count 8.3 K/mm3 (4.4-11.0)
[2024-07-16 12:56] LABS: Albumin, Serum 3.5 g/dL (3.2-5.0); BUN 26 mg/dL (7-18); BUN/Creat Ratio 14.8 RATIO (10-20); Calcium,Total 10.1 mg/dL (8.5-10.1); Chloride 101 mmol/L (98-107); Creatinine, Serum 1.76 mg/dL (0.55-1.02); EST Glomerular Filtration Rate 30 mL/min (>60); Est Glom Filt Rate - Afr Amer 37 mL/min (>60); Glucose 222 mg/dL (74-106); Phosphorus 3.3 mg/dL (2.5-4.9); Potassium 4.2 mmol/L (3.5-5.1); Sodium Level 137 mmol/L (136-145)
== END | disposition home or self-care (01) ==
LOC: BIMLAB 11:34
PROVIDERS: PCP Internal Medicine; Referring Provider Internal Medicine Nephrology; Visit Provider Internal Medicine Nephrology
DX: N18.32 Chronic kidney disease, stage 3b (principal)
CPT/HCPCS: 36415; 80069; 82570; 84156; 85027

== ENCOUNTER → 2024-07-23 | Outpatient (CLI) | payer MEDICARE, MEDICAID, SELFPAY ==
[2024-07-23 16:00] LABS: Protein, Urine (Random) 30.3 mg/dL (<11.9); Protein:Creat Ratio 300 mg/g CRE (0-200)
== END | disposition home or self-care (01) ==
LOC: LABSPEC 14:16
PROVIDERS: PCP Internal Medicine; Referring Provider Internal Medicine Nephrology; Visit Provider Internal Medicine Nephrology
DX: N18.32 Chronic kidney disease, stage 3b (principal)
CPT/HCPCS: 82570; 84156

== ENCOUNTER → 2024-07-27 | Outpatient (CLI) | payer MEDICARE, MEDICAID, SELFPAY | END | disposition home or self-care (01) | LOC: BIMLAB 11:24 | PROVIDERS: PCP Internal Medicine; Referring Provider Internal Medicine; Visit Provider Internal Medicine | DX: E03.9 Hypothyroidism, unspecified (principal) | CPT/HCPCS: 36415; 84443 ==

== ENCOUNTER → 2024-09-26 | Outpatient (CLI) | payer MEDICARE, MEDICAID, SELFPAY ==
[2024-09-26 17:45] LABS: Anion Gap 15 (5-15); BUN 31 mg/dL (4-19); BUN/Creat Ratio 15.2 RATIO (10-20); Calcium,Total 10.3 mg/dL (7.6-11.0); Carbon Dioxide 26.3 mmol/L (21.0-32.0); Chloride 100 mmol/L (98-108); Creatinine, Serum 2.04 mg/dL (0.70-1.20); EST Glomerular Filtration Rate 26 (>60); Glucose 204 mg/dL (70-99); Potassium 3.9 mmol/L (3.3-5.1); Sodium Level 140 mmol/L (133-145)
== END | disposition home or self-care (01) ==
LOC: BIMLAB 11:47
PROVIDERS: PCP Internal Medicine; Referring Provider Internal Medicine; Visit Provider Internal Medicine
DX: E11.69 Type 2 diabetes mellitus with other specified complication (principal)
CPT/HCPCS: 36415; 80048

== ENCOUNTER → 2024-09-28 | Outpatient (CLI) | payer MEDICARE, MEDICAID, SELFPAY ==
[2024-09-28 16:06] LABS: Microalbumin,Random Urine 41.8 mg/L (NO RANGE EST.); Microalbumin:Creatinine Ratio 351.3 mg/g CRE
== END | disposition home or self-care (01) ==
LOC: LABSPEC 12:15
PROVIDERS: PCP Internal Medicine; Referring Provider Internal Medicine; Visit Provider Internal Medicine
DX: E11.69 Type 2 diabetes mellitus with other specified complication (principal)
CPT/HCPCS: 82043; 82570

== ENCOUNTER 2024-10-05 21:54 | Emergency (ER) | payer MEDICARE, MEDICAID, SELFPAY ==
[2024-10-05 21:55] VITALS: BP 162/96; PULSE 124; RESP 24; TEMP 36.4; O2SAT 94; BMI 36.5
[2024-10-05 22:30] VITALS: BP 170/86; PULSE 89; RESP 18; O2SAT 94
[2024-10-05] MEDS: 0.9% Normal Saline (1000mL) 1,000 ML 1000 ML IV (22:30)
[2024-10-05] MEDS: Ondansetron 4 MG/2 ML Vial IV (22:30)
--- NOTE | 2024-10-05 22:36 | EX.ED.GENINJ ---
HPI History of Present Illness Chief Complaint: Nausea/Vomiting Narrative Narrative: Chief complaint and HPI: Nausea and vomiting. 69-year-old female with history of obesity, DM2, COPD, CKD HTN, HLD presents for evaluation of nausea and vomiting. Onset this morning. Patient states that she started Ozempic yesterday. She denies any fever, chills, cough, URI symptoms shortness of breath, chest pain, abdominal pain, diarrhea, constipation, dysuria. She states that her emesis is nonbloody. Patient states her sugars have been under control. She states she has had decreased p.o. intake secondary to the nausea and vomiting. Review of systems: See HPI Medications: As listed on the chart Allergies: As listed on the chart PFSH: Per chart Vital signs: As listed on the chart. Reviewed. Physical exam: Gen: A&O x3, NAD Head: Normocephalic, atraumatic Eyes: No sclera icterus, conjunctiva clear ENT: Mildly dry mucous membranes Neck: Trachea midline, No JVD CV: RRR, no murmurs, no peripheral edema Resp: Lungs CTA BL, no w/r/c GI: Abd soft, non-distended, non-tender, no r/r/g Musc: Full ROM, no deformity Skin: Warm, dry Neuro: Alert, oriented, grossly intact, sensation intact Psych: Cooperative, appropriate mood and affect [facility] Medical History Obesity (BMI 30-39.9) Left knee pain Insomnia Hypercalcemia Debility Malaise and fatigue CPAP (continuous positive airway pressure) dependence Wears glasses Wears dentures Post-menopausal Depression Walker as ambulation aid Diabetes Easy bruising Dietary restriction TIA (transient ischemic attack) Difficulty swallowing Gastric reflux Asthma On home oxygen therapy Shortness of breath on exertion History of edema History of echocardiogram History of stress test Positive colorectal cancer screening using Cologuard test Health care maintenance Preventative health care Chronic back pain Lightheadedness Flu vaccine need Shortness of breath Right-sided chest pain Flu vaccine need Right hip pain Acute bronchitis, unspecified Cough Arthritis Hypothyroidism Hyperlipemia Borderline diabetes Hypertension Dislocation of ankle joint PND (paroxysmal nocturnal dyspnea) Stage 4 very severe COPD by GOLD classification Home Medications ?Medication ?Instructions ?Recorded ?Last Taken ?Type aspirin 81 mg tablet,delayed 81 mg PO DAILY [facility] 10/04/13 07/26/23 History release blood sugar diagnostic #100 ea 03/12/22 Unknown Rx Disability Placard #1 ea 11/30/22 Unknown Rx Electric Scooter #1 ea 07/12/23 Unknown Rx lisinopril 20 mg tablet 20 mg PO BID blood pressure #180 11/28/23 01/17/24 Rx tabs budesonide-formoterol HFA 160 2 puff inhalation Q12H shortness 08/13/24 Unknown Rx mcg-4.5 mcg/actuation aerosol of breath #10.2 grams inhaler (Symbicort) bupropion HCl 200 mg tablet,12 hr 200 mg PO DAILY depression #90 ea 08/13/24 Unknown Rx sustained-release (Wellbutrin SR) glimepiride 2 mg tablet 2 mg PO BID 3 months #180 tabs 08/13/24 Unknown Rx hydrochlorothiazide 25 mg tablet 25 mg PO DAILY blood pressure #90 08/13/24 Unknown Rx tabs levothyroxine 100 mcg tablet 100 mcg PO DAILY #90 TABLETS 08/13/24 Unknown Rx rosuvastatin 20 mg tablet 20 mg PO DAILY cholesterol #90 08/13/24 Unknown Rx tabs tiotropium bromide 18 mcg capsule 1 cap inhalation 1500 shortness of 08/13/24 Unknown Rx with inhalation device (Spiriva breath #30 caps with HandiHaler) pantoprazole 40 mg tablet,delayed 40 mg PO DAILY #90 tabs 08/14/24 Unknown Rx release (Protonix) albuterol sulfate 90 mcg/actuation 2 puff inhalation Q6H PRN 09/21/24 Unknown Rx aerosol inhaler (Ventolin HFA) shortness of breath or wheezing #8.5 grams ipratropium 0.5 mg-albuterol 3 mg 3 ml inhalation Q4H PRN shortness 09/21/24 Unknown Rx (2.5 mg base)/3 mL nebulization of breath or wheezing #180 mL soln semaglutide 0.25 mg or 0.5 mg (2 0.25 mg (0.368 mL) subcut QWEEK #3 09/26/24 10/04/24 Rx mg/3 mL) subcutaneous pen injector mL (Ozempic) Oxygen, Home [Home Oxygen] 2 lpm NASAL CONT PRN hypoxia/sob 10/05/24 Unknown History Allergy/AdvReac Type Severity Reaction Status Date / Time No Known Allergies Allergy Verified 10/05/24 21:58 Family History Mother Cancer Leukemia Father COPD (chronic obstructive pulmonary disease) Grandfather Cancer Grandmother Diabetes Surgical History Hx of tubal ligation Social History Smoking Status: Former smoker how long ago did patient quit smokin, .05p/day second hand exposure: Yes alcohol intake: never substance use type: crack/cocaine caffeine: Yes (2/day) what type of physical activity do you participate in: none EXAM Physical Exam Const Vital Signs: 10/05/24 21:55 10/05/24 22:30 10/05/24 23:00 Temperature 97.6 F L Temperature Source Oral Pulse Rate 124 H 89 98 Respiratory Rate 24 H 18 18 Blood Pressure 162/96 H 170/86 H 163/79 H Blood Pressure Mean 118 114 107 Pulse Ox 94 94 93 Oxygen Delivery Method Room Air Room Air Room Air MDM MDM MDM Narrative Medical decision making narrative: 69-year-old female with history of obesity, DM2, COPD, CKD HTN, HLD presents for evaluation of nausea and vomiting. Differential diagnosis includes but is not limited to medication side effect from Ozempic, viral illness, electrolyte abnormality, JEAN, UTI, suspect less likely intra-abdominal pathology. NS bolus, Zofran ordered for symptoms. Will obtain basic labs with UA. I do not think any CT abdomen pelvis or further imaging is needed. CBC with mild leukocytosis of 13.8. No anemia. CMP with dehydration. Patient is at her baseline renal insufficiency with a creatinine of 1.68. This is actually downtrending from 09/26 at 2.04. Patient has hyperglycemia of 149. She has an anion gap of 18. I do think this is secondary to dehydration with nausea and vomiting and not DKA. However will add on hydroxybutyrate and VBG. Mild AST elevation of 36. Lipase unremarkable. Hydroxybutyrate mildly elevated at 0.6. UA negative for UTI. Positive for glucose but negative for ketones. Patient's VBG shows mild respiratory acidosis but is compensating. This is due to her COPD. Patient not endorsing any shortness of breath or cough. I suspect that this is her baseline. I do not have a previous VBG to compare to. Patient's laboratory workup is likely secondary to mild dehydration from nausea and vomiting. On reevaluation, patient was able to tolerate p.o. intake without any difficulty. No vomiting. Patient stable to discharge home. Follow-up with PCP. Symptoms may be secondary to Ozempic versus viral illness. She confirmed understanding. Will prescribe Zofran prescription for nausea and vomiting. Impression: 1. Nausea and vomiting 2. Viral illness versus Ozempic side effect Lab Data Labs: Laboratory Results - last 24 hr 10/05/24 10/05/24 22:30 23:05 WBC 13.8 H RBC 4.92 Hgb 13.5 Hct 41.8 MCV 85.0 MCH 27.4 MCHC 32.3 RDW Std Deviation 43.8 RDW Coeff of Navya 14.3 Plt Count 284 MPV 10.9 Immature Gran % (Auto) 0.400 Neut % (Auto) 84.7 H Lymph % (Auto) 6.4 L [place] % (Auto) 6.4 Eos % (Auto) 1.7 Baso % (Auto) 0.4 Absolute Neuts (auto) 11.7 H Absolute Lymphs (auto) 0.89 Nucleated RBC % 0 Sodium 140 Potassium 3.8 Chloride 96 L Carbon Dioxide 26.6 Anion Gap 18 H BUN 27 H Creatinine 1.68 H Estim Creat Clear Calc 34.63 L Est GFR (MDRD) Non-Af 32 L BUN/Creatinine Ratio 16.2 Glucose 149 H Calcium 10.7 Total Bilirubin 0.38 AST 36 H ALT 31 Alkaline Phosphatase 110 H Total Protein 8.5 H Albumin 4.6 Globulin 3.9 Albumin/Globulin Ratio 1.2 Lipase 29 b-Hydroxybutyric mmol/L 0.6 Urine Color Yellow Urine Clarity Sl. Cloudy Urine pH 6.0 Ur Specific [place] 1.020 Urine Protein 100 H Urine Glucose (UA) 1000 H Urine Ketones Negative Urine Occult Blood 10 H Urine Nitrite Negative Urine Bilirubin Negative Urine Urobilinogen Normal Ur Leukocyte Esterase 25 H ABG Data ABG results: ABG 10/05/24 23:37 Specimen Type [place] Sample Site Not entered VBG pH 7.35 VBG pO2 31 VBG HCO3 32 H VBG Total CO2 34 H VBG O2 Sat (Calc) 54 VBG Base Excess 6 H POC Mix VBG pCO2 Pt Tmp 58.2 H O2 Delivery Device Room Air Discharge Plan Triage Chief Complaint: Nausea/Vomiting ED Provider: Panda Herr Dx/Rx/DC Orders Prescriptions: No Action lisinopril 20 mg tablet 20 mg PO BID Qty: 180 3RF Ozempic 0.25 mg or 0.5 mg (2 mg/3 mL) pen injector 0.25 mg subcut QWEEK Qty: 3 1RF Rx Instructions: for 4 weeks aspirin 81 MG tablet,delayed release (DR/EC) 81 mg PO DAILY Oxygen, Home [Home Oxygen] 2 lpm NASAL CONT PRN (Reason: hypoxia/sob) [place] blood sugar diagnostic Strip See Dose Instructions .ROUTE .MEDSUPPLY Qty: 100 2RF Dose Instruction: As directed Rx Instructions: As directed check bs twice a day [place] Disability Placard See Rx Instructions .Route .MEDSUPPLY Qty: 1 0RF Rx Instructions: expires 12/01/2027 [place] Electric Scooter See Rx Instructions .Route .MEDSUPPLY Qty: 1 0RF Rx Instructions: As directed budesonide-formoterol [Symbicort] 160-4.5 mcg/actuation HFA aerosol inhaler 2 puff INHALATION Q12H Qty: 10.2 11RF tiotropium bromide [Spiriva with HandiHaler] 18 mcg capsule, w/inhalation device 1 cap inhalation 1500 Qty: 30 11RF Rx Instructions: inhale contents of 1 capsule by mouth once daily bupropion HCl [Wellbutrin SR] 200 mg tablet sustained-release 12 hr 200 mg PO DAILY Qty: 90 3RF glimepiride 2 mg tablet 2 mg PO BID 90 Days Qty: 180 1RF hydrochlorothiazide 25 mg tablet 25 mg PO DAILY Qty: 90 3RF levothyroxine 100 mcg tablet 100 mcg PO DAILY Qty: 90 1RF rosuvastatin 20 mg tablet 20 mg PO DAILY Qty: 90 3RF pantoprazole [Protonix] 40 mg tablet,delayed release (DR/EC) 40 mg PO DAILY Qty: 90 1RF albuterol sulfate [Ventolin HFA] 90 mcg/actuation HFA aerosol inhaler 2 puff INHALATION Q6H PRN (Reason: shortness of breath or wheezing) Qty: 8.5 3RF ipratropium-albuterol 0.5 mg-3 mg(2.5 mg base)/3 mL solution for nebulization 3 ml INHALATION Q4H PRN (Reason: shortness of breath or wheezing) Qty: 180 0RF Primary Care Provider: Paige Jon Referrals: Paige Jon MD [Primary Care Provider] - Print Language: Beninese
[2024-10-05 22:41] LABS: Absolute Lymphocyte Count 0.89 X10^3/uL (0.83-4.51); Absolute Neutrophil Count 11.7 X10^3/uL (2.0-7.7); Basophil# 0.06 X10^3/uL; Basophil% 0.4 % (0-1); Eosinophil# 0.24 X10^3/uL; Eosinophils% 1.7 % (0-5); Hematocrit 41.8 % (37-47); Hemoglobin 13.5 g/dL (12.0-15.0); Lymphocyte # 0.89 X10^3/ul (0.83-4.51); Lymphocyte % 6.4 % (19-41); Mean Corp Hgb Conc 32.3 g/dL (32-36); Mean Corpuscular Hgb 27.4 pg (27.0-32.0); Mean Platelet Vol. 10.9 fl (6.2-12.0); Monocyte# 0.89 X10^3/uL; Monocyte% 6.4 % (0-10); NRBC Flagged by Analyzer 0 % (0-5); Neutrophil % 84.7 % (47-70); Platelet Count 284 K/mm3 (150-450); RBC Distribution Width CV 14.3 % (11.6-14.6); RBC Distribution Width SD 43.8 fl (35.1-43.9); Red Blood Count 4.92 M/mm3 (4.2-5.4); White Blood Count 13.8 K/mm3 (4.4-11.0)
[2024-10-05 23:00] VITALS: BP 163/79; PULSE 98; RESP 18; O2SAT 93
[2024-10-05 23:02] LABS: ALB/GLOB Ratio 1.2 RATIO (0.9-2.4); AST(SGOT) 36 U/L (<=31); Alanine Aminotransfer ALT/SGPT 31 U/L (<=34); Albumin, Serum 4.6 g/dL (3.4-4.8); Alkaline Phosphatase 110 U/L (35-104); Anion Gap 18 (5-15); BUN 27 mg/dL (4-19); BUN/Creat Ratio 16.2 RATIO (10-20); Calcium,Total 10.7 mg/dL (7.6-11.0); Carbon Dioxide 26.6 mmol/L (21.0-32.0); Chloride 96 mmol/L (98-108); Creatinine, Serum 1.68 mg/dL (0.70-1.20); EST Glomerular Filtration Rate 32 (>60); Estimated Creatinine Clearance 34.63 ml/min (50-250); Globulin 3.9 g/dL (2.2-4.2); Glucose 149 mg/dL (70-99); Lipase 29 U/L (13-75); Potassium 3.8 mmol/L (3.3-5.1); Protein, Total 8.5 g/dL (5.9-8.4); Sodium Level 140 mmol/L (133-145); Total Bilirubin 0.38 mg/dL (0.00-1.30)
[2024-10-05 23:14] LABS: Color, Urine Yellow (Yellow); Glucose, Dipstick 1000 mg/dl (Normal); Ketone-Dipstick Negative (Negative); Leukocyte Esterase-Dipstick 25 /ul (Negative); Nitrite-Dipstick Negative (Negative); Occult Blood-Urine 10 /ul (Negative); Protein-Dipstick 100 mg/dl (Negative); Urine Bilirubin Dipstick Negative (Negative); Urine Clarity Sl. Cloudy (Clear); Urine Urobilinogen Normal (Normal)
[2024-10-05 23:27] LABS: BETA-HYDROXYBUTYRATE 0.6 mmol/L (0.0-0.3)
[2024-10-05 23:41] LABS: Blood Gas Specimen Type VEN; O2 Delivery Device Room Air; SITE Not entered; VBG BASE EXCESS 6 mmol/L (-1.0-3.5); VBG Bicarbonate 32 mmol/L (22-26); VBG PO2 31 mmHg (25-40); VBG SO2 54 % (50-70); VBG TCO2 34 mmol/L (23-33); VBG pCO2 58.2 mmHg (41-51); VBG pH 7.35 (7.32-7.42)
[2024-10-06 00:13] VITALS: BP 171/68; PULSE 83; RESP 18; TEMP 36.7; O2SAT 93
== END 2024-10-06 00:18 | disposition home or self-care (01) ==
PROVIDERS: Emergency Provider Surgery; PCP Internal Medicine; Visit Provider Surgery
DX: R11.2 Nausea with vomiting, unspecified (principal); J44.9 Chronic obstructive pulmonary disease, unspecified; E11.22 Type 2 diabetes mellitus with diabetic chronic kidney disease; E86.0 Dehydration; E66.9 Obesity, unspecified; I12.9 Hypertensive chronic kidney disease with stage 1 through stage 4 chronic kidney disease, or unspecified chronic kidney disease; N18.9 Chronic kidney disease, unspecified; E78.5 Hyperlipidemia, unspecified; F32.A Depression, unspecified; E03.9 Hypothyroidism, unspecified; K21.9 Gastro-esophageal reflux disease without esophagitis; Z86.73 Personal history of transient ischemic attack (TIA), and cerebral infarction without residual deficits; Z79.82 Long term (current) use of aspirin; Z79.84 Long term (current) use of oral hypoglycemic drugs; Z79.899 Other long term (current) drug therapy; Z79.890 Hormone replacement therapy; Z87.891 Personal history of nicotine dependence
CPT/HCPCS: 80053; 81002; 82010; 82803; 83690; 85025; 96361; 96374; 99284; A4216; J2405

== ENCOUNTER 2024-10-30 03:25 | Observation (INO) | payer MEDICARE, MEDICAID, SELFPAY ==
[2024-10-30] VITALS (10 sets, daily range): BP systolic 124–156; BP diastolic 67–98; PULSE 76–96; RESP 16–18; TEMP 36.4–36.8; O2SAT 92–98; BMI 35.6; BMI 36.8
--- NOTE | 2024-10-30 03:32 | EKG12_ITS ---
Test Reason : CP Blood Pressure : */* mmHG Vent. Rate : 91 BPM Atrial Rate : 91 BPM P-R Int : 176 ms QRS Dur : 92 ms QT Int : 366 ms P-R-T Axes : 67 17 75 degrees QTcB Int : 450 ms Normal sinus rhythm Nonspecific T wave abnormality Abnormal ECG Confirmed by Higinio Alvarez ([id number]), mapping editor OVI STEPHEN ([id number]) on 11/02/2024 6:49:06 AM Referred By: TB Confirmed By: Higinio Alvarez
--- NOTE | 2024-10-30 03:32 | EX.ED.DYSGE1 ---
HPI History of Present Illness Chief Complaint: Chest Pain Narrative Narrative: Patient is a 69-year-old female with past medical history of TIA, hypertension, GERD, hypothyroidism, borderline diabetic who presented to the emergency department with chief complaint of chest pain. Patient states that earlier this evening prior to her going to bed around midnight she states that she developed chest discomfort radiating across her chest described this more as a pressure. Patient states that she thought if she went to bed things would get better however she states that this was not the case therefore she called EMS to have her brought here for the valuation management. States that her pain has been constant. Patient denies any recent travel history denies any history of blood clots. Patient denies any sick contacts [facility] Medical History Obesity (BMI 30-39.9) Left knee pain Insomnia Hypercalcemia Debility Malaise and fatigue CPAP (continuous positive airway pressure) dependence Wears glasses Wears dentures Post-menopausal Depression Walker as ambulation aid Diabetes Easy bruising Dietary restriction TIA (transient ischemic attack) Difficulty swallowing Gastric reflux Asthma On home oxygen therapy Shortness of breath on exertion History of edema History of echocardiogram History of stress test Positive colorectal cancer screening using Cologuard test Health care maintenance Preventative health care Chronic back pain Lightheadedness Flu vaccine need Shortness of breath Right-sided chest pain Flu vaccine need Right hip pain Acute bronchitis, unspecified Cough Arthritis Hypothyroidism Hyperlipemia Borderline diabetes Hypertension Dislocation of ankle joint PND (paroxysmal nocturnal dyspnea) Stage 4 very severe COPD by GOLD classification Home Medications ?Medication ?Instructions ?Recorded ?Last Taken ?Type aspirin 81 mg tablet,delayed 81 mg PO DAILY [facility] 10/04/13 07/26/23 History release blood sugar diagnostic #100 ea 03/12/22 Unknown Rx Disability Placard #1 ea 11/30/22 Unknown Rx Electric Scooter #1 ea 07/12/23 Unknown Rx lisinopril 20 mg tablet 20 mg PO BID blood pressure #180 11/28/23 01/17/24 Rx tabs budesonide-formoterol HFA 160 2 puff inhalation Q12H shortness 08/13/24 Unknown Rx mcg-4.5 mcg/actuation aerosol of breath #10.2 grams inhaler (Symbicort) bupropion HCl 200 mg tablet,12 hr 200 mg PO DAILY depression #90 ea 08/13/24 Unknown Rx sustained-release (Wellbutrin SR) hydrochlorothiazide 25 mg tablet 25 mg PO DAILY blood pressure #90 08/13/24 Unknown Rx tabs rosuvastatin 20 mg tablet 20 mg PO DAILY cholesterol #90 08/13/24 Unknown Rx tabs tiotropium bromide 18 mcg capsule 1 cap inhalation 1500 shortness of 08/13/24 Unknown Rx with inhalation device (Spiriva breath #30 caps with HandiHaler) albuterol sulfate 90 mcg/actuation 2 puff inhalation Q6H PRN 09/21/24 Unknown Rx aerosol inhaler (Ventolin HFA) shortness of breath or wheezing #8.5 grams ipratropium 0.5 mg-albuterol 3 mg 3 ml inhalation Q4H PRN shortness 09/21/24 Unknown Rx (2.5 mg base)/3 mL nebulization of breath or wheezing #180 mL soln semaglutide 0.25 mg or 0.5 mg (2 0.25 mg (0.368 mL) subcut QWEEK #3 09/26/24 10/04/24 Rx mg/3 mL) subcutaneous pen injector mL (Ozempic) Oxygen, Home [Home Oxygen] 2 lpm NASAL CONT PRN hypoxia/sob 10/05/24 Unknown History ondansetron 4 mg disintegrating 4 mg PO Q8H PRN PRN Nausea #10 tabs 10/06/24 Unknown Rx tablet pantoprazole 40 mg tablet,delayed 40 mg PO DAILY #90 tabs 10/22/24 Unknown Rx release (Protonix) glimepiride 2 mg tablet 2 mg PO QDAY 3 months #90 tabs 10/25/24 Unknown Rx levothyroxine 100 mcg tablet 100 mcg PO DAILY #90 TABLETS 10/25/24 Unknown Rx Allergy/AdvReac Type Severity Reaction Status Date / Time No Known Allergies Allergy Verified 10/30/24 03:26 Family History Mother Cancer Leukemia Father COPD (chronic obstructive pulmonary disease) Grandfather Cancer Grandmother Diabetes Surgical History Hx of tubal ligation Social History Smoking Status: Former smoker how long ago did patient quit smokin, .05p/day second hand exposure: Yes alcohol intake: never substance use type: crack/cocaine caffeine: Yes (2/day) what type of physical activity do you participate in: none ROS ROS ED ROS Narrative Constitutional: Denies fevers, chills, headaches, lightness, dizziness Eyes: Denies change in vision double vision blurry vision Cardiovascular: Complains chest discomfort denies palpitations Respiratory: Denies coughing wheezing shortness of breath Abdomen: Denies abdominal pain nausea vomit diarrhea : Denies urinary symptoms Neurological: Denies numbness, weakness, tingling Musculoskeletal: Denies back pain Skin: Denies rashes or lesions EXAM Physical Exam Narrative Exam Narrative: General: Patient lying in bed resting comfortably did not appear to be in acute distress Head: Atraumatic, normocephalic Eyes: PERRL bilaterally, EOMI bilaterally, no conjunctival injection noted Neck: Soft, supple, trachea midline Cardiovascular: Regular rate and rhythm Respiratory: Clear to auscultation bilaterally Abdomen: Soft, nondistended, nontender to palpation Extremities: +5/5 strength noted in the bilateral upper and lower extremities, radial pulses +2/4 in the bilateral extremities Neurological: Patient follow commands and that she was at [facility] years 2024 Skin: Warm, dry, intact no rashes or lesions noted Const Vital Signs: 10/30/24 03:27 10/30/24 03:27 10/30/24 03:34 Temperature 97.8 F Temperature Source Oral Pulse Rate 96 Respiratory Rate 18 Respiratory Effort Normal Blood Pressure 152/71 H Blood Pressure Mean 98 Pulse Ox 92 94 Oxygen Delivery Method Room Air Room Air 10/30/24 04:26 10/30/24 06:00 10/30/24 06:38 Temperature 98.3 F Temperature Source Pulse Rate 80 79 82 Respiratory Rate 18 18 16 Respiratory Effort Blood Pressure 133/67 H 139/98 H 124/77 H Blood Pressure Mean 89 111 92 Pulse Ox 93 94 94 Oxygen Delivery Method Room Air Room Air MDM MDM MDM Narrative Medical decision making narrative: Patient is a 69-year-old female who presented to the emergency department the chief complaint of chest pain/pressure she states that this been constant since around midnight nothing makes this better or worse. On the differential diagnose includes but not limited to ACS, GERD, upper respiratory infection secondary viral etiology. Once workup is obtained reviewed she will be reevaluated. Patient received 325 mg aspirin and 1 nitro prehospital via EMS. Patient states that her chest pain after the nitroglycerin went from a 8 to a 6. Patient's CBC was reviewed showed a white blood count 11,000, hemoglobin 12.1, plate count of 252. Patient sodium was 137, potassium was 3.7, creatinine was elevated 2.41 which is elevated from her baseline although does appear that her kidney function does fluctuate based on previous blood draws, troponin was 27 with a delta troponin 22. Patient's EKG reviewed showed sinus rhythm with rate of 91 beats per minutes. Patient urinalysis reviewed showed no evidence of leukocytosis. Patient's chest x-ray reviewed by myself and by radiology which showed emphysema no other acute cardiopulmonary processes. Patient states that she has not had a stress test in a significant amount of time therefore with her pain improving with nitroglycerin will discuss case with hospitalist for admission for stress test plus her JEAN. Renal ultrasound was added on. Discussed case with hospitalist Dr. Dyson who accept patient for admission. Patient was notified is agreeable to plan all question concerns answered. Lab Data Labs: Laboratory Results - last 24 hr 10/30/24 10/30/24 10/30/24 03:33 04:41 05:36 WBC 11.7 H RBC 4.45 Hgb 12.1 Hct 37.7 MCV 84.7 MCH 27.2 MCHC 32.1 RDW Std Deviation 43.9 RDW Coeff of Navya 14.3 Plt Count 252 MPV 11.2 Immature Gran % (Auto) 0.300 Neut % (Auto) 78.8 H Lymph % (Auto) 11.0 L [place] % (Auto) 6.9 Eos % (Auto) 2.6 Baso % (Auto) 0.4 Absolute Neuts (auto) 9.2 H Absolute Lymphs (auto) 1.29 Nucleated RBC % 0 Sodium 137 Potassium 3.7 Chloride 97 L Carbon Dioxide 26.0 Anion Gap 14 BUN 35 H Creatinine 2.41 H Estim Creat Clear Calc 23.83 L Est GFR (MDRD) Non-Af 21 L BUN/Creatinine Ratio 14.4 Glucose 211 H Calcium 10.1 Troponin T High Sens 27 H Troponin T Hi Sens 2 Hr 22 H NT pro BNP II 74 Urine Color Yellow Urine Clarity Clear Urine pH 5.0 Ur Specific [place] 1.020 Urine Protein 30 H Urine Glucose (UA) 1000 H Urine Ketones Negative Urine Occult Blood Negative Urine Nitrite Negative Urine Bilirubin Negative Urine Urobilinogen Normal Ur Leukocyte Esterase 25 H Urine RBC 0-5 SEEN Urine WBC 5-10 SEEN Ur Squamous Epith Cells 10-25 SEEN Ur Transition Epith Cell 0-5 SEEN Urine Bacteria 1+ Urine Mucus 0 SEEN Radiography Diagnostic Testing: Clinical Impression(s) from Imaging Studies Chest X-Ray 10/30/24 03:49 IMPRESSION: Emphysema. No radiographic evidence for acute abnormality. Reading Location: [place] [id number] Discharge Plan Triage Chief Complaint: Chest Pain ED Provider: Koby Grewal Dx/Rx/DC Orders Clinical Impression: Acute kidney injury Prescriptions: No Action lisinopril 20 mg tablet 20 mg PO BID Qty: 180 3RF Ozempic 0.25 mg or 0.5 mg (2 mg/3 mL) pen injector 0.25 mg subcut QWEEK Qty: 3 1RF Rx Instructions: for 4 weeks aspirin 81 MG tablet,delayed release (DR/EC) 81 mg PO DAILY Oxygen, Home [Home Oxygen] 2 lpm NASAL CONT PRN (Reason: hypoxia/sob) ondansetron 4 mg tablet,disintegrating 4 mg PO Q8H PRN PRN (Reason: Nausea) Qty: 10 0RF (DME) blood sugar diagnostic Strip See Dose Instructions .ROUTE .MEDSUPPLY Qty: 100 2RF Dose Instruction: As directed Rx Instructions: As directed check bs twice a day (DME) Disability Placard See Rx Instructions .Route .MEDSUPPLY Qty: 1 0RF Rx Instructions: expires 12/01/2027 (DME) Electric Scooter See Rx Instructions .Route .MEDSUPPLY Qty: 1 0RF Rx Instructions: As directed budesonide-formoterol [Symbicort] 160-4.5 mcg/actuation HFA aerosol inhaler 2 puff INHALATION Q12H Qty: 10.2 11RF tiotropium bromide [Spiriva with HandiHaler] 18 mcg capsule, w/inhalation device 1 cap inhalation 1500 Qty: 30 11RF Rx Instructions: inhale contents of 1 capsule by mouth once daily bupropion HCl [Wellbutrin SR] 200 mg tablet sustained-release 12 hr 200 mg PO DAILY Qty: 90 3RF hydrochlorothiazide 25 mg tablet 25 mg PO DAILY Qty: 90 3RF rosuvastatin 20 mg tablet 20 mg PO DAILY Qty: 90 3RF albuterol sulfate [Ventolin HFA] 90 mcg/actuation HFA aerosol inhaler 2 puff INHALATION Q6H PRN (Reason: shortness of breath or wheezing) Qty: 8.5 3RF ipratropium-albuterol 0.5 mg-3 mg(2.5 mg base)/3 mL solution for nebulization 3 ml INHALATION Q4H PRN (Reason: shortness of breath or wheezing) Qty: 180 0RF pantoprazole [Protonix] 40 mg tablet,delayed release (DR/EC) 40 mg PO DAILY Qty: 90 1RF levothyroxine 100 mcg tablet 100 mcg PO DAILY Qty: 90 1RF glimepiride 2 mg tablet 2 mg PO QDAY 90 Days Qty: 90 1RF Primary Care Provider: Paige Jon Referrals: Paige Jon MD [Primary Care Provider] - Print Language: Latvian Disposition Disposition: Acute Care Hospital [facility] [place] [facility]
[2024-10-30 03:42] LABS: Absolute Lymphocyte Count 1.29 X10^3/uL (0.83-4.51); Absolute Neutrophil Count 9.2 X10^3/uL (2.0-7.7); Basophil# 0.05 X10^3/uL; Basophil% 0.4 % (0-1); Eosinophils% 2.6 % (0-5); Hematocrit 37.7 % (37-47); Hemoglobin 12.1 g/dL (12.0-15.0); Lymphocyte # 1.29 X10^3/ul (0.83-4.51); Mean Corp Hgb Conc 32.1 g/dL (32-36); Mean Corpuscular Hgb 27.2 pg (27.0-32.0); Mean Corpuscular Volume 84.7 fL (81-99); Mean Platelet Vol. 11.2 fl (6.2-12.0); Monocyte# 0.81 X10^3/uL; Monocyte% 6.9 % (0-10); NRBC Flagged by Analyzer 0 % (0-5); Neutrophil # 9.23 X10^3/uL (2.7-7.7); Neutrophil % 78.8 % (47-70); Platelet Count 252 K/mm3 (150-450); RBC Distribution Width CV 14.3 % (11.6-14.6); RBC Distribution Width SD 43.9 fl (35.1-43.9); Red Blood Count 4.45 M/mm3 (4.2-5.4); White Blood Count 11.7 K/mm3 (4.4-11.0)
--- NOTE | 2024-10-30 03:49 | RAD_ITS ---
PROCEDURE: CHEST PA AND LATERAL 10/30/2024 REASON FOR EXAM: CHEST PAIN TECHNIQUE: Frontal and lateral views of the chest. COMPARISON: None. FINDINGS: The lungs are emphysematous. There is no demonstrated parenchymal abnormality. There is no demonstrated pleural abnormality. Normal heart and pericardium. Normal mediastinum and reinaldo. Normal visualized pulmonary arteries. Mild atheromatous plaques of the visualized aortic arch and descending thoracic aorta. Normal visualized thoracic spine. Normal visualized ribs, clavicles, and shoulders. There is no demonstrated abnormality of the visualized soft tissue structures of the upper abdomen. RAD/Chest PA and Lateral IMPRESSION: Emphysema. No radiographic evidence for acute abnormality. Reading Location[facility]
[2024-10-30 04:19] LABS: Anion Gap 14 (5-15); BUN 35 mg/dL (4-19); BUN/Creat Ratio 14.4 RATIO (10-20); Calcium,Total 10.1 mg/dL (7.6-11.0); Chloride 97 mmol/L (98-108); Creatinine, Serum 2.41 mg/dL (0.70-1.20); EST Glomerular Filtration Rate 21 (>60); Estimated Creatinine Clearance 23.83 ml/min (50-250); Glucose 211 mg/dL (70-99); Potassium 3.7 mmol/L (3.3-5.1); Pro- Brain NATRIURETIC PEPTIDE 74 pg/mL (<=900); Sodium Level 137 mmol/L (133-145); Troponin T High Sensitivity 27 ng/L (<=14)
[2024-10-30 04:47] LABS: Mucous, Urine 0 SEEN /hpf (<or=2+)
[2024-10-30 04:48] LABS: Color, Urine Yellow (Yellow); Glucose, Dipstick 1000 mg/dl (Normal); Ketone-Dipstick Negative (Negative); Leukocyte Esterase-Dipstick 25 /ul (Negative); Nitrite-Dipstick Negative (Negative); Occult Blood-Urine Negative /ul (Negative); Protein-Dipstick 30 mg/dl (Negative); Urine Bilirubin Dipstick Negative (Negative); Urine Clarity Clear (Clear); Urine Urobilinogen Normal (Normal)
[2024-10-30 04:56] LABS: Bacteria 1+ /hpf (None Seen); Red Blood Cells-Urine 0-5 SEEN /hpf (0-5); Squamous Epithelial Cells - UA 10-25 SEEN /hpf (5-10); Transitional Epithelial - Ur 0-5 SEEN /hpf (0-5); White Blood Cells 5-10 SEEN /hpf (0-5)
[2024-10-30] MEDS: 0.9% Normal Saline (1000mL) 1,000 ML 999 ML IV (04:58)
[2024-10-30 06:22] LABS: Troponin T High Sens 2 HR 22 ng/L (<=14)
--- NOTE | 2024-10-30 06:46 | US_ITS ---
PROCEDURE: KIDNEY AND BLADDER 10/30/2024 REASON FOR EXAM: JEAN TECHNIQUE: Bilateral renal ultrasound. COMPARISON: None. FINDINGS: The right kidney measures 9.9 x 4.6 x 4.8 cm. Right renal parenchymal thickness 1.2 cm. Increased right renal parenchymal echogenicity. Right renal simple cysts are noted measuring 1.7 x 1.8 x 1.2 and 1.9 x 2.1 x 2 cm. The left kidney measures 9.5 x 4.3 x 6.1 cm. Left renal parenchymal thickness measuring 1.6 cm. Increased left renal parenchymal echogenicity. Patient voided just prior to exam. The bladder was not visualized. Bilateral ureteral jets were not visualized. No evidence of hydronephrosis or calculi on either side. US/Kidney and Bladder IMPRESSION: 1. Decreased right renal parenchymal thickness. 2. Increased bilateral renal echogenicity, possibly secondary to chronic parenc hymal renal disease. 3. Scattered right renal simple cysts. 4. No evidence of hydronephrosis or calculi on either side. 5. The bladder was not visualized. 6. Patient voided prior to exam. 7. Bilateral ureteral jets were not visualized. Reading Location[facility]
--- NOTE | 2024-10-30 07:11 | ECHOD_ITS ---
Reason For Study Reason For Study: CHEST PAIN Procedure This was a 2D Doppler, Color Flow transthoracic echocardiogram. Exam performed portable in patient room. Left Ventricle Normal LV size. The left ventricular ejection fraction is 60 %. Stage 1 diastolic dysfunction. No regional wall motion abnormalities noted. Right Ventricle Normal RV size. Normal systolic function. Atria Normal left atrium. Normal right atrium. Mitral Valve Normal mitral valve. Tricuspid Valve Normal tricuspid valve. Aortic Valve Trisinus/trileaflet aortic valve. Pulmonic Valve Normal pulmonic valve. Great Vessels Normal aortic root. The pulmonary artery is normal size. Inferior vena cava collapse with respiration. Pericardium/Pleural No pericardial effusion. MMode/2D Measurements & Calculations LVIDd: 4.8 cm IVSd: 0.97 cm Ao root diam: 3.1 cm LVIDs: 3.2 cm LVPWd: 0.97 cm RVDd: 2.8 cm FS: 34.5 % LAV(MOD-bp): 20.9 ml LVAd ap4: 24.7 cm2 SV(MOD-sp4): 44.7 ml LAV(MOD-bp) Indexed: 10.5 ml/m2 LVLd ap4: 7.1 cm SI(MOD-sp4): 22.5 ml/m2 LAV(MOD-sp2): 23.3 ml EDV(MOD-sp4): 71.8 ml LAV(MOD-sp4): 19.3 ml EDV(sp4-el): 73.5 ml LVAs ap4: 14.1 cm2 LVLs ap4: 6.1 cm ESV(MOD-sp4): 27.2 ml ESV(sp4-el): 27.6 ml EF(MOD-sp4): 62.2 % EF(sp4-el): 62.5 % SV(sp4-el): 45.9 ml LA A4 area: 10.3 cm2 LA dimension(2D): 3.0 cm RA A4 area: 9.9 cm2 TAPSE: 1.9 cm Time Measurements MV dec time: 0.29 sec Doppler Measurements & Calculations MV E max dewey: 80.6 cm/sec Lat Peak E' Dewey: 8.2 cm/sec Med Peak E' Dewey: 8.2 cm/sec MV A max dewey: 126.6 cm/sec E/E' lat: 9.8 E/E' med: 9.8 MV E/A: 0.64 Ao V2 max: 135.4 cm/sec LV V1 max: 107.8 cm/sec PA V2 max: 97.7 cm/sec Ao max P.3 mmHg LV V1 max P.6 mmHg ECHO/Echo Complete Interpretation Summary Normal LV size. The left ventricular ejection fraction is 60 %. Stage 1 diastolic dysfunction. The study was technically difficult. Structurally normal valves. Ordering Physician: Danny Dyson Referring Physician: ERWIN CORTÉS Performed By: Salma Lockhart RDCS
--- NOTE | 2024-10-30 07:12 | HP.PCM.HOS_ITS ---
[facility] - General General Date of Admission: 10/30/24 Date of Service: 10/30/24 Chief Complaint: Chest discomfort HPI Narrative DARRIN LOMBARDI, is a 69 F with past medical history is again for essential hypertension, diabetes mellitus type 2, chronic kidney disease stage III who presented to the emergency department with chest discomfort.Per patient symptoms started around 1 AM on the morning of her presentation. She did develop this chest discomfort across the chest which she described as tightness. Did experience radiation to the neck as well as the right arm. In view of the persistent symptoms patient called the EMS call. She did receive 4 baby aspirin and was transferred to the ED in the ED patient did receive nitroglycerin with relief. On further questioning patient denied any associated nausea no vomiting no shortness of breath. Initial EKG and cardiac enzymes unremarkable. Patient was however noted to have worsening kidney function admitted to a monitored bed for subsequent management [facility] Medical History Obesity (BMI 30-39.9) Left knee pain Insomnia Hypercalcemia Debility Malaise and fatigue CPAP (continuous positive airway pressure) dependence Wears glasses Wears dentures Post-menopausal Depression Walker as ambulation aid Diabetes Easy bruising Dietary restriction TIA (transient ischemic attack) Difficulty swallowing Gastric reflux Asthma On home oxygen therapy Shortness of breath on exertion History of edema History of echocardiogram History of stress test Positive colorectal cancer screening using Cologuard test Health care maintenance Preventative health care Chronic back pain Lightheadedness Flu vaccine need Shortness of breath Right-sided chest pain Flu vaccine need Right hip pain Acute bronchitis, unspecified Cough Arthritis Hypothyroidism Hyperlipemia Borderline diabetes Hypertension Dislocation of ankle joint PND (paroxysmal nocturnal dyspnea) Stage 4 very severe COPD by GOLD classification Home Medications ?Medication ?Instructions ?Recorded ?Last Taken ?Type aspirin 81 mg tablet,delayed 81 mg PO DAILY heart heal th 10/04/13 07/26/23 History release blood sugar diagnostic #100 ea 03/12/22 Unknown Rx Disability Placard #1 ea 11/30/22 Unknown Rx Electric Scooter #1 ea 07/12/23 Unknown Rx lisinopril 20 mg tablet 20 mg PO BID blood pressure #180 11/28/23 01/17/24 Rx tabs budesonide-formoterol HFA 160 2 puff inhalation Q12H s hortness 08/13/24 Unknown Rx mcg-4.5 mcg/actuation aerosol of breath #10.2 grams inhaler (Symbicort) bupropion HCl 200 mg tablet,12 hr 200 mg PO DAILY depr ession #90 ea 08/13/24 Unknown Rx sustained-release (Wellbutrin SR) hydrochlorothiazide 25 mg tablet 25 mg PO DAILY blood pressure #90 08/13/24 Unknown Rx tabs rosuvastatin 20 mg tablet 20 mg PO DAILY cholesterol #90 08/13/24 Unknown Rx tabs tiotropium bromide 18 mcg capsule 1 cap inhalation 150 0 shortness of 08/13/24 Unknown Rx with inhalation device (Spiriva breath #30 caps with HandiHaler) albuterol sulfate 90 mcg/actuation 2 puff inhalation Q 6H PRN 09/21/24 Unknown Rx aerosol inhaler (Ventolin HFA) shortness of breath or wheezing #8.5 grams ipratropium 0.5 mg-albuterol 3 mg 3 ml inhalation Q4H PRN shortness 09/21/24 Unknown Rx (2.5 mg base)/3 mL nebulization of breath or wheezing #180 mL soln semaglutide 0.25 mg or 0.5 mg (2 0.25 mg (0.368 mL) ford bcut QWEEK #3 09/26/24 10/04/24 Rx mg/3 mL) subcutaneous pen injector mL (Ozempic) Oxygen, Home [Home Oxygen] 2 lpm NASAL CONT PRN hypoxi a/sob 10/05/24 Unknown History pantoprazole 40 mg tablet,delayed 40 mg PO DAILY #90 t abs 10/22/24 Unknown Rx release (Protonix) glimepiride 2 mg tablet 2 mg PO QDAY 3 months #90 ta bs 10/25/24 Unknown Rx levothyroxine 100 mcg tablet 100 mcg PO DAILY #90 TABL ETS 10/25/24 Unknown Rx Allergy/AdvReac Type Severity Reaction Status Date / Time No Known Allergies Allergy Verified 10/30/24 03:26 Family History Mother Cancer Leukemia Father COPD (chronic obstructive pulmonary disease) Grandfather Cancer Grandmother Diabetes Surgical History Hx of tubal ligation Social History Smoking Status: Former smoker how long ago did patient quit smokin, .05p/day second hand exposure: Yes alcohol intake: never substance use type: crack/cocaine caffeine: Yes (2/day) what type of physical activity do you participate in: none ROS ROS Narrative GENERAL: denies fever, chills, night sweats, weight loss, anorexia HEENT: denies headache, sinus congestion, or drainage, dysphagia RESPIRATORY: denies cough, sputum production, shortness of breath, dyspnea on exertion CARDIAC: denies palpitations, orthopnea, PND GASTROINTESTINAL: denies abdominal pain, nausea, vomiting, melena, GENITOURINARY: denies dysuria, urgency, frequency, heamaturia EXTREMITY: denies swelling MUSCULOSKELETAL: denies current joint pain or tenderness NEUROLOGIC: denies focal numbness, weakness, tingling HEMATOLOGIC: denies easy bruising and/or hemorrhage INTEGUMENT: denies rashes PSYCHIATRIC: denies suicidal or homicidal ideation Vital Signs Vital Signs Vital Signs: 10/30/24 03:27 10/30/24 03:27 10/30/24 03:34 Temperature 97.8 F Temperature Source Oral Pulse Rate 96 Respiratory Rate 18 Respiratory Effort Normal Blood Pressure 152/71 H Blood Pressure Mean 98 Pulse Ox 92 94 Oxygen Delivery Method Room Air Room Air 10/30/24 04:26 10/30/24 06:00 10/30/24 06:38 Temperature 98.3 F Temperature Source Pulse Rate 80 79 82 Respiratory Rate 18 18 16 Respiratory Effort Blood Pressure 133/67 H 139/98 H 124/77 H Blood Pressure Mean 89 111 92 Pulse Ox 93 94 94 Oxygen Delivery Method Room Air Room Air Weight Weight: 94.2 kg Body Mass Index (BMI) 35.6 Physical Exam Narrative GENERAL: cooperative HEENT: Atraumatic; normocephalic EYES; Anicteric, Normal Conjunctiva NECK; supple, normal thyroid, RESPIRATORY: Diminished to auscultation CARDIOVASCULAR: Regular S1 S2, GI: soft, normoactive bowel sounds, : No Renal angle tenderness; EXTREMITIES: No edema, no clubbing, MUSCULOSKELETAL: no muscle wasting NEURO: Awake; no lateralizing signs. SKIN: No Rash PSYCH; Flat affect Results Lab / Micro Data 10/30/24 03:33 10/30/24 03:33 Labs: Laboratory Results - last 24 hr 10/30/24 03:33: WBC 11.7 H, RBC 4.45, Hgb 12.1, Hct 37.7, MCV 84.7, MCH 27.2, MCHC 32.1, RDW Std Deviation 43.9, RDW Coeff of Navya 14.3, Plt Count 252, MPV 11.2, Immature Gran % (Auto) 0.300, Neut % (Auto) 78.8 H, Lymph % (Auto) 11.0 L, [place] % (Auto) 6.9, Eos % (Auto) 2.6, Baso % (Auto) 0.4, Absolute Neuts (auto) 9.2 H, Absolute Lymphs (auto) 1.29, Nucleated RBC % 0, Sodium 137, Potassium 3.7, Chloride 97 L, Carbon Dioxide 26.0, Anion Gap 14, BUN 35 H, Creatinine 2.41 H, Estim Creat Clear Calc 23.83 L, Est GFR (MDRD) Non-Af 21 L, BUN/Creatinine Ratio 14.4, Glucose 211 H, Calcium 10.1, Troponin T High Sens 27 H, NT pro BNP II 74 10/30/24 04:41: Urine Color Yellow, Urine Clarity Clear, Urine pH 5.0, Ur Specific [place] 1.020, Urine Protein 30 H, Urine Glucose (UA) 1000 H, Urine Ketones Negative, Urine Occult Blood Negative, Urine Nitrite Negative, Urine Bilirubin Negative, Urine Urobilinogen Normal, Ur Leukocyte Esterase 25 H, Urine RBC 0-5 SEEN, Urine WBC 5-10 SEEN, Ur Squamous Epith Cells 10-25 SEEN, Ur Transition Epith Cell 0-5 SEEN, Urine Bacteria 1+, Urine Mucus 0 SEEN 10/30/24 05:36: Troponin T Hi Sens 2 Hr 22 H Imaging Radiology Impression Chest X-Ray 10/30/24 03:49 IMPRESSION: Emphysema. No radiographic evidence for acute abnormality. Reading [facility] Assessment & Plan Assessment/Plan (1) Acute kidney injury: (2) Chest pain: PLAN: Plan Patient is a 69-year-old lady presenting with chest pain 1. Chest pain Patient has been admitted to a monitored bed plan is to rule out VT with serial cardiac enzymes and EKGs. Plan is for patient to undergo nuclear stress test once VT is ruled out. As part of the management ordered 2D echo 2. Acute kidney injury ? Superimposed on chronic kidney disease stage III. Creatinine from 10/05/2024 was 1.60 creatinine on admission was 2.41 patient started on IV hydration ordered repeat BMP in a.m. for follow-up also did obtain renal ultrasound 3. Diabetes mellitus type II -patient's oral hypoglycemics held. Placed on long acting insulin, Accu-Cheks a.c. and at bedtime and covered with sliding scale insulin 4. COPD ? Currently not in exacerbation did continue patient aerosol treatment 5. Essential hypertension ? Patient is on lisinopril as well as HCTZ in view of worsening kidney function these were discontinued 6. Hypothyroidism ? Patient is on levothyroxine discontinued 7. GERD ? Patient is on PPI 8. Chronic hypoxic respiratory failure ? Patient is on home oxygen?continue 9. Dyslipidemia ?Patient is on statin therapy, continued at home dose 10. Class II obesity with BMI of 36 Complicating care weight loss advised 11. DVT prophylaxis Subcu heparin Advance planning; did discuss with the patient regarding advanced directives as well as CODE STATUS. Did explain the various scenarios involved ( FULL CODE, DNR CCA, DNR CCA with no intubation, and DNR CC and what each meant) patient elected to remain full code with CPR intubation if needed. Order was placed. Time spent on discussion 16 minutes. Charges/Coding Multi Select Codes Visit Charges Visit Charges: 36471 Init Hosp Hospitalists' Procedures Procedures: 97884 Advncd Care Plan 30 Min
[2024-10-30] MEDS: Ceftriaxone 1 GM/50 ML BAG IV (07:47)
[2024-10-30 08:27] LABS: Troponin T High Sens 4 HR 71 ng/L (<=14)
[2024-10-30] MEDS: Aspirin E.C. 81 MG Tablet PO (09:17)
[2024-10-30] MEDS: 0.9% Saline Lock 10 ML Syringe IV ×2 (09:21→11:54)
[2024-10-30] MEDS: 0.9% Normal Saline (1000mL) 1,000 ML 125 ML IV (09:25)
--- NOTE | 2024-10-30 10:08 | EKG12_ITS ---
Test Reason : Blood Pressure : */* mmHG Vent. Rate : 76 BPM Atrial Rate : 76 BPM P-R Int : 200 ms QRS Dur : 84 ms QT Int : 426 ms P-R-T Axes : 75 24 61 degrees QTcB Int : 479 ms Normal sinus rhythm Nonspecific ST and T wave abnormality Abnormal ECG When compared with ECG of 30-Oct-2024 03:35, MANUAL COMPARISON REQUIRED DATA IS UNCONFIRMED Confirmed by Higinio Alvarez ([id number]), multimedia editor OVI STEPHEN ([id number]) on 11/01/2024 9:43:04 AM Referred By: MARK Confirmed By: Higinio Alvarez
[2024-10-30] MEDS: Acetaminophen 325 MG Tablet 650 MG PO (11:54)
[2024-10-30] MEDS: Ondansetron 4 MG/2 ML Vial IV (11:54)
[2024-10-30 12:06] LABS: Bedside Glucose 73 mg/dL (74-106)
--- NOTE | 2024-10-30 12:22 | STRESSREP ---
Stress Test Report Pharmacologic myocardial perfusion stress test. 69-year-old lady with a history of chest pain Resting EKG demonstrates sinus rhythm with a rate of 74 bpm. Resting blood pressure is 142/78 mmHg. 0.4 mg of regadenoson was infused per usual protocol followed by rapid intravenous saline flush injection. Continuous EKG monitoring was performed. The maximum heart rate was 115 bpm which was 77% of max impacted heart rate the maximum workload was 1 metabolic equivalent. At rest there were no ST or T wave changes noted to suggest ischemia and at peak infusion nonspecific ST changes were noted which did not meet the criteria for ischemia. No clinical angina is noted. The final blood pressure was 130/72 mmHg. Myocardial perfusion protocol. 12.0 mCi of technetium 99m sestamibi was injected at rest. 0.4 mg of regadenoson was infused per usual protocol. At peak infusion 33.9 mCi of technetium 99m sestamibi was injected stress images were obtained stress and rest images were reconstructed and compared in the short axis vertical long and horizontal long axis. Gated images were also obtained. Perfusion SPECT analysis: Review of the stress images demonstrate normal uptake of tracer noted in all areas of the myocardium. The resting images similar demonstrated normal uptake of tracer noted in all areas of the myocardium. No areas of reversibility are noted to suggest ischemia and no previous infarct is noted. Gated SPECT analysis: The gated ejection fraction is 72%. Conclusion: Normal pharmacologic myocardial perfusion stress test. Preserved ejection fraction.
[2024-10-30] MEDS: Albuterol 2.5 MG/3 ML VIAL.NEB. INHALATION (12:57)
--- NOTE | 2024-10-30 13:54 | DS.PCM_ITS ---
Providers Date of Admission: 10/30/24 Date of Discharge: 10/30/24 Primary Care Physician: Dr. Erwin Cortés MD Reason For Visit: CHEST PAIN Diagnosis Discharge Diagnosis (1) Acute kidney injury: Status: Acute Code(s): N17.9 - Acute kidney failure, unspecified (2) Chest pain: Status: Acute Code(s): R07.9 - Chest pain, unspecified Plan Patient is a 69-year-old lady presenting with chest pain 1. Chest pain Patient has been admitted to a monitored bed plan is to rule out PA with serial cardiac enzymes and EKGs. Plan is for patient to undergo nuclear stress test once PA is ruled out. As part of the management ordered 2D echo ? Patient 2D echo demonstrated EF of 60%. Nuclear stress test was negative for stress-induced ischemia 2. Acute kidney injury ? Superimposed on chronic kidney disease stage III. Creatinine from 10/05/2024 was 1.60 creatinine on admission was 2.41 patient started on IV hydration ordered repeat BMP in a.m. for follow-up also did obtain renal ultrasound demonstrated 1. Decreased right renal parenchymal thickness. 2. Increased bilateral renal echogenicity, possibly secondary to chronic parenchymal renal disease. 3. Scattered right renal simple cysts. 4. No evidence of hydronephrosis or calculi on either side. 5. The bladder was not visualized. 6. Patient voided prior to exam. 7. Bilateral ureteral jets were not visualized. Plan for patient to follow-up with primary care physician for repeat labs. 3. Diabetes mellitus type II -patient's oral hypoglycemics held. Placed on long acting insulin, Accu-Cheks a.c. and at bedtime and covered with sliding scale insulin 4. COPD ? Currently not in exacerbation did continue patient aerosol treatment 5. Essential hypertension ? Patient is on lisinopril as well as HCTZ in view of worsening kidney function these were discontinued - Patient's hydrochlorothiazide and lisinopril discontinued given worsening kidney function. New prescription was written for amlodipine and hydralazine 6. Hypothyroidism ? Patient is on levothyroxine discontinued 7. GERD ? Patient is on PPI 8. Chronic hypoxic respiratory failure ? Patient is on home oxygen?continue 9. Dyslipidemia ?Patient is on statin therapy, continued at home dose 10. Class II obesity with BMI of 36 Complicating care weight loss advised 11. DVT prophylaxis Subcu heparin 12. Acute cystitis ? Patient did receive ceftriaxone cultures and discharged on ciprofloxacin plan is for patient to follow-up with primary care physician for results of urine cultures Medications at Discharge Home Medications aspirin 81 mg tablet,delayed release 81 mg PO DAILY heart health 10/04/13 blood sugar diagnostic #100 ea 03/12/22 Disability Placard #1 ea 11/30/22 Electric Scooter #1 ea 07/12/23 budesonide-formoterol HFA 160 mcg-4.5 mcg/actuation aerosol inhaler (Symbicort) 2 puff inhalation Q12H shortness of breath #10.2 grams 08/13/24 bupropion HCl 200 mg tablet,12 hr sustained-release (Wellbutrin SR) 200 mg PO DAILY depression #90 ea 08/13/24 rosuvastatin 20 mg tablet 20 mg PO DAILY cholesterol #90 tabs 08/13/24 tiotropium bromide 18 mcg capsule with inhalation device (Spiriva with HandiHaler) 1 cap inhalation 1500 shortness of breath #30 caps 08/13/24 albuterol sulfate 90 mcg/actuation aerosol inhaler (Ventolin HFA) 2 puff inhalation Q6H PRN shortness of breath or wheezing #8.5 grams 09/21/24 ipratropium 0.5 mg-albuterol 3 mg (2.5 mg base)/3 mL nebulization soln 3 ml inhalation Q4H PRN shortness of breath or wheezing #180 mL 09/21/24 semaglutide 0.25 mg or 0.5 mg (2 mg/3 mL) subcutaneous pen injector (Ozempic) 0.25 mg (0.368 mL) subcut QWEEK #3 mL 09/26/24 Oxygen, Home [Home Oxygen] 2 lpm NASAL CONT PRN hypoxia/sob 10/05/24 pantoprazole 40 mg tablet,delayed release (Protonix) 40 mg PO DAILY #90 tabs 10/22/24 glimepiride 2 mg tablet 2 mg PO QDAY 3 months #90 tabs 10/25/24 levothyroxine 100 mcg tablet 100 mcg PO DAILY #90 TABLETS 10/25/24 amlodipine 10 mg tablet 10 mg PO DAILY #30 tabs 10/30/24 ciprofloxacin HCl 500 mg tablet 500 mg PO BID #14 tabs 10/30/24 hydralazine 25 mg tablet 25 mg PO BID 30 days #60 tabs 10/30/24 Hospital Course Summary of Care Provided Minutes Spent on Discharge: 85 Hospital Course: Patient hydrochlorothiazide and lisinopril discontinued given worsening kidney function Physical Exam Narrative GENERAL: cooperative HEENT: Atraumatic; normocephalic EYES; Anicteric, Normal Conjunctiva NECK; supple, normal thyroid, RESPIRATORY: Diminished to auscultation CARDIOVASCULAR: Regular S1 S2, GI: soft, normoactive bowel sounds, : No Renal angle tenderness; EXTREMITIES: No edema, no clubbing, MUSCULOSKELETAL: no muscle wasting NEURO: Awake; no lateralizing signs. SKIN: No Rash PSYCH; Flat affect Weight / BMI Weight Weight: 97.3 kg Body Mass Index (BMI) 36.8 ABG / Lab / Microbiology Data 10/30/24 03:33 10/30/24 03:33 Laboratory: Laboratory Results - last 24 hr 10/30/24 03:33: WBC 11.7 H, RBC 4.45, Hgb 12.1, Hct 37.7, MCV 84.7, MCH 27.2, MCHC 32.1, RDW Std Deviation 43.9, RDW Coeff of Navya 14.3, Plt Count 252, MPV 11.2, Immature Gran % (Auto) 0.300, Neut % (Auto) 78.8 H, Lymph % (Auto) 11.0 L, [place] % (Auto) 6.9, Eos % (Auto) 2.6, Baso % (Auto) 0.4, Absolute Neuts (auto) 9.2 H, Absolute Lymphs (auto) 1.29, Nucleated RBC % 0, Sodium 137, Potassium 3.7, Chloride 97 L, Carbon Dioxide 26.0, Anion Gap 14, BUN 35 H, Creatinine 2.41 H, Estim Creat Clear Calc 23.83 L, Est GFR (MDRD) Non-Af 21 L, BUN/Creatinine Ratio 14.4, Glucose 211 H, Calcium 10.1, Troponin T High Sens 27 H, NT pro BNP II 74 10/30/24 04:41: Urine Color Yellow, Urine Clarity Clear, Urine pH 5.0, Ur Specific [place] 1.020, Urine Protein 30 H, Urine Glucose (UA) 1000 H, Urine Ketones Negative, Urine Occult Blood Negative, Urine Nitrite Negative, Urine Bilirubin Negative, Urine Urobilinogen Normal, Ur Leukocyte Esterase 25 H, Urine RBC 0-5 SEEN, Urine WBC 5-10 SEEN, Ur Squamous Epith Cells 10-25 SEEN, Ur Transition Epith Cell 0-5 SEEN, Urine Bacteria 1+, Urine Mucus 0 SEEN 10/30/24 05:36: Troponin T Hi Sens 2 Hr 22 H 10/30/24 07:45: Troponin T Hi Sens 4Hr 71 H* 10/30/24 11:45: POC Glucose 73 L Radiography Diagnostic Testing: Radiology Impression Chest X-Ray 10/30/24 03:49 IMPRESSION: Emphysema. No radiographic evidence for acute abnormality. Reading [id number]ound 10/30/24 06:46 IMPRESSION: 1. Decreased right renal parenchymal thickness. 2. Increased bilateral renal echogenicity, possibly secondary to chronic parenchymal renal disease. 3. Scattered right renal simple cysts. 4. No evidence of hydronephrosis or calculi on either side. 5. The bladder was not visualized. 6. Patient voided prior to exam. 7. Bilateral ureteral jets were not visualized. Reading Location: [id number] Echocardiogram 10/30/24 07:11 Interpretation Summary Normal LV size. The left ventricular ejection fraction is 60 %. Stage 1 diastolic dysfunction. The study was technically difficult. Structurally normal valves. Ordering Physician: Danny Dyson Referring Physician: ERWIN CORTÉS Performed By: Salma Lockhart RDCS D/C Instructions Discharge Diet: No restrictions Discharge Activity: Return to Normal Activity Call your doctor if you observe: Fever of 101 or Higher, Shortness of breath, Fainting spells and Chest pain DC O2, CPAP, BIPAP Needs Home O2 Discharge instructions: No Meaningful Use Info Meaningful Use Meaningful Use Diagnoses (Choose all that apply): None applicable Ischemic Stroke Statin Dosing Therapy Reference: STATIN DOSE THERAPY REFERENCE: * Patients > 75 years receive moderate or high dose statin therapy. * Patients 75 years or YOUNGER should receive HIGH intensity statin dose unless contraindicated. You will be required to document reason for non-treatment if statin daily dose does not meet guidelines. HIGH DOSE STATIN THERAPY DAILY Atorvastatin > than or = to 40 mg Rosuvastatin > than or = to 20 mg Amlodipine + Atorvastatin > than or = to 2.5/40 mg Ezetimibe + Simvastatin 10/80 mg Simvastatin 80mg Discharge Plan Admission Admit Date/Time: 10/30/24 07:04 Attending Provider: Danny Dyson Primary Care Provider: Erwin Cortés Discharge Orders/Prescriptions Prescriptions: New amlodipine 10 mg tablet 10 mg PO DAILY Qty: 30 0RF hydralazine 25 mg tablet 25 mg PO BID 30 Days Qty: 60 0RF ciprofloxacin HCl 500 mg tablet 500 mg PO BID Qty: 14 0RF Continued Ozempic 0.25 mg or 0.5 mg (2 mg/3 mL) pen injector 0.25 mg subcut QWEEK Qty: 3 1RF Rx Instructions: for 4 weeks aspirin 81 MG tablet,delayed release (DR/EC) 81 mg PO DAILY Oxygen, Home [Home Oxygen] 2 lpm NASAL CONT PRN (Reason: hypoxia/sob) (DME) blood sugar diagnostic Strip See Dose Instructions .ROUTE .MEDSUPPLY Qty: 100 2RF Dose Instruction: As directed Rx Instructions: As directed check bs twice a day (DME) Disability Placard See Rx Instructions .Route .MEDSUPPLY Qty: 1 0RF Rx Instructions: expires 12/01/2027 (DME) Electric Scooter See Rx Instructions .Route .MEDSUPPLY Qty: 1 0RF Rx Instructions: As directed budesonide-formoterol [Symbicort] 160-4.5 mcg/actuation HFA aerosol inhaler 2 puff INHALATION Q12H Qty: 10.2 11RF tiotropium bromide [Spiriva with HandiHaler] 18 mcg capsule, w/inhalation device 1 cap inhalation 1500 Qty: 30 11RF Rx Instructions: inhale contents of 1 capsule by mouth once daily bupropion HCl [Wellbutrin SR] 200 mg tablet sustained-release 12 hr 200 mg PO DAILY Qty: 90 3RF rosuvastatin 20 mg tablet 20 mg PO DAILY Qty: 90 3RF albuterol sulfate [Ventolin HFA] 90 mcg/actuation HFA aerosol inhaler 2 puff INHALATION Q6H PRN (Reason: shortness of breath or wheezing) Qty: 8.5 3RF ipratropium-albuterol 0.5 mg-3 mg(2.5 mg base)/3 mL solution for nebulization 3 ml INHALATION Q4H PRN (Reason: shortness of breath or wheezing) Qty: 180 0RF pantoprazole [Protonix] 40 mg tablet,delayed release (DR/EC) 40 mg PO DAILY Qty: 90 1RF levothyroxine 100 mcg tablet 100 mcg PO DAILY Qty: 90 1RF glimepiride 2 mg tablet 2 mg PO QDAY 90 Days Qty: 90 1RF Discontinued lisinopril 20 mg tablet 20 mg PO BID Qty: 180 3RF hydrochlorothiazide 25 mg tablet 25 mg PO DAILY Qty: 90 3RF Referrals / Follow Up: Erwin Cortés MD [Primary Care Provider] - Charges/Coding Visit Charges OBSV E&M: 94848 Observ/hosp same date L3
--- NOTE | 2024-10-30 15:22 | CHAPLAIN ---
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
--- NOTE | 2024-10-30 16:29 | PHA.DC_ITS ---
Pharmacy [facility] has performed discharge medication reconciliation and counseling for this patient. The patient's discharge medication list was reviewed for discrepancies and discrepancies were resolved. The patient was counseled on the following discharge medications and changes in medications for homegoing were reviewed. The Reason for Use, instructions for use, and potential side effects were reviewed for all new medications. The patient's questions regarding all of their medications were answered. 1. Ciprofloxacin 500 mg PO BID x 7 days 2. Amlodipine 10 mg PO daily 3. Hydralazine 25 mg PO BID The patient was able to verbally demonstrate an understanding of their discharge medications. Medications at Discharge Home Medications aspirin 81 mg tablet,delayed release 81 mg PO DAILY [facility] 10/04/13 blood sugar diagnostic #100 ea 03/12/22 Disability Placard #1 ea 11/30/22 Electric Scooter #1 ea 07/12/23 budesonide-formoterol HFA 160 mcg-4.5 mcg/actuation aerosol inhaler (Symbicort) 2 puff inhalation Q12H shortness of breath #10.2 grams 08/13/24 bupropion HCl 200 mg tablet,12 hr sustained-release (Wellbutrin SR) 200 mg PO DAILY depression #90 ea 08/13/24 rosuvastatin 20 mg tablet 20 mg PO DAILY cholesterol #90 tabs 08/13/24 tiotropium bromide 18 mcg capsule with inhalation device (Spiriva with HandiHaler) 1 cap inhalation 1500 shortness of breath #30 caps 08/13/24 albuterol sulfate 90 mcg/actuation aerosol inhaler (Ventolin HFA) 2 puff inhalation Q6H PRN shortness of breath or wheezing #8.5 grams 09/21/24 ipratropium 0.5 mg-albuterol 3 mg (2.5 mg base)/3 mL nebulization soln 3 ml inhalation Q4H PRN shortness of breath or wheezing #180 mL 09/21/24 semaglutide 0.25 mg or 0.5 mg (2 mg/3 mL) subcutaneous pen injector (Ozempic) 0.25 mg (0.368 mL) subcut QWEEK #3 mL 09/26/24 Oxygen, Home [Home Oxygen] 2 lpm NASAL CONT PRN hypoxia/sob 10/05/24 pantoprazole 40 mg tablet,delayed release (Protonix) 40 mg PO DAILY #90 tabs 10/22/24 glimepiride 2 mg tablet 2 mg PO QDAY 3 months #90 tabs 10/25/24 levothyroxine 100 mcg tablet 100 mcg PO DAILY #90 TABLETS 10/25/24 amlodipine 10 mg tablet 10 mg PO DAILY #30 tabs 10/30/24 ciprofloxacin HCl 500 mg tablet 500 mg PO BID #14 tabs 10/30/24 hydralazine 25 mg tablet 25 mg PO BID 30 days #60 tabs 10/30/24
--- NOTE | 2024-10-30 16:38 | CASEMGMT ---
Patient has order for discharge. RN CM in to discuss needs at discharge. Patient denies needs or help at discharge. Patient had no further questions or concerns.
[2024-10-30] MEDS: Pantoprazole Sodium 40 MG Tablet PO (16:45)
[2024-10-30] MEDS: buPROPion (SR) 100 MG TABLET.SA 200 MG PO (16:45)
[2024-10-31 14:03] LABS: Bedside Glucose 81 mg/dL (74-106)
== END 2024-10-30 16:01 | disposition home or self-care (01) ==
LOC: ED 07:08 → PCU 07:46
PROVIDERS: Admitting Provider Internal Medicine; Emergency Provider Emergency Medicine; PCP Internal Medicine; Visit Provider Internal Medicine
DX: R07.89 Other chest pain (principal); J96.11 Chronic respiratory failure with hypoxia; J43.9 Emphysema, unspecified; E11.22 Type 2 diabetes mellitus with diabetic chronic kidney disease; E03.9 Hypothyroidism, unspecified; N17.9 Acute kidney failure, unspecified; I12.9 Hypertensive chronic kidney disease with stage 1 through stage 4 chronic kidney disease, or unspecified chronic kidney disease; E78.5 Hyperlipidemia, unspecified; K21.9 Gastro-esophageal reflux disease without esophagitis; M54.9 Dorsalgia, unspecified; N30.00 Acute cystitis without hematuria; E66.812 Obesity, class 2; Z68.36 Body mass index [BMI] 36.0-36.9, adult; Z99.81 Dependence on supplemental oxygen; Z79.51 Long term (current) use of inhaled steroids; Z79.82 Long term (current) use of aspirin; Z79.84 Long term (current) use of oral hypoglycemic drugs; Z79.85 Long-term (current) use of injectable non-insulin antidiabetic drugs; Z79.890 Hormone replacement therapy; Z79.899 Other long term (current) drug therapy; Z87.891 Personal history of nicotine dependence; Z86.73 Personal history of transient ischemic attack (TIA), and cerebral infarction without residual deficits
CPT/HCPCS: 71046; 76770; 78452; 80048; 81001; 82962; 83880; 84484; 85025; 87086; 87088; 93005; 93017; 93306; 94640; 94668; 96361; 96365; 96375; 99221; 99285; A9500; A4216; G0378; J2405; J2785

== ENCOUNTER 2024-11-24 18:30 | Emergency (ER) | payer MEDICARE, MEDICAID, SELFPAY ==
[2024-11-24 18:31] VITALS: BP 153/99; PULSE 122; RESP 30; TEMP 36.6; O2SAT 92; BMI 42.1
--- NOTE | 2024-11-24 18:48 | CT_ITS ---
PROCEDURE: ABDOMEN/PELVIS WITHOUT CONT 11/24/2024 REASON FOR EXAM: ABDOMINAL PAIN, VOMITING TECHNIQUE: Abdomen and pelvis CT without intravenous contrast. Noncontrast technique limits evaluation of the abdominal and pelvic viscera. Coronal and Sagittal reconstruction series were provided. One or more dose reduction techniques were used (e.g., Automated exposure control, adjustment of the mA and/or kV according to patient size, use of iterative reconstruction technique). PATIENT PREPARATION: Per protocol ORAL CONTRAST TYPE: None. AMOUNT: mL COMPARISON: CT abdomen and pelvis 07/27/2023 FINDINGS: Lung bases: Emphysema within the imaged lung bases. Liver: Steatosis. No focal lesion. Gallbladder: No ductal dilation. Cholelithiasis without cholecystitis. Spleen: Normal size. Pancreas: Normal size. No surrounding inflammation. Adrenals: Unremarkable. Kidneys: Bilateral simple cysts. No calculi or hydronephrosis. Bladder: Urinary bladder is unremarkable. Reproductive Organs: Status post tubal ligation. Bowel: Stomach is unremarkable. No bowel dilation or wall thickening. Large amount of colonic stool with fecal impaction. Appendix: Normal appendix. Lymph nodes: Unremarkable. Vasculature: The abdominal aorta and IVC contours are normal. Noncontrast technique limits evaluation. Diffuse atherosclerotic calcifications. Peritoneum / Retroperitoneum: No ascites. No pneumoperitoneum. Bones: Bilateral femoral avascular necrosis. Degenerative changes of the lumbar spine. CT/Abdomen/Pelvis without Cont IMPRESSION: No acute findings in the abdomen and pelvis. Large amount of colonic stool. Bilateral femoral head avascular necrosis. OVERALL FINAL ASSESSMENT: . LI-RADS is not meant to be used in patients <18 years or patients with cirrhosi s due to congenital hepatic fibrosis or due to vascular disorders, because these patients have a lower chance of developing HC C. Reading Location: [facility]
[2024-11-24] MEDS: 0.9% Normal Saline (1000mL) 1,000 ML 999 ML IV (18:50)
[2024-11-24] MEDS: Ondansetron 4 MG/2 ML Vial IV (18:50)
--- NOTE | 2024-11-24 18:50 | EDS_ITS ---
HPI <LISSETH Mclain - Last Filed: 11/24/24 21:19> History of Present Illness Chief Complaint: Nausea/Vomiting Narrative Narrative: 69-year-old female with PMH of HTN, HLD, COPD, DM2, CKD presents with 3 days of nausea and vomiting. She has also had headache and increased cough. She states she feels worse in the mornings with vomiting and then can usually keep down her medications. She was started on Ozempic a month ago but had nausea/vomiting issues so discontinued it 8 days ago. She takes metformin and was instructed to restart Jardiance after stopping Ozempic. She also was previously on glimepiride but did not restart this. She has had an occasional abdominal cramp in the suprapubic area but no overt pain. She had a BM several days ago. No diarrhea or bloody stools. Her urine looks dark but she has no dysuria. She has no history of abdominal surgeries. PFSH <LISSETH Mclain - Last Filed: 11/24/24 21:19> [facility] Medical History Obesity (BMI 30-39.9) Left knee pain Insomnia Hypercalcemia Debility Malaise and fatigue CPAP (continuous positive airway pressure) dependence Wears glasses Wears dentures Post-menopausal Depression Walker as ambulation aid Diabetes Easy bruising Dietary restriction TIA (transient ischemic attack) Difficulty swallowing Gastric reflux Asthma On home oxygen therapy Shortness of breath on exertion History of edema History of echocardiogram History of stress test Positive colorectal cancer screening using Cologuard test Health care maintenance Preventative health care Chronic back pain Lightheadedness Flu vaccine need Shortness of breath Right-sided chest pain Flu vaccine need Right hip pain Acute bronchitis, unspecified Cough Arthritis Hypothyroidism Hyperlipemia Borderline diabetes Hypertension Dislocation of ankle joint PND (paroxysmal nocturnal dyspnea) Stage 4 very severe COPD by GOLD classification Home Medications ?Medication ?Instructions ?Recorded ?Last Taken ?Type aspirin 81 mg tablet,delayed 81 mg PO DAILY heart heal th 10/04/13 07/26/23 History release blood sugar diagnostic #100 ea 03/12/22 Unknown Rx Disability Placard #1 ea 11/30/22 Unknown Rx Electric Scooter #1 ea 07/12/23 Unknown Rx budesonide-formoterol HFA 160 2 puff inhalation Q12H s hortness 08/13/24 Unknown Rx mcg-4.5 mcg/actuation aerosol of breath #10.2 grams inhaler (Symbicort) bupropion HCl 200 mg tablet,12 hr 200 mg PO DAILY depr ession #90 ea 08/13/24 Unknown Rx sustained-release (Wellbutrin SR) rosuvastatin 20 mg tablet 20 mg PO DAILY cholesterol #90 08/13/24 Unknown Rx tabs tiotropium bromide 18 mcg capsule 1 cap inhalation 150 0 shortness of 08/13/24 Unknown Rx with inhalation device (Spiriva breath #30 caps with HandiHaler) albuterol sulfate 90 mcg/actuation 2 puff inhalation Q 6H PRN 09/21/24 Unknown Rx aerosol inhaler (Ventolin HFA) shortness of breath or wheezing #8.5 grams ipratropium 0.5 mg-albuterol 3 mg 3 ml inhalation Q4H PRN shortness 09/21/24 Unknown Rx (2.5 mg base)/3 mL nebulization of breath or wheezing #180 mL soln Oxygen, Home [Home Oxygen] 2 lpm NASAL CONT PRN hypoxi a/sob 10/05/24 Unknown History pantoprazole 40 mg tablet,delayed 40 mg PO DAILY #90 t abs 10/22/24 Unknown Rx release (Protonix) glimepiride 2 mg tablet 2 mg PO QDAY 3 months #90 ta bs 10/25/24 Unknown Rx levothyroxine 100 mcg tablet 100 mcg PO DAILY #90 TABL ETS 10/25/24 Unknown Rx amlodipine 10 mg tablet 10 mg PO DAILY #30 tabs 10/16 12/09 Unknown Rx hydralazine 25 mg tablet 25 mg PO BID 30 days #60 tab s 10/30/24 Unknown Rx blood sugar diagnostic (OneTouch #100 ea 11/16/24 Unkn own Rx Ultra Test strips) sitagliptin phosphate 50 mg tablet 50 mg PO QDAY #90 t abs 11/22/24 Unknown Rx (Januvia) azithromycin 250 mg tablet 250 mg PO DAILY #4 TABLETS 11/24/24 Unknown Rx ondansetron 4 mg disintegrating 4 mg PO Q6H PRN nausea and 11/24/24 Unknown Rx tablet vomiting #12 tabs prednisone 20 mg tablet 40 mg (2 x 20 mg) PO DAILY 4 days 11/24/24 Unknown Rx #8 tabs Allergy/AdvReac Type Severity Reaction Status Date / Time No Known Allergies Allergy Verified 11/09/24 08:58 Family History Mother Cancer Leukemia Father COPD (chronic obstructive pulmonary disease) Grandfather Cancer Grandmother Diabetes Surgical History Hx of tubal ligation Social History Smoking Status: Former smoker how long ago did patient quit smokin, .05p/day second hand exposure: Yes alcohol intake: never substance use type: crack/cocaine caffeine: Yes (2/day) what type of physical activity do you participate in: none ROS <LISSETH Mclain - Last Filed: 11/24/24 21:19> ROS ED ROS Narrative Constitutional: Negative for fever, chills. CVS: Negative for chest pain Respiratory: Positive for cough. GI: Positive for nausea, vomiting. : Negative for dysuria. EXAM <LISSETH Mclain - Last Filed: 11/24/24 21:19> Physical Exam Narrative Exam Narrative: CONST: Patient sitting in no acute distress. EYES: Normal inspection. NECK: Normal inspection. RESP: No respiratory distress, CTAB. CVS: Tachycardic with regular rhythm, no murmur, no gallop. ABD: Soft and nontender, no guarding or rebound, nondistended. Back: Normal inspection, no CVA tenderness. SKIN: Color normal, no rash, warm, dry, intact. EXTREMITIES: Normal appearance, no pedal edema. NEURO: Alert and answering questions appropriately. PSYCH: Normal affect. Const Vital Signs: 11/24/24 18:31 11/24/24 19:19 11/24/24 21:00 Temperature 98 F Temperature Source Temporal Pulse Rate 122 H 98 92 Respiratory Rate 30 H 18 16 Blood Pressure 153/99 H 155/70 H 154/84 H Blood Pressure Mean 117 98 107 Pulse Ox 92 94 96 Oxygen Delivery Method Room Air Room Air Nasal Cannula Oxygen Flow Rate (L/min) 2 11/24/24 21:47 Temperature 98.7 F Temperature Source Pulse Rate 70 Respiratory Rate 16 Blood Pressure 136/84 H Blood Pressure Mean 101 Pulse Ox 94 Oxygen Delivery Method Oxygen Flow Rate (L/min) <Dr. Josse Meza DO - Last Filed: 11/25/24 00:19> Physical Exam Const Vital Signs: 11/24/24 18:31 11/24/24 19:19 11/24/24 21:00 Temperature 98 F Temperature Source Temporal Pulse Rate 122 H 98 92 Respiratory Rate 30 H 18 16 Blood Pressure 153/99 H 155/70 H 154/84 H Blood Pressure Mean 117 98 107 Pulse Ox 92 94 96 Oxygen Delivery Method Room Air Room Air Nasal Cannula Oxygen Flow Rate (L/min) 2 11/24/24 21:47 Temperature 98.7 F Temperature Source Pulse Rate 70 Respiratory Rate 16 Blood Pressure 136/84 H Blood Pressure Mean 101 Pulse Ox 94 Oxygen Delivery Method Oxygen Flow Rate (L/min) MDM <LISSETH Mclain - Last Filed: 11/24/24 21:19> MDM MDM Narrative Medical decision making narrative: Differential includes but not limited to: Viral illness, DKA, bowel obstruction, electrolyte derangement, JEAN 69-year-old female presents with 3 days of headache, cough, nausea and vomiting with inability to keep down fluids. No overt abdominal pain. She appears well and nontoxic. BP 153/99, HR 122, RR 30, 92% on room air. During my exam she is slightly tachycardic but not tachypneic and is in no respiratory distress. She has expiratory wheezing consistent with COPD. Abdomen is soft, nontender, nondistended. She was ordered IV fluids and Zofran while blood work was obtained. WBC is 12.3. Electrolytes are within normal limits. BUN 12, creatinine 1.52?she has CKD and this is improved from previous. Glucose is 149 with normal CO2 and anion gap. There is a new elevation of her liver enzymes with normal lipase. CT shows constipation but no other acute findings and she does report small pebble-like stools over the last few days. After IV fluids and Zofran she is feeling improved and keeping down water at bedside. Vital signs have improved. Of note she did become hypoxic after ambulating to the bathroom was placed on 2 L O2 but she is prescribed 2 L NC at home with activity for her COPD. Her CXR is negative but clinically she has had increased cough and wheezing which is consistent with a COPD exacerbation. I prescribed Zofran and recommended MiraLAX for constipation. For her COPD exacerbation she was given a Z-Neto and prednisone 40 mg x 5 days with first doses of each given here. Regarding her elevated liver enzymes, she should hold her statin and contact her primary care doctor on Tuesday. Return precautions for the above conditions were discussed and she was discharged in stable condition. Lab Data Attestation: I reviewed the patient's lab results. Labs: Laboratory Results - last 24 hr 11/24/24 11/24/24 18:49 20:00 WBC 12.3 H RBC 5.25 Hgb 14.0 Hct 43.6 MCV 83.0 MCH 26.7 L MCHC 32.1 RDW Std Deviation 43.7 RDW Coeff of Navya 14.5 Plt Count 220 MPV 11.2 Immature Gran % (Auto) 0.300 Neut % (Auto) 82.4 H Lymph % (Auto) 5.[address] [place] % (Auto) 6.6 Eos % (Auto) 4.8 Baso % (Auto) 0.3 Absolute Neuts (auto) 10.1 H Absolute Lymphs (auto) 0.69 L Nucleated RBC % 0 Sodium 138 Potassium 3.7 Chloride 100 Carbon Dioxide 22.9 Anion Gap 15 BUN 12 Creatinine 1.52 H Estim Creat Clear Calc 42.94 L Est GFR (MDRD) Non-Af 36 L BUN/Creatinine Ratio 8.1 L Glucose 149 H Lactic Acid 1.4 Calcium 10.7 Total Bilirubin 1.41 H AST 338 H ALT 465 H Alkaline Phosphatase 413 H Total Protein 8.1 Albumin 4.3 Globulin 3.8 Albumin/Globulin Ratio 1.1 Lipase 27 Urine Color Yellow Urine Clarity Clear Urine pH 6.0 Ur Specific [place] 1.015 Urine Protein 100 H Urine Glucose (UA) 1000 H Urine Ketones Negative Urine Occult Blood 50 H Urine Nitrite Negative Urine Bilirubin Negative Urine Urobilinogen Normal Ur Leukocyte Esterase Negative Urine RBC 0 SEEN Urine WBC 0-5 SEEN Ur Squamous Epith Cells 0 SEEN Urine Bacteria 0 SEEN Urine Mucus 0 SEEN Radiography Diagnostic Testing: Clinical Impression(s) from Imaging Studies Abdomen/Pelvis CT 11/24/24 18:48 IMPRESSION: No acute findings in the abdomen and pelvis. Large amount of colonic stool. Bilateral femoral head avascular necrosis. OVERALL FINAL ASSESSMENT: . LI-RADS is not meant to be used in patients <18 years or patients with cirrhosis due to congenital hepatic fibrosis or due to vascular disorders, because these patients have a lower chance of developing HCC. Reading Location: [facility] Chest X-Ray 11/24/24 19:00 IMPRESSION: NO ACUTE FINDINGS. Reading Location: [facility] <Dr. Josse Meza, DO - Last Filed: 11/25/24 00:19> [facility] MDM Narrative Medical decision making narrative: Differential includes but not limited to: Viral illness, DKA, bowel obstruction, electrolyte derangement, JEAN 69-year-old female presents with 3 days of headache, cough, nausea and vomiting with inability to keep down fluids. No overt abdominal pain. She appears well and nontoxic. BP 153/99, HR 122, RR 30, 92% on room air. During my exam she is slightly tachycardic but not tachypneic and is in no respiratory distress. She has expiratory wheezing consistent with COPD. Abdomen is soft, nontender, nondistended. She was ordered IV fluids and Zofran while blood work was obtained. WBC is 12.3. Electrolytes are within normal limits. BUN 12, creatinine 1.52?she has CKD and this is improved from previous. Glucose is 149 with normal CO2 and anion gap. There is a new elevation of her liver enzymes with normal lipase. CT shows constipation but no other acute findings and she does report small pebble-like stools over the last few days. After IV fluids and Zofran she is feeling improved and keeping down water at bedside. Vital signs have improved. Of note she did become hypoxic after ambulating to the bathroom was placed on 2 L O2 but she is prescribed 2 L NC at home with activity for her COPD. Her CXR is negative but clinically she has had increased cough and wheezing which is consistent with a COPD exacerbation. I prescribed Zofran and recommended MiraLAX for constipation. For her COPD exacerbation she was given a Z-Neto and prednisone 40 mg x 5 days with first doses of each given here. Regarding her elevated liver enzymes, she should hold her statin and contact her primary care doctor on Tuesday. Return precautions for the above conditions were discussed and she was discharged in stable condition. Attending note: I have personally performed a face to face assessment of the patient and have reviewed the CRISTINE note. I personally made/approved the management plan and take responsibility for the patient management. I performed a substantive portion of the visit including all aspects of the following. My yancey findings include: Nausea and vomiting last couple days productive of clear sputum since yesterday. Recent Ozempic use last use 8 days ago. Had vomiting with initial use. No abdominal surgeries. History of COPD on oxygen as needed. No fevers. Recent only small bowel movements. Exam current nasal cannula no respiratory stress lungs are clear abdomen nondistended with bowel sounds. Workup to be chest x-ray inter myself shows no acute process. CT abdomen pelvis no obstruction no acute process. Labs white count 12.3 lipase normal creatinine 1.52 improved from previous. She has transaminitis. Her CT abdomen pelvis had a normal common bile duct. With her COPD started on prednisone and antibiotics. She started stool softeners constipation. Lipase normal. She has transaminitis, will hold her statin at this time. Follow-up with her PCP. All questions were answered. She is tolerating p.o. intake on reevaluation. Prescription for Zofran. Lab Data Labs: Laboratory Results - last 24 hr 11/24/24 11/24/24 18:49 20:00 WBC 12.3 H RBC 5.25 Hgb 14.0 Hct 43.6 MCV 83.0 MCH 26.7 L MCHC 32.1 RDW Std Deviation 43.7 RDW Coeff of Navya 14.5 Plt Count 220 MPV 11.2 Immature Gran % (Auto) 0.300 Neut % (Auto) 82.4 H Lymph % (Auto) 5.[address] [place] % (Auto) 6.6 Eos % (Auto) 4.8 Baso % (Auto) 0.3 Absolute Neuts (auto) 10.1 H Absolute Lymphs (auto) 0.69 L Nucleated RBC % 0 Sodium 138 Potassium 3.7 Chloride 100 Carbon Dioxide 22.9 Anion Gap 15 BUN 12 Creatinine 1.52 H Estim Creat Clear Calc 42.94 L Est GFR (MDRD) Non-Af 36 L BUN/Creatinine Ratio 8.1 L Glucose 149 H Lactic Acid 1.4 Calcium 10.7 Total Bilirubin 1.41 H AST 338 H ALT 465 H Alkaline Phosphatase 413 H Total Protein 8.1 Albumin 4.3 Globulin 3.8 Albumin/Globulin Ratio 1.1 Lipase 27 Urine Color Yellow Urine Clarity Clear Urine pH 6.0 Ur Specific [place] 1.015 Urine Protein 100 H Urine Glucose (UA) 1000 H Urine Ketones Negative Urine Occult Blood 50 H Urine Nitrite Negative Urine Bilirubin Negative Urine Urobilinogen Normal Ur Leukocyte Esterase Negative Urine RBC 0 SEEN Urine WBC 0-5 SEEN Ur Squamous Epith Cells 0 SEEN Urine Bacteria 0 SEEN Urine Mucus 0 SEEN Radiography Diagnostic Testing: Clinical Impression(s) from Imaging Studies Abdomen/Pelvis CT 11/24/24 18:48 IMPRESSION: No acute findings in the abdomen and pelvis. Large amount of colonic stool. Bilateral femoral head avascular necrosis. OVERALL FINAL ASSESSMENT: . LI-RADS is not meant to be used in patients <18 years or patients with cirrhosis due to congenital hepatic fibrosis or due to vascular disorders, because these patients have a lower chance of developing HCC. Reading Location: [facility] Chest X-Ray 11/24/24 19:00 IMPRESSION: NO ACUTE FINDINGS. Reading Location: [facility] Discharge Plan Triage Chief Complaint: Nausea/Vomiting ED Midlevel Provider: Omayra Espino ED Provider: Josse Meza Dx/Rx/DC Orders Clinical Impression: Nausea and vomiting, Constipation, Transaminitis, COPD exacerbation, Chronic kidney disease Instructions: COPD Diabetes, ED Vomiting (Adult) Prescriptions: New ondansetron 4 mg tablet,disintegrating 4 mg PO Q6H PRN (Reason: nausea and vomiting) Qty: 12 0RF azithromycin 250 mg tablet 250 mg PO DAILY Qty: 4 0RF prednisone 20 mg tablet 40 mg PO DAILY 4 Days Qty: 8 0RF No Action aspirin 81 MG tablet,delayed release (DR/EC) 81 mg PO DAILY Oxygen, Home [Home Oxygen] 2 lpm NASAL CONT PRN (Reason: hypoxia/sob) amlodipine 10 mg tablet 10 mg PO DAILY Qty: 30 0RF hydralazine 25 mg tablet 25 mg PO BID 30 Days Qty: 60 0RF (DME) blood sugar diagnostic Strip See Dose Instructions .ROUTE .MEDSUPPLY Qty: 100 2RF Dose Instruction: As directed Rx Instructions: As directed check bs twice a day (DME) Disability Placard See Rx Instructions .Route .MEDSUPPLY Qty: 1 0RF Rx Instructions: expires 12/01/2027 (DME) Electric Scooter See Rx Instructions .Route .MEDSUPPLY Qty: 1 0RF Rx Instructions: As directed budesonide-formoterol [Symbicort] 160-4.5 mcg/actuation HFA aerosol inhaler 2 puff INHALATION Q12H Qty: 10.2 11RF tiotropium bromide [Spiriva with HandiHaler] 18 mcg capsule, w/inhalation device 1 cap inhalation 1500 Qty: 30 11RF Rx Instructions: inhale contents of 1 capsule by mouth once daily bupropion HCl [Wellbutrin SR] 200 mg tablet sustained-release 12 hr 200 mg PO DAILY Qty: 90 3RF rosuvastatin 20 mg tablet 20 mg PO DAILY Qty: 90 3RF albuterol sulfate [Ventolin HFA] 90 mcg/actuation HFA aerosol inhaler 2 puff INHALATION Q6H PRN (Reason: shortness of breath or wheezing) Qty: 8.5 3RF ipratropium-albuterol 0.5 mg-3 mg(2.5 mg base)/3 mL solution for nebulization 3 ml INHALATION Q4H PRN (Reason: shortness of breath or wheezing) Qty: 180 0RF pantoprazole [Protonix] 40 mg tablet,delayed release (DR/EC) 40 mg PO DAILY Qty: 90 1RF levothyroxine 100 mcg tablet 100 mcg PO DAILY Qty: 90 1RF glimepiride 2 mg tablet 2 mg PO QDAY 90 Days Qty: 90 1RF (DME) OneTouch Ultra Test Strip See Rx Instructions .Route Qty: 100 3RF Rx Instructions: As directed to check blood glucose 1-2 times daily for DMII Patient requesting One Touch Ultra Mini test strips Januvia 50 mg tablet 50 mg PO QDAY Qty: 90 1RF Primary Care Provider: Paige Jon Referrals: Paige Jon MD [Primary Care Provider] - Activity Restrictions/Additional Instructions: I prescribed Zofran to take as needed for nausea and vomiting. Drink plenty of fluids and a bland diet as tolerated. Your CAT scan showed that you are constipated. Take [id number] Dulcolax and MiraLAX daily until you are having soft regular bowel movements. Your liver enzymes were elevated. Stop taking rosuvastatin which is your cholesterol medication for several days and call your primary care doctor on Tuesday to schedule follow-up appointment. The liver enzymes will need rechecked. I prescribed an antibiotic and prednisone to treat a COPD exacerbation. Print Language: Greek Disposition Disposition: Home, Self Care Discharge Date/Time: 11/24/24 22:14
--- NOTE | 2024-11-24 19:00 | RAD_ITS ---
PROCEDURE: CHEST PA AND LATERAL 11/24/2024 REASON FOR EXAM: COUGH TECHNIQUE: Frontal and lateral views of the chest. COMPARISON: 10/30/2024 FINDINGS: Hardware: None Heart: The heart size is normal. Mediastinum: The mediastinal contour is unremarkable. Lungs: No focal consolidation. No pneumothorax. No pleural effusion. Mild bibasilar atelectasis Bones: The bones are unremarkable. RAD/Chest PA and Lateral IMPRESSION: NO ACUTE FINDINGS. Reading Location[facility]
[2024-11-24 19:13] LABS: Lactic Acid 1.4 mmol/L (0.0-2.0)
[2024-11-24 19:14] LABS: ALB/GLOB Ratio 1.1 RATIO (0.9-2.4); AST(SGOT) 338 U/L (<=31); Alanine Aminotransfer ALT/SGPT 465 U/L (<=34); Albumin, Serum 4.3 g/dL (3.4-4.8); Alkaline Phosphatase 413 U/L (35-104); Anion Gap 15 (5-15); BUN 12 mg/dL (4-19); BUN/Creat Ratio 8.1 RATIO (10-20); Calcium,Total 10.7 mg/dL (7.6-11.0); Carbon Dioxide 22.9 mmol/L (21.0-32.0); Chloride 100 mmol/L (98-108); Creatinine, Serum 1.52 mg/dL (0.70-1.20); EST Glomerular Filtration Rate 36 (>60); Estimated Creatinine Clearance 42.94 ml/min (50-250); Globulin 3.8 g/dL (2.2-4.2); Glucose 149 mg/dL (70-99); Lipase 27 U/L (13-75); Potassium 3.7 mmol/L (3.3-5.1); Protein, Total 8.1 g/dL (5.9-8.4); Sodium Level 138 mmol/L (133-145); Total Bilirubin 1.41 mg/dL (0.00-1.30)
[2024-11-24 19:19] VITALS: BP 155/70; PULSE 98; RESP 18; O2SAT 94
[2024-11-24 19:29] LABS: Absolute Lymphocyte Count 0.69 X10^3/uL (0.83-4.51); Absolute Neutrophil Count 10.1 X10^3/uL (2.0-7.7); Basophil# 0.04 X10^3/uL; Basophil% 0.3 % (0-1); Eosinophil# 0.59 X10^3/uL; Eosinophils% 4.8 % (0-5); Hematocrit 43.6 % (37-47); Lymphocyte # 0.69 X10^3/ul (0.83-4.51); Lymphocyte % 5.6 % (19-41); Mean Corp Hgb Conc 32.1 g/dL (32-36); Mean Corpuscular Hgb 26.7 pg (27.0-32.0); Mean Platelet Vol. 11.2 fl (6.2-12.0); Monocyte# 0.81 X10^3/uL; Monocyte% 6.6 % (0-10); NRBC Flagged by Analyzer 0 % (0-5); Neutrophil # 10.11 X10^3/uL (2.7-7.7); Neutrophil % 82.4 % (47-70); Platelet Count 220 K/mm3 (150-450); RBC Distribution Width CV 14.5 % (11.6-14.6); RBC Distribution Width SD 43.7 fl (35.1-43.9); Red Blood Count 5.25 M/mm3 (4.2-5.4); White Blood Count 12.3 K/mm3 (4.4-11.0)
[2024-11-24 20:07] LABS: Bacteria 0 SEEN /hpf (None Seen); Mucous, Urine 0 SEEN /hpf (<or=2+); Red Blood Cells-Urine 0 SEEN /hpf (0-5); Squamous Epithelial Cells - UA 0 SEEN /hpf (5-10)
[2024-11-24 20:34] LABS: Color, Urine Yellow (Yellow); Glucose, Dipstick 1000 mg/dl (Normal); Ketone-Dipstick Negative (Negative); Leukocyte Esterase-Dipstick Negative /ul (Negative); Nitrite-Dipstick Negative (Negative); Occult Blood-Urine 50 /ul (Negative); Protein-Dipstick 100 mg/dl (Negative); Specific Gravity, Urine 1.015 (1.002-1.030); Urine Bilirubin Dipstick Negative (Negative); Urine Clarity Clear (Clear); Urine Urobilinogen Normal (Normal)
[2024-11-24] MEDS: predniSONE 20 MG Tablet 40 MG PO (20:43)
[2024-11-24] MEDS: Azithromycin 250 MG Tablet 500 MG PO (20:44)
[2024-11-24 21:00] VITALS: BP 154/84; PULSE 92; RESP 16; O2SAT 96
[2024-11-24 21:31] LABS: White Blood Cells 0-5 SEEN /hpf (0-5)
[2024-11-24 21:47] VITALS: BP 136/84; PULSE 70; RESP 16; TEMP 37.1; O2SAT 94
== END 2024-11-24 22:14 | disposition home or self-care (01) ==
PROVIDERS: Physician Assistant; Emergency Provider Emergency Medicine; PCP Internal Medicine; Visit Provider Emergency Medicine
DX: R11.2 Nausea with vomiting, unspecified (principal); J44.1 Chronic obstructive pulmonary disease with (acute) exacerbation; E11.22 Type 2 diabetes mellitus with diabetic chronic kidney disease; R74.8 Abnormal levels of other serum enzymes; K59.00 Constipation, unspecified; E78.5 Hyperlipidemia, unspecified; I12.9 Hypertensive chronic kidney disease with stage 1 through stage 4 chronic kidney disease, or unspecified chronic kidney disease; N18.9 Chronic kidney disease, unspecified; F32.A Depression, unspecified; K21.9 Gastro-esophageal reflux disease without esophagitis; E03.9 Hypothyroidism, unspecified; Z86.73 Personal history of transient ischemic attack (TIA), and cerebral infarction without residual deficits; Z79.82 Long term (current) use of aspirin; Z79.84 Long term (current) use of oral hypoglycemic drugs; Z79.890 Hormone replacement therapy; Z79.899 Other long term (current) drug therapy; Z87.891 Personal history of nicotine dependence
CPT/HCPCS: 71046; 74176; 80053; 81001; 83605; 83690; 85025; 96361; 96374; 99284; A4216; J2405

== ENCOUNTER → 2024-11-29 | Outpatient (CLI) | payer MEDICARE, MEDICAID, SELFPAY ==
[2024-11-29 12:34] LABS: Absolute Lymphocyte Count 1.13 X10^3/uL (0.83-4.51); Absolute Neutrophil Count 10.4 X10^3/uL (2.0-7.7); Basophil# 0.05 X10^3/uL; Basophil% 0.4 % (0-1); Eosinophil# 0.36 X10^3/uL; Eosinophils% 2.7 % (0-5); Hematocrit 37.3 % (37-47); Hemoglobin 12.1 g/dL (12.0-15.0); Lymphocyte # 1.13 X10^3/ul (0.83-4.51); Lymphocyte % 8.5 % (19-41); Mean Corp Hgb Conc 32.4 g/dL (32-36); Mean Corpuscular Hgb 27.1 pg (27.0-32.0); Mean Corpuscular Volume 83.6 fL (81-99); Mean Platelet Vol. 11.1 fl (6.2-12.0); Monocyte# 1.13 X10^3/uL; Monocyte% 8.5 % (0-10); NRBC Flagged by Analyzer 0.2 % (0-5); Neutrophil # 10.39 X10^3/uL (2.7-7.7); Neutrophil % 77.9 % (47-70); Platelet Count 289 K/mm3 (150-450); RBC Distribution Width CV 15.2 % (11.6-14.6); RBC Distribution Width SD 45.9 fl (35.1-43.9); Red Blood Count 4.46 M/mm3 (4.2-5.4); White Blood Count 13.3 K/mm3 (4.4-11.0)
[2024-11-29 13:12] LABS: PTHIN 109 pg/mL (11-61)
[2024-11-29 13:21] LABS: Thyroid Stim Hormone (TSH) 0.368 uIU/mL (0.300-4.200)
[2024-11-29 13:45] LABS: ALB/GLOB Ratio 1.3 RATIO (0.9-2.4); AST(SGOT) 35 U/L (<=31); Alanine Aminotransfer ALT/SGPT 105 U/L (<=34); Albumin, Serum 4.1 g/dL (3.4-4.8); Alkaline Phosphatase 216 U/L (35-104); Anion Gap 14 (5-15); BUN 31 mg/dL (4-19); BUN/Creat Ratio 23.9 RATIO (10-20); Calcium,Total 9.7 mg/dL (7.6-11.0); Chloride 104 mmol/L (98-108); Creatinine, Serum 1.28 mg/dL (0.70-1.20); EST Glomerular Filtration Rate 45 (>60); Globulin 3.1 g/dL (2.2-4.2); Glucose 123 mg/dL (70-99); Potassium 3.6 mmol/L (3.3-5.1); Protein, Total 7.2 g/dL (5.9-8.4); Sodium Level 140 mmol/L (133-145); Total Bilirubin 0.34 mg/dL (0.00-1.30)
== END | disposition home or self-care (01) ==
LOC: BIMLAB 11:31
PROVIDERS: Physician Assistant; PCP Internal Medicine; Referring Provider Internal Medicine; Visit Provider Internal Medicine
DX: R74.01 Elevation of levels of liver transaminase levels (principal); R74.8 Abnormal levels of other serum enzymes; E83.52 Hypercalcemia; Z99.2 Dependence on renal dialysis; E03.9 Hypothyroidism, unspecified
CPT/HCPCS: 80053; 83970; 84443; 85025

== ENCOUNTER → 2024-12-21 | Outpatient (CLI) | payer MEDICARE, MEDICAID, SELFPAY ==
--- NOTE | 2024-12-21 09:50 | NM_ITS ---
PROCEDURE: PARATHYROID SCAN REASON FOR EXAM: HYPERCALCEMIA WITH ELEVATED PTH TECHNIQUE: Nuclear medicine parathyroid imaging performed following intravenous technetium- 99m sestamibi administration. Anterior imaging of the neck was obtained immediately and on delayed imaging RADIOPHARMACEUTICAL: Technetium 99 M sestamibi DOSE 28.7mCi, intravenous. COMPARISON: None. FINDINGS: A relative paucity thyroid uptake is seen on initial imaging,, but no focal area relative increased uptake is seen either initially, or on delayed imaging. NM/Parathyroid Scan IMPRESSION: 1. No evidence of hyperactive parathyroid tissue visualized areas. 2. Paucity of thyroid uptake overall; recommend clinical and laboratory correla tion. Reading Location: [id number]
== END | disposition home or self-care (01) ==
LOC: NM 09:46
PROVIDERS: PCP Internal Medicine; Referring Provider Physician Assistant; Visit Provider Physician Assistant
DX: E83.52 Hypercalcemia (principal); R79.89 Other specified abnormal findings of blood chemistry
CPT/HCPCS: 78070; A9500

== ENCOUNTER → 2024-12-26 | Outpatient (CLI) | payer MEDICARE, MEDICAID, SELFPAY ==
[2024-12-26 17:45] LABS: ALB/GLOB Ratio 1.2 RATIO (0.9-2.4); AST(SGOT) 26 U/L (<=31); Alanine Aminotransfer ALT/SGPT 26 U/L (<=34); Albumin, Serum 4.2 g/dL (3.4-4.8); Alkaline Phosphatase 118 U/L (35-104); Anion Gap 14 (5-15); BUN 19 mg/dL (4-19); BUN/Creat Ratio 13.6 RATIO (10-20); Calcium,Total 10.5 mg/dL (7.6-11.0); Carbon Dioxide 23.9 mmol/L (21.0-32.0); Chloride 102 mmol/L (98-108); Creatinine, Serum 1.39 mg/dL (0.70-1.20); EST Glomerular Filtration Rate 41 (>60); Globulin 3.4 g/dL (2.2-4.2); Glucose 105 mg/dL (70-99); Potassium 3.5 mmol/L (3.3-5.1); Pro- Brain NATRIURETIC PEPTIDE 233 pg/mL (<=900); Protein, Total 7.6 g/dL (5.9-8.4); Sodium Level 140 mmol/L (133-145); Total Bilirubin 0.24 mg/dL (0.00-1.30)
== END | disposition home or self-care (01) ==
LOC: BIMLAB 14:33
PROVIDERS: PCP Internal Medicine; Referring Provider Internal Medicine; Visit Provider Internal Medicine
DX: R06.09 Other forms of dyspnea (principal); E11.69 Type 2 diabetes mellitus with other specified complication
CPT/HCPCS: 36415; 80053; 83880

== ENCOUNTER → 2025-01-11 | Outpatient (CLI) | payer MEDICARE, MEDICAID, SELFPAY ==
[2025-01-11 12:46] LABS: Hematocrit 38.9 % (37-47); Hemoglobin 12.1 g/dL (12.0-15.0); Mean Corp Hgb Conc 31.1 g/dL (32-36); Mean Corpuscular Hgb 25.6 pg (27.0-32.0); Mean Corpuscular Volume 82.4 fL (81-99); Mean Platelet Vol. 11.7 fl (6.2-12.0); Platelet Count 322 K/mm3 (150-450); RBC Distribution Width CV 15.5 % (11.6-14.6); RBC Distribution Width SD 46.5 fl (35.1-43.9); Red Blood Count 4.72 M/mm3 (4.2-5.4); White Blood Count 11.6 K/mm3 (4.4-11.0)
[2025-01-11 13:13] LABS: Albumin, Serum 4.1 g/dL (3.4-4.8); Anion Gap 13 (5-15); BUN 13 mg/dL (4-19); BUN/Creat Ratio 10.2 RATIO (10-20); Calcium,Total 10.2 mg/dL (7.6-11.0); Carbon Dioxide 25.1 mmol/L (21.0-32.0); Chloride 100 mmol/L (98-108); Creatinine, Serum 1.26 mg/dL (0.70-1.20); EST Glomerular Filtration Rate 46 (>60); Glucose 163 mg/dL (70-99); Phosphorus 3.4 mg/dL (2.7-4.5); Potassium 3.8 mmol/L (3.3-5.1); Sodium Level 138 mmol/L (133-145)
[2025-01-11 13:18] LABS: Protein, Urine (Random) 53.4 mg/dL (0.0-12.0); Protein:Creat Ratio 490 mg/g CRE (0-200)
== END | disposition home or self-care (01) ==
LOC: BIMLAB 10:55
PROVIDERS: PCP Internal Medicine; Referring Provider Internal Medicine Nephrology; Visit Provider Internal Medicine Nephrology
DX: N18.32 Chronic kidney disease, stage 3b (principal)
CPT/HCPCS: 36415; 80069; 82570; 84156; 85027

== ENCOUNTER → 2025-02-07 | Outpatient (CLI) | payer MEDICARE, MEDICAID, SELFPAY ==
[2025-02-07 12:58] LABS: AST(SGOT) 22 U/L (<=31); Alanine Aminotransfer ALT/SGPT 20 U/L (<=34); Albumin, Serum 4.2 g/dL (3.4-4.8); Alkaline Phosphatase 97 U/L (35-104); Anion Gap 11 (5-15); BUN 18 mg/dL (4-19); BUN/Creat Ratio 11.7 RATIO (10-20); Calcium,Total 9.9 mg/dL (7.6-11.0); Carbon Dioxide 26.5 mmol/L (21.0-32.0); Chloride 101 mmol/L (98-108); Globulin 3.1 g/dL (2.2-4.2); Glucose 164 mg/dL (70-99); Potassium 3.9 mmol/L (3.3-5.1)
== END | disposition home or self-care (01) ==
LOC: BIMLAB 10:27
PROVIDERS: PCP Internal Medicine; Referring Provider Internal Medicine; Visit Provider Internal Medicine
DX: E78.5 Hyperlipidemia, unspecified (principal)
CPT/HCPCS: 36415; 80053

== ENCOUNTER → 2025-02-22 | Outpatient (CLI) | payer MEDICARE, MEDICAID, SELFPAY ==
--- NOTE | 2025-02-22 13:24 | CT_ITS ---
PROCEDURE: LOW DOSE CT LUNG SCREENING 02/22/2025 REASON FOR EXAM: SMOKER Former smoker. Patient has smoked 1 pack per day for multiple years. TECHNIQUE: LOW DOSE CT LUNG SCREENING Coronal and Sagittal reconstruction series were provided. One or more dose reduction techniques were used (e.g., Automated exposure control, adjustment of the mA and/or kV according to patient size, use of iterative reconstruction technique). REFERENCE LINK: [employer] Lung-RADS RADIATION DOSE SUMMARY: CTDlvol: 4.02 mGy DLP: 145.97 mGycm COMPARISON: Prior study dated January 30, 2024. FINDINGS: PULMONARY NODULES: (Only nodules >3mm are reported) Nodules described below are on series 1 unless otherwise specified. Pulmonary Nodules: No suspicious pulmonary nodules are seen. Hardware:None Lymph Nodes:No significant lymph nodes are present. Heart and Vasculature:The heart is not enlarged.Mild degree of anterior pericardial thickening. Atherosclerotic calcification of the thoracic aorta. Coronary Artery Calcifications: Present Lungs and Airways: Stable linear scarring in the upper lobes mild emphysematous changes. Pleura:No pleural effusion Upper Abdomen:Unremarkable Bones:Degenerative changes of the thoracic spine. CT/Low Dose CT Lung Screening IMPRESSION: No suspicious nodules are seen. Coronary artery calcification (CAC) is is present Lung-RADS Category: 2 BENIGN (BASED ON IMAGING FEATURES OR INDOLENT BEHAVIOR). RECOMMEND 12-MONTH SCREENING LDCT. Other Significant Findings: Reading Location: [id number]
--- NOTE | 2025-02-22 13:30 | RAD_ITS ---
PROCEDURE: KNEE 4 OR MORE VIEWS 02/22/2025 REASON FOR EXAM: LEFT KNEE PAIN TECHNIQUE: KNEE 4 OR MORE VIEWS Laterality: Left knee. COMPARISON: None FINDINGS: Bones: No fracture. No suspicious bone lesion. Joints: Normal alignment. Mild degenerative changes. Effusion: No effusion. Soft tissues: Soft tissues are unremarkable. Other: RAD/Knee 4 or More Views IMPRESSION: NO EFFUSION ACUTE FRACTURE OR DISLOCATION. Reading Location: [id number]
== END | disposition home or self-care (01) ==
LOC: CT 13:20
PROVIDERS: PCP Internal Medicine; Referring Provider Nurse Practitioner Acute Care; Visit Provider Nurse Practitioner Acute Care
DX: M25.562 Pain in left knee (principal); F17.210 Nicotine dependence, cigarettes, uncomplicated
CPT/HCPCS: 71271; 73564

== ENCOUNTER → 2025-07-16 | Outpatient (CLI) | payer MEDICARE, MEDICAID, SELFPAY ==
[2025-07-16 13:24] LABS: Hematocrit 40.8 % (37-47); Hemoglobin 12.9 g/dL (12.0-15.0); Immature Granulocytes Count 0.040 X10^3/uL (0.0-0.0); Mean Corp Hgb Conc 31.6 g/dL (32-36); Mean Corpuscular Volume 83.4 fL (81-99); Mean Platelet Vol. 10.7 fl (6.2-12.0); NRBC Flagged by Analyzer 0 % (0-5); Platelet Count 316 K/mm3 (150-450); RBC Distribution Width CV 14.9 % (11.6-14.6); RBC Distribution Width SD 45.1 fl (35.1-43.9); Red Blood Count 4.89 M/mm3 (4.2-5.4); White Blood Count 12.7 K/mm3 (4.4-11.0)
[2025-07-16 14:14] LABS: AST(SGOT) 25 U/L (<=31); Alanine Aminotransfer ALT/SGPT 20 U/L (<=34); Albumin, Serum 4.4 g/dL (3.4-4.8); Alkaline Phosphatase 90 U/L (35-104); Anion Gap 12 (7-18); BUN 20 mg/dL (4-19); BUN/Creat Ratio 13.6 RATIO (10-20); Calcium,Total 10.6 mg/dL (7.6-11.0); Carbon Dioxide 26.1 mmol/L (20.0-29.0); Chloride 103 mmol/L (96-106); Cholesterol 151 mg/dL (<=200); Globulin 3.6 g/dL (2.2-4.2); Glucose 150 mg/dL (70-99); Low Density Lipoprotein Calc. 73 mg/dL; Potassium 4.4 mmol/L (3.5-5.1); Triglycerides 123 mg/dL; Very Low Density Lipoprotein 25 mg/dL (5-40); Vitamin D,25 Hydroxy 31.2 ng/mL (30-100); cholesterol:hdl ratio screen 2.68
[2025-07-16 14:56] LABS: Creatinine, Urine (random) 195.00 mg/dL (28.00-217.00); Protein, Urine (Random) 72.0 mg/dL (0.0-12.0); Protein:Creat Ratio 369 mg/g CRE (0-200)
== END | disposition home or self-care (01) ==
LOC: LAB 12:53
PROVIDERS: PCP Internal Medicine; Referring Provider Internal Medicine; Visit Provider Internal Medicine
DX: I12.9 Hypertensive chronic kidney disease with stage 1 through stage 4 chronic kidney disease, or unspecified chronic kidney disease (principal); E11.22 Type 2 diabetes mellitus with diabetic chronic kidney disease; E11.69 Type 2 diabetes mellitus with other specified complication; N18.32 Chronic kidney disease, stage 3b; M85.80 Other specified disorders of bone density and structure, unspecified site; E03.9 Hypothyroidism, unspecified
CPT/HCPCS: 80053; 80061; 82306; 82570; 84156; 84443; 85025